=== PATIENT | male | born 1935 | race Caucasian/White ===

== ENCOUNTER 2018-10-22 17:29 | Inpatient (IN) ==
[2018-10-22] MEDS ORDERED: SODIUM CHLORIDE 0.9% 500 ML IV SCH (18:00)
--- NOTE | 2018-10-22 18:15 | XRay Report ---
XR chest 1V portable HISTORY: weakness COMPARISON: None. FINDINGS: The lungs are clear. Cardiac silhouette is mildly. No pleural effusions. No pneumothorax. IMPRESSION: Mild cardiomegaly. Electronically signed by: Justo Lan M.D. 10/22/2018 6:13 PM
[2018-10-22] MEDS ORDERED: LABETALOL HCL IV 5 MG/ML 20ML IV STA ×2 (18:23→19:18)
[2018-10-22 18:45] LABS: Basophils # (auto) 0.05 K/uL (0-0.2); Basophils % (auto) 0.5 %; Hematocrit (blood only) 36.6 % (42-52); Hemoglobin 12.7 g/dL (14.0-18.0); Immature Granulocytes # (auto) 0.03 K/uL (0.00-0.02); Immature Granulocytes % (auto) 0.3 %; Lymphocytes # (auto) 2.55 K/uL (1.2-3.4); Lymphocytes % (auto) 25.3 %; Mean Corpuscular Hgb Conc 34.7 g/dL (32-36); Mean Corpuscular Volume 97.9 fL (80-100); Mean Platelet Volume 10.2 fL (7.4-10.4); Monocytes # (auto) 0.75 K/uL (0.11-0.59); Monocytes % (auto) 7.4 %; Neutrophils % (auto) 62.5 %; Platelet Count 219 K/uL (130-400); RDW Coefficient of Variation 14.2 % (11.5-14.5); RDW Standard Deviation 50.5 fL (36.4-46.3); Red Blood Count 3.74 M/uL (4.7-6.1); White Blood Count 10.08 K/uL (4.8-10.8)
[2018-10-22 19:06] LABS: Alanine Aminotransferase 23 U/L (12-78); Albumin Level 3.5 gm/dl (3.4-5.0); Aspartate Aminotransferase 21 U/L (15-37); Blood Urea Nitrogen 30 mg/dl (7-18); Calcium 8.3 mg/dl (8.5-10.1); Carbon Dioxide 30 mmol/L (21-32); Chloride 104 mmol/L (98-107); Creatinine Clr Calc Pharmacy 33.1 ml/min; Est GFR (African American) 37.7; Est GFR (Non-African American) 32.5; Glucose 94 mg/dl (70-99); Potassium 3.7 mmol/L (3.5-5.1); Sodium 141 mmol/L (136-145)
[2018-10-22 19:16] LABS: Albumin Globulin Ratio 0.9 (0.9-2); Alkaline Phosphatase 94 U/L (45-117); Bilirubin,Total 0.7 mg/dl (0.2-1); Globulin 3.8 gm/dl (2.5-4.0); Total Protein 7.3 gm/dl (6.4-8.2); Troponin I < 0.015 ng/ml (0-0.045)
[2018-10-22 19:23] LABS: Appearance Urine Clear (Clear); Bacteria Urine Automated 1+ (Negative); Bilirubin Urine Negative (Negative); Blood Urine Negative (Negative); Cast Urine Automated 0 /lpf (0-5); Color Urine Yellow; Epithelial Cell Urine Auto 0-5 /lpf (0-5); Glucose Urine UA Negative (Negative); Ketones Urine Negative (Negative); Leukocyte Esterase Urine Negative (Negative); Nitrite Urine Negative (Negative); Protein Urine 2+ (Negative); RBC Urine Automated 0-4 /hpf (0-4); Specific Gravity Urine 1.016 (1.000-1.030); Urobilinogen Urine Negative (Negative)
[2018-10-22] MEDS ORDERED: HydrALAZINE HCL 20 MG/ML VIAL IV STA (19:37)
--- NOTE | 2018-10-22 21:24 | Emergency Department Note ---
Entered by Whitney Potts acting as a scribe for Moreno Gaxiola MD History of Present Illness General Chief complaint: Syncope (Near Syncope) Stated complaint: NEAR SYNCOPE, FALL, HTN Time Seen by Provider: 10/22/18 17:44 Source: patient History of Present Illness Provider complaint: syncope Onset (ago): hour(s) (this afternoon) Location: head Severity: similar to prior episodes Pain Consistency: + other (episodes) Associated symptoms: + other (+dizziness, +leg pain); no headaches The patient is a 83 year old male w/ PMHx of dementia who presents to the ED w/ CC of a syncope episode that occurred this afternoon. The patient states that he has been having frequent syncope episodes for the past several weeks. He states that his most recent one was this afternoon. The patient states that he was walking with his walker when it occurred. The patient states that he has been dizzy when he stands up. He denies any headache. He reports govind t he has pain in his legs bilaterally. He denies any recent changes in medication. Home Medications Home Medications Medication Instructions Recorded Confirmed Type allopurinol 100 mg PO DAILY 04/19/18 10/22/18 History aspirin [Aspir-81] 81 mg PO DAILY 04/19/18 10/22/18 History cetirizine 10 mg PO DAILY 04/19/18 10/22/18 History guaifenesin [Mucinex] 600 mg PO Q3D 04/19/18 10/22/18 History losartan 25 mg PO DAILY 04/19/18 10/22/18 History oxycodone-acetaminophen 1 tab PO BID PRN 04/19/18 10/22/18 History propranolol 120 mg PO DAILY 04/19/18 10/22/18 History fluocinonide 1 applic TOPICAL DAILY PRN 10/22/18 10/22/18 History vit C,Q-Rl-sanns-lutein-zeaxan 1 tab PO DAILY 10/22/18 10/22/18 History [PreserVision AREDS-2] Allergies Allergy/AdvReac Type Severity Reaction Status Date / Time No Known Allergies Allergy Unknown Verified 10/22/18 18:24 Past Med/Surg History Medical History Dementia (Chronic) HTN (hypertension) Family History Other Family history non-contributory Social History marital status: Current Living Situation: Spouse current occupational status: retired Feels Safe at Home: Yes Smoking Status: Never smoker Review of Systems See HPI for pertinent positives & negatives. and A total of 10 systems reviewed and were otherwise negative Physical Exam Vital Signs Vital Signs - 24 hr 10/22/18 17:30 10/22/18 18:03 10/22/18 18:40 Temperature 36.5 C Temperature Source Oral Sepsis Recent Fever Within 48 Hours No Sepsis New/Unexplained Change in Mental Status No Sepsis Action Taken by Nursing No Action Required Pulse Rate 75 Pulse Rate [Left Finger] 75 Pulse Rate from SpO2 Sensor Respiratory Rate 15 22 Respiratory Effort / Characteristics Non-Labored Non-Labored Respiratory Depth Normal Normal Respiratory Pattern Regular Regular Blood Pressure 240/121 H Blood Pressure [Left Arm] 229/105 H Blood Pressure Mean 160 Blood Pressure Mean [Left Arm] 146 Pulse Oximetry 94 95 94 Oxygen Delivery Method Room Air Room Air Room Air 10/22/18 18:59 10/22/18 19:16 10/22/18 19:31 Temperature Temperature Source Sepsis Recent Fever Within 48 Hours Sepsis New/Unexplained Change in Mental Status Sepsis Action Taken by Nursing Pulse Rate 75 71 74 Pulse Rate [Left Finger] Pulse Rate from SpO2 Sensor 75 71 74 Respiratory Rate 22 23 20 Respiratory Effort / Characteristics Respiratory Depth Respiratory Pattern Blood Pressure 212/107 H 233/100 H 204/101 H Blood Pressure [Left Arm] Blood Pressure Mean 142 144 135 Blood Pressure Mean [Left Arm] Pulse Oximetry 95 93 93 Oxygen Delivery Method Room Air 10/22/18 19:45 10/22/18 19:52 10/22/18 20:04 Temperature Temperature Source Sepsis Recent Fever Within 48 Hours Sepsis New/Unexplained Change in Mental Status Sepsis Action Taken by Nursing Pulse Rate 80 73 74 Pulse Rate [Left Finger] Pulse Rate from SpO2 Sensor 79 73 75 Respiratory Rate 25 H 19 24 Respiratory Effort / Characteristics Respiratory Depth Respiratory Pattern Blood Pressure 215/179 H 234/112 H 198/114 H Blood Pressure [Left Arm] Blood Pressure Mean 191 152 142 Blood Pressure Mean [Left Arm] Pulse Oximetry 93 95 96 Oxygen Delivery Method 10/22/18 20:05 10/22/18 20:15 10/22/18 20:20 Temperature Temperature Source Sepsis Recent Fever Within 48 Hours Sepsis New/Unexplained Change in Mental Status Sepsis Action Taken by Nursing Pulse Rate 74 73 75 Pulse Rate [Left Finger] Pulse Rate from SpO2 Sensor 73 73 74 Respiratory Rate 23 18 18 Respiratory Effort / Characteristics Respiratory Depth Respiratory Pattern Blood Pressure 224/102 H 230/99 H 188/93 H Blood Pressure [Left Arm] Blood Pressure Mean 142 142 124 Blood Pressure Mean [Left Arm] Pulse Oximetry 96 97 96 Oxygen Delivery Method 10/22/18 20:30 10/22/18 20:45 10/22/18 21:00 Temperature Temperature Source Sepsis Recent Fever Within 48 Hours Sepsis New/Unexplained Change in Mental Status Sepsis Action Taken by Nursing Pulse Rate 73 72 71 Pulse Rate [Left Finger] Pulse Rate from SpO2 Sensor 73 72 71 Respiratory Rate 22 22 22 Respiratory Effort / Characteristics Respiratory Depth Respiratory Pattern Blood Pressure 222/102 H 207/99 H 195/96 H Blood Pressure [Left Arm] Blood Pressure Mean 142 135 129 Blood Pressure Mean [Left Arm] Pulse Oximetry 96 96 97 Oxygen Delivery Method Room Air GENERAL: Well appearing, well nourished, NAD, non-toxic. EYE EXAM: Normal conjunctiva. PERRL, no anisocoria and EOM's grossly intact w/o pain. OROPHARYNX: Moist mucous membranes. Grossly normal dentition. NECK: Supple, no nuchal rigidity, no adenopathy, non-tender. No signs of meningismus. LUNGS: Clear to auscultation. Normal chest wall mechanics. HEART: NSR, systolic ejection murmur. ABDOMEN: Abdomen soft, non-tender, normo-active bowel sounds, no masses, no rebound or guarding. BACK: No CVA TTP. SKIN: No rashes and no bruising. UPPER EXTREMITIES: Upper extremities are grossly normal. LOWER EXTREMITIES: No pitting edema. No calf pain. NEURO EXAM: A&O x3, cranial nerves II-XII grossly intact, normal speech, 4/5 strength throughout, no sensory deficits, good finger to nose, no pronator drift, moves all 4 extremities on command w/o issue. Course 1751: The patient was evaluated in room C4, and a complete history and physical examination were performed. 1900: I talked to the patient's family and they stated that the patient has had no episodes of passing out. 2047: I discussed the patient's case with [facility], he will accept the patient for further evaluation. Consultations Consultation #1: Dr. Crystal Olivares Hospitalist Time: 20:48 Administered Medications Discontinued Medications Hydralazine HCl (Hydralazine Hcl) 10 mg IV NOW STA Stop: 10/22/18 19:38 Last Admin: 10/22/18 19:52 Dose: 10 mg Documented by: [id number] Sodium Chloride (Nss) 500 mls @ 999 mls/hr IV .Q31M YURIDIA Stop: 10/22/18 18:30 Last Infusion: 10/22/18 19:15 Dose: 0 mls/hr Documented by: [id number] Admin: 10/22/18 18:39 Dose: 999 mls/hr Documented by: [id number] Labetalol HCl (Normodyne) 10 mg IV NOW STA Stop: 10/22/18 18:24 Last Admin: 10/22/18 18:57 Dose: 10 mg Documented by: [id number] Cosigned by: [id number] Labetalol HCl (Normodyne) 10 mg IV NOW STA Stop: 10/22/18 19:19 Last Admin: 10/22/18 19:20 Dose: 10 mg Documented by: [id number] Cosigned by: [id number] Medical Decision Making Medical Records Attestation: I reviewed the patient's medical records. Home Medications Current Medication List: was personally reviewed by me Laboratory Data Attestation: I reviewed the patient's lab results. Result diagrams: 10/22/18 17:12 10/22/18 17:12 Lab Results 10/22/18 10/22/18 10/22/18 Range/Units 17:12 17:12 18:20 WBC 10.08 (4.8-10.8) K/uL RBC 3.74 L (4.7-6.1) M/uL Hgb 12.7 L (14.0-18.0) g/dL Hct 36.6 L (42-52) % MCV 97.9 (80-100) fL MCH 34.0 (25-34) pg MCHC 34.7 (32-36) g/dL RDW Std Deviation 50.5 H (36.4-46.3) fL RDW Coeff of Angelika 14.2 (11.5-14.5) % Plt Count 219 (130-400) K/uL MPV 10.2 (7.4-10.4) fL Immature Gran % (Auto) 0.3 % Neut % (Auto) 62.5 % Lymph % (Auto) 25.3 % Crenshaw % (Auto) 7.4 % Eos % (Auto) 4.0 % Baso % (Auto) 0.5 % Immature Gran # (Auto) 0.03 H (0.00-0.02) K/uL Neut # (Auto) 6.30 (1.4-6.5) K/uL Lymph # (Auto) 2.55 (1.2-3.4) K/uL Crenshaw # (Auto) 0.75 H (0.11-0.59) K/uL Eos # (Auto) 0.40 (0-0.5) K/uL Baso # (Auto) 0.05 (0-0.2) K/uL Sodium 141 (136-145) mmol/L Potassium 3.7 (3.5-5.1) mmol/L Chloride 104 (98-107) mmol/L Carbon Dioxide 30 (21-32) mmol/L Anion Gap 7.0 (3-11) BUN 30 H (7-18) mg/dl Creatinine 1.87 H (0.6-1.4) mg/dl Est Cr Clr Drug Dosing 33.1 ml/min Est GFR ( Amer) 37.7 Est GFR (Non-Af Amer) 32.5 BUN/Creatinine Ratio 16.0 (10-20) Glucose 94 (70-99) mg/dl Calcium 8.3 L (8.5-10.1) mg/dl Total Bilirubin 0.7 (0.2-1) mg/dl AST 21 (15-37) U/L ALT 23 (12-78) U/L Alkaline Phosphatase 94 (45-117) U/L Troponin I < 0.015 (0-0.045) ng/ml Total Protein 7.3 (6.4-8.2) gm/dl Albumin 3.5 (3.4-5.0) gm/dl Globulin 3.8 (2.5-4.0) gm/dl Albumin/Globulin Ratio 0.9 (0.9-2) TSH 3.620 (0.300-4.500) uIu/ml Urine Color Yellow Urine Appearance Clear (Clear) Urine pH 7.0 (4.5-7.5) Ur Specific [place] 1.016 (1.000-1.030) Urine Protein 2+ H (Negative) Urine Glucose (UA) Negative (Negative) Urine Ketones Negative (Negative) Urine Blood Negative (Negative) Urine Nitrite Negative (Negative) Urine Bilirubin Negative (Negative) Urine Urobilinogen Negative (Negative) Ur Leukocyte Esterase Negative (Negative) Urine WBC (Auto) 1-5 (0-5) /hpf Urine RBC (Auto) 0-4 (0-4) /hpf U Hyaline Cast (Auto) 0 (0-5) /lpf U Epithel Cells (Auto) 0-5 (0-5) /lpf Urine Bacteria (Auto) 1+ H (Negative) Imaging Data Radiologist's Impression: Radiology results as stated below per my review and the radiologist's interpretation: XR chest 1V portable HISTORY: weakness COMPARISON: None. FINDINGS: The lungs are clear. Cardiac silhouette is mildly. No pleural effusions. No pneumothorax. IMPRESSION: Mild cardiomegaly. Electronically signed by: Justo Lan M.D. 10/22/2018 6:13 PM ECG Data Attestation: I personally reviewed and interpreted this ECG as follows: Indication: syncope Rate (beats per minute): 77 Rhythm: sinus rhythm Findings: + 1st degree AV block and + left axis deviation Blood Pressure Blood Pressure Findings: Elevated blood pressure Blood Pressure Disposition: further management by hospitalist [facility] Narrative The patient is a 83 year old male w/ PMHx of dementia who presents to the ED w/ CC of a syncope episode that occurred this afternoon. Differential diagnosis: Etiologies such as vasovagal event, infection, hypoglycemia, electrolyte abnormalities, cardiac sources, intracerebral event, toxicologic, neurologic, as well as others were entertained. Patient was seen and evaluated the bedside. The patient did present with concern for syncope. When the patient's family did arrive they did relate that the patient has not had syncope which is more some lower extremity weakness. The patient does not have any leg length discrepancy and no recent trauma. The patient does not have any overt pain or bruising noted. The patient's legs are symmetric length. Patient does have symmetric lower extremity strength. Patient did have blood work completed. The patient was notably hypertensive with an SBP greater than 240. He was ordered IV labetalol and a subsequent dose. Blood pressure still elevated so he was given an IV dose of hydralazine. Patient does have some CKD which may also be contributory. They deny any recent changes in diet or increase in salt. Given the patient's very elevated blood pressure though would benefit from blood pressure management. Patient was admitted to the medicine service. Impression & Plan Hypertensive urgency, Weakness, Near syncope, CKD (chronic kidney disease) stage 4, GFR 15-29 ml/min Critical Care Time Critical Care Time: Yes Total Critical Care Time: 45 I have personally spent 45 minutes of critical care time in the direct management of this patient. This includes bedside care, interpretation of diagnostic studies, and testing, discussion with consultants, patient, and family members, and other required patient management activities. This 45 minutes is in excess of all separately billable procedures. Discharge Plan Visit Data Chief Complaint: Syncope (Near Syncope) Stated Complaint: NEAR SYNCOPE, FALL, HTN ED Provider: Moreno Gaxiola Discharge Problem: Hypertensive urgency, Weakness, Near syncope, CKD (chronic kidney disease) stage 4, GFR 15-29 ml/min Patient Disposition: Being Evaluated by Hospitalist Forms Stand Alone Forms: My [facility] Prescriptions Prescriptions: No Action PreserVision AREDS-2 [id number] Capsule 1 tab PO DAILY RF: 0 fluocinonide 0.05 % cream 1 applic topical DAILY PRN (Reason: Rash) RF: 0 propranolol 60 mg tablet 120 mg PO DAILY RF: 0 allopurinol 100 mg tablet 100 mg PO DAILY RF: 0 aspirin [Aspir-81] 81 mg Tablet,Delayed Release (Dr/Ec) 81 mg PO DAILY RF: 0 cetirizine 10 mg tablet 10 mg PO DAILY RF: 0 oxycodone-acetaminophen 5-325 mg tablet 1 tab PO BID PRN (Reason: Pain) RF: 0 losartan 25 mg tablet 25 mg PO DAILY RF: 0 guaifenesin [Mucinex] 600 mg Tablet Extended Release 12hr 600 mg PO Q3D RF: 0 Referrals Referrals: Savi Johnston MD [Primary Care Provider] - The scribe's documentation has been prepared under my direction and personally reviewed by me in its entirety. I confirm that the note above accurately reflects all work, treatment, procedures, and medical decision making performed by me.
[2018-10-22] MEDS ORDERED: HydrALAZINE HCL 20 MG/ML VIAL IV ONE (22:00)
[2018-10-22] MEDS ORDERED: NITROGLYCERIN SL 0.4 MG/TAB TAB SL PRN (23:51)
[2018-10-22] MEDS ORDERED: OXYCODONE/ACETAMINOPHEN 5mg/325mg TAB PO PRN (23:51)
[2018-10-22] MEDS ORDERED: POLYETHYLENE (MIRALAX) 17 GM PACK PO PRN (23:51)
[2018-10-22] MEDS ORDERED: ACETAMINOPHEN 325 MG TAB PO PRN (23:51)
[2018-10-22] MEDS ORDERED: FLUOCINONIDE 0.05% CR 15 GM TUBE EXT PRN (23:51)
[2018-10-22] MEDS ORDERED: ONDANSETRON INJ 2 MG/ML 2 ML VIAL IV PRN (23:51)
[2018-10-22] MEDS ORDERED: LABETALOL HCL IV 5 MG/ML 20ML IV ONE (23:59)
--- NOTE | 2018-10-23 00:12 | History and Physical Report ---
DATE OF ADMISSION: 10/22/2018 CHIEF COMPLAINT: Frequent falls. 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 The patient lives with his and daughter. He is falling frequently lately and yesterday fell in his porch. Today he was coming from his bathroom when he was shaky and almost about to fall when his told him to sit down and called his neighbor and then was brought to the hospital. In the hospital, systolic blood pressure was high at one time in the 240s. The patient has some headache. Denies any blurred visions. Is somewhat hard to hear. No earaches, no sore throat. He is eating okay. Sometimes he has had chicken and meat stuck in throat, but he drinks water to swallow it and denies any chest pain, no shortness of breath. Has cough, bringing up some phlegm. No fever, no chills, no nausea, no abdominal pain. He says in the night time, he has frequent urination. No blood in the stools. No swelling in the legs. Currently resting comfortably. I also talked to the . She was worried about his kidney disease and she says generally whenever he is in the PCP's office, his blood pressure runs okay and when they tried to draw the blood work in the ER, she says the blood pressure went up high and she thinks the patient may get benefit from going to rehabilitation. ALLERGIES: No known drug allergies. PAST MEDICAL HISTORY: As mentioned above. PAST SURGICAL HISTORY: Cataract surgery, kidney stone removal. MEDICATIONS: The patient is on cetirizine 10 mg p.o. daily, Percocet 5/325 mg 1 tablet b.i.d. p.r.n., Cozaar 25 mg p.o. daily, Senokot 1 tablet daily, fluocinonide 0.05% cream apply topical to affected area b.i.d., aspirin 81 mg p.o. daily, Mucinex 600 mg p.o. b.i.d. p.r.n., propranolol ER 120 mg p.o. daily, allopurinol 100 mg p.o. daily. FAMILY HISTORY: Significant for brother has Alzheimer disease, heart disorder. Father had heart disorder. Mother has heart disorder, hypertension. Daughter has solitary kidney. SOCIAL HISTORY: Lives with his and daughter. Former smoker, quit in 1990. Smoked quarter pack a day for 36 years. No alcohol use, no drug use. REVIEW OF SYMPTOMS: As per HPI. Rest of the review of systems negative. PHYSICAL EXAMINATION: GENERAL: The patient is old and frail, not in acute distress. VITAL SIGNS: Temperature 36.5, pulse 72, respiratory rate 22, blood pressure 205/106 currently, oxygen 95% on room air. HEENT: No pallor, no icterus. Pupils equal, round, and reactive to light. NECK: No JVD, no neck masses, no carotid bruit. CARDIOVASCULAR: S1, S2 heard, regular rate and rhythm, no murmur, no gallop. RESPIRATORY SYSTEM: Normal AP diameter. No accessory muscle use. No wheezing, no crackles. ABDOMEN: Soft, bowel sounds present, nontender. No distention. CENTRAL NERVOUS SYSTEM: Alert and oriented x2, not oriented to time. Strength is 4/5 in all extremities. Moves extremities. EXTREMITIES: No edema, no erythema. LABORATORY DATA: WBC 10, hemoglobin 12.7, hematocrit 36.6, platelets 219. Sodium 141, potassium 3.7, chloride 104, bicarbonate 30, BUN 30, creatinine 1.8, serum glucose 94, calcium 8.3, total bilirubin 0.7, AST 21, ALT 25, alkaline phosphatase 94. Troponin I less than 0.015. TSH 3.6. Urinalysis negative. IMAGING DATA: Chest x-ray, mild cardiomegaly, no acute findings seen. EKG: Poor quality data. Sinus rhythm with first degree AV block at a rate of 77 with incomplete bundle branch block seen. Moderate LVH, no acute ST changes seen. ASSESSMENT AND PLAN: This is an 83-year-old male who presents with frequent falls and was found to be in hypertensive urgency. 1. Hypertensive urgency. The patient is on losartan and propranolol ER at home. Blood pressures in the family doctor's office was okay as per , but his blood pressure is running high here SBP 240. Got a couple of doses of labetalol and hydralazine. We will give a dose of hydralazine and place him on IV labetalol p.r.n. If he is still running high, may need to add amlodipine and closely monitor in tele floor. 2. Frequent falls.Uncontrolled BP possibly contributing. He also has tremors. Has vascular dementia and also lower extremity weakness probably from neuropathy due to exposure to Agent Shafter. Placed on PT and OT, may need placement.Will check vitamin b12. 3. History of abdominal aortic aneurysm, 3.7 cm on the ultrasound done in 2016. Needs followup. 4. History of impaired fasting glucose. We will check the HbA1c levels. 5. History of gout, on allopurinol. 6. History of essential tremor, on propranolol. 7. Constipation, on stool softeners. 8. Vascular dementia. We will monitor for any delirium while in the hospital. 9. Chronic kidney disease stage III. Baseline creatinine around 1.5-1.8, current creatinine 1.8. We will follow the labs. 10. Dysphagia? sometimes meat get stuck in throat. speech evaluation. 11,Nocturnal frequent urination. See by urology in the 2016. Was recommended not to drink water 3hrs prior to sleep. At that no BPH meds were recommended. 12. Deep venous thrombosis prophylaxis, sequential compression devices for 13. Disposition: Admit to tele floor. Physical therapy and occupational therapy prior to discharge. Social service to help with discharge planning. Level 1 full code as per my discussion with his . FELIPE
[2018-10-23] MEDS: LABETALOL HCL IV 5 MG/ML 20ML IV PRN ×4 (00:35→21:28)
[2018-10-23] MEDS ORDERED: NITROGLYCERIN 2% OINTMENT 30GM TUBE ONE (02:39)
[2018-10-23] MEDS: NITROGLYCERIN 2% OINTMENT 30GM TUBE EXT SCH ×4 (02:51→21:20)
[2018-10-23 05:53] LABS: Basophils # (auto) 0.04 K/uL (0-0.2); Basophils % (auto) 0.4 %; Eosinophils # (auto) 0.21 K/uL (0-0.5); Hematocrit (blood only) 36.1 % (42-52); Hemoglobin 12.8 g/dL (14.0-18.0); Immature Granulocytes # (auto) 0.02 K/uL (0.00-0.02); Immature Granulocytes % (auto) 0.2 %; Lymphocytes % (auto) 21.4 %; Mean Corpuscular Hemoglobin 34.3 pg (25-34); Mean Corpuscular Hgb Conc 35.5 g/dL (32-36); Mean Corpuscular Volume 96.8 fL (80-100); Mean Platelet Volume 9.8 fL (7.4-10.4); Monocytes # (auto) 0.74 K/uL (0.11-0.59); Monocytes % (auto) 6.9 %; Neutrophils # (auto) 7.43 K/uL (1.4-6.5); Neutrophils % (auto) 69.1 %; Platelet Count 212 K/uL (130-400); RDW Standard Deviation 49.2 fL (36.4-46.3); Red Blood Count 3.73 M/uL (4.7-6.1); White Blood Count 10.74 K/uL (4.8-10.8)
[2018-10-23 06:00] LABS: INR 1.1 (0.9-1.1); Prothrombin Time 10.9 Seconds (9.0-12.0)
[2018-10-23 06:23] LABS: BUN Creatinine Ratio 17.2 (10-20); Calcium 8.1 mg/dl (8.5-10.1); Creatinine Clr Calc Pharmacy 40.5 ml/min; Est GFR (Non-African American) 41.4; Magnesium 2.3 mg/dl (1.8-2.4); Potassium 3.2 mmol/L (3.5-5.1)
[2018-10-23] MEDS ORDERED: HydrALAZINE HCL 20 MG/ML VIAL IV ONE (07:03)
--- NOTE | 2018-10-23 07:11 | CT Scan Report ---
HEAD CT NONCONTRAST CT DOSE: 537.48 mGy.cm HISTORY: Stroke symptoms. TECHNIQUE: Multiaxial CT images of the head were performed without the use of intravenous contrast. A utomated exposure control was utilized for this study. A dose lowering technique was utilized adheri ng to the principles of ALARA. Comparison: Head CT 04/19/2018. Findings: The paranasal sinuses and mastoid air cells are clear. The calvarium and skull base are int act. There is no mass, hematoma, midline shift, acute infarct. White matter hypodensity is nonspecifi c but suggestive of microvascular ischemic change. The ventricles and sulci demonstrate mild age-rela saira involutional changes. 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 Impression: No significant change compared to the prior study. No acute intracranial abnormality. Electronically signed by: Justo Lan M.D. 10/23/2018 7:10 AM
[2018-10-23] MEDS: guaiFENesin 600 MG TABCR PO SCH (08:17)
[2018-10-23] MEDS: ASPIRIN 81 MG ECTAB PO SCH (08:17)
[2018-10-23] MEDS: CEROVITE ADV FORMULA TAB PO SCH (08:17)
[2018-10-23] MEDS: PROPRANOLOL HCL 60 MG LA CAP PO SCH (08:17)
[2018-10-23] MEDS: ALLOPURINOL 100 MG TAB PO SCH (08:17)
[2018-10-23] MEDS: CETIRIZINE HCL 10 MG TABLET PO SCH (08:17)
[2018-10-23] MEDS: HEPARIN SOD 5,000 UNIT/0.5 ML VIAL SQ SCH ×2 (08:17→21:30)
[2018-10-23] MEDS ORDERED: POTASSIUM CHLORIDE 10 MEQ TABCR PO STA (08:44)
[2018-10-23] MEDS ORDERED: LOSARTAN POTASSIUM 25 MG TAB PO SCH (09:00)
[2018-10-23] MEDS ORDERED: AMLODIPINE BESYLATE 5 MG TAB PO SCH (09:00)
[2018-10-23] MEDS: LOSARTAN POTASSIUM 25 MG TAB PO SCH (10:34)
--- NOTE | 2018-10-23 16:40 | Hospitalist Progress Note ---
Date of Service October 23, 2018 Assessment & Plan (1) Hypertensive urgency: Present on admission with weakness and frequent falls BP on admission was 240/121 Received IV labetatol and IV hydralazine in the ER BP currently 181/86 today Starting on Amlodipine 5mg daily Losartan increased to 50mg daily and continue propranolol 120mg daily Continue Labetalol 10mg IV prn Continue monitor BP Generalized weakness Recurrent Fall Ambulatory dysfunction CT head showed no acute intracranial abnormality. Continue PT/OT PT /OT recommended in patient rehab Fall precaution History of gout Continue allopurinol. History of essential tremor Continue propranolol. Vascular dementia. Stable Chronic kidney disease stage III. Baseline creatinine around 1.5-1.8, Creatinine 1.5 today Monitor BMP DVT px on heparin subq CODE STATUS FULL CODE Disposition: Consider inpatient rehab Subjective Pt was seen and examined Lying in bed with no distress Pt said that he feels ok He said that he does not want to go to rehab Denies any chest pain, palpitation, dizziness and SOB Physical Exam Physical Exam: General- No acute distress Head- atraumatic Eyes- PERRL, EOMI, ENT- oropharynx clear Neck- supple, no JVD Lungs- clear to auscultation Heart- regular rhythm; no murmur Abdomen- normal bowel sounds, soft, nontender Extremities- no calf tenderness Neuro- alert, oriented x 3; PERRL, EOMI; no facial palsy; no dysarthria Skin- warm & dry Results & Data Vital Signs (Past 12 Hours) Vital Signs Temp Pulse Pulse Resp BP Pulse Ox 10/23/18 16:34 75 10/23/18 15:38 36.6 C 77 18 181/86 H 92 10/23/18 13:04 176/98 H 10/23/18 11:22 36.3 C L 75 19 207/103 H 91 10/23/18 09:00 70 10/23/18 08:14 203/99 H 10/23/18 07:53 36.5 C 72 19 213/109 H 96 10/23/18 04:49 36.6 C 67 18 220/94 H 95
[2018-10-23] MEDS: AMOXICILLIN/CLAVULANATE 500 MG TAB PO SCH (18:30)
[2018-10-23] MEDS ORDERED: AMLODIPINE BESYLATE 5 MG TAB PO ONE (23:36)
[2018-10-24] MEDS ORDERED: OLANZapine 10 MG/2.1 ML SDV IM STA (00:28)
[2018-10-24] MEDS ORDERED: LABETALOL HCL IV 5 MG/ML 20ML IV STA (00:30)
[2018-10-24] MEDS: NITROGLYCERIN 2% OINTMENT 30GM TUBE EXT SCH ×4 (03:12→21:11)
[2018-10-24 04:50] LABS: Appearance Urine Clear (Clear); Bacteria Urine Automated Negative (Negative); Bilirubin Urine Negative (Negative); Blood Urine 3+ (Negative); Color Urine Orange; Epithelial Cell Urine Auto 20-30 /lpf (0-5); Glucose Urine UA Trace (Negative); Ketones Urine Negative (Negative); Leukocyte Esterase Urine Trace (Negative); Nitrite Urine Negative (Negative); Protein Urine 2+ (Negative); Specific Gravity Urine 1.014 (1.000-1.030); Urobilinogen Urine Negative (Negative); pH Urine 6.5 (4.5-7.5)
[2018-10-24 05:47] LABS: RBC Urine Automated >30 /hpf (0-4)
[2018-10-24] MEDS: LABETALOL HCL IV 5 MG/ML 20ML IV PRN ×2 (05:57→19:28)
[2018-10-24] MEDS: AMOXICILLIN/CLAVULANATE 500 MG TAB PO SCH ×2 (08:25→15:53)
[2018-10-24] MEDS: ALLOPURINOL 100 MG TAB PO SCH (08:25)
[2018-10-24] MEDS: PROPRANOLOL HCL 60 MG LA CAP PO SCH ×2 (08:26→08:58)
[2018-10-24] MEDS: LOSARTAN POTASSIUM 25 MG TAB PO SCH ×2 (08:26→08:58)
[2018-10-24] MEDS: AMLODIPINE BESYLATE 5 MG TAB PO SCH (08:27)
[2018-10-24] MEDS: CETIRIZINE HCL 10 MG TABLET PO SCH ×2 (08:27→08:58)
[2018-10-24] MEDS: CEROVITE ADV FORMULA TAB PO SCH ×2 (08:28→08:58)
[2018-10-24] MEDS: HEPARIN SOD 5,000 UNIT/0.5 ML VIAL SQ SCH ×2 (08:29→20:57)
[2018-10-24 08:50] LABS: BUN Creatinine Ratio 13.7 (10-20); Calcium 8.6 mg/dl (8.5-10.1); Creatinine Clr Calc Pharmacy 35.3 ml/min; Est GFR (African American) 41.7; Potassium 3.4 mmol/L (3.5-5.1)
[2018-10-24] MEDS: ASPIRIN 81 MG ECTAB PO SCH (08:58)
[2018-10-24] MEDS: OLANZapine 10 MG/2.1 ML SDV IM PRN (12:02)
--- NOTE | 2018-10-24 18:32 | Hospitalist Progress Note ---
Date of Service October 24, 2018 Assessment & Plan (1) Hypertensive urgency: Present on admission with weakness and frequent falls BP on admission was 240/121 Received IV labetatol and IV hydralazine in the ER BP uncontrolled On Amlodipine 5mg daily Losartan increased to 50mg daily and continue propranolol 120mg daily Hydralazine 25 mg TID adding Will consider to increase amlodipine to 10mg Continue Labetalol 10mg IV prn Continue monitor BP Generalized weakness Recurrent Fall Ambulatory dysfunction CT head showed no acute intracranial abnormality. Continue PT/OT PT /OT recommended in patient rehab Fall precaution History of gout Continue allopurinol. History of essential tremor Continue propranolol. Vascular dementia. Stable Chronic kidney disease stage III. Baseline creatinine around 1.5-1.8, Creatinine 1.7 today Monitor BMP UTI Urine cx positive for enterococcus faecalis Continue augmentin Hypokalemia K 3.4 K replaced Monitor BMP DVT px on heparin subq CODE STATUS FULL CODE Disposition: Consider inpatient rehab Subjective Pt was seen and examined Confused with sitter present denies any pain Physical Exam Physical Exam: General- No acute distress Head- atraumatic Eyes- PERRL, EOMI, ENT- oropharynx clear Neck- supple, no JVD Lungs- clear to auscultation Heart- regular rhythm; no murmur Abdomen- normal bowel sounds, soft, nontender Extremities- no calf tenderness Neuro- confused, move all extremities Skin- warm & dry Results & Data Vital Signs (Past 12 Hours) Vital Signs Temp Pulse Pulse Resp BP BP Pulse Ox 10/24/18 15:40 86 10/24/18 15:26 36.4 C L 82 19 187/94 H 91 10/24/18 10:42 36.8 C 76 22 174/89 H 96 10/24/18 09:00 72 10/24/18 06:57 36.6 C 69 20 192/95 H 94
[2018-10-24] MEDS ORDERED: POTASSIUM CHLORIDE 20 MEQ TABCR PO STA (18:36)
[2018-10-25] MEDS: OLANZapine 10 MG/2.1 ML SDV IM PRN ×2 (01:27→22:30)
[2018-10-25] MEDS: NITROGLYCERIN 2% OINTMENT 30GM TUBE EXT SCH ×4 (02:59→21:25)
[2018-10-25] MEDS: LABETALOL HCL IV 5 MG/ML 20ML IV PRN ×2 (03:36→11:13)
[2018-10-25] MEDS: AMLODIPINE BESYLATE 5 MG TAB PO SCH (08:36)
[2018-10-25] MEDS: ALLOPURINOL 100 MG TAB PO SCH (08:36)
[2018-10-25] MEDS: CETIRIZINE HCL 10 MG TABLET PO SCH (08:38)
[2018-10-25] MEDS: LOSARTAN POTASSIUM 25 MG TAB PO SCH (08:38)
[2018-10-25] MEDS: HydrALAZINE TAB 50 MG TAB PO SCH ×4 (08:38→21:17)
[2018-10-25] MEDS: ASPIRIN 81 MG ECTAB PO SCH (08:38)
[2018-10-25] MEDS: PROPRANOLOL HCL 60 MG LA CAP PO SCH (08:38)
[2018-10-25] MEDS: CEROVITE ADV FORMULA TAB PO SCH (08:39)
[2018-10-25] MEDS: AMOXICILLIN/CLAVULANATE 500 MG TAB PO SCH ×2 (08:39→17:05)
[2018-10-25] MEDS: HEPARIN SOD 5,000 UNIT/0.5 ML VIAL SQ SCH ×2 (08:41→21:04)
--- NOTE | 2018-10-25 11:27 | Nephrology Consultation ---
Date of Consultation October 25, 2018 Assessment & Plan (1) Hypertensive urgency: previously well controlled bp. chronic ambulatory dysfunction/balance issues/ frequent falls. on propranolol for tremor no evidence to date of end organ damage takes low dose ARB only as OP; propranolol not teressa strong bp med. -assuming remains as HTN urgency, goal sbp is 150-160s over next 24hr ->monitor closely for HTN emergency such as HTN encephalopathy (no evidence he had this today) -repeat bmp stat -will stop losartan -continue hydralazine current dose -lower amlodipine to 5 mg daily -will give enaliprilat 0.625 mg IV over 5 min now and q6h, hold for SBP <150 -give metoprolol 2.5 mg IV q6h w/ hold parameters (for SBP <150, HR <60) -cont prn labetalol 10 mg q4h prn SBP > 170 -would reimage AAA as inpt to help get a sense of urgency of correcting SBP and appropriate SBP target longer term -would MARKEDLY lower bp med burden at d/c and monitor as outpt >> suspect situational component to bp spike in hospital but will need to be followed closely after hospital d/c Present on Admission?: Yes (2) CKD (chronic kidney disease) stage 3, GFR 30-59 ml/min: baseline creatinine 1.5-1.8 w/ 250-500 mg proteinuria. -daily bmp while in house Present on Admission?: Yes (3) Near syncope: take extra care w/ large changes to bp meds given balance issues, presentation Present on Admission?: Yes History of Present Illness Reason for Consultation: HTN mgt Requesting Physician: Dr Mcdaniel Attending Physician: Louie Mcdaniel MD History of Present Illness 83 y/o M w/ vascular dementia, HTN admitted 10/22 for frequent falls at home and found to be in HTN ugency on presentation w/ SBP 220-240s whom I'm asked to see for HTN urgency. Other PMH includes CKD 3 w/ baseline creatinine 1.3-1.8 and about 250-500 mg proteinuria, essential tremor, AAA 3.7 cm in 2016, vascular dementia, chronic pansinusitis, impaired fasting glucose, past stroke, chronic ambulatory dysfunction, neuropathy from [employer], remote tobacco abuse, remote stone removal. Pt had DE [place] SANTOS in ER. Had many falls prior to admission, including on his porch day before presentation. Was shaky on day of admission and had him sit before he fell. No EtOH. Takes propranolol ER 120 mg daily for tremor and losartan 25 mg daily for htn. also on mucinex. SBP in clinic in 2017, 2018 (through 05/2018) is 130-140s. SBP here has been 170-210 generally, DBP 80 - low 100s; HR 70-80s. Last seen in CKD clinic 2017. current inpatient bp meds include losartan 50 mg daily, propranolol 120 ER daily, just started on amlodipine 10 mg daily > has had 2 doses so far; also this am started on hydralazine 50 mg tid after receiving 3 doses 25 mg yesterday and has also been receiving labetalol 10 mg IV prn >>at least 2 doses every day since admission including today. His and another family member were at bedside when I evaluated him late this morning. He had per their report been up all night including w/ some agitation; had seroquel about 0130; was quite tired and slept most of day per family and nurse. He is however more alert per notes this PM. Has had some apparent visual hallucinations yesterday per . Allergies Allergy/AdvReac Type Severity Reaction Status Date / Time No Known Allergies Allergy Unknown Verified 10/22/18 18:24 Home Medications Home Medications Medication Instructions Recorded Confirmed Type allopurinol 100 mg PO DAILY 04/19/18 10/22/18 History aspirin [Aspir-81] 81 mg PO DAILY 04/19/18 10/22/18 History cetirizine 10 mg PO DAILY 04/19/18 10/22/18 History guaifenesin [Mucinex] 600 mg PO Q3D 04/19/18 10/22/18 History losartan 25 mg PO DAILY 04/19/18 10/22/18 History oxycodone-acetaminophen 1 tab PO BID PRN 04/19/18 10/22/18 History propranolol 120 mg PO DAILY 04/19/18 10/22/18 History fluocinonide 1 applic TOPICAL DAILY PRN 10/22/18 10/22/18 History vit C,R-Ih-hxhow-lutein-zeaxan 1 tab PO DAILY 10/22/18 10/22/18 History [PreserVision AREDS-2] Patient History Medical History Dementia (Chronic) HTN (hypertension) Family History Other Family history non-contributory Social History Preferred Language: Indonesian Communication Ability: Effective Risk Control Representative Required: Yes Beliefs That Will Affect Care: None marital status: Current Living Situation: Spouse current occupational status: retired Other Information That Helps Us Care for You: No Feels Safe at Home: Yes Safety Concerns: Feels Safe At This Time Smoking Status: Former smoker Hx Alcohol Use: No Hx Substance Use: No Review of Systems Review of Systems: All systems reviewed & are unremarkable except as noted in HPI & below, Unobtainable due to cognitive status and Unobtainable due to reduced consciousness Physical Exam Constitutional: well developed and well nourished sleepy but arouseable w/ stimulus, on RA, answers simple question intermittently w/ 1-2 words Eyes: EOM intact bilaterally ENMT: Ears: no external ear abnormality Nose: no external nose abnormality Mouth: + dry oral mucous membranes Neck: no nuchal rigidity Respiratory: normal respiratory effort Auscultation: lungs clear to auscultation bilaterally and + diminished lung sounds Cardiovascular: Rate/Rhythm: regular rate and regular rhythm Extremities: no edema Gastrointestinal (Abdomen): Inspection/Auscultation: normal bowel sounds Percussion/Palpation: abdomen soft; abdomen nontender Musculoskeletal: Extremities: strength 5/5 throughout Skin: no rashes, warm and dry Neurologic: slight resting tremor Psychiatric: Eye Contact: + fair eye contact Motor Behavior: + tremor normal volume but minimal words speech Genitourinary: no butts Results & Data Vital Signs (Past 12 Hours) Vital Signs Temp Pulse Pulse Resp BP BP Pulse Ox 10/25/18 10:20 77 222/98 H 202/105 H 10/25/18 07:03 36.6 C 88 22 180/108 H 94 10/25/18 05:33 183/88 H 10/25/18 03:34 36.6 C 84 26 H 221/100 H 95 10/25/18 00:00 87 Laboratory Results none abnormal past 24hr Diagnostic Findings ECG 2010 (NB) Sinus bradycardia with 1st degree AV block Left axis deviation Possible Lateral infarct , age undetermined Inferior infarct , age undetermined Abnormal ECG No previous ECGs available ECG 2019 admission Sinus rhythm with 1st degree A-V block Incomplete right bundle branch block Left anterior fascicular block Moderate voltage criteria for LVH, may be normal variant Anterolateral infarct Abnormal ECG When compared with ECG of 20-MAR-2004 19:29, NC interval has increased Incomplete right bundle branch block is now Present ... cxr clear lungs, cardiomegaly head CT no acute i-c process; old R [employer] BICYCLE infarct unchanged
--- NOTE | 2018-10-25 17:16 | Hospitalist Progress Note ---
Date of Service October 25, 2018 Assessment & Plan (1) Hypertensive urgency: Present on admission with weakness and frequent falls BP on admission was 240/121 Received IV labetatol and IV hydralazine in the ER BP uncontrolled Amlodipine increased to 10mg daily and hydralazine increased to 50mg TID Continue propranolol 120mg daily Case discussed with Nephrology Will discontinue Losartan and starting Enalapril IV Continue Labetalol 10mg IV prn Will get and AAA screening u/s Continue monitor BP Generalized weakness Recurrent Fall Ambulatory dysfunction CT head showed no acute intracranial abnormality. Continue PT/OT PT /OT recommended in patient rehab Fall precaution History of gout Continue allopurinol. History of essential tremor Continue propranolol. Vascular dementia. Stable Chronic kidney disease stage III. Baseline creatinine around 1.5-1.8, Creatinine 1.7 today Monitor BMP UTI Urine cx positive for enterococcus faecalis Continue Augmentin Hypokalemia K replaced Monitor BMP DVT px on heparin subq CODE STATUS FULL CODE Disposition: Consider inpatient rehab Subjective Pt was seen and examined Lying in bed with no distress As per staff pt was awake all night He slept this morning Seem to be more awake today Denies any chest pain and SOB Physical Exam Physical Exam: General- No acute distress Head- atraumatic Eyes- PERRL, EOMI, ENT- oropharynx clear Neck- supple, no JVD Lungs- clear to auscultation Heart- regular rhythm; no murmur Abdomen- normal bowel sounds, soft, nontender Extremities- no calf tenderness Neuro- confused, move all extremities Skin- warm & dry Results & Data Vital Signs (Past 12 Hours) Vital Signs Temp Pulse Pulse Resp BP BP Pulse Ox 10/25/18 15:29 36.4 C L 73 19 178/90 H 93 10/25/18 14:45 74 170/93 H 10/25/18 12:29 71 186/95 H 10/25/18 11:24 36.4 C L 73 20 215/111 H 93 10/25/18 10:20 77 222/98 H 202/105 H 10/25/18 07:03 36.6 C 88 22 180/108 H 94 10/25/18 05:33 183/88 H
[2018-10-25 18:10] LABS: BUN Creatinine Ratio 14.8 (10-20); Calcium 8.9 mg/dl (8.5-10.1); Creatinine Clr Calc Pharmacy 32.2 ml/min; Est GFR (African American) 37.4; Est GFR (Non-African American) 32.3; Potassium 3.6 mmol/L (3.5-5.1)
[2018-10-25] MEDS: METOPROLOL TARTRATE 1 MG/ML VIAL IV SCH ×2 (19:11→23:43)
[2018-10-25] MEDS: ENALAPRILAT 0.625 MG in SYRINGE 9.5 ML IV SCH ×2 (19:12→23:44)
[2018-10-26] MEDS: NITROGLYCERIN 2% OINTMENT 30GM TUBE EXT SCH ×4 (02:46→20:14)
[2018-10-26] MEDS: METOPROLOL TARTRATE 1 MG/ML VIAL IV SCH ×4 (05:27→23:05)
[2018-10-26] MEDS: ENALAPRILAT 0.625 MG in SYRINGE 9.5 ML IV SCH ×4 (05:28→23:05)
[2018-10-26 06:01] LABS: Hematocrit (blood only) 38.8 % (42-52); Hemoglobin 13.5 g/dL (14.0-18.0); Mean Corpuscular Hemoglobin 34.4 pg (25-34); Mean Corpuscular Hgb Conc 34.8 g/dL (32-36); Mean Corpuscular Volume 98.7 fL (80-100); Mean Platelet Volume 10.7 fL (7.4-10.4); Platelet Count 278 K/uL (130-400); RDW Coefficient of Variation 14.3 % (11.5-14.5); Red Blood Count 3.93 M/uL (4.7-6.1); White Blood Count 12.85 K/uL (4.8-10.8)
[2018-10-26 06:31] LABS: BUN Creatinine Ratio 16.8 (10-20); Calcium 8.6 mg/dl (8.5-10.1); Creatinine Clr Calc Pharmacy 31.9 ml/min; Est GFR (Non-African American) 31.9; Potassium 3.6 mmol/L (3.5-5.1)
[2018-10-26] MEDS: guaiFENesin 600 MG TABCR PO SCH (07:35)
[2018-10-26] MEDS: CEROVITE ADV FORMULA TAB PO SCH (07:36)
[2018-10-26] MEDS: CETIRIZINE HCL 10 MG TABLET PO SCH (07:36)
[2018-10-26] MEDS: ALLOPURINOL 100 MG TAB PO SCH (07:36)
[2018-10-26] MEDS: AMOXICILLIN/CLAVULANATE 500 MG TAB PO SCH ×2 (08:03→15:29)
[2018-10-26] MEDS: ASPIRIN 81 MG ECTAB PO SCH (08:03)
[2018-10-26] MEDS: AMLODIPINE BESYLATE 5 MG TAB PO SCH (08:08)
[2018-10-26] MEDS: HydrALAZINE TAB 50 MG TAB PO SCH ×4 (08:08→20:14)
[2018-10-26] MEDS: HEPARIN SOD 5,000 UNIT/0.5 ML VIAL SQ SCH ×2 (08:08→20:14)
[2018-10-26] MEDS: PROPRANOLOL HCL 60 MG LA CAP PO SCH (08:08)
--- NOTE | 2018-10-26 10:19 | Ultrasound Report ---
US AAA screening CLINICAL HISTORY: AAA screening COMPARISON STUDY: No previous studies for comparison. FINDINGS: The proximal abdominal aorta measured 2.4 cm in maximal diameter. The mid abdominal aorta measured 2.2 cm in maximal diameter. The distal abdominal aorta measured 4.5 x 4.2 cm in maximal AP and transverse diameter. The right iliac measured 14 mm, left iliac measured 13 mm. IMPRESSION: 1. 4.5 cm infrarenal abdominal aortic aneurysm Electronically signed by: Galen Aguilar M.D. 10/26/2018 10:16 AM
--- NOTE | 2018-10-26 15:20 | Hospitalist Progress Note ---
Date of Service October 26, 2018 Assessment & Plan (1) Hypertensive urgency: Presented with weakness and frequent falls BP on admission was 240/121 -Received IV labetatol and IV hydralazine in the ER -Amlodipine 5 mg daily and hydralazine increased to 50 mg TID -NTG 1 inch q 6 hours -IV Enalapril 10 mg q 6 hours -IV lopressor 2.5 mg q 6 hours -IV Labetalol PRN -Continue propranolol 120 mg daily -Discontinue losartan -US - AAA screening- 4.5 cm infrarenal intra-abdominal aortic aneurysm Nephrology inputs appreciated Generalized weakness Recurrent Falls Ambulatory dysfunction -CT head showed no acute intracranial abnormality. -Continue PT/OT -PT /OT recommended in patient rehab -Fall precaution History of gout -Continue allopurinol. History of essential tremor -Continue propranolol. Vascular dementia. -Did have episodes of agitation on and off. Was on one-to-one observation, now off it Received IM Zyprexa overnight Monitor Chronic kidney disease stage III. -Baseline creatinine around 1.5-1.8, Creatinine 1.9 today -Monitor BMP UTI Urine cx positive for enterococcus faecalis -Continue Augmentin Hypokalemia Resolved DVT px on heparin subq CODE STATUS - FULL CODE Disposition: -PT/OT recommends rehab Referral placed for [facility]. Subjective Patient is a little confused today. Denies any pain except for some in the back. Denies any chest pain, shortness of breath. No fever, chills. Per RN, received IM Zyprexa overnight, therefore was a little sedated in the morning. Awake, alert, oriented to self today on my evaluation. Physical Exam Physical Exam: GENERAL-awake, alert, disoriented x3, oriented only to self. Able to converse NECK- Supple, no JVD LUNGS- Air entry bilaterally equal. No rales, rhonchi, crackles, wheezes heard. HEART- Regular rate and rhythm. No murmurs ABDOMEN- Soft, non tender, non distended, Bowel sounds heard. EXTREMITIES- Good peripheral pulses, no edema Results & Data Vital Signs (Past 12 Hours) Vital Signs Temp Pulse Pulse Pulse Resp BP BP 10/26/18 11:18 64 149/77 H 10/26/18 10:58 63 10/26/18 10:57 175/94 H 10/26/18 10:56 36.5 C 63 20 203/92 H 10/26/18 07:18 37.4 C 74 20 148/79 H 10/26/18 03:15 36.6 C 73 18 159/64 H Pulse Ox 10/26/18 11:18 10/26/18 10:58 10/26/18 10:57 10/26/18 10:56 96 10/26/18 07:18 95 10/26/18 03:15 92
[2018-10-26] MEDS: LABETALOL HCL IV 5 MG/ML 20ML IV PRN (15:42)
[2018-10-26] MEDS: OLANZapine 10 MG/2.1 ML SDV IM PRN (20:50)
[2018-10-27] MEDS: NITROGLYCERIN 2% OINTMENT 30GM TUBE EXT SCH ×4 (02:15→20:55)
[2018-10-27] MEDS: METOPROLOL TARTRATE 1 MG/ML VIAL IV SCH ×2 (05:48→13:48)
[2018-10-27] MEDS: ENALAPRILAT 0.625 MG in SYRINGE 9.5 ML IV SCH ×2 (05:49→13:57)
--- NOTE | 2018-10-27 11:40 | Hospitalist Progress Note ---
Date of Service October 27, 2018 Assessment & Plan (1) Hypertensive urgency: Presented with weakness and frequent falls BP on admission was 240/121 , now improving Challenging as on and off doesnt take his medications given dementia, Also has paranoid hallucinations -Received IV labetatol and IV hydralazine in the ER -Amlodipine 5 mg daily and hydralazine increased to 50 mg TID -NTG 1 inch q 6 hours -IV Enalapril 10 mg q 6 hours -IV lopressor 2.5 mg q 6 hours -IV Labetalol PRN -Continue propranolol 120 mg daily -Discontinued losartan -US - AAA screening- 4.5 cm infrarenal intra-abdominal aortic aneurysm Nephrology inputs appreciated PLAN: Will continue with IV meds as not taking PO medications Generalized weakness Recurrent Falls Ambulatory dysfunction -CT head showed no acute intracranial abnormality. -Continue PT/OT -PT /OT recommended in patient rehab -Fall precaution History of gout -Continue allopurinol. History of essential tremor -Continue propranolol. Vascular dementia. -Did have episodes of agitation on and off. Was on one-to-one observation, now off it -Per d/w family, symptoms of confusion ongoing for 1-1/2 years, diagnosed with dementia. Past few weeks it has been worsening. Received IM Zyprexa overnight x 2 consecutive nights. Will start him on Zyprexa 2.5 mg PO low dose overnight. Off 1:1 observation -D/w Son -requesting psychiatry evaluation. We will see how he does with scheduled Zyprexa at night, if does not improve, will consider psych consult in a.m. Chronic kidney disease stage III. -Baseline creatinine around 1.5-1.8, Creatinine up to 1.90 -Monitor BMP UTI Urine cx positive for enterococcus faecalis -Continue Augmentin BID - Day 5 Hypokalemia Resolved DVT px on heparin subq CODE STATUS - FULL CODE Disposition: -PT/OT recommends rehab Referral placed for [facility]. Update and son over phone Son works at [email or web address] dept Subjective Patient was agitated overnight and received IM Zyprexa. Currently sleeping,. Discussed with RN- Didnt take his morning meds as he is sleeping. Does have on and off paranoid hallucinations Physical Exam Physical Exam: GENERAL- Sleepy NECK- Supple, no JVD LUNGS- Air entry bilaterally equal. No rales, rhonchi, crackles, wheezes heard. HEART- Regular rate and rhythm. No murmurs EXTREMITIES- Good peripheral pulses, no edema Results & Data Vital Signs (Past 12 Hours) Vital Signs Temp Pulse Resp BP Pulse Ox 10/27/18 08:04 36.6 C 67 17 176/84 H 96 10/27/18 03:17 36.5 C 83 19 178/76 H 92
[2018-10-27] MEDS: AMOXICILLIN/CLAVULANATE 500 MG TAB PO SCH ×2 (13:39→16:07)
[2018-10-27] MEDS: AMLODIPINE BESYLATE 5 MG TAB PO SCH ×2 (13:40→19:10)
[2018-10-27] MEDS: ALLOPURINOL 100 MG TAB PO SCH (13:40)
[2018-10-27] MEDS: CEROVITE ADV FORMULA TAB PO SCH (13:40)
[2018-10-27] MEDS: HydrALAZINE TAB 50 MG TAB PO SCH ×3 (13:41→19:10)
[2018-10-27] MEDS: HEPARIN SOD 5,000 UNIT/0.5 ML VIAL SQ SCH ×2 (13:41→19:11)
[2018-10-27] MEDS: PROPRANOLOL HCL 60 MG LA CAP PO SCH (13:43)
[2018-10-27] MEDS: ASPIRIN 81 MG ECTAB PO SCH (13:44)
[2018-10-27] MEDS: CETIRIZINE HCL 10 MG TABLET PO SCH (13:48)
--- NOTE | 2018-10-27 18:05 | Progress Note ---
DATE: 10/27/2018 SUBJECTIVE: The patient's blood pressure is getting better. Most recent blood pressure was 168/74. His confusion is also slightly better, but he is still somewhat confused, making urine. He does not have a big appetite as of now. OBJECTIVE: HEENT: Mucous membrane is moist. NECK: Supple. LUNGS: Clear to auscultation. VITAL SIGNS: Blood pressure 168/74, pulse rate 65 per minute, respiratory rate 18, temperature 36.8, 98% on room air. LABORATORY TESTS: From this morning was reviewed. ASSESSMENT AND PLAN: An 83-year-old male, admitted with hypertensive urgency. RECOMMENDATIONS: 1. Now that his blood pressure is in the 160s, we can transition him over to oral agent for discharge planning. 2. Stop IV metoprolol and IV enalapril. 3. Use metoprolol 50 b.i.d. 4. Use losartan 50 daily, increase the amlodipine to 5 twice daily and continue hydralazine. We will continue to make changes depending on his blood pressure. 5. Given his advanced age and dementia, I would keep his goal blood pressure more like 150/90. MTDD
[2018-10-27] MEDS: METOPROLOL TARTRATE 50 MG TAB PO SCH (19:10)
[2018-10-27] MEDS: LOSARTAN POTASSIUM 50 MG TAB PO SCH (19:10)
[2018-10-27] MEDS ORDERED: OLANZAPINE 2.5 MG TAB PO SCH (21:00)
[2018-10-28] MEDS: NITROGLYCERIN 2% OINTMENT 30GM TUBE EXT SCH ×2 (03:21→09:41)
[2018-10-28 06:13] LABS: Hematocrit (blood only) 36.5 % (42-52); Hemoglobin 12.5 g/dL (14.0-18.0); Mean Corpuscular Hemoglobin 33.8 pg (25-34); Mean Corpuscular Hgb Conc 34.2 g/dL (32-36); Mean Corpuscular Volume 98.6 fL (80-100); Mean Platelet Volume 10.1 fL (7.4-10.4); Platelet Count 277 K/uL (130-400); RDW Coefficient of Variation 14.4 % (11.5-14.5); RDW Standard Deviation 51.3 fL (36.4-46.3); White Blood Count 10.99 K/uL (4.8-10.8)
[2018-10-28 06:44] LABS: Calcium 8.5 mg/dl (8.5-10.1); Creatinine Clr Calc Pharmacy 28.3 ml/min; Est GFR (African American) 35.2; Est GFR (Non-African American) 30.3; Potassium 3.5 mmol/L (3.5-5.1)
[2018-10-28] MEDS: LOSARTAN POTASSIUM 50 MG TAB PO SCH (08:10)
[2018-10-28] MEDS: METOPROLOL TARTRATE 50 MG TAB PO SCH ×2 (08:10→19:24)
[2018-10-28] MEDS: PROPRANOLOL HCL 60 MG LA CAP PO SCH (08:11)
[2018-10-28] MEDS: HydrALAZINE TAB 50 MG TAB PO SCH ×3 (08:11→19:23)
[2018-10-28] MEDS: CETIRIZINE HCL 10 MG TABLET PO SCH (08:11)
[2018-10-28] MEDS: ALLOPURINOL 100 MG TAB PO SCH (08:11)
[2018-10-28] MEDS: AMLODIPINE BESYLATE 5 MG TAB PO SCH ×2 (08:11→19:25)
[2018-10-28] MEDS: AMOXICILLIN/CLAVULANATE 500 MG TAB PO SCH ×2 (08:11→16:48)
[2018-10-28] MEDS: HEPARIN SOD 5,000 UNIT/0.5 ML VIAL SQ SCH ×2 (08:12→19:39)
[2018-10-28] MEDS: CEROVITE ADV FORMULA TAB PO SCH (08:12)
[2018-10-28] MEDS: ASPIRIN 81 MG ECTAB PO SCH (08:12)
--- NOTE | 2018-10-28 08:47 | Nephrology Progress Note ---
Date of Service October 28, 2018 Assessment & Plan (1) Hypertensive urgency: previously well controlled bp. chronic ambulatory dysfunction/balance issues/ frequent falls. on propranolol for tremor no evidence to date of end organ damage takes low dose ARB only as OP; propranolol not teressa strong bp med. -assuming remains as HTN urgency, goal sbp is 150-160s over next 24hr ->monitor closely for HTN emergency such as HTN encephalopathy (no evidence he had this today) -repeat bmp daily -monitor labs today on metoprolol 50 mg bid, amlodipine 5 mg bid, losartan 50 mg daily, hydralazine 50 mg tid -cont prn labetalol 10 mg q4h prn SBP > 170 -AAA 4.5 cm; favor outpt bp target in 130-140s, depending on balance issues -would MARKEDLY lower bp med burden at d/c and monitor as outpt >> suspect situational component to bp spike in hospital but will need to be followed closely after hospital d/c (2) CKD (chronic kidney disease) stage 3, GFR 30-59 ml/min: baseline creatinine 1.5-1.8 w/ 250-500 mg proteinuria. slightly above baseline but will monitor -daily bmp while in house (3) Near syncope: take extra care w/ large changes to bp meds given balance issues, presentation Subjective no complaints except that his legs are weak. not much appetite still . interactive; denies musculoskeletal pain or sob Review of Systems Review of Systems: All systems reviewed & are unremarkable except as noted in HPI & below Physical Exam Constitutional: well developed and well nourished in bed on RA nad Eyes: EOM intact bilaterally ENMT: Ears: no external ear abnormality Nose: no external nose abnormality Mouth: + dry oral mucous membranes Neck: no nuchal rigidity Respiratory: normal respiratory effort Auscultation: lungs clear to auscultation bilaterally and + diminished lung sounds Cardiovascular: Rate/Rhythm: regular rate and regular rhythm Extremities: no edema Gastrointestinal (Abdomen): Inspection/Auscultation: normal bowel sounds Percussion/Palpation: abdomen soft; abdomen nontender Musculoskeletal: Extremities: strength 5/5 throughout Skin: no rashes, warm and dry Neurologic: fluent, perseverant speech, no tremor Psychiatric: Eye Contact: + fair eye contact Motor Behavior: + tremor Results & Data Vital Signs (Past 12 Hours) Vital Signs Temp Pulse Pulse Resp BP BP Pulse Ox 10/28/18 07:04 36.5 C 62 18 171/96 H 94 10/28/18 03:39 162/76 H 10/28/18 03:13 36.8 C 67 20 180/90 H 97 10/27/18 23:28 65 10/27/18 22:58 36.8 C 65 18 134/74 95 Laboratory Results Abnormal lab results 10/28/18 10/28/18 Range/Units 05:53 05:53 WBC 10.99 H (4.8-10.8) K/uL RBC 3.70 L (4.7-6.1) M/uL Hgb 12.5 L (14.0-18.0) g/dL Hct 36.5 L (42-52) % RDW Std Deviation 51.3 H (36.4-46.3) fL Chloride 110 H (98-107) mmol/L BUN 46 H (7-18) mg/dl Creatinine 1.98 H (0.6-1.4) mg/dl BUN/Creatinine Ratio 23.0 H (10-20) Glucose 110 H (70-99) mg/dl
--- NOTE | 2018-10-28 10:07 | Hospitalist Progress Note ---
Date of Service October 28, 2018 Assessment & Plan (1) Hypertensive urgency: Hypertensive urgency Presented with weakness and frequent falls BP on admission was 240/121 , now improving Challenging as on and off doesnt take his medications given dementia -Received IV labetatol and IV hydralazine in the ER -Continue with amlodipine 5 mg twice daily, hydralazine 50 mg 3 times daily, losartan 50 mg daily, metoprolol tartrate 50 mg twice daily. -Discontinued NTG 1 inch q 6 hours ; IV Enalapril 10 mg q 6 hours ; IV lopressor 2.5 mg q 6 hours as taking PO pills now. -IV Labetalol PRN -Continue propranolol 120 mg daily -US - AAA screening- 4.5 cm infrarenal intra-abdominal aortic aneurysm Nephrology inputs appreciated Questionable slurred speech Noted in AM per RN and concerned too that speech is not at his baseline On my evaluation, speech seems okay and clearly slurred -Will do MRI brain as difficult to assess speech and per doesnt seem like at baseline Generalized weakness Recurrent Falls Ambulatory dysfunction -CT head showed no acute intracranial abnormality. -Continue PT/OT -PT /OT recommended in patient rehab -Fall precaution History of gout -Continue allopurinol. History of essential tremor -Continue propranolol. Vascular dementia. -Did have episodes of agitation on and off. Was on one-to-one observation, now off it -Per d/w family, symptoms of confusion ongoing for 1-1/2 years, diagnosed with dementia. Past few weeks it has been worsening. Received IM Zyprexa overnight x 2 consecutive nights. Started him on Zyprexa 2.5 mg PO low dose 10/27/18 night and responded well. Off 1:1 observation -D/w Son -requesting psychiatry evaluation. But now doing well on zyprexa so no indication. Symptoms likely sec to dementia. Chronic kidney disease stage III. -Baseline creatinine around 1.5-1.8, Creatinine up to 1.98 -Monitor BMP UTI Urine cx positive for enterococcus faecalis -Continue Augmentin BID - Day 6 Hypokalemia Resolved DVT px on heparin subq CODE STATUS - FULL CODE Disposition: -Medical mx in progress. MRI brain pending, need to monitor BP closely -PT/OT recommends rehab Referral placed for [facility]. Update and son over phone Son works at [employer] [facility] [employer] dept Subjective Patient is more awake, alert, oriented x2 today. Did sleep overnight and did not have any episodes of agitation after starting him on Zyprexa 2.5 mg yesterday night. Per , some concern about having slurred speech and not as at baseline. Per my evaluation, speech seems to be okay. No localized weakness. Did have his breakfast and took all his p.o. pills Physical Exam Physical Exam: GENERAL-awake, alert, oriented to place, person. NECK- Supple, no JVD LUNGS- Air entry bilaterally equal. No rales, rhonchi, crackles, wheezes heard. HEART- Regular rate and rhythm. No murmurs EXTREMITIES- Good peripheral pulses, no edema NEUROLOGICAL - AAOX2, power5/5 all extremities, cranial nerves intact. Speech seems okay. Results & Data Vital Signs (Past 12 Hours) Vital Signs Temp Pulse Pulse Resp BP BP Pulse Ox 10/28/18 07:04 36.5 C 62 18 171/96 H 94 10/28/18 03:39 162/76 H 10/28/18 03:13 36.8 C 67 20 180/90 H 97 10/27/18 23:28 65 10/27/18 22:58 36.8 C 65 18 134/74 95
--- NOTE | 2018-10-28 10:36 | Magnetic Resonance Report ---
MRI OF THE BRAIN WITHOUT CONTRAST CLINICAL HISTORY: Slurred speech. Inability to walk. Syncope. Possible stroke. COMPARISON STUDY: Noncontrast head CT dated 10/23/2018 FINDINGS: Sagittal T1, axial diffusion, proton density and T2 weighted axial, coronal FLAIR, and axial T1-weigh saira images were acquired. No intra or extra-axial mass lesions are visualized There is a punctate focus of restricted water diffusion within the left superior occipital lobe. A fe w additional more subtle punctate foci of restricted water diffusion may be evident in the frontal lo bes. There is no evidence of ventricular dilatation. Proton density T2-weighted and FLAIR images reveal there is extensive white matter T2 hyperintensity, likely on a small vessel ischemic basis. There is an old right occipital lobe infarct. There are no abnormal flow voids. IMPRESSION: 1. Suspected tiny acute/subacute left superior occipital lobe infarct 2. Old right occipital lobe infarct 3. Severe white matter disease statistically on a small vessel ischemic basis 4. No evidence of intracranial mass on this noncontrast study Electronically signed by: Galen Aguilar M.D. 10/28/2018 10:35 AM
[2018-10-28] MEDS ORDERED: PHARMACIST DISCHARGE MED REC CONSULT PRN (11:09)
--- NOTE | 2018-10-28 13:41 | Neurology Consultation ---
Date of Consultation October 28, 2018 Assessment & Plan (1) Ischemic stroke: 1. MRI - acute/subacute left superior occipital lobe infarct- severe vascular disease 2. TTE- EF 55-60% 3. carotid doppler no significant stenosis 4. continue aspirin 81 mg and add plavix 75 mg daily x 21 days then plavix for a lifetime 5. optimize HTN, HLD, DM- LDL <70 consider patient age 6. peripheral neuropathy on exam - needs walker to avoid falls 7. PT/OT for discharge needs may need in patient rehab 8. if family is interested in further evaluation would CTA head and neck- posterior circulation and ZIO as outpatient if patient would be interested in anticoagulation if irregular heart beat is found Supervising Physician Co-Signing Physician Notes I have seen and discussed above patient with Dr An Encinas, neurology Patient seen and examined discussed with An Parry. The patient has a history of stroke, symptomatology unknown. He has had poor gait with multiple falls. 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 He has cognitive dysfunction of unclear duration. This has been associated with visual hallucinations. It sounds as if he has a tendency to become delirious with increasing hallucinations during hospitalizations. He had an episode at home where he was standing and fell on a porch. He was admitted for further evaluation in that regard he does report that with some of his falls he feels lightheaded. Patient is awake and alert mildly fluctuating level of consciousness distractible pleasant orientation per physician's seed analysis laboratory assistant. He actively hallucinates while I am in the room thinking he is seeing his cousin. His pupils are myotic but reactive I could not reliably visualize the optic nerves reveal visual cornelius were inconsistent. There is no obvious facial asymmetry. There is symmetric strength in the upper and lowers. Reflexes in the lowers are absent at the ankles. Vibration present at the ankles there appears to be in the mid calf level to temperature. Mild atrophy of the tibialis anterior is noted. There is some mild tremor with intention on [id number]. No johnson dystaxia is noted. Impression cerebrovascular disease with significant bilateral white matter changes and a chronic right occipital infarction. There is a new punctate. That alone would likely cause no symptoms. The presence of bilateral posterior circulation infarcts raises the question of the vessel integrity as well as potential atrial fibrillation. At present agree with aspirin and Plavix for 21 days then Plavix alone. It would not be unreasonable to perform either an MRA of the neck with and without contrast and MRA of the [place] or if CTA of the head and neck if renal function permitted. Additionally monitoring for atrial fibrillation might not be unreasonable that having been said the patient appears to be a poor candidate for anticoagulation due to frequent falls and dementia. I would recommend trying to minimize polypharmacy. The patient is on 2 beta- blockers and is on multiple cardiovascular medications this could be contributing to falls. Would consider checking orthostatic vitals and adjusting downward his antihypertensives if possible. We will ambulate with the patient tomorrow I was within the room with him alone and did not Feel comfortable doing so. His gait dysfunction is probably poly- factorial related to cerebrovascular disease , potentially polypharmacy and peripheral neuropathy. Labs for treatable etiology of neuropathy other than closure to agent orange is recommended. 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 He lives with his and daughter. he has been falling and fell on the porch prior to the hospitalization. His SBP was 240 on admission. He had an MRI brain which showed a small left high occipital lobe stroke Allergies Allergy/AdvReac Type Severity Reaction Status Date / Time No Known Allergies Allergy Unknown Verified 10/22/18 18:24 Home Medications Home Medications Medication Instructions Recorded Confirmed Type allopurinol 100 mg PO DAILY 04/19/18 10/22/18 History aspirin [Aspir-81] 81 mg PO DAILY 04/19/18 10/22/18 History cetirizine 10 mg PO DAILY 04/19/18 10/22/18 History guaifenesin [Mucinex] 600 mg PO Q3D 04/19/18 10/22/18 History losartan 25 mg PO DAILY 04/19/18 10/22/18 History oxycodone-acetaminophen 1 tab PO BID PRN 04/19/18 10/22/18 History propranolol 120 mg PO DAILY 04/19/18 10/22/18 History fluocinonide 1 applic TOPICAL DAILY PRN 10/22/18 10/22/18 History vit C,V-Dp-shzse-lutein-zeaxan 1 tab PO DAILY 10/22/18 10/22/18 History [PreserVision AREDS-2] Patient History Medical History Dementia (Chronic) HTN (hypertension) Family History Other Family history non-contributory Social History Preferred Language: French Communication Ability: Effective 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 Beliefs That Will Affect Care: None marital status: Current Living Situation: Spouse current occupational status: retired Other Information That Helps Us Care for You: No Feels Safe at Home: Yes Safety Concerns: Feels Safe At This Time Smoking Status: Former smoker Hx Alcohol Use: No Hx Substance Use: No Physical Exam Physical Exam: Physical Exam: Constitutional: appearance over nourished Ears, Nose, Mouth and Throat: mucous membranes moist, no injection and skin normal, eyes normal Cardiovascular: normal S-1 and S-2 and regular rate and rhythm Respiratory: course BS Musculoskeletal: bilateral LE edema. good distal pulses Skin: no stigmata of neurocutaneous disease noted and normal and intact Eyes: extraocular muscles intact (EOMI) and pupils equal, round and reactive to light (PERRL) NEUROLOGIC EXAMINATION: Mental status: Alert and interactive Oriented 0 states year, thinks he is in [facility] Oriented to person Speech fluent with no evidence of aphasia Cranial Nerves smile eye brow raise symmetric Reflexes: Deep tendon reflexes were symmetrical and graded 2/5. Plantar up going toes Sensory: decreased sensation to vibration and light touch, cool touch, bilateral LE to mid [place] Coordination: finger to nose unable to find finger. appear to be central vision changes, gross peripheral vision intact Gait/Stance: Posture lying in bed Motor: Negative for pronator drift of out stretched arms with eyes closed. Strength: biceps triceps hand change coordinator 5/5 bilaterally hip flex against gravity no stress, plantar flex ext 5/5 Results & Data Vital Signs (Past 12 Hours) Vital Signs Temp Pulse Resp BP BP Pulse Ox 10/28/18 11:14 36.7 C 66 18 146/76 H 92 10/28/18 07:04 36.5 C 62 18 171/96 H 94 10/28/18 03:39 162/76 H 10/28/18 03:13 36.8 C 67 20 180/90 H 97 Laboratory Results Abnormal lab results 10/28/18 10/28/18 Range/Units 05:53 05:53 WBC 10.99 H (4.8-10.8) K/uL RBC 3.70 L (4.7-6.1) M/uL Hgb 12.5 L (14.0-18.0) g/dL Hct 36.5 L (42-52) % RDW Std Deviation 51.3 H (36.4-46.3) fL Chloride 110 H (98-107) mmol/L BUN 46 H (7-18) mg/dl Creatinine 1.98 H (0.6-1.4) mg/dl BUN/Creatinine Ratio 23.0 H (10-20) Glucose 110 H (70-99) mg/dl Diagnostic Findings MRI brain- suspected tiny acute/subacute left superior occipital lobe infarct Old right occipital lobe infarct Severe white matter disease statistically on a small vessel ischemic basis No evidence of intracranial mass on this noncontrast study CT head-No significant change compared to the prior study. No acute intracranial abnormality. CT abdomen- 4.5 cm infrarenal abdominal aortic aneurysm TTE- 55-60% carotid doppler- no significant stenosis or narrowing
--- NOTE | 2018-10-28 15:13 | Ultrasound Report ---
US carotid doppler BI HISTORY: Mental status change Stroke COMPARISON: None. TECHNIQUE: Real-time, grayscale, and color Doppler sonography of the carotid arteries was performed. Imaging reviewed in the transverse and longitudinal planes. All measurements were calculated based on NASCET criteria. FINDINGS: Antegrade flow is seen in the bilateral vertebral arteries. The brachial pressures are hemodynamically similar. The peak systolic velocity within the right ICA is 52. The right systolic ratio is 0.85. The peak systolic velocity within the left ICA is 91. The left systolic ratio is 1.1. IMPRESSION: No hemodynamically significant stenosis seen within the carotid arteries. The above report was generated using voice recognition software. It may contain grammatical, syntax or spelling errors. Electronically signed by: Sae Gastelum M.D. 10/28/2018 3:12 PM
[2018-10-28] MEDS: OLANZapine 10 MG/2.1 ML SDV IM PRN (17:21)
[2018-10-28 18:05] LABS: Folate (Folic Acid) 15.53 ng/ml (>5.38)
[2018-10-28] MEDS: ATORVASTATIN 40 MG TAB PO SCH (19:24)
[2018-10-29] MEDS: LABETALOL HCL IV 5 MG/ML 20ML IV PRN (03:11)
[2018-10-29 06:20] LABS: Estimated Average Glucose 120 mg/dl; Hemoglobin A1C 5.8 % (4.5-5.6)
[2018-10-29] MEDS: ASPIRIN 81 MG ECTAB PO SCH (08:17)
[2018-10-29] MEDS: CEROVITE ADV FORMULA TAB PO SCH (08:17)
[2018-10-29] MEDS: PROPRANOLOL HCL 60 MG LA CAP PO SCH (08:17)
[2018-10-29] MEDS: guaiFENesin 600 MG TABCR PO SCH (08:17)
[2018-10-29] MEDS: HEPARIN SOD 5,000 UNIT/0.5 ML VIAL SQ SCH ×2 (08:17→20:57)
[2018-10-29] MEDS: AMLODIPINE BESYLATE 5 MG TAB PO SCH ×2 (08:17→20:55)
[2018-10-29] MEDS: LOSARTAN POTASSIUM 50 MG TAB PO SCH (08:18)
[2018-10-29] MEDS: ALLOPURINOL 100 MG TAB PO SCH (08:18)
[2018-10-29] MEDS: METOPROLOL TARTRATE 50 MG TAB PO SCH ×2 (08:18→20:54)
[2018-10-29] MEDS: CETIRIZINE HCL 10 MG TABLET PO SCH (08:18)
[2018-10-29] MEDS: HydrALAZINE TAB 50 MG TAB PO SCH ×3 (08:18→20:56)
[2018-10-29 08:44] LABS: Hematocrit (blood only) 39.8 % (42-52); Hemoglobin 14.1 g/dL (14.0-18.0); Mean Corpuscular Hemoglobin 34.6 pg (25-34); Mean Corpuscular Hgb Conc 35.4 g/dL (32-36); Mean Corpuscular Volume 97.8 fL (80-100); Mean Platelet Volume 9.9 fL (7.4-10.4); Platelet Count 298 K/uL (130-400); RDW Coefficient of Variation 14.1 % (11.5-14.5); RDW Standard Deviation 50.4 fL (36.4-46.3); Red Blood Count 4.07 M/uL (4.7-6.1); White Blood Count 10.81 K/uL (4.8-10.8)
[2018-10-29] MEDS ORDERED: ATORVASTATIN 20 MG TAB PO SCH (09:00)
[2018-10-29 09:08] LABS: BUN Creatinine Ratio 20.5 (10-20); Calcium 8.7 mg/dl (8.5-10.1); Creatinine Clr Calc Pharmacy 31.4 ml/min; Est GFR (Non-African American) 34.5; Potassium 3.6 mmol/L (3.5-5.1)
[2018-10-29] MEDS ORDERED: HydrALAZINE HCL 20 MG/ML VIAL IV PRN (09:36)
--- NOTE | 2018-10-29 09:37 | Nephrology Progress Note ---
Date of Service October 29, 2018 Assessment & Plan (1) Hypertensive urgency: previously well controlled bp. chronic ambulatory dysfunction/balance issues/ frequent falls. on propranolol for tremor now w/ evidence of end organ damage w/ MRI showing tiny acute/ subacute L superior occipital lobe infarct takes low dose ARB only as OP; propranolol not teressa strong bp med. -HTN urgency/ emergency >> needs permissive HTN but not severe elevations >> recommend target systolic BP 150-170s today unless neuro offers alternative targets -agree w/ hold parameters -repeat bmp daily -cont current meds metoprolol 50 mg bid, amlodipine 5 mg bid, losartan 50 mg daily, hydralazine 50 mg tid -cont prn labetalol 10 mg q4h prn SBP > 180/HR >60 and added hydralazine 10 mg IV q4h prn SBP >180 -low threshold to go back to IV meds if pt not taking po meds or if bp remains uncontrolled on standing po and prn IV meds -AAA 4.5 cm but now a stroke subacute/ acute as well ; favor outpt bp target in 140-150s -would MARKEDLY lower bp med burden at d/c and monitor as outpt >> suspect situational component to bp spike in hospital but will need to be followed closely after hospital d/c (2) CKD (chronic kidney disease) stage 3, GFR 30-59 ml/min: baseline creatinine 1.5-1.8 w/ 250-500 mg proteinuria. at baseline and will monitor -daily bmp while in house (3) Near syncope: take extra care w/ large changes to bp meds given balance issues, presentation Subjective MRI yesterday for slurred speech shows suspected tiny acute/ subacute infarct; also severe agitation ON, now on 1:1; needed restraints, swinging at staff Review of Systems Review of Systems: Unobtainable due to mental health condition and Unobtainable due to cognitive status Physical Exam Constitutional: well developed and well nourished Eyes: EOM intact bilaterally ENMT: Ears: no external ear abnormality Nose: no external nose abnormality Mouth: + dry oral mucous membranes Neck: no nuchal rigidity Respiratory: normal respiratory effort Auscultation: lungs clear to auscultation bilaterally and + diminished lung sounds Cardiovascular: Rate/Rhythm: regular rate and regular rhythm Extremities: no edema Gastrointestinal (Abdomen): Inspection/Auscultation: normal bowel sounds Percussion/Palpation: abdomen soft; abdomen nontender Musculoskeletal: Extremities: strength 5/5 throughout Skin: no rashes, warm and dry Neurologic: novak, limited speech Psychiatric: Eye Contact: + fair eye contact Motor Behavior: + tremor Results & Data Vital Signs (Past 12 Hours) Vital Signs Temp Pulse Pulse Resp BP BP Pulse Ox 10/29/18 02:33 36.8 C 66 22 195/92 H 188/88 H 97 10/28/18 23:58 68 10/28/18 22:56 36.7 C 69 21 179/93 H 95 Laboratory Results Abnormal lab results 10/28/18 10/29/18 10/29/18 Range/Units 17:06 08:25 08:25 WBC 10.81 H (4.8-10.8) K/uL RBC 4.07 L (4.7-6.1) M/uL Hct 39.8 L (42-52) % MCH 34.6 H (25-34) pg RDW Std Deviation 50.4 H (36.4-46.3) fL Chloride 111 H (98-107) mmol/L BUN 37 H (7-18) mg/dl Creatinine 1.78 H (0.6-1.4) mg/dl BUN/Creatinine Ratio 20.5 H (10-20) Glucose 115 H (70-99) mg/dl Hemoglobin A1c 5.8 H (4.5-5.6) % Triglycerides 171 H (0-150) mg/dl Diagnostic Findings MRI brain- suspected tiny acute/subacute left superior occipital lobe infarct Old right occipital lobe infarct Severe white matter disease statistically on a small vessel ischemic basis No evidence of intracranial mass on this noncontrast study CT head-No significant change compared to the prior study. No acute intracranial abnormality.
--- NOTE | 2018-10-29 11:14 | Hospitalist Progress Note ---
Date of Service October 29, 2018 Assessment & Plan (1) Hypertensive urgency: Hypertensive urgency Presented with weakness and frequent falls BP on admission was 240/121 , now improving Challenging as on and off doesnt take his medications given dementia/ Extreme agitation -Received IV labetatol and IV hydralazine in the ER -Continue with amlodipine 5 mg twice daily, hydralazine 50 mg 3 times daily, losartan 50 mg daily, metoprolol tartrate 50 mg twice daily (Holding parameters- SBP < 140). Permissive HTN given new stroke -Discontinued NTG 1 inch q 6 hours ; IV Enalapril 10 mg q 6 hours ; IV lopressor 2.5 mg q 6 hours on 10/27/18 -IV Labetalol PRN -Continue propranolol 120 mg daily -US - AAA screening - 4.5 cm infrarenal intra-abdominal aortic aneurysm Nephrology inputs appreciated Suspected tiny acute/subacute Left superior occipital stroke Per MRI brain on 10/28 (Was done as RN/ were concerned about slurred speech on 10/28/18) -On Aspirin, Added Plavix 75 mg daily (on and off unable to give him these pills). Added Atorvastatin 40 mg q HS. -Permissive HTN -Echo - EF 55 to 60%, Neg for ASD, doesnt allow assessment for PFO, US Carotid duplex-no hemodynamically significant stenosis within carotid artery -Lipid panel- LDL 87, HDL 28, TGS- 171, Vit B12- 691, Folate - 15 Delirium in setting of Vascular dementia. -Continues to have on and off episodes of severe agitation. Required multiple IM Zyprexa doses. Started him on Zyprexa 2.5 mg p.o. low-dose on 10/27/2018 and responded well. However yesterday evening again had severe agitation to the extent of requiring restraints, increased Zyprexa to 5 mg daily. Now back on one-to-one observation. On IM Zyprexa PRN -Per d/w family, symptoms of confusion ongoing for 1-1/2 years, diagnosed with dementia. Past few weeks it has been worsening. -D/w Son -requesting psychiatry evaluation. But discussed with him- For now will monitor on increased dose of zyprexa started yesterday evening. Generalized weakness Recurrent Falls Ambulatory dysfunction -CT head showed no acute intracranial abnormality. -Continue PT/OT -PT /OT recommended in patient rehab -Fall precautions History of gout -Continue allopurinol. History of essential tremor -Continue propranolol. Chronic kidney disease stage III. -Baseline creatinine around 1.5-1.8, Creatinine down trending- 1.78 today -Monitor BMP UTI Urine cx positive for enterococcus faecalis -Continue Augmentin BID - Day 09/15 today Hypokalemia Resolved DVT px on heparin subq CODE STATUS - FULL CODE Disposition: -Medical mx in progress - continues to have severe agitative episodes requiring Zyprexa, causing fluctuations in blood pressure -PT/OT recommends rehab Referral placed for [facility]. Update and son yesterday. Called son today- went into . Will try to call him again Son works at [employer] dept Subjective Patient again became extremely agitated yesterday evening. Had to increase overnight dose of Zyprexa to 5 mg. Did not receive any further doses of IM Zyprexa. Currently on one-to-one observation. Patient has very confused today, disoriented x3. Unable to give p.o. pills on a regular basis. Physical Exam Physical Exam: GENERAL-awake, disoriented x3, somewhat agitated. NECK- Supple, no JVD LUNGS- Air entry bilaterally equal. No rales, rhonchi, crackles, wheezes heard. HEART- Regular rate and rhythm. No murmurs EXTREMITIES- Good peripheral pulses, no edema NEUROLOGY -non-cooperative. Grossly moving all extremities. Unable to evaluate speech status Results & Data Vital Signs (Past 12 Hours) Vital Signs Temp Pulse Pulse Resp BP BP Pulse Ox 10/29/18 08:20 36.6 C 66 18 175/88 H 95 10/29/18 02:33 36.8 C 66 22 195/92 H 188/88 H 97 10/28/18 23:58 68
--- NOTE | 2018-10-29 17:10 | Neurology Progress Note ---
Date of Service October 29, 2018 Assessment & Plan (1) Ischemic stroke: 1. MRI - acute/subacute left superior occipital lobe infarct- severe vascular disease 2. TTE- EF 55-60% 3. carotid doppler no significant stenosis 4. continue aspirin 81 mg and add plavix 75 mg daily x 21 days then plavix for a lifetime 5. optimize HTN, HLD, DM- LDL <70 consider patient age 6. peripheral neuropathy on exam - needs walker to avoid falls 7. PT/OT for discharge will need in patient rehab 8. if family is interested in further evaluation would CTA head and neck- posterior circulation and ZIO as outpatient if patient would be interested in anticoagulation if irregular heart beat is found 9. orthostatic blood pressure- sitting and lying Supervising Physician Co-Signing Physician Notes I have seen and discussed above patient with Dr An Encinas, neurology. PT seen and examined. Disorientated. Attempted to ambulate, pt dystaxic, in part due to neuropathy. Recent punctate L occipital infarct, anti-plt tx Neuropathy which is known and cognitive impairment and likely extensive vascular changes likely cause of gait dysfunction and falls. Will sign off. 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 He lives with his and daughter. he has been falling and fell on the porch prior to the hospitalization. His SBP was 240 on admission. He had an MRI brain which showed a small left high occipital lobe stroke. Today he is lying in bed and every confused and hallucinating. denies pain. attempt to stand him to walk is unsuccessful. Physical Exam Physical Exam: Gen: alert NAD lungs course breath sounds CV RRR squeezes with hands but unable to finger to nose very spastic movements with arms and leg oriented to self but not place or date. raises both hands in air and closes eyes no pronator drift lifts both legs against gravity but not against resistance. Results & Data Vital Signs (Past 12 Hours) Vital Signs Temp Pulse Pulse Resp BP BP Pulse Ox 10/29/18 15:10 36.7 C 66 20 182/91 H 94 10/29/18 12:18 94 10/29/18 08:20 36.6 C 66 18 175/88 H 95 Laboratory Results Abnormal lab results 10/28/18 10/29/18 10/29/18 Range/Units 17:06 08:25 08:25 WBC 10.81 H (4.8-10.8) K/uL RBC 4.07 L (4.7-6.1) M/uL Hct 39.8 L (42-52) % MCH 34.6 H (25-34) pg RDW Std Deviation 50.4 H (36.4-46.3) fL Chloride 111 H (98-107) mmol/L BUN 37 H (7-18) mg/dl Creatinine 1.78 H (0.6-1.4) mg/dl BUN/Creatinine Ratio 20.5 H (10-20) Glucose 115 H (70-99) mg/dl Hemoglobin A1c 5.8 H (4.5-5.6) % Triglycerides 171 H (0-150) mg/dl Diagnostic Findings no new imaging
[2018-10-29] MEDS ORDERED: OLANZAPINE 2.5 MG TAB PO ONE (19:00)
[2018-10-29] MEDS: ATORVASTATIN 40 MG TAB PO SCH (20:55)
[2018-10-29] MEDS: OLANZapine 5 MG TABLET PO SCH (20:56)
--- NOTE | 2018-10-30 07:24 | Nephrology Progress Note ---
Date of Service October 30, 2018 Assessment & Plan (1) Hypertensive urgency: previously well controlled bp. chronic ambulatory dysfunction/balance issues/ frequent falls. on propranolol for tremor now w/ evidence of end organ damage w/ MRI showing tiny acute/ subacute L superior occipital lobe infarct takes low dose ARB only as OP; propranolol not teressa strong bp med. -HTN urgency/ emergency >> needs permissive HTN but not severe elevations >> recommend target systolic BP 140-150s , perhaps 140s at d/c -agree w/ hold parameters -repeat bmp daily -cont current meds amlodipine 5 mg bid, losartan 50 mg daily, hydralazine 50 mg tid -would lower metoprolol to 25 mg bid and try to avoid d/c on this if possible -cont prn labetalol 10 mg q4h prn SBP > 180/HR >60 (needed one dose yesterday) and added hydralazine 10 mg IV q4h prn SBP >180 (none needed) -low threshold to go back to IV meds if pt not taking po meds or if bp remains uncontrolled on standing po and prn IV meds -AAA 4.5 cm but now a stroke subacute/ acute as well ; favor outpt bp target in 140-150s -would MARKEDLY lower bp med burden at d/c and monitor as outpt >> suspect situational component to bp spike in hospital but will need to be followed closely after hospital d/c (2) CKD (chronic kidney disease) stage 3, GFR 30-59 ml/min: baseline creatinine 1.5-1.8 w/ 250-500 mg proteinuria. at baseline and will monitor; currently at baseline -daily bmp while in house (3) Near syncope: take extra care w/ large changes to bp meds given balance issues, presentation; pt w/ significant chronic ambulatory dysfunction from neuropathy, stroke Subjective SBP better controlled today; ambulating but needs much assistance to do this; states he feels improved; moving bowels; no voiding c/o; tolerating po but little intake (25-30%); no sob; eager for d/c Review of Systems Review of Systems: All systems reviewed & are unremarkable except as noted in HPI & below Physical Exam Constitutional: well developed and well nourished lying in bed on RA, coope rative interactive; slight psychomotor delay Eyes: EOM intact bilaterally ENMT: Ears: no external ear abnormality Nose: no external nose abnormality Mouth: + dry oral mucous membranes Neck: no nuchal rigidity Respiratory: normal respiratory effort Auscultation: lungs clear to auscultation bilaterally and + diminished lung sounds Cardiovascular: Rate/Rhythm: regular rate and regular rhythm Extremities: no edema Gastrointestinal (Abdomen): Inspection/Auscultation: normal bowel sounds Percussion/Palpation: abdomen soft; abdomen nontender Musculoskeletal: Extremities: strength 5/5 throughout Skin: no rashes, warm and dry Neurologic: novak, fluent speech Psychiatric: Eye Contact: + fair eye contact Motor Behavior: + tremor Results & Data Vital Signs (Past 12 Hours) Vital Signs Temp Pulse Pulse Resp BP BP Pulse Ox 10/30/18 07:03 36.5 C 63 19 155/79 H 91 10/30/18 02:46 68 10/29/18 23:00 36.5 C 68 19 170/87 H 94
[2018-10-30] MEDS: HEPARIN SOD 5,000 UNIT/0.5 ML VIAL SQ SCH ×2 (08:09→20:05)
[2018-10-30] MEDS: HydrALAZINE TAB 50 MG TAB PO SCH ×3 (08:10→20:07)
[2018-10-30] MEDS: PROPRANOLOL HCL 60 MG LA CAP PO SCH (08:10)
[2018-10-30] MEDS: CEROVITE ADV FORMULA TAB PO SCH (08:11)
[2018-10-30] MEDS: METOPROLOL TARTRATE 50 MG TAB PO SCH ×2 (08:11→20:06)
[2018-10-30] MEDS: LOSARTAN POTASSIUM 50 MG TAB PO SCH (08:11)
[2018-10-30] MEDS: ASPIRIN 81 MG ECTAB PO SCH (08:11)
[2018-10-30] MEDS: CETIRIZINE HCL 10 MG TABLET PO SCH (08:11)
[2018-10-30] MEDS: AMLODIPINE BESYLATE 5 MG TAB PO SCH ×2 (08:12→20:06)
[2018-10-30] MEDS: ALLOPURINOL 100 MG TAB PO SCH (08:12)
--- NOTE | 2018-10-30 17:30 | Hospitalist Progress Note ---
Date of Service October 30, 2018 Assessment & Plan (1) Ischemic stroke: Acute/subacute CVA : had slurred speech on admission Suspected tiny acute/subacute Left superior occipital stroke MRI brain on 10/28 : IMPRESSION: 1. Suspected tiny acute/subacute left superior occipital lobe infarct 2. Old right occipital lobe infarct 3. Severe white matter disease statistically on a small vessel ischemic basis 4. No evidence of intracranial mass on this noncontrast study -On Aspirin, Added Plavix 75 mg daily . Added Atorvastatin 40 mg q HS.( high intensity statin therapy ) with goal LDL < 70 -Echo - EF 55 to 60%, Neg for ASD, doesnt allow assessment for PFO, US Carotid duplex-no hemodynamically significant stenosis within carotid artery -Carotid USG : no hemodynamically significant stenosis (2) Hypertensive urgency: Hypertensive urgency Presented with weakness and frequent falls BP on admission was 240/121 , improved after adjustment of meds has been challenging to control Hypertension as on and off does't take his medications given dementia/ Extreme agitation -Received IV labetatol and IV hydralazine in the ER -current antihypertensive meds : amlodipine 5 mg twice daily, hydralazine 50 mg 3 times daily, losartan 50 mg daily, metoprolol tartrate 50 mg twice daily (Holding parameters- SBP < 140). Permissive HTN given new stroke - Nephrology inputs appreciated Delirium in setting of Vascular dementia. -Continues to have on and off episodes of severe agitation. Required multiple IM Zyprexa doses. Started him on Zyprexa 2.5 mg p.o. low-dose on 10/27/2018 and responded well. However yesterday evening again had severe agitation to the extent of requiring restraints, increased Zyprexa to 5 mg daily. Now back on one-to-one observation. On IM Zyprexa PRN -Per d/w family, symptoms of confusion ongoing for 1-1/2 years, diagnosed with dementia. Past few weeks it has been worsening. -D/w Son -requesting psychiatry evaluation. But discussed with him- For now will monitor on increased dose of zyprexa started yesterday evening. Generalized weakness Recurrent Falls Ambulatory dysfunction -CT head showed no acute intracranial abnormality. -Continue PT/OT -PT /OT recommended in patient rehab -Fall precautions History of gout -Continue allopurinol. History of essential tremor -Continue propranolol. Chronic kidney disease stage III. -Baseline creatinine around 1.5-1.8, -Monitor BMP UTI Urine cx positive for enterococcus faecalis -completed Augmentin BID - Day 09/15 today Hypokalemia Resolved (3) Abdominal aortic aneurysm (AAA) 3.0 cm to 5.5 cm in diameter in male: -US of abdomen - AAA screening - 4.5 cm infrarenal intra-abdominal aortic aneurysm needs optimal BP control poor candidate for vascular procedure US abdominal screen as per protocol DVT px on heparin subq CODE STATUS - FULL CODE Disposition: -Medical mx in progress - continues to have severe agitative episodes requiring Zyprexa, causing fluctuations in blood pressure -PT/OT recommends rehab Referral placed for [facility]. Subjective pt denies of any headache , no complain of SOB , no SHEPPARD feels fine no fever or chills BP has been stable Physical Exam Constitutional: WD/WN, vitals as above no acute distress Eyes: + anicteric sclerae ENMT: external ear and nose normal, oropharynx normal Neck: trachea midline, no thyromegaly Respiratory: normal respiratory effort, lungs clear to auscultation Cardiovascular: RRR, no murmur, no edema Gastrointestinal (Abdomen): normal bowel sounds, soft, nontender, no hepatosplenomegaly Musculoskeletal: Extremities: + abnormal strength, no muscle atrophy and no cyanosis generalized weakness Skin: no rashes, warm and dry Neurologic: PERRL, EOMI, accommodation nl, no face palsy, no dysarthria Psychiatric: Orientation: alert Speech: normal rate/rhythm/volume of speech Results & Data Vital Signs (Past 12 Hours) Vital Signs Temp Pulse Pulse Resp BP BP Pulse Ox 10/30/18 16:00 59 L 10/30/18 15:13 36.4 C L 58 L 20 131/84 97 10/30/18 11:02 36.5 C 58 L 19 164/88 H 95 10/30/18 07:10 71 10/30/18 07:03 36.5 C 63 19 155/79 H 91
[2018-10-30] MEDS: OLANZapine 5 MG TABLET PO SCH (20:04)
[2018-10-30] MEDS: ATORVASTATIN 40 MG TAB PO SCH (20:06)
[2018-10-31] MEDS: AMLODIPINE BESYLATE 5 MG TAB PO SCH ×2 (07:38→20:45)
[2018-10-31] MEDS: ALLOPURINOL 100 MG TAB PO SCH (07:38)
[2018-10-31] MEDS: CETIRIZINE HCL 10 MG TABLET PO SCH (07:39)
[2018-10-31] MEDS: LOSARTAN POTASSIUM 50 MG TAB PO SCH (07:39)
[2018-10-31] MEDS: HydrALAZINE TAB 50 MG TAB PO SCH ×3 (07:39→20:45)
[2018-10-31] MEDS: ASPIRIN 81 MG ECTAB PO SCH (07:39)
[2018-10-31] MEDS: HEPARIN SOD 5,000 UNIT/0.5 ML VIAL SQ SCH ×2 (07:40→20:46)
[2018-10-31] MEDS: METOPROLOL TARTRATE 50 MG TAB PO SCH (07:40)
[2018-10-31] MEDS: CEROVITE ADV FORMULA TAB PO SCH (07:40)
[2018-10-31] MEDS: PROPRANOLOL HCL 60 MG LA CAP PO SCH (07:40)
--- NOTE | 2018-10-31 16:14 | Hospitalist Progress Note ---
Date of Service October 31, 2018 Assessment & Plan (1) Ischemic stroke: Acute/subacute CVA : had slurred speech on admission Dysarthria was resolved Suspected tiny acute/subacute Left superior occipital stroke MRI brain on 10/28 : IMPRESSION: 1. Suspected tiny acute/subacute left superior occipital lobe infarct 2. Old right occipital lobe infarct 3. Severe white matter disease statistically on a small vessel ischemic basis 4. No evidence of intracranial mass on this noncontrast study -On Aspirin, Added Plavix 75 mg daily . Added Atorvastatin 40 mg q HS.( high intensity statin therapy ) with goal LDL < 70 -Echo - EF 55 to 60%, Neg for ASD, doesnt allow assessment for PFO, US Carotid duplex-no hemodynamically significant stenosis within carotid artery -Carotid USG : no hemodynamically significant stenosis (2) Hypertensive urgency: Hypertensive urgency BP remains stable after adjustment of medications SBP 128/81 Presented with weakness and frequent falls BP on admission was 240/121 , improved after adjustment of meds has been challenging to control Hypertension as on and off does't take his medications given dementia/ Extreme agitation -Received IV labetatol and IV hydralazine in the ER -current antihypertensive meds : amlodipine 5 mg twice daily, hydralazine 50 mg 3 times daily, losartan 50 mg daily, metoprolol tartrate 50 mg twice daily (Holding parameters- SBP < 140) - Nephrology inputs appreciated Delirium in setting of Vascular dementia. -Continues to have on and off episodes of severe agitation. Required multiple IM Zyprexa doses. Started him on Zyprexa 2.5 mg p.o. low-dose on 10/27/2018 and responded well. However yesterday evening again had severe agitation to the extent of requiring restraints, increased Zyprexa to 5 mg daily. Now back on one-to-one observation. On IM Zyprexa PRN -Per d/w family, symptoms of confusion ongoing for 1-1/2 years, diagnosed with chandler sanchez. Past few weeks it has been worsening. -D/w Son -requesting psychiatry evaluation. But discussed with him- For now will monitor on increased dose of zyprexa started yesterday evening. Generalized weakness Recurrent Falls Ambulatory dysfunction -CT head showed no acute intracranial abnormality. -Continue PT/OT -PT /OT recommended in patient rehab -Fall precautions History of gout -Continue allopurinol. History of essential tremor -Continue propranolol. Chronic kidney disease stage III. -Baseline creatinine around 1.5-1.8, -Monitor BMP UTI Urine cx positive for enterococcus faecalis -completed Augmentin BID - Day 09/15 today Hypokalemia Resolved (3) Abdominal aortic aneurysm (AAA) 3.0 cm to 5.5 cm in diameter in male: -US of abdomen - AAA screening - 4.5 cm infrarenal intra-abdominal aortic aneurysm needs optimal BP control poor candidate for vascular procedure US abdominal screen as per protocol DVT px on heparin subq CODE STATUS - FULL CODE Disposition: -Medical mx in progress - continues to have severe agitative episodes requiring Zyprexa, causing fluctuations in blood pressure -PT/OT recommends rehab Referral placed for [facility].- Subjective First no new complaint, awake,: Says he feels fine, wondering when he can be discharged Patient has significant gait instability, while getting out of bed as per nursing and physical therapist Very forgetful, That he is in the hospital, had a stroke even Physical Exam Constitutional: WD/WN, vitals as above no acute distress Eyes: + anicteric sclerae ENMT: external ear and nose normal, oropharynx normal Neck: trachea midline, no thyromegaly Respiratory: normal respiratory effort, lungs clear to auscultation Cardiovascular: RRR, no murmur, no edema Gastrointestinal (Abdomen): normal bowel sounds, soft, nontender, no hepatosplenomegaly Musculoskeletal: Extremities: + abnormal strength, no muscle atrophy and no cyanosis Skin: no rashes, warm and dry Neurologic: PERRL, EOMI, accommodation nl, no face palsy, no dysarthria Psychiatric: Orientation: alert Speech: normal rate/rhythm/volume of speech Results & Data Vital Signs (Past 12 Hours) Vital Signs Temp Pulse Resp BP Pulse Ox 10/31/18 15:20 36.3 C L 66 20 128/81 95 10/31/18 07:54 36.4 C L 66 16 147/78 H 95
[2018-10-31] MEDS: OLANZapine 5 MG TABLET PO SCH (20:45)
[2018-10-31] MEDS: METOPROLOL TARTRATE 25 MG TAB PO SCH (20:45)
[2018-10-31] MEDS: ATORVASTATIN 40 MG TAB PO SCH (20:45)
[2018-11-01 05:39] LABS: Hematocrit (blood only) 36.8 % (42-52); Hemoglobin 12.7 g/dL (14.0-18.0); Mean Corpuscular Hemoglobin 34.1 pg (25-34); Mean Corpuscular Hgb Conc 34.5 g/dL (32-36); Mean Corpuscular Volume 98.9 fL (80-100); Mean Platelet Volume 10.6 fL (7.4-10.4); Platelet Count 262 K/uL (130-400); RDW Coefficient of Variation 14.2 % (11.5-14.5); RDW Standard Deviation 50.2 fL (36.4-46.3); Red Blood Count 3.72 M/uL (4.7-6.1)
[2018-11-01 06:05] LABS: BUN Creatinine Ratio 25.6 (10-20); Calcium 8.7 mg/dl (8.5-10.1); Creatinine Clr Calc Pharmacy 25.2 ml/min; Est GFR (African American) 27.9; Potassium 3.9 mmol/L (3.5-5.1)
[2018-11-01] MEDS: ASPIRIN 81 MG ECTAB PO SCH (09:04)
[2018-11-01] MEDS: CEROVITE ADV FORMULA TAB PO SCH (09:05)
[2018-11-01] MEDS: PROPRANOLOL HCL 60 MG LA CAP PO SCH (09:05)
[2018-11-01] MEDS: ALLOPURINOL 100 MG TAB PO SCH (09:05)
[2018-11-01] MEDS: guaiFENesin 600 MG TABCR PO SCH (09:05)
[2018-11-01] MEDS: AMLODIPINE BESYLATE 5 MG TAB PO SCH ×2 (09:05→21:41)
[2018-11-01] MEDS: CETIRIZINE HCL 10 MG TABLET PO SCH (09:06)
[2018-11-01] MEDS: HEPARIN SOD 5,000 UNIT/0.5 ML VIAL SQ SCH ×2 (09:06→21:47)
[2018-11-01] MEDS: METOPROLOL TARTRATE 25 MG TAB PO SCH ×2 (09:06→21:39)
[2018-11-01] MEDS: HydrALAZINE 10 MG TAB PO SCH ×3 (09:09→21:40)
--- NOTE | 2018-11-01 16:55 | Nephrology Progress Note ---
Date of Service November 01, 2018 Assessment & Plan (1) Acute kidney injury superimposed on CKD: baseline creatinine 1.5-1.8 w/ 250-500 mg proteinuria. had been at baseline until today w/ creat increase to 2.4; suspect ischemic ATN from labile bp past several days -stopped ARB -lowered other bp meds as above -daily bmp while in house Present on Admission?: Yes (2) Hypertensive urgency: previously well controlled bp. chronic ambulatory dysfunction/balance issues/ frequent falls. on propranolol for tremor now w/ evidence of end organ damage w/ MRI showing tiny acute/ subacute L superior occipital lobe infarct takes low dose ARB only as OP; propranolol not teressa strong bp med. -HTN urgency/ emergency >> needs permissive HTN but not severe elevations >> recommend target systolic BP 140-150s , perhaps 140s at d/c >> today sbp sometimes even on lower side past 24 - 36 hrs -added hold parameters to CCB and hydralazine to hold for SBP <140 -stopped losartan -lowered hydralazine to 10 mg tid, lowered ccb to 2.5 mg bid -repeat bmp daily -cont lower metoprolol at 25 mg bid and try to avoid d/c on this if possible// low threshold to lower further -cont prn hydralazine 10 mg IV q4h prn SBP >180 -AAA 4.5 cm but now a stroke subacute/ acute as well ; favor outpt bp target in 140-150s -would MARKEDLY lower bp med burden at d/c and monitor as outpt >> suspect situational component to bp spike in hospital but will need to be followed closely after hospital d/c Present on Admission?: Yes (3) Near syncope: take extra care w/ large changes to bp meds given balance issues, presentation; pt w/ significant chronic ambulatory dysfunction from neuropathy, stroke Subjective seen on rounds this am at 0800 > no sob, no musculoskeletal pain, no voiding c/o, moving bowels; ros limited by cognitive status Review of Systems Review of Systems: All systems reviewed & are unremarkable except as noted in HPI & below Physical Exam Constitutional: well developed and well nourished lying nearly flat on RA interactive, appropriate, limited recall, slight speech slur/psychomotor delay Eyes: EOM intact bilaterally ENMT: Ears: no external ear abnormality Nose: no external nose abnormality Mouth: + dry oral mucous membranes Neck: no nuchal rigidity Respiratory: normal respiratory effort Auscultation: lungs clear to auscultation bilaterally and + diminished lung sounds Cardiovascular: Rate/Rhythm: regular rate and regular rhythm Extremities: no edema Gastrointestinal (Abdomen): Inspection/Auscultation: normal bowel sounds Percussion/Palpation: abdomen soft; abdomen nontender Musculoskeletal: Extremities: strength 5/5 throughout Skin: no rashes, warm and dry Neurologic: novak, fluent though delayed speech Psychiatric: Eye Contact: + fair eye contact Motor Behavior: + tremor (slight) Results & Data Vital Signs (Past 12 Hours) Vital Signs Temp Pulse Resp BP BP Pulse Ox 11/01/18 15:55 36.6 C 69 16 131/73 96 11/01/18 08:22 36.6 C 70 18 163/72 H 94 Laboratory Results Abnormal lab results 11/01/18 11/01/18 Range/Units 05:14 05:14 WBC 11.70 H (4.8-10.8) K/uL RBC 3.72 L (4.7-6.1) M/uL Hgb 12.7 L (14.0-18.0) g/dL Hct 36.8 L (42-52) % MCH 34.1 H (25-34) pg RDW Std Deviation 50.2 H (36.4-46.3) fL MPV 10.6 H (7.4-10.4) fL Chloride 110 H (98-107) mmol/L BUN 61 H (7-18) mg/dl Creatinine 2.40 H (0.6-1.4) mg/dl BUN/Creatinine Ratio 25.6 H (10-20) Glucose 107 H (70-99) mg/dl
--- NOTE | 2018-11-01 18:36 | Hospitalist Progress Note ---
Date of Service November 01, 2018 Assessment & Plan (1) Acute kidney injury superimposed on CKD: Creatinine worsen 1.782.48 today Possible secondary to variable blood pressure, hypertensive letter hypotensive episode Patient was also on losartan to control hypertensive urgency Patient input from nephrology Losartan kept on hold BP meds adjusted to prevent hypotensive episode Repeat labs in a.m. Avoid NSAIDs and contrast studies (2) Ischemic stroke: Acute/subacute CVA : had slurred speech on admission Dysarthria was resolved Suspected tiny acute/subacute Left superior occipital stroke MRI brain on 10/28 : IMPRESSION: 1. Suspected tiny acute/subacute left superior occipital lobe infarct 2. Old right occipital lobe infarct 3. Severe white matter disease statistically on a small vessel ischemic basis 4. No evidence of intracranial mass on this noncontrast study -On Aspirin, Added Plavix 75 mg daily . Added Atorvastatin 40 mg q HS.( high intensity statin therapy ) with goal LDL < 70 -Echo - EF 55 to 60%, Neg for ASD, doesnt allow assessment for PFO, US Carotid duplex-no hemodynamically significant stenosis within carotid artery -Carotid USG : no hemodynamically significant stenosis Patient will need rehab, referral made to [facility] (3) Hypertensive urgency: Hypertensive urgency Hypotensive episodes systolic blood pressure 112 earlier this morning Worsening of renal function Appreciate input from nephrology, losartan discontinued, reduced dose of hydralazine to 50 mg twice daily Continue to monitor closely Presented with weakness and frequent falls BP on admission was 240/121 , improved after adjustment of meds has been challenging to control Hypertension as on and off does't take his medic ations given dementia/ Extreme agitation -Received IV labetatol and IV hydralazine in the ER -current antihypertensive meds : amlodipine 5 mg twice daily, hydralazine 50 mg reduced to twice daily , losartan 50 mg daily-on hold for TRICE, metoprolol tartrate 50 mg twice daily (Holding parameters- SBP < 140) - Nephrology inputs appreciated Delirium in setting of Vascular dementia. Symptoms has resolved, patient is calm cooperative more oriented able to converse appropriately - Generalized weakness Recurrent Falls Ambulatory dysfunction Appreciate PT OT evaluation recommends rehab, referral made to [facility] History of gout -Continue allopurinol. History of essential tremor -Continue propranolol. Chronic kidney disease stage III. -Developed acute renal failure Baseline creatinine 1.51.8 Creatinine worsened to 2.40 today, Medication adjusted, nephrology following -Monitor BMP UTI Urine cx positive for enterococcus faecalis -completed Augmentin BID - Day 09/15 today Hypokalemia Resolved (4) Abdominal aortic aneurysm (AAA) 3.0 cm to 5.5 cm in diameter in male: -US of abdomen - AAA screening - 4.5 cm infrarenal intra-abdominal aortic aneurysm needs optimal BP control poor candidate for vascular procedure US abdominal screen as per protocol Update given to patient's son Bayron phone number cell #[phone] DVT px on heparin subq CODE STATUS - FULL CODE Disposition: -PT/OT recommends rehab Referral placed for [facility].- Subjective Awake and alert, no confusion, feels much better today, Asking when he can be discharged Patient's and daughter visiting Physical Exam Constitutional: WD/WN, vitals as above no acute distress Eyes: + anicteric sclerae ENMT: external ear and nose normal, oropharynx normal Neck: trachea midline, no thyromegaly Respiratory: normal respiratory effort, lungs clear to auscultation Cardiovascular: RRR, no murmur, no edema Gastrointestinal (Abdomen): normal bowel sounds, soft, nontender, no hepatosplenomegaly Musculoskeletal: Extremities: + abnormal strength, no muscle atrophy and no cyanosis Skin: no rashes, warm and dry Neurologic: PERRL, EOMI, accommodation nl, no face palsy, no dysarthria Psychiatric: Orientation: alert Speech: normal rate/rhythm/volume of speech Results & Data Vital Signs (Past 12 Hours) Vital Signs Temp Pulse Resp BP BP Pulse Ox 11/01/18 15:55 36.6 C 69 16 131/73 96 11/01/18 08:22 36.6 C 70 18 163/72 H 94
[2018-11-01] MEDS: ATORVASTATIN 40 MG TAB PO SCH (21:40)
[2018-11-01] MEDS: OLANZapine 5 MG TABLET PO SCH (21:40)
[2018-11-02 06:03] LABS: BUN Creatinine Ratio 26.4 (10-20); Calcium 8.5 mg/dl (8.5-10.1); Creatinine Clr Calc Pharmacy 29.5 ml/min; Est GFR (African American) 33.7; Est GFR (Non-African American) 29.1; Magnesium 2.4 mg/dl (1.8-2.4)
[2018-11-02] MEDS: ALLOPURINOL 100 MG TAB PO SCH (08:31)
[2018-11-02] MEDS: PROPRANOLOL HCL 60 MG LA CAP PO SCH (08:31)
[2018-11-02] MEDS: CETIRIZINE HCL 10 MG TABLET PO SCH (08:31)
[2018-11-02] MEDS: ASPIRIN 81 MG ECTAB PO SCH (08:31)
[2018-11-02] MEDS: CEROVITE ADV FORMULA TAB PO SCH (08:31)
[2018-11-02] MEDS: HydrALAZINE 10 MG TAB PO SCH ×3 (08:31→20:47)
[2018-11-02] MEDS: METOPROLOL TARTRATE 25 MG TAB PO SCH ×2 (08:32→20:47)
[2018-11-02] MEDS: AMLODIPINE BESYLATE 5 MG TAB PO SCH (08:33)
[2018-11-02] MEDS: HEPARIN SOD 5,000 UNIT/0.5 ML VIAL SQ SCH ×2 (08:33→20:48)
--- NOTE | 2018-11-02 09:02 | Hospitalist Progress Note ---
Date of Service November 02, 2018 Assessment & Plan (1) Acute kidney injury superimposed on CKD: Baseline CKD stage III, with creatinine 1.41.8 Developed ATN, secondary to labile BP Creatinine was elevated 2.48-improved: 2.0 today Losartan kept on hold, BP meds dose reduced to prevent hypotensive episode: Appreciate input from nephrology Avoid NSAIDs and contrast studies Present on Admission?: Yes (2) Ischemic stroke: Acute/subacute CVA : Presented with slurred speech-symptom has resolved Dysarthria was resolved MRI brain on 10/28 : IMPRESSION: 1. Suspected tiny acute/subacute left superior occipital lobe infarct 2. Old right occipital lobe infarct 3. Severe white matter disease statistically on a small vessel ischemic basis 4. No evidence of intracranial mass on this noncontrast study -On Aspirin, Added Plavix 75 mg daily . Added Atorvastatin 40 mg q HS.( high intensity statin therapy ) with goal LDL < 70 -Echo - EF 55 to 60%, Neg for ASD, doesnt allow assessment for PFO, US Carotid duplex-no hemodynamically significant stenosis within carotid artery -Carotid USG : no hemodynamically significant stenosis Appreciate PT OT and speech therapy recommendation Patient will need rehab Referral made to [facility] Transfer to rehab was kept on hold yesterday secondary to labile blood pressure and worsening of kidney function New to monitor patient over the weekend Possible to transfer to [facility] on 11/04/2018 if patient's blood pressure and kidney function remains stable (3) Hypertensive urgency: Hypertensive urgency Patient presented with hypertensive urgency BP on admission was 240/121 , improved after adjustment of meds Discharged with acute/subacute occipital stroke -Received IV labetatol and IV hydralazine in the ER Patient was on only 2 antihypertensive meds at home Propanolol 120 mg daily Losartan 25 mg daily Presented with hypertensive response possibly secondary to acute CVA And was also developed acute delirium with agitation combativeness-resolved Required multiple adjustment of BP meds: Losartan discontinued for acute renal failure-given patient's dementia, variable p.o. intake, high risk for dehydration and TRICE in the future And avoiding losartan could be prudent-will discuss with nephrology Propanolol 120 mg daily continued-Home medication amlodipine 2.5 mg twice daily(dose reduced yesterday)-new drug added this admission Metoprolol 25 mg twice daily-new drug added this admission Hydralazine 10 mg p.o. twice daily-new drug added this admission Patient's a.m. blood pressure 146/77 Prior to getting any antihypertensive We will hold a.m. dose of amlodipine-to prevent hypotensive episode BP medication will continue to be titrated Delirium in setting of Vascular dementia. Resolved Continued with scheduled dose of Zyprexa 5 mg p.m. Not required any PRN dose Very pleasant, cooperative and calm, appropriate following commands, Knows that he needs hospital oriented to place and person - Generalized weakness Recurrent Falls Ambulatory dysfunction Appreciate PT OT evaluation recommends rehab, referral made to [facility] for rehab History of gout -Continue allopurinol. History of essential tremor -Continue propranolol. Chronic kidney disease stage III. -Developed acute renal failure Baseline creatinine 1.51.8 Creatinine improved to 2.40 -> 2.0 today Medication adjusted, nephrology following -Monitor BMP UTI Urine cx positive for enterococcus faecalis -completed Augmentin BID - Day 09/15 today Hypokalemia Resolved (4) Abdominal aortic aneurysm (AAA) 3.0 cm to 5.5 cm in diameter in male: -US of abdomen - AAA screening - 4.5 cm infrarenal intra-abdominal aortic aneurysm needs optimal BP control poor candidate for vascular procedure - US abdominal screen as per protocol Update given to patient's son Bayron phone number cell #[phone] DVT px on heparin subq CODE STATUS - FULL CODE Disposition: -PT/OT recommends rehab Referral placed for [facility].- Possible transfer to [facility] for rehab on 11/04/2018 if blood pressure and renal function remains stable Subjective Patient's been able to get out sit on the chair, having breakfast Needed minimum assistance with 1 person only Pleasant awake and alert oriented to place and person says" I feel well" No complaint of dizziness or lightheadedness Blood pressure appears to be stable, SBP 146/77 at 8 AM today(did not get a.m. BP meds yet) Given patient's hypotensive episode after BP meds: Will hold a.m. dose of Norvasc Continue to monitor Creatinine improved 2.482.0 today Physical Exam Constitutional: WD/WN, vitals as above no acute distress Eyes: + anicteric sclerae ENMT: external ear and nose normal, oropharynx normal Neck: trachea midline, no thyromegaly Respiratory: normal respiratory effort, lungs clear to auscultation Cardiovascular: RRR, no murmur, no edema Gastrointestinal (Abdomen): normal bowel sounds, soft, nontender, no hepatosplenomegaly Musculoskeletal: Extremities: + abnormal strength, no muscle atrophy and no cyanosis Skin: no rashes, warm and dry Neurologic: PERRL, EOMI, accommodation nl, no face palsy, no dysarthria Psychiatric: Orientation: alert Speech: normal rate/rhythm/volume of speech Results & Data Vital Signs (Past 12 Hours) Vital Signs Temp Pulse Resp BP BP Pulse Ox 11/02/18 08:01 36.6 C 64 19 146/77 H 96 11/01/18 22:44 36.8 C 55 L 20 138/80 95
[2018-11-02] MEDS: ATORVASTATIN 40 MG TAB PO SCH (20:47)
[2018-11-02] MEDS: OLANZapine 5 MG TABLET PO SCH (20:47)
[2018-11-03 07:09] LABS: BUN Creatinine Ratio 25.2 (10-20); Calcium 8.6 mg/dl (8.5-10.1); Creatinine Clr Calc Pharmacy 31.7 ml/min; Est GFR (African American) 36.7; Est GFR (Non-African American) 31.7; Magnesium 2.3 mg/dl (1.8-2.4)
[2018-11-03] MEDS: HydrALAZINE 10 MG TAB PO SCH ×3 (08:04→21:11)
[2018-11-03] MEDS: ASPIRIN 81 MG ECTAB PO SCH (08:04)
[2018-11-03] MEDS: CETIRIZINE HCL 10 MG TABLET PO SCH (08:04)
[2018-11-03] MEDS: PROPRANOLOL HCL 60 MG LA CAP PO SCH (08:04)
[2018-11-03] MEDS: ALLOPURINOL 100 MG TAB PO SCH (08:04)
[2018-11-03] MEDS: HEPARIN SOD 5,000 UNIT/0.5 ML VIAL SQ SCH ×2 (08:05→21:14)
[2018-11-03] MEDS: METOPROLOL TARTRATE 25 MG TAB PO SCH ×2 (08:05→21:13)
[2018-11-03] MEDS: CEROVITE ADV FORMULA TAB PO SCH (08:05)
--- NOTE | 2018-11-03 14:23 | Hospitalist Progress Note ---
Date of Service November 03, 2018 Assessment & Plan (1) Acute kidney injury superimposed on CKD: Baseline CKD stage III, with creatinine 1.41.8 Developed ATN, secondary to labile BP Creatinine gradually improving 2.48- 2.0-1.9 Losartan kept on hold, BP meds dose reduced to prevent hypotensive episode: Appreciate input from nephrology Avoid NSAIDs and contrast studies (2) Ischemic stroke: Acute/subacute CVA : Presented with slurred speech-symptom has resolved Dysarthria was resolved MRI brain on 10/28 : IMPRESSION: 1. Suspected tiny acute/subacute left superior occipital lobe infarct 2. Old right occipital lobe infarct 3. Severe white matter disease statistically on a small vessel ischemic basis 4. No evidence of intracranial mass on this noncontrast study -On Aspirin, Added Plavix 75 mg daily . Added Atorvastatin 40 mg q HS.( high intensity statin therapy ) with goal LDL < 70 -Echo - EF 55 to 60%, Neg for ASD, doesnt allow assessment for PFO, US Carotid duplex-no hemodynamically significant stenosis within carotid artery -Carotid USG : no hemodynamically significant stenosis Appreciate PT OT and speech therapy recommendation Patient will need rehab Referral made to [facility] Transfer to rehab was kept on hold on Sunday secondary to labile blood pressure and worsening of kidney function New to monitor patient over the weekend Possible to transfer to [facility] on 11/04/2018 if patient's blood pressure and kidney function remains stable (3) Hypertensive urgency: Hypertensive urgency Patient presented with hypertensive urgency BP on admission was 240/121 , improved after adjustment of meds Discharged with acute/subacute occipital stroke -Received IV labetatol and IV hydralazine in the ER Patient was on only 2 antihypertensive meds at home Propanolol 120 mg daily Losartan 25 mg daily Presented with hypertensive response possibly secondary to acute CVA And was also developed acute delirium with agitation combativeness-resolved Required multiple adjustment of BP meds: Losartan discontinued for acute renal failure-given patient's dementia, variable p.o. intake, high risk for dehydration and TRICE in the future And avoiding losartan could be prudent-will discuss with nephrology Propanolol 120 mg daily continued-Home medication amlodipine 2.5 mg twice daily(dose reduced yesterday)-new drug added this admission Metoprolol 25 mg twice daily-new drug added this admission Hydralazine 10 mg p.o. twice daily-new drug added this admission BP medication will continue to be titrated Delirium in setting of Vascular dementia. Resolved Continued with scheduled dose of Zyprexa 5 mg p.m. Not required any PRN dose Very pleasant, cooperative and calm, appropriate following commands, Knows that he needs hospital oriented to place and person - Generalized weakness Recurrent Falls Ambulatory dysfunction Appreciate PT OT evaluation recommends rehab, referral made to [facility] for rehab History of gout -Continue allopurinol. History of essential tremor -Continue propranolol. Chronic kidney disease stage III. -Developed acute renal failure Baseline creatinine 1.51.8 Creatinine improved to 2.40 -> 2.0 today Medication adjusted, nephrology following -Monitor BMP UTI Urine cx positive for enterococcus faecalis -completed Augmentin BID - Day 09/15 today Hypokalemia Resolved (4) Abdominal aortic aneurysm (AAA) 3.0 cm to 5.5 cm in diameter in male: -US of abdomen - AAA screening - 4.5 cm infrarenal intra-abdominal aortic aneurysm needs optimal BP control <140/90 Repeat US abdominal for AAA screen in 6 months Update given to patient's son Bayron phone number cell #[phone] DVT px on heparin subq CODE STATUS - FULL CODE Disposition: -PT/OT recommends rehab Referral placed for [facility].- Possible transfer to [facility] for rehab on 11/04/2018 if blood pressure and renal function remains stable Subjective Continues to do well, blood pressure appears to be good control, No fever chills, denies of any headache, Eager to be discharged to rehab Physical Exam Constitutional: WD/WN, vitals as above no acute distress Eyes: + anicteric sclerae ENMT: external ear and nose normal, oropharynx normal Neck: trachea midline, no thyromegaly Respiratory: normal respiratory effort, lungs clear to auscultation Cardiovascular: RRR, no murmur, no edema Gastrointestinal (Abdomen): normal bowel sounds, soft, nontender, no hepatosplenomegaly Musculoskeletal: Extremities: + abnormal strength, no muscle atrophy and no cyanosis Skin: no rashes, warm and dry Neurologic: PERRL, EOMI, accommodation nl, no face palsy, no dysarthria Psychiatric: Orientation: alert Speech: normal rate/rhythm/volume of speech Results & Data Vital Signs (Past 12 Hours) Vital Signs Temp Pulse Resp BP Pulse Ox 11/03/18 07:40 36.4 C L 66 20 150/91 H 96
[2018-11-03] MEDS ORDERED: AMLODIPINE BESYLATE 5 MG TAB PO ONE (19:50)
[2018-11-03] MEDS: OLANZapine 5 MG TABLET PO SCH (21:12)
[2018-11-03] MEDS: ATORVASTATIN 40 MG TAB PO SCH (21:12)
[2018-11-04 06:52] LABS: Hematocrit (blood only) 35.9 % (42-52); Hemoglobin 12.6 g/dL (14.0-18.0); Mean Corpuscular Hemoglobin 34.8 pg (25-34); Mean Corpuscular Hgb Conc 35.1 g/dL (32-36); Mean Corpuscular Volume 99.2 fL (80-100); Mean Platelet Volume 10.7 fL (7.4-10.4); Platelet Count 240 K/uL (130-400); RDW Standard Deviation 50.7 fL (36.4-46.3); Red Blood Count 3.62 M/uL (4.7-6.1); White Blood Count 9.35 K/uL (4.8-10.8)
[2018-11-04 07:37] LABS: BUN Creatinine Ratio 22.8 (10-20); Calcium 9.2 mg/dl (8.5-10.1); Creatinine Clr Calc Pharmacy 30.6 ml/min; Est GFR (African American) 35.2; Est GFR (Non-African American) 30.3
[2018-11-04 08:07] LABS: Potassium 4.2 mmol/L (3.5-5.1)
[2018-11-04] MEDS: HydrALAZINE 10 MG TAB PO SCH (08:07)
[2018-11-04] MEDS: ASPIRIN 81 MG ECTAB PO SCH (08:07)
[2018-11-04] MEDS: METOPROLOL TARTRATE 25 MG TAB PO SCH (08:07)
[2018-11-04 08:08] LABS: Magnesium 2.6 mg/dl (1.8-2.4)
[2018-11-04] MEDS: CEROVITE ADV FORMULA TAB PO SCH (08:08)
[2018-11-04] MEDS: HEPARIN SOD 5,000 UNIT/0.5 ML VIAL SQ SCH (08:08)
[2018-11-04] MEDS: CETIRIZINE HCL 10 MG TABLET PO SCH (08:08)
[2018-11-04] MEDS: PROPRANOLOL HCL 60 MG LA CAP PO SCH (08:08)
[2018-11-04] MEDS: ALLOPURINOL 100 MG TAB PO SCH (08:08)
[2018-11-04] MEDS ORDERED: AMLODIPINE BESYLATE 5 MG TAB PO SCH (09:00)
--- NOTE | 2018-11-04 10:22 | Hospitalist Progress Note ---
Date of Service November 04, 2018 Assessment & Plan (1) Acute kidney injury superimposed on CKD: Baseline CKD stage III, with creatinine 1.41.8 Developed ATN, possible secondary to labile BP Losartan kept on hold, BP meds dose reduced to prevent hypotensive episode: Appreciate input from nephrology Creatinine gradually improved: 2.4-> 2-> 1.9 Michael with nephrology, patient's renal function possibly proximal to the baseline Recommends judicial control of blood pressure, Losartan will be discontinued Stable to be discharged to rehab Repeat blood work in a week to assess stability of renal function (2) Ischemic stroke: Acute/subacute CVA : Presented with slurred speech-symptom has resolved Dysarthria was resolved MRI brain on 10/28 : IMPRESSION: 1. Suspected tiny acute/subacute left superior occipital lobe infarct 2. Old right occipital lobe infarct 3. Severe white matter disease statistically on a small vessel ischemic basis 4. No evidence of intracranial mass on this noncontrast study -On Aspirin, Added Plavix 75 mg daily . Added Atorvastatin 40 mg q HS.( high intensity statin therapy ) with goal LDL < 70 -Echo - EF 55 to 60%, Neg for ASD, doesnt allow assessment for PFO, US Carotid duplex-no hemodynamically significant stenosis within carotid artery -Carotid USG : no hemodynamically significant stenosis Appreciate PT OT and speech therapy recommendation Patient will need rehab Referral made to [facility] Patient is medically stable to be transferred to rehab today stable to transfer to [facility] today (3) Hypertensive urgency: Hypertensive urgency Patient presented with hypertensive urgency BP on admission was 240/121 , improved after adjustment of meds Diagnosed with acute/subacute occipital stroke -Received IV labetatol and IV hydralazine in the ER Patient was on only 2 antihypertensive meds at home Propanolol 120 mg daily Losartan 25 mg daily Presented with hypertensive response possibly secondary to acute CVA And was also developed acute delirium with agitation combativeness-resolved Required multiple adjustment of BP meds: Losartan discontinued for acute renal failure-given patient's dementia, variable p.o. intake, high risk for dehydration and TRICE in the future And avoiding losartan could be prudent-will discuss with nephrology Propanolol 120 mg daily continued-Home medication amlodipine 5 mg twice daily-new drug added this admission Metoprolol 25 mg twice daily-new drug added this admission DISCUSSED WITH NEPHROLOGY-recommends to increase Hydralazine 25 mg p.o. 3 times daily -new drug added this admission-with a goal BP less than 140/90 Delirium in setting of Vascular dementia. Resolved Continued with scheduled dose of Zyprexa 5 mg p.m. Not required any PRN dose Very pleasant, cooperative and calm, appropriate following commands, Knows that he needs hospital oriented to place and person - Generalized weakness Recurrent Falls Ambulatory dysfunction Appreciate PT OT evaluation recommends rehab, referral made to [facility] for rehab History of gout -Continue allopurinol. History of essential tremor -Continue propranolol. Chronic kidney disease stage III. -Developed acute renal failure Baseline creatinine 1.51.8 Creatinine improved to 2.40 -> 2.0 today Medication adjusted, nephrology following -Monitor BMP UTI Urine cx positive for enterococcus faecalis -completed Augmentin BID - Day 09/15 today Hypokalemia Resolved (4) Abdominal aortic aneurysm (AAA) 3.0 cm to 5.5 cm in diameter in male: -US of abdomen - AAA screening - 4.5 cm infrarenal intra-abdominal aortic aneurysm needs optimal BP control <140/90 BP meds adjustments as above Repeat US abdominal for AAA screen in 6 months Contact : patient's son Bayron phone number cell #[phone] DVT px on heparin subq CODE STATUS - FULL CODE Disposition: -PT/OT recommends rehab Referral placed for [facility].- Medically stable to be transffer to [facility] for rehab today Subjective Doing very well this morning, Awake and alert, conversing appropriately No headache, no blurred vision, no fever chills No chest pain or shortness of breath Pressure remains stable medically stable to be transferred to [facility] for ongoing rehab Physical Exam Constitutional: WD/WN, vitals as above no acute distress Eyes: + anicteric sclerae ENMT: external ear and nose normal, oropharynx normal Neck: trachea midline, no thyromegaly Respiratory: normal respiratory effort, lungs clear to auscultation Cardiovascular: RRR, no murmur, no edema Gastrointestinal (Abdomen): normal bowel sounds, soft, nontender, no hepatosplenomegaly Musculoskeletal: Extremities: + abnormal strength, no muscle atrophy and no cyanosis Skin: no rashes, warm and dry Neurologic: PERRL, EOMI, accommodation nl, no face palsy, no dysarthria Psychiatric: Orientation: alert Speech: normal rate/rhythm/volume of speech Results & Data Vital Signs (Past 12 Hours) Vital Signs Temp Pulse Resp BP BP Pulse Ox 11/04/18 07:23 36.7 C 66 17 142/78 H 99 11/03/18 23:20 36.6 C 66 16 124/73 94
[2018-11-04] MEDS ORDERED: CLOPIDOGREL BISULFATE 75 MG TAB PO SCH (10:30)
--- NOTE | 2018-11-04 10:33 | Nephrology Progress Note ---
Date of Service November 04, 2018 Assessment & Plan (1) Acute kidney injury superimposed on CKD: baseline creatinine 1.5-1.8 w/ 250-500 mg proteinuria. cr peak 2.4 down to 2 today; suspect ischemic ATN from labile bp past several days -stopped ARB. Will need to restart the ARB in the office in follow up -If discharged will need BMP with in a week (2) Hypertensive urgency: previously well controlled bp. chronic ambulatory dysfunction/balance issues/ frequent falls. on propranolol for tremor now w/ evidence of end organ damage w/ MRI showing tiny acute/ subacute L superior occipital lobe infarct takes low dose ARB only as OP; propranolol not teressa strong bp med. -Stop metoprolol since he is on propranolol already. -Increase hydralazine to 25mg tid. Continue other meds (3) Near syncope: take extra care w/ large changes to bp meds given balance issues, presentation; pt w/ significant chronic ambulatory dysfunction from neuropathy, stroke Subjective Patient seen in f/u for HTN and CKD. No SOB or pain. No dysuria. BP stable. he is on 2 beta blockers Review of Systems Review of Systems: All systems reviewed & are unremarkable except as noted in HPI & below Physical Exam Physical Exam: General exam: Appears comfortable, no acute distress HEENT: Pupils are equal and reactive to light Neck: No JVD, neck is supple trachea is midline Respiratory system: Clear breath sounds bilaterally. Gastrointestinal: Abdomen is soft, non distended, non tender, bowel sounds are present CVS: Regular rate and rhythm. No murmurs, rubs or gallops Musculoskeletal: No joint or muscle tenderness Extremities: Non tender, no edema, peripheral pulses are present Neuro: Oriented, no tremors, no focal neurological deficits Skin: No rashes Results & Data Vital Signs (Past 12 Hours) Vital Signs Temp Pulse Resp BP BP Pulse Ox 11/04/18 07:23 36.7 C 66 17 142/78 H 99 11/03/18 23:20 36.6 C 66 16 124/73 94 Laboratory Results Laboratory Results - last 24 hr 11/04/18 11/04/18 11/04/18 06:35 06:35 07:40 WBC 9.35 RBC 3.62 L Hgb 12.6 L Hct 35.9 L MCV 99.2 MCH 34.8 H MCHC 35.1 RDW Std Deviation 50.7 H RDW Coeff of Angelika 14.0 Plt Count 240 MPV 10.7 H Sodium 142 Potassium 4.2 Chloride 110 H Carbon Dioxide 25 Anion Gap 7.0 BUN 45 H Creatinine 1.98 H Est Cr Clr Drug Dosing 30.6 Est GFR ( Amer) 35.2 Est GFR (Non-Af Amer) 30.3 BUN/Creatinine Ratio 22.8 H Glucose 112 H Calcium 9.2 Magnesium 2.6 H
--- NOTE | 2018-11-04 14:59 | Discharge Summary ---
Date of Service November 04, 2018 Admission HPI Per Admitting Provider DICTATED BY: Allen Fisher MD DATE OF ADMISSION: 10/22/2018 CHIEF COMPLAINT: Frequent falls. 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 The patient lives with his and daughter. He is falling frequently lately and yesterday fell in his porch. Today he was coming from his bathroom when he was shaky and almost about to fall when his told him to sit down and called his neighbor and then was brought to the hospital. In the hospital, systolic blood pressure was high at one time in the 240s. The patient has some headache. Denies any blurred visions. Is somewhat hard to hear. No earaches, no sore throat. He is eating okay. Sometimes he has had chicken and meat stuck in throat, but he drinks water to swallow it and denies any chest pain, no shortness of breath. Has cough, bringing up some phlegm. No fever, no chills, no nausea, no abdominal pain. He says in the night time, he has frequent urination. No blood in the stools. No swelling in the legs. Currently resting comfortably. I also talked to the . She was worried about his kidney disease and she says generally whenever he is in the PCP's office, his blood pressure runs okay and when they tried to draw the blood work in the ER, she says the blood pressure went up high and she thinks the patient may get benefit from going to rehabilitation. Principal Diagnosis ACUTE CVA(OCCIPITAL STROKE)/HYPERTENSIVE URGENCY/ACUTE ON CHRONIC KIDNEY FAILURE, RESOLVED Discharge Exam Constitutional WD/WN, vitals as above no acute distress Eyes + anicteric sclerae ENMT external ear and nose normal, oropharynx normal Neck trachea midline, no thyromegaly Respiratory normal respiratory effort, lungs clear to auscultation Cardiovascular RRR, no murmur, no edema Gastrointestinal (Abdomen) normal bowel sounds, soft, nontender, no hepatosplenomegaly Musculoskeletal Extremities: + abnormal strength, no muscle atrophy and no cyanosis Skin no rashes, warm and dry Neurologic PERRL, EOMI, accommodation nl, no face palsy, no dysarthria Psychiatric Orientation: alert Speech: normal rate/rhythm/volume of speech Discharge Data Allergies Allergy/AdvReac Type Severity Reaction Status Date / Time No Known Allergies Allergy Unknown Verified 10/22/18 18:24 Consultations 10/22/18 20:10 ED Decision to Admit Stat 10/22/18 23:51 Consult Case Management - Discharge Planning Routine 10/25/18 08:26 Consult Nephrology Routine 10/28/18 11:09 Consult Neurology Routine Ordered Studies 10/23/18 04:05 CT head/brain wo con Urgent 10/26/18 16:54 US AAA screening Routine 10/28/18 08:50 MR brain wo con Routine 10/28/18 11:12 US carotid doppler BI Routine Hospital Course (1) Acute kidney injury superimposed on CKD: Baseline CKD stage III, with creatinine 1.41.8 Developed ATN, possible secondary to labile BP Losartan kept on hold, BP meds dose reduced to prevent hypotensive episode: Appreciate input from nephrology Creatinine gradually improved: 2.4-> 2-> 1.9 Michael with nephrology, patient's renal function possibly proximal to the baseline Recommends judicial control of blood pressure, Losartan will be discontinued Stable to be discharged to rehab Repeat blood work in a week to assess stability of renal function (2) Ischemic stroke: Acute/subacute CVA : Presented with slurred speech-symptom has resolved Dysarthria was resolved MRI brain on 10/28 : IMPRESSION: 1. Suspected tiny acute/subacute left superior occipital lobe infarct 2. Old right occipital lobe infarct 3. Severe white matter disease statistically on a small vessel ischemic basis 4. No evidence of intracranial mass on this noncontrast study -On Aspirin, Added Plavix 75 mg daily . Added Atorvastatin 40 mg q HS.( high intensity statin therapy ) with goal LDL < 70 -Echo - EF 55 to 60%, Neg for ASD, doesnt allow assessment for PFO, US Carotid duplex-no hemodynamically significant stenosis within carotid artery -Carotid USG : no hemodynamically significant stenosis Appreciate PT OT and speech therapy recommendation Patient will need rehab Referral made to [facility] Patient is medically stable to be transferred to rehab today stable to transfer to [facility] today (3) Hypertensive urgency: Hypertensive urgency Patient presented with hypertensive urgency BP on admission was 240/121 , improved after adjustment of meds Diagnosed with acute/subacute occipital stroke -Received IV labetatol and IV hydralazine in the ER Patient was on only 2 antihypertensive meds at home Propanolol 120 mg daily Losartan 25 mg daily Presented with hypertensive response possibly secondary to acute CVA And was also developed acute delirium with agitation combativeness-resolved Required multiple adjustment of BP meds: Losartan discontinued for acute renal failure-given patient's dementia, variable p.o. intake, high risk for dehydration and TRICE in the future And avoiding losartan could be prudent-will discuss with nephrology Propanolol 120 mg daily continued-Home medication amlodipine 5 mg twice daily-new drug added this admission Metoprolol 25 mg twice daily-new drug added this admission DISCUSSED WITH NEPHROLOGY-recommends to increase Hydralazine 25 mg p.o. 3 times daily -new drug added this admission-with a goal BP less than 140/90 Delirium in setting of Vascular dementia. Resolved Continued with scheduled dose of Zyprexa 5 mg p.m. Not required any PRN dose Very pleasant, cooperative and calm, appropriate following commands, Knows that he needs hospital oriented to place and person - Generalized weakness Recurrent Falls Ambulatory dysfunction Appreciate PT OT evaluation recommends rehab, referral made to [facility] for rehab History of gout -Continue allopurinol. History of essential tremor -Continue propranolol. Chronic kidney disease stage III. -Developed acute renal failure Baseline creatinine 1.51.8 Creatinine improved to 2.40 -> 2.0 today Medication adjusted, nephrology following -Monitor BMP UTI Urine cx positive for enterococcus faecalis -completed Augmentin BID - Day 09/15 today Hypokalemia Resolved (4) Abdominal aortic aneurysm (AAA) 3.0 cm to 5.5 cm in diameter in male: -US of abdomen - AAA screening - 4.5 cm infrarenal intra-abdominal aortic aneurysm needs optimal BP control <140/90 BP meds adjustments as above Repeat US abdominal for AAA screen in 6 months Contact : patient's son Bayron phone number cell #[phone] DVT px on heparin subq CODE STATUS - FULL CODE Disposition: -PT/OT recommends rehab Referral placed for [facility].- Medically stable to be transffer to [facility] for rehab today Total Time Total Time Spent Total Time Spent (In Minutes): Approximate 40 minutes Total Time Includes: Examination of the Patient, Discharge Planning, Medication Reconciliation and Communication With Other Providers Discharge Plan Discharge Items Patient Disposition: Transfer Alf Fac Reason For Visit: FALL Discharge Diagnosis: ACUTE CVA(OCCIPITAL STROKE)/HYPERTENSIVE URGENCY/ACUTE ON CHRONIC KIDNEY FAILURE, RESOLVED Discharge Goals: Decrease discomfort and Therapeutic intervention Activity: As commented below Activity Comment: Continue physical therapy occupational therapy at the rehab Non-emergency contact: Primary Care Provider Call non-emergency contact if: you have any medication questions Follow-up/Referrals: Savi Johnston MD [Primary Care Provider] - Diet: Heart Healthy and Low Sodium (2gm) Diet Texture: Dental soft (bite-sized) Diet Comment: Aspiration precaution: 1. Alternate between solid and liquid Addtl Provider Instructions: Follow-up with family physician: Dr. Johnston at [facility] after discharge from rehab NEW MEDICATIONS: 1. Plavix 75 mg by mouth daily (both aspirin and Plavix needed to be taken after meal preferably after dinner, 2. Norvasc 5 mg twice daily 3. Hydralazine 25 mg 3 times daily 4. Metoprolol tartrate 25 mill grams twice daily 5. Atorvastatin 40 mg daily 6. Olanapine 5 mg PO HS ( can cause very low white count -needs monthly CBC to be checked ) DISCONTINUED MED: LOSARTAN 25 MG DAILY Aspiration precaution: 1. Meals to be given when patient is fully awake and alert, sitting upright 2. Alternate between solid and liquid 3. small bites,/slow rate/Small Sips LAB WORK Basic metabolic panel in 1 week -RENAL FAILURE CBC ( COMPLETE METABOLIC PANEL ) EVERY MONTH INFRARENAL ABDOMINAL AORTIC ANEURYSM 4.5 CM : REPEAT ULTRASOUND OF ABDOMEN IN MONTHS : 04/2019 NEEDS REFERRAL TO VASCULAR SURGERY IF SHOWS INCREASE IN SIZE OF ANEURYSM > 5.5 CM BLOOD PRESSURE NEEDS TO BE IN GOOD CONTROL GOAL LESS THAN 140/90 IN SETTING OF AORTIC ANEURYSM Prescriptions: New atorvastatin 40 mg Tablet 40 mg PO HS 30 Days Qty: 30 RF: 0 olanzapine 5 mg Tablet 5 mg PO HS 30 Days Qty: 30 RF: 0 metoprolol tartrate 25 mg Tablet 25 mg PO BID 30 Days Qty: 60 RF: 0 amlodipine [Norvasc] 5 mg Tablet 5 mg PO BID 30 Days Qty: 60 RF: 0 clopidogrel [Plavix] 75 mg tablet 75 mg PO DAILY Qty: 30 RF: 0 hydralazine 25 mg tablet 25 mg PO TID Qty: 30 RF: 0 Continued PreserVision AREDS-2 [id number] Capsule 1 tab PO DAILY RF: 0 fluocinonide 0.05 % cream 1 applic topical DAILY PRN (Reason: Rash) RF: 0 propranolol 60 mg tablet 120 mg PO DAILY RF: 0 allopurinol 100 mg tablet 100 mg PO DAILY RF: 0 aspirin [Aspir-81] 81 mg Tablet,Delayed Release (Dr/Ec) 81 mg PO DAILY RF: 0 cetirizine 10 mg tablet 10 mg PO DAILY RF: 0 oxycodone-acetaminophen 5-325 mg tablet 1 tab PO BID PRN (Reason: Pain) RF: 0 guaifenesin [Mucinex] 600 mg Tablet Extended Release 12hr 600 mg PO Q3D RF: 0 Discontinued losartan 25 mg tablet 25 mg PO DAILY RF: 0 Stand-Alone Forms: [facility] Discharge Orders: Discharge Order (Routine); Ordered 11/04/18 Ordered By: Manju Marmolejo Skilled Items Patient informed of condition?: Yes DNR: No Discharge Level of Care: Skilled Communicable Disease: No Discharge Prognosis: Stable Admission Data Admit Date/Time: 10/22/18 21:53 Attending Provider: Manju Marmolejo Admit Provider: Allen Fisher Primary Care Provider: Savi Johnston Other Providers: Zoey Camarena Rajendra P. ; Maura Aguilar ; An Parry ; Zander Quiroga ; An Encinas ; Magdiel Finn Service: Medical Other Interventions: Discharge Summary Assessment (RN) Last Done: 11/04/18 12:31
== END 2018-11-04 16:20 | DRG 65 ==
LOC: ED 17:29 → SUATTDRO 21:53 → 2S 21:53 → 4W 10-30 17:31

== ENCOUNTER 2021-04-19 19:31 | Inpatient (IN) ==
--- NOTE | 2021-04-19 19:37 | Emergency Department Note ---
Impression & Plan Sepsis, Abdominal aortic aneurysm (AAA) 3.0 cm to 5.5 cm in diameter in male, Cholecystitis, Elevated LFTs, Fecal occult blood test positive, Weakness, Nausea & vomiting, Elevated lactic acid level ED Provider Note NAME: AMANUEL LLOYD AGE: 85 SEX: M : 1935 ARRIVES VIA: Ambulance INFORMANT: Patient, ED PROVIDER(S): Moreno Gaxiola MD Chief Complaint: Abdominal pain and chest pain HPI: Patient does present due to concern for abdominal pain and chest pain. Patient reported that the abdominal pain was in the upper abdomen with radiation into the upper chest. After presenting to the emergency department the patient states that his symptoms have improved but still feels nauseated. The patient had some vomiting in route. Patient does take Plavix but no other blood thinning medications. No reported falls or trauma. The patient does have a history of a AAA which is reported not to be amenable to repair per EMS. Patient denies any fevers but does feel chilled. Patient currently denies any abdominal pain states he said it regular bowel movements and no issues with urination. The patient denies any dysuria hematuria. I did speak with the patient's over the phone after initially seeing the patient and putting in orders. She stated the patient had developed symptoms around 2 PM today did not feel like eating an omelette. The patient subsequently was trialed with some Pepto-Bismol but this did not improve his symptoms. The patient went to go lay down but then awoke with significant discomfort and vomiting. ROS: See HPI for pertinent positives and negatives. A total of 10 systems were reviewed and otherwise negative. Past medical history: See below Surgical history: See below Social history: See below Physical Exam: GENERAL: Ill in appearance,NAD, wearing a mask, non-toxic. EYE EXAM: Normal conjunctiva. PERRL, no anisocoria and EOM's grossly intact w/o pain. OROPHARYNX: Dry mucus membranes. Grossly normal dentition. NECK: Supple, no nuchal rigidity, no adenopathy, non-tender. No signs of meningismus. LUNGS: Clear to auscultation. Normal chest wall mechanics. HEART: Tachycardic and regular, no MRG. ABDOMEN: Abdomen soft, mild upper abdominal discomfort, normo-active bowel sounds, no masses, no rebound or guarding. BACK: No CVA TTP. SKIN: No rashes and no bruising. UPPER EXTREMITIES: Upper extremities are grossly normal. LOWER EXTREMITIES: Grossly normal, no edema. NEURO EXAM: Awake and alert, follows commands, normal speech. Differential diagnoses: Appendicitis, testicular torsion, infections, diverticulitis, UTI, obstruction, mesenteric ischemia, aortic pathology, inflammatory bowel disease, renal colic, PUD, pancreatitis, biliary pathology, hernia, volvulus, constipation, as well as other pathologies. Course: Patient was seen and evaluated the bedside. Full history physical exam was performed. EKG interpreted by me Sinus tachycardia, rate of 119, wide QRS, right bundle branch block pattern, left axis deviation, the patient's right bundle branch block and widened QRS are new from comparison EKG October 22, 2018. Patient's left axis is old. Imaging Studies: See Below Cardiac monitoring: An order was placed for continuous cardiac monitoring. The monitor shows a rate of 115 with tachycardic and regular rhythm. MDM: Patient did present due to concern for chest and abdominal pain. The patient did appear to have some hematemesis so patient was treated as if he had a GI bleed and subsequently did have CT angiography of the chest and CT abdomen pelvis ordered after [id number] kidney function showed a creatinine of 1.3. Given the patient's chest and abdominal pain this was somewhat undifferentiated especially in light of the patient's history of aneurysm. Patient's initial EKG did show changes but the patient currently denies any chest pains. Given the patient's tachycardia the angiogram was ordered. The patient blood work showed a white count of 16 with a hemoglobin of 13.4 and normal platelet count. The pat ient's kidney function did show creat of 1.2 with a slightly lower bicarb and increased anion gap. The patient's initial lactate was 4.5. The patient did have transaminitis with bilirubin of 2.4 elevated AST ALT and alk phos. Troponin not detectable. Covid negative. Patient CT angiography did not show any acute findings with the patient CT abdomen pelvis was concern for acute cholecystitis. I did speak with the on-call general surgery team Yong Moya PA-C and consult was placed with Dr. Gann. I did speak with the on-call hospitalist Dr. Fisher and the patient was admitted to the medicine service with surgical consult. Additional imaging was deferred to inpatient and surgical teams. Repeat lactate did show improvement to 2.8. Patient did receive 2 L IV fluids. Critical Care: I have personally spent 72 minutes of critical care time in direct management of this patient. This includes bedside care, interpretation of diagnostic studies, and testing, discussion with consultants, patient, and family members, and other require inpatient management activities. This 72 minutes is in excess of all separately billable procedures. Past Med/Surg History Medical History Dementia HTN (hypertension) Family History Other Family history non-contributory Social History Smoking Status: Never smoker Hx Alcohol Use: No Hx Substance Use: No Preferred Language: Burmese Communication Ability: Impaired Communication Ability Comment: Patient appears with some confusion, per Daughter this is normal Landscape Supervisor Required: No Beliefs That Will Affect Care: None marital status: Current Living Situation: Personal Care Facility Current Living Situation Comment: [facility] current occupational status: retired Other Information That Helps Us Care for You: No Feels Safe at Home: Yes Safety Concerns: Afraid for Self Assistive Devices: None Allergies Allergies Allergy/AdvReac Type Severity Reaction Status Date / Time No Known Allergies Allergy Unknown Verified 04/19/21 20:16 Home Meds Home Medications Medication Instructions Recorded Confirmed allopurinol 100 mg tablet 100 mg PO DAILY 04/19/18 04/19/21 cetirizine 10 mg tablet 10 mg PO DAILY 04/19/18 04/19/21 guaifenesin 600 mg tablet, 600 mg PO BID PRN 04/19/18 04/19/21 extended release 12 hr (Mucinex) fluocinonide 0.05 % topical cream 1 applic TOPICAL BID 10/22/18 04/19/21 vit C 250 mg-vit E 90 mg-zinc 40 1 tab PO DAILY 10/22/18 04/19/21 mg-copper 1 am-[id number] capsule (PreserVision AREDS-2) amlodipine 5 mg tablet 5 mg PO BID 04/19/21 04/19/21 atorvastatin 40 mg tablet 40 mg PO HS 04/19/21 04/19/21 cholecalciferol (vitamin D3) 25 25 mcg PO DAILY 04/19/21 04/19/21 mcg (1,000 unit) tablet (Vitamin D3) diclofenac sodium 1 % topical gel 4 g TOPICAL QID 04/19/21 04/19/21 ferrous sulfate 325 mg (65 mg 325 mg PO DAILY 04/19/21 04/19/21 iron) tablet levothyroxine 25 mcg tablet 25 mcg PO DAILY 04/19/21 04/19/21 melatonin 3 mg tablet 3 mg PO PM 04/19/21 04/19/21 metoprolol tartrate 25 mg tablet 25 mg PO BID 04/19/21 04/19/21 tamsulosin 0.4 mg capsule 0.4 mg PO DAILY 04/19/21 04/19/21 Previous Rx's Medication Instructions Recorded clopidogrel 75 mg tablet (Plavix) 75 mg PO DAILY #30 tab 11/04/18 hydralazine 25 mg tablet 25 mg PO TID #30 tab 11/04/18 Results & Data (ED) Vital Signs Vital Signs - 24 hr 04/19/21 19:46 04/19/21 20:00 04/19/21 20:30 Temperature 36.8 C Temperature Source Oral Pulse Rate 120 H 115 H 114 H Respiratory Rate 25 H 24 22 Blood Pressure 176/88 H 179/83 H 178/82 H Blood Pressure Mean 117 115 114 Pulse Oximetry 94 94 94 Oxygen Delivery Method Room Air Room Air Room Air Sepsis Recent Fever Within 48 Hours No Sepsis New/Unexplained Change in Mental Status No Sepsis Action Taken by Nursing No Action Required 04/19/21 20:56 04/19/21 21:01 04/19/21 21:31 Temperature Temperature Source Pulse Rate 96 H Respiratory Rate 27 H 22 Blood Pressure 143/110 H 199/83 H 155/62 H Blood Pressure Mean 121 121 93 Pulse Oximetry 95 93 Oxygen Delivery Method Room Air Room Air Sepsis Recent Fever Within 48 Hours Sepsis New/Unexplained Change in Mental Status Sepsis Action Taken by Nursing 04/19/21 22:00 Temperature Temperature Source Pulse Rate 95 H Respiratory Rate 28 H Blood Pressure 151/69 H Blood Pressure Mean 96 Pulse Oximetry 91 Oxygen Delivery Method Room Air Sepsis Recent Fever Within 48 Hours Sepsis New/Unexplained Change in Mental Status Sepsis Action Taken by Shelter Medications Current Medication List: was personally reviewed by me Laboratory Data Attestation: I reviewed the patient's lab results. Result diagrams: 04/20/21 05:21 04/20/21 05:21 Lab Results 04/19/21 04/19/21 04/19/21 Range/Units 19:53 20:15 20:15 WBC 16.88 H (4.8-10.8) K/uL RBC 3.85 L (4.7-6.1) M/uL Hgb 13.4 L (14.0-18.0) g/dL Hct 38.7 L (42-52) % MCV 100.5 H (80-100) fL MCH 34.8 H (25-34) pg MCHC 34.6 (32-36) g/dL RDW Std Deviation 51.7 H (36.4-46.3) fL RDW Coeff of Angelika 14.1 (11.5-14.5) % Plt Count 232 (130-400) K/uL MPV 10.1 (7.4-10.4) fL Immature Gran % (Auto) 0.4 % Neut % (Auto) 88.7 % Lymph % (Auto) 4.4 % Alpine % (Auto) 6.2 % Eos % (Auto) 0.1 % Baso % (Auto) 0.2 % Neut # (Auto) 14.97 H (1.4-6.5) K/uL Lymph # (Auto) 0.74 L (1.2-3.4) K/uL Alpine # (Auto) 1.04 H (0.11-0.59) K/uL Eos # (Auto) 0.02 (0-0.5) K/uL Baso # (Auto) 0.04 (0-0.2) K/uL Immature Gran # (Auto) 0.07 H (0.00-0.02) K/uL Absolute Nucleated RBC 0.06 H (0-0) K/uL Nucleated RBC % (auto) 0.3 % PT (9.0-12.0) Seconds INR (0.9-1.1) APTT (21.0-31.0) Seconds PTT Ratio Sodium (136-145) mmol/L Potassium (3.5-5.1) mmol/L Chloride (98-107) mmol/L Carbon Dioxide (21-32) mmol/L Anion Gap (3-11) BUN (6-23) mg/dl Creatinine (0.6-1.4) mg/dl Est Cr Clr Drug Dosing ml/min Est GFR ( Amer) ml/min Est GFR (Non-Af Amer) ml/min BUN/Creatinine Ratio (10-20) Glucose (70-99(Fasting)) mg/dl Lactate (0.4-2.0) mmol/L Calcium (8.5-10.1) mg/dl Total Bilirubin (0.2-1.0) mg/dl AST (13-39) U/L ALT (7-52) U/L Alkaline Phosphatase (34-104) U/L Troponin I (0-0.04) ng/ml Total Protein (6.0-8.3) gm/dl Albumin (3.4-5.0) gm/dl Globulin (2.5-4.0) gm/dl Albumin/Globulin Ratio (0.9-2) SARS-CoV-2, RNA, NAAT NEGATIVE (NEGATIVE) Blood Type O Positive Antibody Screen NEGATIVE 04/19/21 04/19/21 04/19/21 Range/Units 20:15 20:15 20:15 WBC (4.8-10.8) K/uL RBC (4.7-6.1) M/uL Hgb (14.0-18.0) g/dL Hct (42-52) % MCV (80-100) fL MCH (25-34) pg MCHC (32-36) g/dL RDW Std Deviation (36.4-46.3) fL RDW Coeff of Angelika (11.5-14.5) % Plt Count (130-400) K/uL MPV (7.4-10.4) fL Immature Gran % (Auto) % Neut % (Auto) % Lymph % (Auto) % Alpine % (Auto) % Eos % (Auto) % Baso % (Auto) % Neut # (Auto) (1.4-6.5) K/uL Lymph # (Auto) (1.2-3.4) K/uL Alpine # (Auto) (0.11-0.59) K/uL Eos # (Auto) (0-0.5) K/uL Baso # (Auto) (0-0.2) K/uL Immature Gran # (Auto) (0.00-0.02) K/uL Absolute Nucleated RBC (0-0) K/uL Nucleated RBC % (auto) % PT 10.5 (9.0-12.0) Seconds INR 1.0 (0.9-1.1) APTT < 20.0 L (21.0-31.0) Seconds PTT Ratio 0.8 Sodium 136 (136-145) mmol/L Potassium 3.8 (3.5-5.1) mmol/L Chloride 104 (98-107) mmol/L Carbon Dioxide 18 L (21-32) mmol/L Anion Gap 14 H (3-11) BUN 21 (6-23) mg/dl Creatinine 1.28 (0.6-1.4) mg/dl Est Cr Clr Drug Dosing 48.4 ml/min Est GFR ( Amer) 58.8 ml/min Est GFR (Non-Af Amer) 50.7 ml/min BUN/Creatinine Ratio 16.4 (10-20) Glucose 248 H (70-99(Fasting)) mg/dl Lactate (0.4-2.0) mmol/L Calcium 8.7 (8.5-10.1) mg/dl Total Bilirubin 2.4 H (0.2-1.0) mg/dl AST 424 H (13-39) U/L ALT 279 H (7-52) U/L Alkaline Phosphatase 232 H (34-104) U/L Troponin I < 0.03 (0-0.04) ng/ml Total Protein 7.2 (6.0-8.3) gm/dl Albumin 4.2 (3.4-5.0) gm/dl Globulin 3.0 (2.5-4.0) gm/dl Albumin/Globulin Ratio 1.4 (0.9-2) SARS-CoV-2, RNA, NAAT (NEGATIVE) Blood Type Antibody Screen 04/19/21 Range/Units 21:21 WBC (4.8-10.8) K/uL RBC (4.7-6.1) M/uL Hgb (14.0-18.0) g/dL Hct (42-52) % MCV (80-100) fL MCH (25-34) pg MCHC (32-36) g/dL RDW Std Deviation (36.4-46.3) fL RDW Coeff of Angelika (11.5-14.5) % Plt Count (130-400) K/uL MPV (7.4-10.4) fL Immature Gran % (Auto) % Neut % (Auto) % Lymph % (Auto) % Alpine % (Auto) % Eos % (Auto) % Baso % (Auto) % Neut # (Auto) (1.4-6.5) K/uL Lymph # (Auto) (1.2-3.4) K/uL Alpine # (Auto) (0.11-0.59) K/uL Eos # (Auto) (0-0.5) K/uL Baso # (Auto) (0-0.2) K/uL Immature Gran # (Auto) (0.00-0.02) K/uL Absolute Nucleated RBC (0-0) K/uL Nucleated RBC % (auto) % PT (9.0-12.0) Seconds INR (0.9-1.1) APTT (21.0-31.0) Seconds PTT Ratio Sodium (136-145) mmol/L Potassium (3.5-5.1) mmol/L Chloride (98-107) mmol/L Carbon Dioxide (21-32) mmol/L Anion Gap (3-11) BUN (6-23) mg/dl Creatinine (0.6-1.4) mg/dl Est Cr Clr Drug Dosing ml/min Est GFR ( Amer) ml/min Est GFR (Non-Af Amer) ml/min BUN/Creatinine Ratio (10-20) Glucose (70-99(Fasting)) mg/dl Lactate 4.5 H* (0.4-2.0) mmol/L Calcium (8.5-10.1) mg/dl Total Bilirubin (0.2-1.0) mg/dl AST (13-39) U/L ALT (7-52) U/L Alkaline Phosphatase (34-104) U/L Troponin I (0-0.04) ng/ml Total Protein (6.0-8.3) gm/dl Albumin (3.4-5.0) gm/dl Globulin (2.5-4.0) gm/dl Albumin/Globulin Ratio (0.9-2) SARS-CoV-2, RNA, NAAT (NEGATIVE) Blood Type Antibody Screen Administered Medications Allopurinol (Allopurinol 100 Mg Tab) 100 mg PO DAILY [facility] Stop: 05/20/21 08:59 Last Admin: 04/20/21 10:06 Dose: Not Given Documented by: [id number] Amlodipine Besylate (Amlodipine Besylate 5 Mg Tab) 5 mg PO BID [facility] Stop: 05/20/21 08:59 Last Admin: 04/20/21 10:07 Dose: Not Given Documented by: [id number] Cetirizine HCl (Cetirizine Hcl 10 Mg Tablet) 10 mg PO DAILY [facility] Stop: 05/20/21 08:59 Last Admin: 04/20/21 10:07 Dose: Not Given Documented by: [id number] Diclofenac Sodium (Diclofenac Sod 1% Gel 100 Gm Tube) 4 gm EXT QID [facility] Stop: 05/20/21 08:59 Last Admin: 04/20/21 10:17 Dose: 4 gm Documented by: [id number] Ferrous Sulfate (Ferrous Sulfate 325 Mg Tab) 325 mg PO DAILY [facility] Stop: 05/20/21 08:59 Last Admin: 04/20/21 10:07 Dose: Not Given Documented by: [id number] Fluocinonide (Fluocinonide 0.05% Cr 15 Gm Tube) 1 appln EXT BID [facility] Stop: 05/20/21 08:59 Last Admin: 04/20/21 11:12 Dose: Not Given Documented by: [id number] Hydralazine HCl (Hydralazine Hcl 25 Mg Tab) 25 mg PO TID [facility] Stop: 05/20/21 08:59 Last Admin: 04/20/21 10:07 Dose: Not Given Documented by: [id number] Sodium Chloride (Nss 1000ml) 1,000 mls @ 125 mls/hr IV .Q8H [facility] Stop: 05/20/21 02:18 Last Admin: 04/20/21 12:22 Dose: Not Given Documented by: [id number] Infusion: 04/20/21 12:21 Dose: 0 mls/hr Documented by: [id number] Admin: 04/20/21 02:22 Dose: 125 mls/hr Documented by: [id number] Piperacillin Sod/Tazobactam (Sod 3.375 gm/ Dextrose) 115 mls @ 28.75 mls/hr IV Q8H [facility]; Protocol Stop: 04/22/21 05:59 Last Infusion: 04/20/21 12:21 Dose: 0 mls/hr Documented by: [id number] Admin: 04/20/21 07:35 Dose: 28.8 mls/hr Documented by: [id number] Insulin Aspart (Insulin Aspart Per Unit) 0 units SC Q6 [facility] Stop: 05/20/21 05:59 Last Admin: 04/20/21 06:12 Dose: Not Given Documented by: [id number] Cosigned by: [id number] Insulin Glargine (Insulin Glargine Solostar 100 Units/Ml 3 Ml Pen) 6 units SC BID [facility] Stop: 05/19/21 22:44 Last Admin: 04/20/21 10:07 Dose: Not Given Documented by: [id number] Admin: 04/19/21 23:55 Dose: 6 units Documented by: [id number] Cosigned by: [id number] Levothyroxine Sodium (Levothyroxine Sodium 25 Mcg Tablet) 25 mcg PO DAILYBB [facility] Stop: 05/20/21 06:29 Last Admin: 04/20/21 06:18 Dose: 25 mcg Documented by: [id number] Metoprolol Tartrate (Metoprolol Tartrate 25 Mg Tab) 25 mg PO BID [facility] Stop: 05/20/21 08:59 Last Admin: 04/20/21 10:07 Dose: Not Given Documented by: [id number] Multivitamins/Minerals (Cerovite Adv Formula Tab) 1 tab PO DAILY [facility] Stop: 05/20/21 08:59 Last Admin: 04/20/21 10:07 Dose: Not Given Documented by: [id number] Tamsulosin HCl (Tamsulosin Hcl 0.4 Mg Cap) 0.4 mg PO DAILY [facility] Stop: 05/20/21 08:59 Last Admin: 04/20/21 10:08 Dose: Not Given Documented by: [id number] Vitamin D (Cholecalciferol 1,000 Units 25 Mcg Tab) 25 units PO DAILY [facility] Stop: 05/20/21 08:59 Last Admin: 04/20/21 10:07 Dose: Not Given Documented by: [id number] Discontinued Medications Bupivacaine HCl (Bupivacaine 0.5 % 5 Mg/1 Ml Mpf 30ml Vial) Confirm Administered Dose 30 ml .ROUTE .STK-MED ONE Stop: 04/20/21 13:00 Last Admin: 04/20/21 15:20 Dose: 12 ml Documented by: [id number] Sodium Chloride (Nss) 500 mls @ 999 mls/hr IV .Q31M [facility] Stop: 04/19/21 20:30 Last Infusion: 04/19/21 20:56 Dose: 0 mls/hr Documented by: [id number] Admin: 04/19/21 20:25 Dose: 999 mls/hr Documented by: [id number] Pantoprazole Sodium 40 mg/ (Dextrose) 100 mls @ 20 mls/hr IV Q5H [facility] Stop: 04/20/21 00:59 Last Infusion: 04/20/21 01:31 Dose: 8 mg/hr, 20 mls/hr Documented by: [id number] Admin: 04/19/21 20:31 Dose: 8 mg/hr, 20 mls/hr Documented by: [id number] Pantoprazole Sodium 80 mg/ (Dextrose) 120 mls @ 480 mls/hr IV NOW ONE Stop: 04/19/21 19:59 Last Infusion: 04/19/21 20:39 Dose: 0 mls/hr Documented by: [id number] Admin: 04/19/21 20:24 Dose: 480 mls/hr Documented by: [id number] Piperacillin Sod/Tazobactam Sod (Zosyn) 4.5 gm in 120 mls @ 240 mls/hr IV NOW ONE Stop: 04/19/21 21:20 Last Infusion: 04/19/21 21:57 Dose: 0 mls/hr Documented by: [id number] Admin: 04/19/21 21:27 Dose: 240 mls/hr Documented by: [id number] Sodium Chloride (Nss 1000ml) 500 mls @ 999 mls/hr IV .Q31M ONE Stop: 04/19/21 21:25 Last Infusion: 04/19/21 21:36 Dose: 0 mls/hr Documented by: [id number] Admin: 04/19/21 21:05 Dose: 999 mls/hr Documented by: [id number] Acetaminophen (Ofirmev) 1,000 mg in 100 mls @ 400 mls/hr IV NOW STA Stop: 04/19/21 21:36 Last Infusion: 04/19/21 21:41 Dose: 0 mls/hr Documented by: [id number] Admin: 04/19/21 21:26 Dose: 400 mls/hr Documented by: [id number] Sodium Chloride (Nss 1000ml) 1,000 mls @ 999 mls/hr IV .Q1H1M ONE Stop: 04/19/21 22:58 Last Infusion: 04/19/21 23:31 Dose: 999 mls/hr Documented by: [id number] Admin: 04/19/21 22:30 Dose: 999 mls/hr Documented by: [id number] Indomethacin (Indomethacin 50 Mg Supp) 100 mg MN ONE ONE Stop: 04/20/21 08:21 Last Admin: 04/20/21 09:43 Dose: 100 mg Documented by: [id number] Indomethacin (Indomethacin 50 Mg Supp) Confirm Administered Dose 100 mg MN .STK- MED ONE Stop: 04/20/21 13:24 Last Admin: 04/20/21 14:00 Dose: 100 mg Documented by: [id number] Ioversol (Optiray 320 125ml) 119 ml IV ONCE ONE Stop: 04/19/21 20:47 Last Admin: 04/19/21 20:47 Dose: 119 ml Documented by: [id number] Morphine Sulfate (Morphine Sulfate 2 Mg/Ml Carp) 2 mg IV NOW STA Stop: 04/19/21 20:56 Last Admin: 04/20/21 01:33 Dose: Not Given Documented by: [id number] Ondansetron HCl (Ondansetron Inj 2 Mg/Ml 2 Ml Vial) 4 mg IV NOW STA Stop: 04/19/21 20:56 Last Admin: 04/19/21 21:05 Dose: 4 mg Documented by: [id number] Imaging Data Radiologist's Impression: Cholangiopancreatography MRI 04/19/21 21:56 MRCP CLINICAL HISTORY: elevated LFTs; cholecystitis TECHNIQUE: Utilizing a 1.5 Andra magnet and dedicated coil, multiplanar, multiecho imaging of the upper abdomen was performed utilizing heavily T2 weigh saira pulsing sequences without IV contrast. COMPARISON STUDY: CT of the abdomen and pelvis April 19, 2021. FINDINGS: No hepatic lesions are identified. The gallbladder is mildly distended. Gallbladder wall thickening is noted. There is a small gallstone within the gallbladder. No intra or extra hepatic biliary ductal dilatation is identified. No common bile duct calculi are identified although sensitivity for detection of small calculi is diminished given motion artifact on this exam. There is no peripancreatic infiltration or fluid. No pancreatic ductal dilatation is present. Unenhanced images of the spleen and adrenal glands are unremarkable. There are several mildly enlarged upper abdominal lymph nodes. Index april hepatis node measures 2.5 x 1.4 cm. Left-sided renal parapelvic cysts are noted. A 1.9 cm cortical cyst within the left kidney is also noted. There is mild stranding within the left renal sinus. Right renal atrophy is present. There is no hydronephrosis. Infrarenal abdominal aortic aneurysm is partially imaged on this exam. This measures approximately 4.7 cm in caliber. No evidence for rupture. There are prominent retroperitoneal lymph nodes. Mildly enlarged cardiophrenic angle nodes are also present. Caliber of visualized small and large bowel are normal. IMPRESSION: 1. No biliary ductal dilatation. No common bile duct calculi identified although sensitivity for detection of small calculi diminished given motion artifact. 2. Findings suggestive of acute cholecystitis. This will be called/faxed to the ordering provider at time of dictation. 3. Infrarenal abdominal aortic aneurysm measuring approximately 4.7 cm in caliber. No evidence for rupture. 4. Mildly enlarged abdominal lymph nodes which are nonspecific. A follow-up CT of the abdomen 6 months could be obtained to ensure stability. ACT 112: Negative or not required by law. Electronically signed by: Nahun Nascimento M.D. 04/20/2021 7:47 AM Gallbladder Ultrasound 04/19/21 21:56 US gallbladder LIMITED ABDOMEN CLINICAL HISTORY: Suspicion of early acute cholecystitis on CT. Ultrasound to further evaluate. COMPARISON: CT of the abdomen and pelvis from 04/19/2021 TECHNIQUE: Multiple grayscale and color images of the right upper quadrant of the abdomen. FINDINGS: This is a limited examination as the patient was unable to change positions or hold his breath. Pancreas: The imaged portion of the pancreas is within normal limits with no focal mass or peripancreatic fluid collection identified. Liver: Liver is increased in echogenicity and mildly enlarged measuring 18.6 cm in the axillary margin. There is no evidence for a focal mass. There is no intrahepatic biliary duct dilatation. Gallbladder: The gallbladder is distended with sludge present. There is thickening of the gallbladder wall measuring 5 mm. Wall appears edematous with evidence for mild pericholecystic fluid seen. There is no evidence of cholelithiasis. Sonographic Sheldon's sign cannot be obtained. Common Bile Duct: (CBD): It is normal in size measuring 4 mm. Inferior Vena Cava (IVC): The imaged IVC is patent. Right kidney: There is no evidence for hydronephrosis, calculus or gross renal mass. The kidney is normal in size. IMPRESSION: Distention of the gallbladder with thickening of the wall and edematous changes present. Sludge is seen with no evidence of cholelithiasis. The findings are suspicious for early acute cholecystitis. ACT 112: Negative or not required by law. Electronically signed by: Tonio Alcantara M.D. 04/20/2021 7:10 AM Abdomen/Pelvis CT 04/19/21 20:34 CT abd pelvis IV con only CLINICAL HISTORY: ab pain, n/v TECHNIQUE: Helical axial images of the abdomen and pelvis were obtained and displayed. Automated dose lowering techniques and/or adjustment according to patient size were utilized for this exam. This exam was performed with intravenous contrast. COMPARISON: None available at the time of this dictation. FINDINGS: Lower chest: No acute abnormality Liver: Unremarkable. No focal lesions are seen. Gallbladder and biliary tree: There is mild wall thickening of the gallbladder measuring approximately 4 mm in diameter. There is mild pericholecystic fluid. No intra- or extrahepatic biliary ductal dilation. Pancreas: Fatty replacement of the pancreas is seen. Spleen: Calcifications are noted in the spleen compatible with prior granulomatous disease. Adrenals: Unremarkable. Kidneys and ureters: Multiple parapelvic renal cysts are seen on the left. Bladder: Unremarkable. Reproductive organs: Prostatomegaly is seen. Bowel: Diverticulosis is seen without evidence of diverticulitis. The appendix is normal. Lymph nodes Retroperitoneal: Subcentimeter lymph nodes are noted. Mesenteric: Unremarkable. Pelvic: Subcentimeter lymph nodes are noted. Peritoneum: Normal. Vessels: There is an infrarenal aortic aneurysm measuring 46 mm in diameter. Abdominal wall: Left fat containing inguinal hernia. Bones: Degenerative changes in the visualized spine. IMPRESSION: 1. Gallbladder wall thickening is noted with pericholecystic edema. In the setting of abdominal pain, this may represent acute cholecystitis. 2. Diverticulosis without diverticulitis. 3. Infrarenal aortic aneurysm. ACT 112: Negative or not required by law. Electronically signed by: Faizan Condon M.D. 04/19/2021 9:11 PM Chest CTA 04/19/21 20:34 CT angio chest PE protocol CLINICAL HISTORY: PE TECHNIQUE: Multidetector row helical CT of the chest was performed. Coronal and sagittal reformations were obtained. Coronal and sagittal MIPS were obtained from the axial data set and were submitted for review. Automated dose lowering techniques and/or adjustment according to patient size were utilized for this exam. Comparison: None available at the time of this dictation. FINDINGS: Lungs and pleura: Reticular interstitial opacities are seen bilaterally. Heart and pericardium: Heart size is normal. No pericardial effusion. Vessels: No evidence of pulmonary embolism. Moderate atherosclerotic calcif ications are seen. Mediastinum and edi: Subcentimeter lymph nodes are seen. Chest wall and lower neck: Unremarkable. Abdomen: A hiatal hernia is seen. Bones: Degenerative changes in the thoracic spine. IMPRESSION: No evidence of pulmonary embolism. ACT 112: Negative or not required by law. Electronically signed by: Faizan Condon M.D. 04/19/2021 9:06 PM Cholangiopancreatography MRI 04/19/21 21:56 MRCP CLINICAL HISTORY: elevated LFTs; cholecystitis TECHNIQUE: Utilizing a 1.5 Andra magnet and dedicated coil, multiplanar, multiecho imaging of the upper abdomen was performed utilizing heavily T2 weighted pulsing sequences without IV contrast. COMPARISON STUDY: CT of the abdomen and pelvis April 19, 2021. FINDINGS: No hepatic lesions are identified. The gallbladder is mildly distended. Gallbladder wall thickening is noted. There is a small gallstone within the gallbladder. No intra or extra hepatic biliary ductal dilatation is identified. No common bile duct calculi are identified although sensitivity for detection of small calculi is diminished given motion artifact on this exam. There is no peripancreatic infiltration or fluid. No pancreatic ductal dilatation is present. Unenhanced images of the spleen and adrenal glands are u nremarkable. There are several mildly enlarged upper abdominal lymph nodes. Index april hepatis node measures 2.5 x 1.4 cm. Left-sided renal parapelvic cysts are noted. A 1.9 cm cortical cyst within the left kidney is also noted. There is mild stranding within the left renal sinus. Right renal atrophy is present. There is no hydronephrosis. Infrarenal abdominal aortic aneurysm is partially imaged on this exam. This measures approximately 4.7 cm in caliber. No evidence for rupture. There are prominent retroperitoneal lymph nodes. Mildly enlarged cardiophrenic angle nodes are also present. Caliber of visualized small and large bowel are normal. IMPRESSION: 1. No biliary ductal dilatation. No common bile duct calculi identified although sensitivity for detection of small calculi diminished given motion artifact. 2. Findings suggestive of acute cholecystitis. This will be called/faxed to the ordering provider at time of dictation. 3. Infrarenal abdominal aortic aneurysm measuring approximately 4.7 cm in caliber. No evidence for rupture. 4. Mildly enlarged abdominal lymph nodes which are nonspecific. A follow-up CT of the abdomen 6 months could be obtained to ensure stability. ACT 112: Negative or not required by law. Electronically signed by: Nahun Nascimento M.D. 04/20/2021 7:47 AM Gallbladder Ultrasound 04/19/21 21:56 US gallbladder LIMITED ABDOMEN CLINICAL HISTORY: Suspicion of early acute cholecystitis on CT. Ultrasound to further evaluate. COMPARISON: CT of the abdomen and pelvis from 04/19/2021 TECHNIQUE: Multiple grayscale and color images of the right upper quadrant of the abdomen. FINDINGS: This is a limited examination as the patient was unable to change positions or hold his breath. Pancreas: The imaged portion of the pancreas is within normal limits with no focal mass or peripancreatic fluid collection identified. Liver: Liver is increased in echogenicity and mildly enlarged measuring 18.6 cm in the axillary margin. There is no evidence for a focal mass. There is no intrahepatic biliary duct dilatation. Gallbladder: The gallbladder is distended with sludge present. There is thickening of the gallbladder wall measuring 5 mm. Wall appears edematous with evidence for mild pericholecystic fluid seen. There is no evidence of cholelithiasis. Sonographic Sheldon's sign cannot be obtained. Common Bile Duct: (CBD): It is normal in size measuring 4 mm. Inferior Vena Cava (IVC): The imaged IVC is patent. Right kidney: There is no evidence for hydronephrosis, calculus or gross renal mass. The kidney is normal in size. IMPRESSION: Distention of the gallbladder with thickening of the wall and edematous changes present. Sludge is seen with no evidence of cholelithiasis. The findings are suspicious for early acute cholecystitis. ACT 112: Negative or not required by law. Electronically signed by: Tonio Alcantara M.D. 04/20/2021 7:10 AM Discharge Plan Visit Data Chief Complaint: Cardiac Assessment Stated Complaint: vomiting ED Provider: Moreno Gaxiola Discharge Problem: Sepsis, Abdominal aortic aneurysm (AAA) 3.0 cm to 5.5 cm in diameter in male, Cholecystitis, Elevated LFTs, Fecal occult blood test positive, Weakness, Nausea & vomiting, Elevated lactic acid level Patient Disposition: Admitted As Inpatient Discharge Instructions Interventions: ED Discharge Assessment Last Done: 04/20/21 01:05 Discharge Problem: Sepsis Qualifiers: Sepsis type: sepsis due to unspecified organism Sepsis acute organ dysfunction status: unspecified Qualified Code(s): A41.9 - Sepsis, unspecified organism Nausea & vomiting Qualifiers: Vomiting type: hematemesis Qualified Code(s): K92.0 - Hematemesis
[2021-04-19] MEDS ORDERED: PANTOprazole 80 MG in DEXTROSE 5% 100 ML IV ONE (19:45)
[2021-04-19] MEDS ORDERED: PANTOprazole 40 MG in SYRINGE 0 ML IV ONE (19:47)
[2021-04-19] MEDS ORDERED: SODIUM CHLORIDE 0.9% 500 ML IV SCH (20:00)
[2021-04-19] MEDS ORDERED: PANTOprazole 40 MG in DEXTROSE 5% 100 ML IV SCH (20:00)
[2021-04-19 20:26] LABS: Basophils # (auto) 0.04 K/uL (0-0.2); Basophils % (auto) 0.2 %; Eosinophils # (auto) 0.02 K/uL (0-0.5); Eosinophils % (auto) 0.1 %; Hematocrit (blood only) 38.7 % (42-52); Hemoglobin 13.4 g/dL (14.0-18.0); Immature Granulocytes # (auto) 0.07 K/uL (0.00-0.02); Immature Granulocytes % (auto) 0.4 %; Lymphocytes # (auto) 0.74 K/uL (1.2-3.4); Lymphocytes % (auto) 4.4 %; Mean Corpuscular Hemoglobin 34.8 pg (25-34); Mean Corpuscular Hgb Conc 34.6 g/dL (32-36); Mean Corpuscular Volume 100.5 fL (80-100); Mean Platelet Volume 10.1 fL (7.4-10.4); Monocytes # (auto) 1.04 K/uL (0.11-0.59); Monocytes % (auto) 6.2 %; Neutrophils # (auto) 14.97 K/uL (1.4-6.5); Neutrophils % (auto) 88.7 %; Nucleated RBC # (auto) 0.06 K/uL (0-0); Nucleated RBC % (auto) 0.3 %; Platelet Count 232 K/uL (130-400); RDW Coefficient of Variation 14.1 % (11.5-14.5); RDW Standard Deviation 51.7 fL (36.4-46.3); Red Blood Count 3.85 M/uL (4.7-6.1); White Blood Count 16.88 K/uL (4.8-10.8)
[2021-04-19 20:39] LABS: Partial Thromboplastin Ratio 0.8; Prothrombin Time 10.5 Seconds (9.0-12.0)
[2021-04-19 20:45] LABS: Albumin Globulin Ratio 1.4 (0.9-2); Albumin Level 4.2 gm/dl (3.4-5.0); BUN Creatinine Ratio 16.4 (10-20); Bilirubin,Total 2.4 mg/dl (0.2-1.0); Calcium 8.7 mg/dl (8.5-10.1); Creatinine Clr Calc Pharmacy 48.4 ml/min; Est GFR (African American) 58.8 ml/min; Est GFR (Non-African American) 50.7 ml/min; Potassium 3.8 mmol/L (3.5-5.1); Total Protein 7.2 gm/dl (6.0-8.3)
[2021-04-19] MEDS ORDERED: OPTIRAY 320 125ml IV ONE (20:46)
[2021-04-19 20:48] LABS: Partial Thromboplastin Time < 20.0 Seconds (21.0-31.0)
[2021-04-19] MEDS ORDERED: PIPERACILLIN/TAZOBACTAM 4.5 GM/120 ML BAG IV ONE (20:51)
[2021-04-19] MEDS ORDERED: PIPERACILL/TAZOBAC CONSULT ACTIVE PRN (20:51)
[2021-04-19] MEDS ORDERED: MoRPHine SULFATE 2 MG/ML CARP IV STA (20:55)
[2021-04-19] MEDS ORDERED: ONDANSETRON INJ 2 MG/ML 2 ML VIAL IV STA (20:55)
[2021-04-19] MEDS ORDERED: SODIUM CHLORIDE 0.9% 1000ML 500 ML IV ONE (20:55)
--- NOTE | 2021-04-19 21:07 | CT Scan Report ---
CT angio chest PE protocol CLINICAL HISTORY: PE TECHNIQUE: Multidetector row helical CT of the chest was performed. Coronal and sagittal reformations were obtained. Coronal and sagittal MIPS were obtained from the axial data set and were submitted fo r review. Automated dose lowering techniques and/or adjustment according to patient size were utiliz ed for this exam. Comparison: None available at the time of this dictation. FINDINGS: Lungs and pleura: Reticular interstitial opacities are seen bilaterally. Heart and pericardium: Heart size is normal. No pericardial effusion. Vessels: No evidence of pulmonary embolism. Moderate atherosclerotic calcifications are seen. Mediastinum and edi: Subcentimeter lymph nodes are seen. Chest wall and lower neck: Unremarkable. Abdomen: A hiatal hernia is seen. Bones: Degenerative changes in the thoracic spine. IMPRESSION: No evidence of pulmonary embolism. ACT 112: Negative or not required by law. Electronically signed by: Faizan Condon M.D. 04/19/2021 9:06 PM
--- NOTE | 2021-04-19 21:12 | CT Scan Report ---
CT abd pelvis IV con only CLINICAL HISTORY: ab pain, n/v TECHNIQUE: Helical axial images of the abdomen and pelvis were obtained and displayed. Automated dose lowering techniques and/or adjustment according to patient size were utilized for this exam. This e xam was performed with intravenous contrast. COMPARISON: None available at the time of this dictation. FINDINGS: Lower chest: No acute abnormality Liver: Unremarkable. No focal lesions are seen. Gallbladder and biliary tree: There is mild wall thickening of the gallbladder measuring approximatel y 4 mm in diameter. There is mild pericholecystic fluid. No intra- or extrahepatic biliary ductal dil ation. Pancreas: Fatty replacement of the pancreas is seen. Spleen: Calcifications are noted in the spleen compatible with prior granulomatous disease. Adrenals: Unremarkable. Kidneys and ureters: Multiple parapelvic renal cysts are seen on the left. Bladder: Unremarkable. Reproductive organs: Prostatomegaly is seen. Bowel: Diverticulosis is seen without evidence of diverticulitis. The appendix is normal. Lymph nodes Retroperitoneal: Subcentimeter lymph nodes are noted. Mesenteric: Unremarkable. Pelvic: Subcentimeter lymph nodes are noted. Peritoneum: Normal. Vessels: There is an infrarenal aortic aneurysm measuring 46 mm in diameter. Abdominal wall: Left fat containing inguinal hernia. Bones: Degenerative changes in the visualized spine. IMPRESSION: 1. Gallbladder wall thickening is noted with pericholecystic edema. In the setting of abdominal pain , this may represent acute cholecystitis. 2. Diverticulosis without diverticulitis. 3. Infrarenal aortic aneurysm. ACT 112: Negative or not required by law. Electronically signed by: Faizan Condon M.D. 04/19/2021 9:11 PM
[2021-04-19] MEDS ORDERED: ACETAMINOPHEN 1,000 MG/100 ML VIAL IV STA (21:22)
--- NOTE | 2021-04-19 21:42 | Surgery Consultation ---
Date of Consultation April 19, 2021 Assessment & Plan (1) Cholecystitis: Due to the patient's clinical presentation and imaging he will be admitted on the hospitalist service. We recommend proceeding as follows: Is concerned that the patient has cholecystitis We will check a gallbladder ultrasound to further evaluate, in particular see if patient has gallstones Due to patient's elevated LFTs may be prudent to check an MRCP Recommend keeping the patient on n.p.o. status As the patient is fecal occult blood positive recommend continuing the patient on Protonix following serial hemoglobin and hematocrits Due to elevated LFTs as well as fecal occult blood positive status GI consu ltation is warranted Continue antibiotics as ordered. He has received Zosyn in the emergency department Recommend gentle hydration with IV fluids patient is n.p.o. Continue analgesics Continue antiemetics Further recommendations will be made based on the above studies as they are completed and available. Patient with plans as directed by medical service. We will continue to follow along with you Supervising Physician Co-Signing Physician Notes Patient with abdominal pain and evidence on CT scan of thickened inflamed gallbladder with pericholecystic fluid His liver functions are elevated with a total bili of 2.4 and elevated AST ALT His white blood cell count is 16.88 Patient underwent ultrasound which shows a thickened gallbladder MRCP performed which shows thickened gallbladder into my reading a possible stone near the neck of the gallbladder I will review this with the radiologist The patient likely has acute cholecystitis, his liver functions could be from inflamed gallbladder-concern is for developing Necrotizing cholecystitis He does take Plavix which we will hold GI has been consulted, patient will likely require laparoscopic cholecystectomy- main concerning risk is his Plavix Antibiotics for now History of Present Illness Reason for Consultation: [place] pain with concern for cholecystitis History of Present Illness Is an 85-year-old male who presented to [facility] emergency department secondary to abdominal pain radiating into his chest. Patient feels that yesterday he was in his usual state of health. He admits that he is not very active as he feels that his legs are weak and he does not ambulate much around his house but he is able to make it from his bed to the restroom. He notes that earlier today while attempting get to the restroom he did fall out of bed but did not hurt himself. Subsequent developed some chest pain and abdominal pain later in the day after lunchtime after he ate a bowl of chili. Patient says that he did not have any fevers but he did experience nausea vomiting. He notes that he has never had abdominal pain like this before. He denies any prior abdominal surgeries. Patient does not note any provocative factors other than eating lunch today and he does note that the pain was alleviated somewhat with medicines administered in the emergency department. Because of his symptoms EMS was summoned and the patient was brought to [facility] emergency department Emergency department the patient did have labs and imaging which I independently reviewed. He had a CT scan of his chest that showed no evidence of Man[place] emboli. CT scan of his abdomen and pelvis showed gallbladder wall thickening with pericholecystic edema which was felt to potentially represent cholecystitis. No biliary ductal dilatation noted on the study. Labs include a CBC her white blood cell count was elevated at 16.8. Hemoglobin and hematocrit were 13.4 and 38.7. Platelet count was within normal range. His coagulation studies showed an INR of 1.0. Chemistry profile showed sodium and potassium were normal. His BUN and creatinine were also noted to be normal. Patient was noted to have elevation of his LFTs including an elevated total bilirubin at 2.4, elevated AST at 424, and elevated ALT at 279, and an elevated alkaline phosphatase at 232. Cardiac enzymes were checked and were nonelevated. Patient did have a stool Hemoccult checked that was positive. A Covid test was performed and was noted to be negative. Patient's records were reviewed and the patient does have a past medical history of gout, hypertriglyceridemia, hypertension, abdominal aortic aneurysm, chronic kidney disease (stage III), vascular dementia, and chronic lower extremity weakness with frequent falls. Is also no over the mention that the patient was hospitalized in October 2018 secondary to a cerebrovascular accident involving the left superior occipital lobe. Since arrival to the emergency department the patient has been given Protonix due to his fecal occult blood being positive. He has also been initiated on antibiotics in the form of Zosyn. Analgesics have been administered and the patient noted he was feeling somewhat better. At the time of my interview he was in no distress. Allergies Allergy/AdvReac Type Severity Reaction Status Date / Time No Known Allergies Allergy Unknown Verified 04/19/21 20:16 Home Medications Medication Instructions Recorded Confirmed Type allopurinol 100 mg tablet 100 mg PO DAILY 04/19/18 04/19/21 History cetirizine 10 mg tablet 10 mg PO DAILY 04/19/18 04/19/21 History guaifenesin 600 mg tablet, 600 mg PO BID PRN 04/19/18 04/19/21 History extended release 12 hr (Mucinex) fluocinonide 0.05 % topical cream 1 applic TOPICAL BID 10/22/18 04/19/21 History vit C 250 mg-vit E 90 mg-zinc 40 1 tab PO DAILY 10/22/18 04/19/21 History mg-copper 1 [id number] capsule (PreserVision AREDS-2) clopidogrel 75 mg tablet (Plavix) 75 mg PO DAILY #30 tab 11/04/18 04/19/21 Rx hydralazine 25 mg tablet 25 mg PO TID #30 tab 11/04/18 04/19/21 Rx amlodipine 5 mg tablet 5 mg PO BID 04/19/21 04/19/21 History atorvastatin 40 mg tablet 40 mg PO HS 04/19/21 04/19/21 History cholecalciferol (vitamin D3) 25 25 mcg PO DAILY 04/19/21 04/19/21 History mcg (1,000 unit) tablet (Vitamin D3) diclofenac sodium 1 % topical gel 4 g TOPICAL QID 04/19/21 04/19/21 History ferrous sulfate 325 mg (65 mg 325 mg PO DAILY 04/19/21 04/19/21 History iron) tablet levothyroxine 25 mcg tablet 25 mcg PO DAILY 04/19/21 04/19/21 History melatonin 3 mg tablet 3 mg PO PM 04/19/21 04/19/21 History metoprolol tartrate 25 mg tablet 25 mg PO BID 04/19/21 04/19/21 History tamsulosin 0.4 mg capsule 0.4 mg PO DAILY 04/19/21 04/19/21 History Patient History Medical History (Updated 04/19/21 @ 21:49 by Magdiel Moya PA-C) Dementia HTN (hypertension) Family History Other Family history non-contributory Social History Smoking Status: Never smoker Hx Alcohol Use: No Hx Substance Use: No Preferred Language: Citizen Of [place] Communication Ability: Effective Vending Manager Required: Yes Beliefs That Will Affect Care: None marital status: Current Living Situation: Spouse current occupational status: retired Feels Safe at Home: Yes Assistive Devices: Walker Review of Systems Constitutional: + chills; no fever Eyes: no diplopia Ear, Nose, Mouth, Throat: no ear pain and no sore throat Respiratory: no cough and no dyspnea Cardiovascular: + chest pain (Radiating from abdomen) Gastrointestinal: + abdominal pain, + nausea and + vomiting Genitourinary: + urinary frequency; no dysuria Musculoskeletal: no back pain Integumentary: no rash Neurologic: + unsteadiness, + falls and + generalized weakness Physical Exam Constitutional: well developed and well nourished; no acute distress Eyes: no conjunctival abnormality ENMT: Ears: no hearing impairment and no external ear abnormality Mouth: no oropharynx abnormality Neck: trachea midline Respiratory: normal respiratory effort; no respiratory distress and no labored breathing Breath sounds noted be slightly decreased at the bases Cardiovascular: Rate/Rhythm: regular rate and regular rhythm Gastrointestinal (Abdomen): Abdomen is soft and nondistended. There is no rebound tenderness or guarding. Patient did have pain with palpation greatest in the right upper quadrant. Musculoskeletal: No calf tenderness Skin: no rashes Neurologic: moves all extremities Psychiatric: A+Ox3, euthymic affect Results & Data ([facility]) Vital Signs (Past 12 Hours) Vital Signs Temp Pulse Resp BP Pulse Ox 04/19/21 21:01 27 H 199/83 H 95 04/19/21 20:56 143/110 H 04/19/21 20:30 114 H 22 178/82 H 94 04/19/21 20:00 115 H 24 179/83 H 94 04/19/21 19:46 36.8 C 120 H 25 H 176/88 H 94 PG Care Time/CCT Total # of Minutes Spent Total Time Spent with Patient: Total time spent is greater than 50% in coordination of care (as documented) at patient's floor/unit and/or counseling patient: Coding Level of Care Code 50068 Inpt Consult Level 5 Diagnoses Cholecystitis K81.9
[2021-04-19] MEDS ORDERED: SODIUM CHLORIDE 0.9% 1000ML 1,000 ML IV ONE (21:58)
[2021-04-19] MEDS: INSULIN GLARGINE SOLOSTAR 100 UNITS/ML 3 ML PEN SC SCH (23:55)
--- NOTE | 2021-04-20 00:36 | History and Physical Report ---
DATE OF ADMISSION: 04/19/2021. CHIEF COMPLAINT: Abdominal pain, nausea, vomiting. 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 Lives with family with his and daughter, ambulates with a walker. The patient since yesterday is having lot of abdominal pain, right-sided abdominal pain, radiating to chest with multiple episodes of nausea, vomiting. Currently, the pain is improved. Chest pain is resolved. Resting comfortably, alert and awake, answers questions. Hemodynamically stable. Denies any headache. No earache, no runny nose, no sore throat, no cough. Does not know whether he had a fever. No shortness of breath. Normal bowel and bladder movements. Denies any blood in the stools or black stools. ALLERGIES: No known drug allergies. PAST MEDICAL HISTORY: As mentioned above. PAST SURGICAL HISTORY: Cataract surgery, kidney endoscopy. MEDICATIONS: The patient is on allopurinol 200 mg p.o. daily, amlodipine 5 mg p.o. b.i.d., atorvastatin 40 mg p.o. at bedtime, cetirizine 10 mg p.o. daily, vitamin D 25 mcg p.o. daily, Plavix 75 mg p.o. daily, Voltaren 4 g topical q.i.d., ferrous sulfate 325 mg p.o. daily, Mucinex 600 mg p.o. b.i.d. p.r.n., hydralazine 25 mg p.o. t.i.d., levothyroxine 25 mcg p.o. daily, melatonin 3 mg p.o. p.m., metoprolol tartrate 25 mg p.o. b.i.d., PreserVision AREDS 1 tablet p.o. daily, Flomax 0.4 mg p.o. daily. FAMILY HISTORY: Significant for brother has Alzheimer disease, heart disorder; father has heart disorder; mother has heart disorder, hypertension; daughter has solitary kidney; brother has colon polyps. SOCIAL HISTORY: . Quit smoking in 1990, smoked 3/4 pack a day for 36 years. No alcohol use. No drug use. REVIEW OF SYSTEMS: As per HPI. Rest of the review of systems is negative. PHYSICAL EXAMINATION: GENERAL: The patient is of moderate build, not in acute distress. VITAL SIGNS: Temperature 36.8, pulse 96, respiratory rate 22, blood pressure 150/62, oxygen 93% on room air. HEENT: Pupils equal, round and reactive to light. Oral mucosa dry. NECK: No JVD, no neck masses. CARDIOVASCULAR: S1 and S2 heard. Regular rate and rhythm. No murmur, no gallop. RESPIRATORY SYSTEM: Normal AP diameter. No accessory muscle use. No wheezing, no crackles. ABDOMEN: Soft, bowel sounds present. Tenderness in the right side of abdomen. No guarding, no rigidity, no distention. CENTRAL NERVOUS SYSTEM: Cranial nerves II-XII grossly intact, nonfocal. EXTREMITIES: No edema, no erythema. LABORATORY DATA: WBC 16.8, hemoglobin 13.4, hematocrit 38.7, platelets 232. PT 10.5, INR 1, APTT less than 20. Sodium 136, potassium 3.8, chloride 104, bicarbonate 18, BUN 21, creatinine 1.2, serum glucose 248, lactate 4.5, calcium 8.7, total bilirubin 2.4, AST 424, ALT 279, alkaline phosphatase 232. Troponin I less than 0.03. Stool occult blood positive. SARS-CoV-2 negative. IMAGING DATA: CT of the chest, no PE. CT abdomen and pelvis with IV contrast shows gallbladder wall thickening, is noted with pericholecystic edema in the setting of abdominal pain. This may represent acute cholecystitis, diverticulosis without diverticulitis, infrarenal aortic aneurysm 4.6 cm in diameter. EKG: Sinus tachycardia with premature supraventricular complex at a rate of 119, right bundle-branch block, QTc of 610. ASSESSMENT AND PLAN: This is an 85-year-old male who presents with abdominal pain, nausea, vomiting, found to have possible acute cholecystitis. 1. Nausea, vomiting, abdominal pain, possible acute cholecystitis: Sepsis.Initially had pain in the chest, but the chest pain has resolved. He has elevated white count. Seen by general surgery, ordered gallbladder ultrasound and also MRCP. The patient also has elevated bilirubin and lactic acidosis of 4.5. Empirically started on Zosyn, continue IV fluids. Follow the repeat levels. Closely monitor in the tele floor. 2. Elevated LFTs with total bilirubin 2.4, AST 424, ALT 279, alkaline phosphatase 232. We will follow the MRCP results. The patient is also having Hemoccult stools. Hemoglobin is stable at 13.4. The patient is currently on Protonix drip, which will be continued. Consult GI and await input. 3. Hyperglycemia: The patient has history of prediabetes. Sugars are 248. Will place him on Lantus and insulin sliding scale. Will follow HbA1c levels. 4. History of hypertension: Currently septic , will hold the hydralazine and continue amlodipine and metoprolol with holding parameters. 5. Hypothyroidism: Continue Synthroid. 6. Benign prostatic hypertrophy: Continue Flomax. 7. History of cerebrovascular accident: On Plavix and statin. 8. Hyperlipidemia. On statin. 9. Gout: On allopurinol. 10. History of Abdominal aortic aneurysm, 4.6 cm: Needs followup. Seems to be getting big. 11. History of essential tremor: Supposed to be on propranolol, but on Epic it is not showing up, currently on metoprolol. Will monitor. 12. Vascular dementia: Will monitor for any delirium. 13. Chronic kidney disease stage III: Baseline creatinine 1.5-1.8, currently creatinine is 1.2. Will follow the labs. 14. Ambulatory dysfunction: Uses a walker and cane at home. PT, OT when stable. 15. Deep venous thrombosis prophylaxis. Currently sequential compression devices as the patient may need procedure. DISPOSITION: Admit to tele floor. PT, OT prior to discharge. Social service to help with discharge planning. Level 1 full code. Job ID: [id number] [facility]
[2021-04-20] MEDS ORDERED: PROMETHAZINE HCL 12.5 MG in SODIUM CHLORIDE 0.9% 50 ML IV PRN (02:19)
[2021-04-20] MEDS ORDERED: guaiFENesin 600 MG TABCR PO PRN (02:19)
[2021-04-20] MEDS ORDERED: NITROGLYCERIN SL 0.4 MG/TAB TAB SL PRN (02:19)
[2021-04-20] MEDS ORDERED: MoRPHine SULFATE 2 MG/ML CARP IV PRN (02:19)
[2021-04-20] MEDS ORDERED: ACETAMINOPHEN 325 MG TAB PO PRN (02:19)
[2021-04-20] MEDS: SODIUM CHLORIDE 0.9% 1000ML 1,000 ML IV SCH ×3 (02:22→18:29)
[2021-04-20 06:00] LABS: Basophils # (auto) 0.02 K/uL (0-0.2); Basophils % (auto) 0.1 %; Eosinophils # (auto) 0.02 K/uL (0-0.5); Eosinophils % (auto) 0.1 %; Hematocrit (blood only) 35.8 % (42-52); Hemoglobin 12.3 g/dL (14.0-18.0); Immature Granulocytes # (auto) 0.03 K/uL (0.00-0.02); Immature Granulocytes % (auto) 0.2 %; Lymphocytes # (auto) 1.78 K/uL (1.2-3.4); Lymphocytes % (auto) 11.7 %; Mean Corpuscular Hemoglobin 34.7 pg (25-34); Mean Corpuscular Hgb Conc 34.4 g/dL (32-36); Mean Corpuscular Volume 101.1 fL (80-100); Mean Platelet Volume 10.4 fL (7.4-10.4); Monocytes # (auto) 0.83 K/uL (0.11-0.59); Monocytes % (auto) 5.5 %; Neutrophils % (auto) 82.4 %; Platelet Count 226 K/uL (130-400); RDW Coefficient of Variation 14.3 % (11.5-14.5); Red Blood Count 3.54 M/uL (4.7-6.1); White Blood Count 15.18 K/uL (4.8-10.8)
[2021-04-20] MEDS: INSULIN ASPART PER UNIT SC SCH ×3 (06:12→19:55)
[2021-04-20] MEDS: LEVOTHYROXINE SODIUM 25 MCG TABLET PO SCH (06:18)
[2021-04-20 06:26] LABS: Albumin Level 3.8 gm/dl (3.4-5.0); BUN Creatinine Ratio 11.8 (10-20); Bilirubin Direct 1.6 mg/dl (0-0.2); Bilirubin,Total 2.7 mg/dl (0.2-1.0); Calcium 8.3 mg/dl (8.5-10.1); Potassium 3.8 mmol/L (3.5-5.1); Total Protein 6.6 gm/dl (6.0-8.3)
--- NOTE | 2021-04-20 07:05 | Anesthesiology Consultation ---
Date of Service April 20, 2021 Assessment & Plan (1) Encounter for pre-operative examination: Chart Review Chart Review: Acceptable Risk for Surgery and Patient NOT seen in Pre Admission Testing Consults Requested none History Surgery Operation Date: 04/20/21 09:40 Proposed Procedures p Laparoscopic Cholecystectomy Possible Cholangiogram - Barry Gann MD, FACS Height/Weight Height: 5 ft 10 in Weight: 93.2 kg Allergies Allergy/AdvReac Type Severity Reaction Status Date / Time No Known Allergies Allergy Unknown Verified 04/19/21 20:16 Medications Home Medications Medication Instructions Recorded Confirmed Last Taken allopurinol 100 mg tablet 100 mg PO DAILY 04/19/18 04/19/21 10/22/18 cetirizine 10 mg tablet 10 mg PO DAILY 04/19/18 04/19/21 10/22/18 guaifenesin 600 mg tablet, 600 mg PO BID PRN 04/19/18 04/19/21 Unknown extended release 12 hr (Mucinex) fluocinonide 0.05 % topical cream 1 applic TOPICAL BID 10/22/18 04/19/21 Unknown vit C 250 mg-vit E 90 mg-zinc 40 1 tab PO DAILY 10/22/18 04/19/21 Unknown mg-copper 1 pa-[id number]-[id number] capsule (PreserVision AREDS-2) clopidogrel 75 mg tablet (Plavix) 75 mg PO DAILY #30 tab 11/04/18 04/19/21 Unknown hydralazine 25 mg tablet 25 mg PO TID #30 tab 11/04/18 04/19/21 Unknown amlodipine 5 mg tablet 5 mg PO BID 04/19/21 04/19/21 Unknown atorvastatin 40 mg tablet 40 mg PO HS 04/19/21 04/19/21 Unknown cholecalciferol (vitamin D3) 25 25 mcg PO DAILY 04/19/21 04/19/21 Unknown mcg (1,000 unit) tablet (Vitamin D3) diclofenac sodium 1 % topical gel 4 g TOPICAL QID 04/19/21 04/19/21 Unknown ferrous sulfate 325 mg (65 mg 325 mg PO DAILY 04/19/21 04/19/21 Unknown iron) tablet levothyroxine 25 mcg tablet 25 mcg PO DAILY 04/19/21 04/19/21 Unknown melatonin 3 mg tablet 3 mg PO PM 04/19/21 04/19/21 Unknown metoprolol tartrate 25 mg tablet 25 mg PO BID 04/19/21 04/19/21 Unknown tamsulosin 0.4 mg capsule 0.4 mg PO DAILY 04/19/21 04/19/21 Unknown Active Medications Generic Name Dose Route Start Last Admin Trade Name Monika PRFidel Reason Stop Dose Admin Sodium Chloride 1,000 mls @ 125 mls/hr 04/20/21 02:19 04/20/21 02:22 Nss 1000ml IV 05/20/21 02:18 125 mls/hr .Q8H YURIDIA Administration Insulin Aspart 0 units 04/20/21 06:00 04/20/21 06:12 Insulin Aspart Per Unit SC 05/20/21 05:59 Not Given Q6 YURIDIA Insulin Glargine 6 units 04/19/21 22:45 04/19/21 23:55 Insulin Glargine Solostar 100 Units/Ml 3 Ml Pen SC 05/19/21 22:44 6 units BID YURIDIA Administration Levothyroxine Sodium 25 mcg 04/20/21 06:30 04/20/21 06:18 Levothyroxine Sodium 25 Mcg Tablet PO 05/20/21 06:29 25 mcg DAILYBB YURIDIA Administration Past Medical History Medical History (Updated 04/20/21 @ 07:07 by Zachary Vazquez DO) Dementia HTN (hypertension) Past Family History Family History Other Family history non-contributory Social History Smoking Status: Never smoker Hx Alcohol Use: No Hx Substance Use: No Physical Exam Vital Signs Last Vital Signs Temp 98.3 F 04/19/21 19:46 Pulse 64 04/20/21 06:00 Resp 19 04/20/21 06:00 BP 146/58 H 04/20/21 06:00 Pulse Ox 95 04/20/21 06:00 Testing Laboratory Results 04/20/21 05:21 04/20/21 05:21 PT 10.5 Seconds (9.0-12.0) 04/19/21 20:15 INR 1.0 (0.9-1.1) 04/19/21 20:15 APTT < 20.0 Seconds (21.0-31.0) L 04/19/21 20:15 Blood Type O Positive 04/19/21 20:15 Antibody Screen NEGATIVE 04/19/21 20:15 04/20/21 05:54 POC Glucose 132 H Electrocardiogram Date: 04/19/21 Findings: + LBBB and + RBBB Premature SV complexes Echocardiogram Date: 10/28/18 EF: 55-60 LV Function: normal Valvular Disease: + MR (mild)
--- NOTE | 2021-04-20 07:11 | Ultrasound Report ---
US gallbladder LIMITED ABDOMEN CLINICAL HISTORY: Suspicion of early acute cholecystitis on CT. Ultrasound to further evaluate. COMPARISON: CT of the abdomen and pelvis from 04/19/2021 TECHNIQUE: Multiple grayscale and color images of the right upper quadrant of the abdomen. FINDINGS: This is a limited examination as the patient was unable to change positions or hold his br eath. Pancreas: The imaged portion of the pancreas is within normal limits with no focal mass or peripancre atic fluid collection identified. Liver: Liver is increased in echogenicity and mildly enlarged measuring 18.6 cm in the axillary paul n. There is no evidence for a focal mass. There is no intrahepatic biliary duct dilatation. Gallbladder: The gallbladder is distended with sludge present. There is thickening of the gallbladde r wall measuring 5 mm. Wall appears edematous with evidence for mild pericholecystic fluid seen. Ther e is no evidence of cholelithiasis. Sonographic Sheldon's sign cannot be obtained. Common Bile Duct: (CBD): It is normal in size measuring 4 mm. Inferior Vena Cava (IVC): The imaged IVC is patent. Right kidney: There is no evidence for hydronephrosis, calculus or gross renal mass. The kidney is n ormal in size. IMPRESSION: Distention of the gallbladder with thickening of the wall and edematous changes present. Sludge is seen with no evidence of cholelithiasis. The findings are suspicious for early acute radha cystitis. ACT 112: Negative or not required by law. Electronically signed by: Tonio Alcantara M.D. 04/20/2021 7:10 AM
[2021-04-20 07:15] LABS: Estimated Average Glucose 140 mg/dl; Hemoglobin A1C 6.5 % (4.5-5.6)
[2021-04-20] MEDS ORDERED: INSULIN ASPART PER UNIT SC SCH (07:30)
[2021-04-20] MEDS: PIPERACILLIN/TAZOBACTAM 3.375 GM in DEXTROSE 5% 100 ML IV SCH ×3 (07:35→22:18)
--- NOTE | 2021-04-20 07:48 | Magnetic Resonance Report ---
MRCP CLINICAL HISTORY: elevated LFTs; cholecystitis TECHNIQUE: Utilizing a 1.5 Andra magnet and dedicated coil, multiplanar, multiecho imaging of the [facility] er abdomen was performed utilizing heavily T2 weighted pulsing sequences without IV contrast. COMPARISON STUDY: CT of the abdomen and pelvis April 19, 2021. FINDINGS: No hepatic lesions are identified. The gallbladder is mildly distended. Gallbladder wall th ickening is noted. There is a small gallstone within the gallbladder. No intra or extra hepatic bilia ry ductal dilatation is identified. No common bile duct calculi are identified although sensitivity f or detection of small calculi is diminished given motion artifact on this exam. There is no peripancr eatic infiltration or fluid. No pancreatic ductal dilatation is present. Unenhanced images of the spl een and adrenal glands are unremarkable. There are several mildly enlarged upper abdominal lymph node s. Index april hepatis node measures 2.5 x 1.4 cm. Left-sided renal parapelvic cysts are noted. A 1.9 cm cortical cyst within the left kidney is also noted. There is mild stranding within the left renal sinus. Right renal atrophy is present. There is no hydronephrosis. Infrarenal abdominal aortic aneur ysm is partially imaged on this exam. This measures approximately 4.7 cm in caliber. No evidence for rupture. There are prominent retroperitoneal lymph nodes. Mildly enlarged cardiophrenic angle nodes a re also present. Caliber of visualized small and large bowel are normal. IMPRESSION: 1. No biliary ductal dilatation. No common bile duct calculi identified although sensitivity for dete ction of small calculi diminished given motion artifact. 2. Findings suggestive of acute cholecystitis. This will be called/faxed to the ordering provider at time of dictation. 3. Infrarenal abdominal aortic aneurysm measuring approximately 4.7 cm in caliber. No evidence for ru pture. 4. Mildly enlarged abdominal lymph nodes which are nonspecific. A follow-up CT of the abdomen 6 month s could be obtained to ensure stability. ACT 112: Negative or not required by law. Electronically signed by: Nahun Nascimento M.D. 04/20/2021 7:47 AM
[2021-04-20] MEDS ORDERED: INDOMETHACIN 50 MG SUPP PR ONE ×2 (08:20→13:23)
[2021-04-20] MEDS ORDERED: CHOLECALCIFEROL 1,000 UNITS 25 MCG TAB PO SCH (09:00)
[2021-04-20] MEDS ORDERED: CLOPIDOGREL BISULFATE 75 MG TAB PO SCH (09:00)
--- NOTE | 2021-04-20 09:50 | Gastrointestinal Consultation ---
Date of Consultation April 20, 2021 Assessment & Plan (1) Cholecystitis: (2) Elevated LFTs: Pt is a 85 yo male presented w symptoms of abd pain, n/v, noted to have leukocytosis, elevated LFTs, and abd imaging studies suggestive of cholecystitis. - NPO, IVF support - IV antibiotic coverage - Will plan for tandem EUS/ERCP if indicated for biliary stone removal, followed by lap cholecystectomy in OR today - Monitor LFTs (3) Fecal occult blood test positive: + FOBT w mild anemia (at baseline) and no johnson s/s of GI bleeding. No known hx of EGD/Colonoscopy eval, Has CKD ? anemia of chronic disease - Anemia workup recommended - Can discuss if pt/family desires endoscopic eval to r/o GI bleeding in outpt setting after his DC and recovery Supervising Physician Co-Signing Physician Notes I performed a history and physical examination of the patient today, including specifically on physical exam - soft abdomen. I have discussed the patient's management with the advanced practitioner. Please refer to the nurse practitioner's note for the documented findings and plan of care. Rising bilirubin concerning for choledocholithiasis MRCP has motion artifact Plan for EUS +/- ERCP Patient was explained in detail regarding risks, benefits, limitations and alternatives of the above endoscopic procedure. Risks of intravenous sedation used for procedure were also explained. Risks include, but not limited to perforation, bleeding, infection, respiratory distress, cardiac arrest and . Patient is also aware about the possibility of missed lesion. Patient's questions were answered. The patient verbalized understanding the information and agreed to undergo the procedure. History of Present Illness Reason for Consultation: Cholecystitis, elevated LFTs; FOBT + Requesting Physician: Dr. Louie Mcdaniel Attending Physician: Dr. Ever Cobian History of Present Illness Pt is a 85 yo male w PMHx as noted below who presented yesterday symptoms of abd pain w radiation to chest, N/V. No fever, SOB, changes in BM noted. On eval, note to have leukocytosis, mild anemia , increased lactate, elevated LFTs: Tbili 2.7, AST 245, ALT 274, alk phos 197. COVID negative. Abdominal imaging studies w CT a/p, U/S, MRCP showed signs of cholecystitis wo obvious signs of biliary ductal dilation or biliary duct stones. He is scheduled for lap cholecystectomy today. He tested positive for FOBT, however denies any symptoms of dark tarry stools or rectal bleeding. He denies any prior hx of endoscopies/colonoscopy, denies family hx of colorectal ca Allergies Allergy/AdvReac Type Severity Reaction Status Date / Time No Known Allergies Allergy Unknown Verified 04/19/21 20:16 Home Medications Medication Instructions Recorded Confirmed Type allopurinol 100 mg tablet 100 mg PO DAILY 04/19/18 04/19/21 History cetirizine 10 mg tablet 10 mg PO DAILY 04/19/18 04/19/21 History guaifenesin 600 mg tablet, 600 mg PO BID PRN 04/19/18 04/19/21 History extended release 12 hr (Mucinex) fluocinonide 0.05 % topical cream 1 applic TOPICAL BID 10/22/18 04/19/21 History vit C 250 mg-vit E 90 mg-zinc 40 1 tab PO DAILY 10/22/18 04/19/21 History mg-copper 1 [id number] capsule (PreserVision AREDS-2) clopidogrel 75 mg tablet (Plavix) 75 mg PO DAILY #30 tab 11/04/18 04/19/21 Rx hydralazine 25 mg tablet 25 mg PO TID #30 tab 11/04/18 04/19/21 Rx amlodipine 5 mg tablet 5 mg PO BID 04/19/21 04/19/21 History atorvastatin 40 mg tablet 40 mg PO HS 04/19/21 04/19/21 History cholecalciferol (vitamin D3) 25 25 mcg PO DAILY 04/19/21 04/19/21 History mcg (1,000 unit) tablet (Vitamin D3) diclofenac sodium 1 % topical gel 4 g TOPICAL QID 04/19/21 04/19/21 History ferrous sulfate 325 mg (65 mg 325 mg PO DAILY 04/19/21 04/19/21 History iron) tablet levothyroxine 25 mcg tablet 25 mcg PO DAILY 04/19/21 04/19/21 History melatonin 3 mg tablet 3 mg PO PM 04/19/21 04/19/21 History metoprolol tartrate 25 mg tablet 25 mg PO BID 04/19/21 04/19/21 History tamsulosin 0.4 mg capsule 0.4 mg PO DAILY 04/19/21 04/19/21 History Patient History Medical History (Updated 02/09/22 @ 09:46 by NERI Miranda) Dementia HTN (hypertension) Family History Other Family history non-contributory Social History Smoking Status: Never smoker Hx Alcohol Use: No Hx Substance Use: No Preferred Language: Kiswahili Communication Ability: Impaired Communication Ability Comment: Patient appears with some confusion, per Daughter this is normal Resistor Winder Required: No Beliefs That Will Affect Care: None marital status: Current Living Situation: Personal Care Facility Current Living Situation Comment: [facility] current occupational status: retired Other Information That Helps Us Care for You: No Feels Safe at Home: Yes Safety Concerns: Afraid for Self Assistive Devices: None Review of Systems Review of Systems: All systems reviewed & are unremarkable except as noted in HPI & below Physical Exam Constitutional: WD/WN, vitals as above well groomed, cooperative and comfor table Eyes: PERRL, conjunctivae normal, anicteric sclerae ENMT: external ear and nose normal, oropharynx normal Respiratory: normal respiratory effort, lungs clear to auscultation Cardiovascular: RRR, no murmur, no edema Gastrointestinal (Abdomen): normal bowel sounds, soft, nontender, no hepatosplenomegaly Skin: no rashes, warm and dry no jaundice Psychiatric: A+Ox3, euthymic affect Lymphatic: no lymphedema Results & Data ([facility]) Vital Signs (Past 12 Hours) Vital Signs Temp Pulse Pulse Resp BP BP Pulse Ox 04/20/21 07:00 36.9 C 68 18 151/71 H 93 04/20/21 06:00 64 19 146/58 H 95 04/20/21 05:00 69 22 142/73 H 95 04/20/21 04:58 68 2 L 137/100 95 04/20/21 04:00 71 23 161/73 H 90 04/20/21 03:00 76 22 154/77 H 94 04/20/21 02:33 85 22 166/76 H 96 04/20/21 02:00 96 H 19 163/60 H 92 04/20/21 01:00 79 21 142/74 H 93 04/20/21 00:00 87 21 150/70 H 92 04/19/21 23:42 27 H 147/74 H 94 04/19/21 22:00 95 H 28 H 151/69 H 91
[2021-04-20] MEDS: allopurinoL 100 MG TAB PO SCH (10:06)
[2021-04-20] MEDS: FERROUS SULFATE 325 MG TAB PO SCH (10:07)
[2021-04-20] MEDS: amLODIPine BESYLATE 5 MG TAB PO SCH ×2 (10:07→23:02)
[2021-04-20] MEDS: INSULIN GLARGINE SOLOSTAR 100 UNITS/ML 3 ML PEN SC SCH ×2 (10:07→23:10)
[2021-04-20] MEDS: hydrALAZINE HCL 25 MG TAB PO SCH ×3 (10:07→23:01)
[2021-04-20] MEDS: METOPROLOL TARTRATE 25 MG TAB PO SCH ×2 (10:07→23:02)
[2021-04-20] MEDS: CEROVITE ADV FORMULA TAB PO SCH (10:07)
[2021-04-20] MEDS: CETIRIZINE HCL 10 MG TABLET PO SCH (10:07)
[2021-04-20] MEDS: TAMSULOSIN HCL 0.4 MG CAP PO SCH (10:08)
[2021-04-20] MEDS: DICLOFENAC SOD 1% GEL 100 GM TUBE EXT SCH ×4 (10:17→23:09)
[2021-04-20] MEDS: FLUOCINONIDE 0.05% CR 15 GM TUBE EXT SCH ×2 (11:12→23:09)
[2021-04-20] MEDS ORDERED: ATROPINE SULFATE 0.1 MG/ML 10ML SYR IV PRN (12:37)
[2021-04-20] MEDS ORDERED: fentaNYL citrate 100 MCG/2 ML VIAL IV PRN (12:37)
[2021-04-20] MEDS ORDERED: ePHEDrine sulfate 50 MG/ML AMP IV PRN (12:37)
[2021-04-20] MEDS ORDERED: ONDANSETRON INJ 2 MG/ML 2 ML VIAL IV PRN (12:37)
[2021-04-20] MEDS ORDERED: ROCURONIUM BROMIDE 10 MG/ML 5 ML VIAL IV ONE ×5 (12:49→14:40)
[2021-04-20] MEDS ORDERED: LIDOCAINE 2% 2 ML VIAL/AMP(20MG/ML) INFIL ONE (12:49)
[2021-04-20] MEDS ORDERED: PROPOFOL IV EMULSION 10 MG/ML 20 ML VIAL IV ONE (12:49)
[2021-04-20] MEDS ORDERED: fentaNYL citrate 100 MCG/2 ML VIAL ONE ×2 (12:49→14:59)
[2021-04-20] MEDS ORDERED: BUPIVACAINE 0.5 % 5 MG/1 ML MPF 30ML VIAL ONE (12:59)
--- NOTE | 2021-04-20 13:23 | History & Physical Bridge Note ---
Date of Service April 20, 2021 History & Physical Bridge Note I have examined the patient, reviewed the History & Physical and in the interval since the performance of the History & Physical I have noted the following changes of clinical significance: no changes noted
--- NOTE | 2021-04-20 14:14 | Operative Report ---
Post Operative Report Pre & Post Diagnosis Operation Date: 04/20/21 11:00 <No data on this case meets the specified criteria> I identified the patient and participated in the time-out.: Yes Procedure Operation Date: 04/20/21 11:00 Actual Procedures s Laparoscopic Cholecystectomy Possible Cholangiogram - Barry Gann MD, FACS p Endoscopic Retrograde Cholangiopancreatogram - Ever Cobian MD s Endoscopic Ultrasonography Upper - Ever Cobian MD Surgeon Ever Cobian MD Refrigeration Houseman None Estimated Blood Loss 0 Findings See Below (Cholangitis and choledocholithiasis, stent placed) Specimens None Description of Procedure EUS/ERCP I attest to the content of the Intraoperative Record and any orders documented therein. Any exceptions are noted below.
--- NOTE | 2021-04-20 14:30 | GI REPORT ---
Patient Name: Alex Glez Procedure Date: 04/20/2021 1:05 PM Date of : 1935 Admit Type: Inpatient Age: 85 Gender: Male Attending MD: Ever Cobian MD Procedure: Upper GI endoscopy Providers: Ever Cobian MD Referring MD: HONEY Garcia Indications: Abdominal pain Medicines: General Anesthesia Complications: No immediate complications. Estimated Blood Loss: Estimated blood loss: none. Procedure: Pre-Anesthesia Assessment: - Prior to the procedure, a History and Physical was performed, and patient medications, allergies and sensitivities were reviewed. The patient's tolerance of previous anesthesia was reviewed. - The risks and benefits of the procedure and the sedation options and risks were discussed with the patient. All questions were answered and informed consent was obtained. - Patient identification and proposed procedure were verified prior to the procedure by the physician and the nurse. The procedure was verified in the procedure room. - Pre-procedure physical examination revealed no contraindications to sedation. After obtaining informed consent, the endoscope was passed under direct vision. Throughout the procedure, the patient's blood pressure, pulse, and oxygen saturations were monitored continuously. The Endoscope was introduced through the mouth, and advanced to the second part of duodenum. The upper GI endoscopy was accomplished without difficulty. The patient tolerated the procedure well. Findings: The examined esophagus was normal. The entire examined stomach was normal. The duodenal bulb and second portion of the duodenum were normal. Impression: - Normal esophagus. - Normal stomach. - Normal duodenal bulb and second portion of the duodenum. - No specimens collected. Recommendation: - Perform an upper endoscopic ultrasound (UEUS) today. Ever Cobian MD 04/20/2021 2:29:52 PM This report has been signed electronically. Note Initiated On: 04/20/2021 1:05 PM Number of Addenda: 0 I attest to the content of the Intraoperative Record and orders documented therein, exceptions below {[id number]}
[2021-04-20] MEDS ORDERED: ePHEDrine sulfate 50 MG/ML AMP ONE (14:32)
--- NOTE | 2021-04-20 14:34 | GI REPORT ---
Patient Name: Alex Glez Procedure Date: 04/20/2021 1:06 PM Date of : 1935 Admit Type: Inpatient Age: 85 Gender: Male Attending MD: Ever Cobian MD Procedure: Upper EUS Providers: Ever Cobian MD Referring MD: HONEY Garcia Indications: Elevated liver enzymes, Suspected choledocholithiasis Medicines: General Anesthesia Complications: No immediate complications. Estimated Blood Loss: Estimated blood loss: none. Procedure: Pre-Anesthesia Assessment: - Prior to the procedure, a History and Physical was performed, and patient medications, allergies and sensitivities were reviewed. The patient's tolerance of previous anesthesia was reviewed. - The risks and benefits of the procedure and the sedation options and risks were discussed with the patient. All questions were answered and informed consent was obtained. - Patient identification and proposed procedure were verified prior to the procedure by the physician and the nurse. The procedure was verified in the procedure room. - Pre-procedure physical examination revealed no contraindications to sedation. After obtaining informed consent, the endoscope was passed under direct vision. Throughout the procedure, the patient's blood pressure, pulse, and oxygen saturations were monitored continuously. The Endosonoscope was introduced through the mouth, and advanced to the second part of duodenum. The upper EUS was accomplished without difficulty. The patient tolerated the procedure well. Findings: ENDOSONOGRAPHIC FINDING: : There was no sign of significant endosonographic abnormality in the ampulla. There was dilation in the common bile duct which measured up to 8 mm. One stone was visualized endosonographically in the common bile duct. It was hyperechoic and characterized by shadowing. One stone was visualized endosonographically in the gallbladder. It was hyperechoic and characterized by shadowing. There was no sign of significant endosonographic abnormality in the entire pancreas. The pancreatic duct measured up to 2 mm in diameter. A few benign-appearing lymph nodes were visualized in the april hepatis region. The nodes were triangular, heterogenous and had well defined margins. There was no sign of significant endosonographic abnormality in the visualized portion of the left adrenal gland. There was no sign of significant endosonographic abnormality involving the celiac trunk. Impression: - There was no sign of significant pathology in the ampulla. - There was dilation in the common bile duct which measured up to 8 mm. - One stone was visualized endosonographically in the common bile duct. - One stone was visualized endosonographically in the gallbladder. There was thickening of the wall of the gallbladder. - There was no sign of significant pathology in the entire pancreas. - A few benign appearing likely reactive lymph nodes were visualized in the april hepatis region. - Endosonographic images of the left adrenal gland were unremarkable. - The celiac trunk was endosonographically normal. Recommendation: - Perform an ERCP today. Ever Cobian MD 04/20/2021 2:34:17 PM This report has been signed electronically. Note Initiated On: 04/20/2021 1:06 PM Number of Addenda: 0 I attest to the content of the Intraoperative Record and orders documented therein, exceptions below {[id number]}
--- NOTE | 2021-04-20 14:38 | GI REPORT ---
Patient Name: Alex Glez Procedure Date: 04/20/2021 1:06 PM Date of : 1935 Admit Type: Inpatient Age: 85 Gender: Male Attending MD: Ever Cobian MD Procedure: ERCP Providers: Ever Cobian MD Referring MD: HONEY Garcia Indications: For therapy of bile duct stone(s), Suspected ascending cholangitis Medicines: General Anesthesia Complications: No immediate complications. Estimated Blood Loss: Estimated blood loss: none. Procedure: Pre-Anesthesia Assessment: - Prior to the procedure, a History and Physical was performed, and patient medications, allergies and sensitivities were reviewed. The patient's tolerance of previous anesthesia was reviewed. - The risks and benefits of the procedure and the sedation options and risks were discussed with the patient. All questions were answered and informed consent was obtained. - Patient identification and proposed procedure were verified prior to the procedure by the physician and the nurse. The procedure was verified in the procedure room. - Pre-procedure physical examination revealed no contraindications to sedation. After obtaining informed consent, the scope was passed under direct vision. Throughout the procedure, the patient's blood pressure, pulse, and oxygen saturations were monitored continuously. The Duodenoscope was introduced through the mouth, and advanced to the duodenum and used to inject contrast into the bile duct. The ERCP was accomplished without difficulty. The patient tolerated the procedure well. Findings: The racing board marker film was normal. The esophagus was successfully intubated under direct vision. The scope was advanced to a normal major papilla in the descending duodenum without detailed examination of the pharynx, larynx and associated structures, and upper GI tract. The upper GI tract was grossly normal. A 0.025 inch x 270 cm angled Visiglide wire was passed into the biliary tree. The Fusion OMNI sphincterotome was passed over the guidewire and the bile duct was then deeply cannulated. Contrast was injected. I personally interpreted the bile duct images. Ductal flow of contrast was adequate. Image quality was adequate. Contrast extended to the main bile duct. Opacification of the entire biliary tree was successful. The maximum diameter of the ducts was 9 mm. Biliary sphincterotomy was made with a monofilament traction (standard) sphincterotome using ERBE electrocautery. There was no post-sphincterotomy bleeding. The biliary tree was swept with a 12 mm balloon starting at the bifurcation. Sludge was swept from the duct. One stone was removed. No stones remained. Pus was swept from the duct. One 10 Fr by 8 cm plastic biliary stent with a single external flap and a single internal flap was placed into the common bile duct. Bile flowed through the stent. The stent was in good position. Indomethacin 100 mg was given via suppository to decrease the risk of post-ERCP pancreatitis (PEP). Impression: - Acute cholangitis. - Choledocholithiasis was found. Complete removal was accomplished by biliary sphincterotomy and balloon extraction. - One plastic biliary stent was placed into the common bile duct. Recommendation: - [facility]. - Repeat ERCP in 6 weeks to remove stent. - Continue ABx and complete a 10 days course. - Avoid NSAIDs for 5 days. Ever Cobian MD 04/20/2021 2:38:21 PM This report has been signed electronically. Note Initiated On: 04/20/2021 1:06 PM Number of Addenda: 0 I attest to the content of the Intraoperative Record and orders documented therein, exceptions below {[id number]}
[2021-04-20] MEDS ORDERED: ONDANSETRON INJ 2 MG/ML 2 ML VIAL ONE (14:41)
--- NOTE | 2021-04-20 14:46 | Fluoroscopy Report ---
FL ERCP biliary ductal CLINICAL HISTORY: W/LAP ROSANA COMPARISON STUDY: MRCP and CT of the abdomen and pelvis April 19, 2021. FLUOROSCOPY TIME: 21 seconds. FLUOROSCOPIC IMAGES: 11 FINDINGS: Fluoroscopy was provided during ERCP. Common bile duct was cannulated. Balloon sweep throug h the common bile duct was performed. Biliary stent was placed. IMPRESSION: Fluoroscopy provided during ERCP with placement of a common bile duct stent. ACT 112: Negative or not required by law. Electronically signed by: Nahun Nascimento M.D. 04/20/2021 2:45 PM
[2021-04-20] MEDS ORDERED: FLOSEAL HEMOSTATIC MATRIX 10ML TOP ONE (15:01)
[2021-04-20] MEDS ORDERED: NEOSTIGMINE METHYLSULFATE 1 MG/ML 10ML VIAL ONE (15:04)
[2021-04-20] MEDS ORDERED: GLYCOPYRROLATE 0.2 MG/ML VIAL ONE (15:04)
[2021-04-20] MEDS ORDERED: ACETAMINOPHEN 1,000 MG/100 ML VIAL IV ONE (15:21)
--- NOTE | 2021-04-20 15:21 | Post Operative Brief Note ---
PG Immediate Post Op with CF Date of Surgery April 20, 2021 Pre & Post Diagnosis Operation Date: 04/20/21 11:00 Pre-Op Diagnosis: Cholangitis, choledocholithiasis Post-Op Diagnosis: Cholangitis, choledocholithiasis, acute necrotizing cholecystitis I identified the patient and participated in the time-out.: Yes Procedure Operation Date: 04/20/21 11:00 Actual Procedures s Laparoscopic Cholecystectomy (Not Applicable) - Barry Gann MD, FACS p Endoscopic Retrograde Cholangiopancreatogram, Endoscopic Ultrasonography Upper - Ever Cobian MD Surgeon Barry Gann MD, FACS Shallot Packer Yenifer Becker Estimated Blood Loss 10 Findings Consistent with Post-Op Diagnosis Severely distended gallbladder with severe edema in the wall Sludge within the gallbladder and stones Stone in the neck of the gallbladder Specimens Specimen Description: A. Gallbladder and contents Drains Luis A-Michelle Drain
--- NOTE | 2021-04-20 16:46 | Anesthesiology Progress Note ---
Date of Service April 20, 2021 Anesthesia Post Procedure Vital Signs Vital Signs: Temp Pulse Pulse Pulse Resp BP BP 04/20/21 16:30 78 18 152/71 H 04/20/21 16:15 36.2 C L 81 20 157/74 H 04/20/21 16:05 85 20 162/74 H 04/20/21 15:55 90 21 164/82 H 04/20/21 15:45 91 H 16 169/68 H 04/20/21 15:37 36.1 C L 92 H 22 167/78 H 04/20/21 11:47 36.7 C 70 20 150/77 H 04/20/21 09:00 36.8 C 73 18 150/86 H 04/20/21 07:00 36.9 C 68 18 151/71 H 04/20/21 06:00 64 19 146/58 H 04/20/21 05:00 69 22 142/73 H 04/20/21 04:58 68 2 L 137/100 04/20/21 04:00 71 23 161/73 H 04/20/21 03:00 76 22 154/77 H 04/20/21 02:33 85 22 166/76 H 04/20/21 02:00 96 H 19 163/60 H 04/20/21 01:00 79 21 142/74 H 04/20/21 00:00 87 21 150/70 H 04/19/21 23:42 27 H 147/74 H 04/19/21 22:00 95 H 28 H 151/69 H 04/19/21 21:31 96 H 22 155/62 H 04/19/21 21:01 27 H 199/83 H 04/19/21 20:56 143/110 H 04/19/21 20:30 114 H 22 178/82 H 04/19/21 20:00 115 H 24 179/83 H 04/19/21 19:46 36.8 C 120 H 25 H 176/88 H Pulse Ox 04/20/21 16:30 94 04/20/21 16:15 94 04/20/21 16:05 95 04/20/21 15:55 95 04/20/21 15:45 95 04/20/21 15:37 94 04/20/21 11:47 95 04/20/21 09:00 95 04/20/21 07:00 93 04/20/21 06:00 95 04/20/21 05:00 95 04/20/21 04:58 95 04/20/21 04:00 90 04/20/21 03:00 94 04/20/21 02:33 96 04/20/21 02:00 92 04/20/21 01:00 93 04/20/21 00:00 92 04/19/21 23:42 94 04/19/21 22:00 91 04/19/21 21:31 93 04/19/21 21:01 95 04/19/21 20:56 04/19/21 20:30 94 04/19/21 20:00 94 04/19/21 19:46 94 Transfer of Care Handoff Completed per policy Notes Mental Status: alert / awake / arousable Patient Amnestic to Procedure: Yes Nausea / Vomiting: adequately controlled Pain: adequately controlled Airway Patency, RR, SpO2: stable & adequate BP & HR: stable & adequate Hydration State: stable & adequate Anesthetic Complications: no major complications apparent and Pt Satisfied with anesthetic care Notes: The patient is awake and comfortable. His vital signs are stable. His SpO2 is 94 on 2 L NC. He was given an incentive spirometer to use while awake and will have continuous pulse oximetry on the floor.
--- NOTE | 2021-04-20 18:10 | Hospitalist Progress Note ---
Date of Service April 20, 2021 Assessment & Plan (1) Acute cholangitis: Plan: Sepsis Present on admission with abdominal pain Met sepsis criteria on admission with Tachycardia, Elevated WBC and elevated lactate Elevated LFTs with total bilirubin 2.4, AST 424, ALT 279, alkaline phosphatase [address] abd/pelvis showed gallbladder wall thickening is noted with pericholecystic edema. MRCP showed no biliary ductal dilatation. Findings suggestive of acute cholecystitis. S/p ERCP showed acute cholangitis. Choledocholithiasis was found. Complete removal wasaccomplished by biliary sphincterotomy and balloon extraction. One plastic biliary stent was placed into the common bile duct. Case discussed with gastro that recommended to repeat ERCP in 6 weeks for stent removal Continue ABx and complete a 10 days course. Will avoid NSAIDs for 5 days as per GI Continue monitor closely Diabetes type 2 Hba1c 6.5 on 04/20/21 Continue insulin sliding scale with novolog Continue monitor BS History of hypertension: Continue to hold BP sridevi due to Low BP Continue monitor BP Hypothyroidism: Continue Synthroid. Benign prostatic hypertrophy: Continue Flomax. History of cerebrovascular accident: Continue Plavix and statin. Gout: Continue allopurinol. History of Abdominal aortic aneurysm MRCP showed infrarenal abdominal aortic aneurysm measuring approximately 4.7 cm in caliber. Follow up outpatient Chronic kidney disease stage III: Baseline creatinine 1.5-1.8, currently creatinine is 1.4 W Ambulatory dysfunction: PT/OT eval fall precaution Deep venous thrombosis prophylaxis on SCD due to recent surgical procedure Code status Full code Admission and Anticipated Discharge Date Admission Date: April 19, 2021 Subjective Pt was seen and examined for postop follow up Lying in bed with no acute distress Pt said that he is not having any pain Denies any chest pain, palpitation, dizziness and SOB Review of Systems Review of Systems: All systems reviewed & are unremarkable except as noted in Subjective Physical Exam Physical Exam: General- No acute distress Head- atraumatic Eyes- PERRL, EOMI, ENT- oropharynx clear Neck- supple, no JVD Lungs- clear to auscultation Heart- regular rhythm; no murmur Abdomen- normal bowel sounds, soft, +tenderness with deep palpation Extremities- no calf tenderness Neuro- alert, oriented x 3; PERRL, EOMI; no facial palsy; no dysarthria Skin- warm & dry Results & Data Results & Data ([facility]) Vital Signs (Past 12 Hours) Vital Signs Temp Pulse Pulse Resp BP Pulse Ox 04/20/21 17:30 36.2 C L 78 22 162/75 H 95 04/20/21 17:00 76 20 160/79 H 95 04/20/21 16:30 78 18 152/71 H 94 04/20/21 16:15 36.2 C L 81 20 157/74 H 94 04/20/21 16:05 85 20 162/74 H 95 04/20/21 15:55 90 21 164/82 H 95 04/20/21 15:45 91 H 16 169/68 H 95 04/20/21 15:37 36.1 C L 92 H 22 167/78 H 94 04/20/21 11:47 36.7 C 70 20 150/77 H 95 04/20/21 09:00 36.8 C 73 18 150/86 H 95 04/20/21 07:00 36.9 C 68 18 151/71 H 93
--- NOTE | 2021-04-20 19:43 | Operative Report (OR) ---
DATE OF OPERATION: 04/20/2021. NAME OF OPERATION: Laparoscopic cholecystectomy. PREOPERATIVE DIAGNOSIS: Acute cholecystitis. POSTOPERATIVE DIAGNOSIS: Acute cholecystitis and necrotizing cholecystitis. STAFF SURGEON: Barry Gann MD. RESERVATIONS SPECIALIST: Neha Becker PA-C. ANESTHESIA: General. DESCRIPTION OF PROCEDURE: The patient was in the operating room, underwent prior EUS and ERCP. Now, his abdomen was prepped and draped for laparoscopic cholecystectomy. 0.5% plain Marcaine was used t o anesthetize all incisions. Incision was made above the umbilicus, carrying dissection down to the fascia, which was through deep adipose tissue, placing a Veress needle producing pneumoperitoneum. A n 11 mm port placed at this level. Under visualization, three 5 mm ports were placed, one cephalad a nd two laterally. Gallbladder was severely distended and edematous. I grasped the gallbladder and essentially it tore expressing bile, which was aspirated. It was sludge-like. Dissection was carried out to the april h epatis, identifying the cystic duct and cystic artery. These were clipped and transected. There was severe edema in the posterior wall of the gallbladder. Gallbladder was dissected away from the live r bed in the usual fashion. We did place some FloSeal as the patient was on Plavix. Through the late ral 5 mm port site, the 15 round Luis A-Michelle drain was placed, secured to the skin using 3-0 nylon suture, it was placed in the subhepatic space. A 5 mm scope was used. The gallbladder was placed into an Endobag and grasped. It was brought out th rough the umbilical site. I did have to enlarge the fascial defect slightly. Fascia closed at the u mbilicus using 0 PDS suture. The skin was reapproximated using 4-0 nylon suture. The patient was tr ansferred to recovery room in stable condition. Job ID: [id number]
[2021-04-20] MEDS: MELATONIN 3 MG TAB PO SCH (23:09)
[2021-04-21] MEDS ORDERED: Nursing to Pharmacy Communication SCH (00:15)
[2021-04-21] MEDS: SODIUM CHLORIDE 0.9% 1000ML 1,000 ML IV SCH ×3 (01:16→18:22)
[2021-04-21] MEDS: INSULIN ASPART PER UNIT SC SCH ×5 (04:01→20:34)
[2021-04-21] MEDS: LEVOTHYROXINE SODIUM 25 MCG TABLET PO SCH (05:49)
[2021-04-21] MEDS: PIPERACILLIN/TAZOBACTAM 3.375 GM in DEXTROSE 5% 100 ML IV SCH ×3 (05:53→21:10)
--- NOTE | 2021-04-21 06:14 | Electrocardiogram Report ---
Test Reason : Blood Pressure : / mmHG Vent. Rate : 119 BPM Atrial Rate : 119 BPM P-R Int : 170 ms QRS Dur : 122 ms QT Int : 434 ms P-R-T Axes : 089 -87 020 degrees QTc Int : 610 ms Poor data quality, interpretation may be adversely affected Sinus tachycardia with Premature supraventricular complexes Left axis deviation Right bundle branch block Possible Inferior infarct , age undetermined Abnormal ECG When compared with ECG of 22-OCT-2018 17:34, Right bundle branch block is now Present Premature supraventricular complexes are now Present Confirmed by Azam Jones ([id number]) on 04/21/2021 6:14:18 AM Referred By: [facility] Confirmed By:Azam Jones
[2021-04-21] MEDS ORDERED: HYDROCODONE/ACETAMOPHEN 5/325MG TAB PO PRN (06:44)
[2021-04-21] MEDS ORDERED: ACETAMINOPHEN 325 MG TAB PO PRN (06:44)
--- NOTE | 2021-04-21 07:24 | Surgery Progress Note ---
Date of Service April 21, 2021 Assessment & Plan (1) History of laparoscopic cholecystectomy: Plan: Patient with severe acute cholecystitis-possible necrotizing cholecystitis Choledocholithiasis with purulent fluid and likely cholangitis Patient with evidence of sepsis on admission with confusion and tachycardia, elevated white blood cell count Severely abnormal liver function studies Evidence of acute cholecystitis He appears to be doing well from laparoscopic cholecystectomy and ERCP with stent placement and removal of common bile duct stone We will continue his IV antibiotics Advance his diet Monitor his mobility-he will likely be very weak-asked PT to assess him Discharge planning-Case management Possible discharge home in 2 to 3 days Admission and Anticipated Discharge Date Admission Date: April 19, 2021 Results & Data ([facility]) Vital Signs (Past 12 Hours) Vital Signs Temp Pulse Pulse Resp BP Pulse Ox 04/21/21 04:25 36.8 C 74 20 156/70 H 92 04/20/21 23:58 92 04/20/21 22:46 37.0 C 89 18 148/72 H 96 04/20/21 22:30 82 PG Care Time/CCT Total # of Minutes Spent Total Time Spent with Patient: Total time spent is greater than 50% in coordination of care (as documented) at patient's floor/unit and/or counseling patient: Coding Level of Care Code None Diagnoses History of laparoscopic cholecystectomy Z90.49
[2021-04-21 08:07] LABS: Basophils # (auto) 0.02 K/uL (0-0.2); Basophils % (auto) 0.2 %; Eosinophils # (auto) 0.16 K/uL (0-0.5); Eosinophils % (auto) 1.3 %; Hematocrit (blood only) 36.9 % (42-52); Hemoglobin 12.3 g/dL (14.0-18.0); Immature Granulocytes # (auto) 0.05 K/uL (0.00-0.02); Immature Granulocytes % (auto) 0.4 %; Lymphocytes # (auto) 1.42 K/uL (1.2-3.4); Lymphocytes % (auto) 11.2 %; Mean Corpuscular Hgb Conc 33.3 g/dL (32-36); Mean Corpuscular Volume 101.9 fL (80-100); Mean Platelet Volume 10.9 fL (7.4-10.4); Monocytes # (auto) 0.38 K/uL (0.11-0.59); Neutrophils # (auto) 10.63 K/uL (1.4-6.5); Neutrophils % (auto) 83.9 %; Platelet Count 204 K/uL (130-400); RDW Coefficient of Variation 14.7 % (11.5-14.5); RDW Standard Deviation 55.6 fL (36.4-46.3); Red Blood Count 3.62 M/uL (4.7-6.1); White Blood Count 12.66 K/uL (4.8-10.8)
[2021-04-21] MEDS: INSULIN GLARGINE SOLOSTAR 100 UNITS/ML 3 ML PEN SC SCH ×2 (08:24→21:12)
[2021-04-21] MEDS: amLODIPine BESYLATE 5 MG TAB PO SCH ×2 (08:27→21:11)
[2021-04-21] MEDS: CLOPIDOGREL BISULFATE 75 MG TAB PO SCH (08:27)
[2021-04-21] MEDS: FERROUS SULFATE 325 MG TAB PO SCH (08:27)
[2021-04-21] MEDS: hydrALAZINE HCL 25 MG TAB PO SCH ×3 (08:27→21:10)
[2021-04-21] MEDS: CETIRIZINE HCL 10 MG TABLET PO SCH (08:27)
[2021-04-21] MEDS: METOPROLOL TARTRATE 25 MG TAB PO SCH ×2 (08:27→21:10)
[2021-04-21] MEDS: TAMSULOSIN HCL 0.4 MG CAP PO SCH (08:27)
[2021-04-21] MEDS: allopurinoL 100 MG TAB PO SCH (08:27)
[2021-04-21] MEDS: DICLOFENAC SOD 1% GEL 100 GM TUBE EXT SCH ×4 (08:28→21:10)
[2021-04-21] MEDS: PANTOprazole 40 MG TAB PO SCH (08:28)
[2021-04-21] MEDS: FLUOCINONIDE 0.05% CR 15 GM TUBE EXT SCH ×2 (08:29→21:11)
[2021-04-21] MEDS: HEPARIN SOD 5,000 UNIT/0.5 ML VIAL SQ SCH ×2 (08:29→21:11)
[2021-04-21] MEDS: CEROVITE ADV FORMULA TAB PO SCH (08:31)
[2021-04-21] MEDS: CHOLECALCIFEROL 1,000 UNITS 25 MCG TAB PO SCH (08:52)
[2021-04-21 09:13] LABS: Albumin Globulin Ratio 1.2 (0.9-2); Albumin Level 3.6 gm/dl (3.4-5.0); BUN Creatinine Ratio 10.5 (10-20); Bilirubin,Total 1.6 mg/dl (0.2-1.0); Calcium 7.8 mg/dl (8.5-10.1); Creatinine Clr Calc Pharmacy 44.1 ml/min; Est GFR (African American) 51.4 ml/min; Est GFR (Non-African American) 44.3 ml/min; Globulin 2.9 gm/dl (2.5-4.0); Total Protein 6.5 gm/dl (6.0-8.3)
[2021-04-21 09:58] LABS: Potassium 3.5 mmol/L (3.5-5.1)
--- NOTE | 2021-04-21 10:42 | Gastroenterology Progress Note ---
Date of Service April 21, 2021 Assessment & Plan (1) Cholecystitis: (2) Elevated LFTs: Plan: Pt is a 85 yo male presented w symptoms of abd pain, n/v, noted to have leukocytosis, elevated LFTs, and abd imaging studies suggestive of cholecystitis. He underwent EUS/ERCP w biliary sphincterectomy, choledocholithiasis removal; followed by geovany garcia on 04/20. Appears to have cholangitis. WBC, LFTs decreasing. He denies abd pain, n/v. - Diet advancement per surgery - Continue IV antibiotic coverage - Monitor LFTs - Recall GI prn (3) Fecal occult blood test positive: Plan: + FOBT w mild anemia (at baseline) and no johnson s/s of GI bleeding. No known hx of EGD/Colonoscopy eval, Has CKD ? anemia of chronic disease - Anemia workup recommended - Can discuss if pt/family desires endoscopic eval to r/o GI bleeding in outpt setting after his DC and recovery Admission and Anticipated Discharge Date Admission Date: April 19, 2021 Supervising Physician Co-Signing Physician Notes I performed a history and physical examination of the patient today, including specifically on physical exam - soft abdomen. I have discussed the patient's management with the advanced practitioner. Please refer to the nurse practitioner's note for the documented findings and plan of care. LFTs improved, tolerated diet. Repeat ERCP as OP for stent removal. Recall GI if needed. Subjective Pt did well overnight wo c/o nausea, vomiting, abd pain. Review of Systems Review of Systems: All systems reviewed & are unremarkable except as noted in HPI & below Physical Exam Constitutional: WD/WN, vitals as above well groomed, cooperative and comfortable Eyes: PERRL, conjunctivae normal, anicteric sclerae ENMT: external ear and nose normal, oropharynx normal Respiratory: normal respiratory effort, lungs clear to auscultation Cardiovascular: RRR, no murmur, no edema Gastrointestinal (Abdomen): normal bowel sounds, soft, nontender, no hepatosplenomegaly surgical sites, covered w dressing CDI Skin: no rashes, warm and dry no jaundice Psychiatric: A+Ox3, euthymic affect Lymphatic: no lymphedema Results & Data ([facility]) Vital Signs (Past 12 Hours) Vital Signs Temp Pulse Pulse Resp BP Pulse Ox 04/21/21 07:36 36.9 C 77 18 149/74 H 95 04/21/21 07:00 69 04/21/21 04:25 36.8 C 74 20 156/70 H 92 04/20/21 23:58 92 04/20/21 22:46 37.0 C 89 18 148/72 H 96
[2021-04-21] MEDS ORDERED: bisacodyL 5 MG TABEC PO PRN (13:32)
--- NOTE | 2021-04-21 19:28 | Hospitalist Progress Note ---
Date of Service April 21, 2021 Assessment & Plan (1) Acute cholangitis: Plan: Sepsis Present on admission with abdominal pain Met sepsis criteria on admission with Tachycardia, Elevated WBC and elevated lactate Elevated LFTs with total bilirubin 2.4, AST 424, ALT 279, alkaline phosphatase 232 on admission LFT treding down with AST 81, ALT 169 Alk [address] abd/pelvis showed gallbladder wall thickening is noted with pericholecystic edema. MRCP showed no biliary ductal dilatation. Findings suggestive of acute cholecystitis. S/p ERCP showed acute cholangitis. Choledocholithiasis was found. Complete removal wasaccomplished by biliary sphincterotomy and balloon extraction. One plastic biliary stent was placed into the common bile duct. Case discussed with gastro that recommended to repeat ERCP in 6 weeks for stent removal Continue ABx to complete a 10 days course. Will avoid NSAIDs for 5 days as per GI Continue monitor closely Diabetes type 2 Hba1c 6.5 on 04/20/21 Continue insulin sliding scale with novolog Continue monitor BS History of hypertension: Continue to hold BP sridevi due to Low BP Continue monitor BP Hypothyroidism: Continue Synthroid. Benign prostatic hypertrophy: Continue Flomax. History of cerebrovascular accident: Continue Plavix and statin. Gout: Continue allopurinol. History of Abdominal aortic aneurysm MRCP showed infrarenal abdominal aortic aneurysm measuring approximately 4.7 cm in caliber. Follow up outpatient Chronic kidney disease stage III: Baseline creatinine 1.5-1.8, currently creatinine is 1.4 Ambulatory dysfunction: PT/OT eval fall precaution Deep venous thrombosis prophylaxis on SCD due to recent surgical procedure Code status Full code Admission and Anticipated Discharge Date Admission Date: April 19, 2021 Subjective Pt was seen and examined for postop follow up Lying in bed with no acute distress Denies any chest pain, palpitation, dizziness and fever Review of Systems Review of Systems: All systems reviewed & are unremarkable except as noted in Subjective Physical Exam Physical Exam: General- No acute distress Head- atraumatic Eyes- PERRL, EOMI, ENT- oropharynx clear Neck- supple, no JVD Lungs- clear to auscultation Heart- regular rhythm; no murmur Abdomen- normal bowel sounds, soft, +tenderness with deep palpation Extremities- no calf tenderness Neuro- alert, oriented x 3; PERRL, EOMI; no facial palsy; no dysarthria Skin- warm & dry Results & Data Results & Data ([facility]) Vital Signs (Past 12 Hours) Vital Signs Temp Pulse Pulse Resp BP Pulse Ox 04/21/21 16:17 36.9 C 80 16 152/71 H 95 04/21/21 15:00 82 04/21/21 13:53 76 145/73 H 04/21/21 11:51 36.7 C 78 18 157/74 H 93 04/21/21 07:36 36.9 C 77 18 149/74 H 95
[2021-04-21] MEDS: MELATONIN 3 MG TAB PO SCH (21:10)
[2021-04-22] MEDS: SODIUM CHLORIDE 0.9% 1000ML 1,000 ML IV SCH ×2 (02:13→10:16)
[2021-04-22] MEDS: LEVOTHYROXINE SODIUM 25 MCG TABLET PO SCH (05:50)
[2021-04-22] MEDS: PIPERACILLIN/TAZOBACTAM 3.375 GM in DEXTROSE 5% 100 ML IV SCH ×3 (05:50→21:06)
--- NOTE | 2021-04-22 07:22 | Surgery Progress Note ---
Date of Service April 22, 2021 Assessment & Plan (1) History of laparoscopic cholecystectomy: Plan: Status post laparoscopic cholecystectomy, ERCP with stent placement for common bile duct stones sludge Not unexpected patient is experiencing some confusion He did know he had surgery and his gallbladder was removed Continues to need IV antibiotics and close care No changes from surgical management Leave drain for now and will most likely remove prior to discharge Admission and Anticipated Discharge Date Admission Date: April 19, 2021 Results & Data ([facility]) Vital Signs (Past 12 Hours) Vital Signs Temp Pulse Pulse Pulse Resp BP BP 04/22/21 04:20 36.7 C 79 18 144/64 H 04/22/21 00:04 37.2 C 63 18 146/71 H 04/22/21 00:03 93 H 04/21/21 20:01 36.9 C 94 H 20 164/80 H Pulse Ox 04/22/21 04:20 92 04/22/21 00:04 96 04/22/21 00:03 04/21/21 20:01 95 PG Care Time/CCT Total # of Minutes Spent Total Time Spent with Patient: Total time spent is greater than 50% in coordination of care (as documented) at patient's floor/unit and/or counseling patient: Coding Level of Care Code None Diagnoses History of laparoscopic cholecystectomy Z90.49
[2021-04-22 07:57] LABS: Albumin Globulin Ratio 1.1 (0.9-2); Albumin Level 3.1 gm/dl (3.4-5.0); BUN Creatinine Ratio 11.7 (10-20); Bilirubin,Total 0.8 mg/dl (0.2-1.0); Calcium 7.5 mg/dl (8.5-10.1); Creatinine Clr Calc Pharmacy 38.8 ml/min; Est GFR (African American) 44.2 ml/min; Est GFR (Non-African American) 38.1 ml/min; Globulin 2.7 gm/dl (2.5-4.0); Potassium 3.2 mmol/L (3.5-5.1); Total Protein 5.8 gm/dl (6.0-8.3)
[2021-04-22] MEDS: PANTOprazole 40 MG TAB PO SCH (08:20)
[2021-04-22] MEDS: CLOPIDOGREL BISULFATE 75 MG TAB PO SCH (08:20)
[2021-04-22] MEDS: DOCUSATE SODIUM/SENNA 50/8.6MG TAB PO SCH ×2 (08:20→21:07)
[2021-04-22] MEDS: CEROVITE ADV FORMULA TAB PO SCH (08:20)
[2021-04-22] MEDS: TAMSULOSIN HCL 0.4 MG CAP PO SCH (08:20)
[2021-04-22] MEDS: METOPROLOL TARTRATE 25 MG TAB PO SCH ×2 (08:20→21:07)
[2021-04-22] MEDS: FERROUS SULFATE 325 MG TAB PO SCH (08:20)
[2021-04-22] MEDS: CHOLECALCIFEROL 1,000 UNITS 25 MCG TAB PO SCH (08:21)
[2021-04-22] MEDS: allopurinoL 100 MG TAB PO SCH (08:21)
[2021-04-22] MEDS: CETIRIZINE HCL 10 MG TABLET PO SCH (08:21)
[2021-04-22] MEDS: hydrALAZINE HCL 25 MG TAB PO SCH ×3 (08:21→21:09)
[2021-04-22] MEDS: DICLOFENAC SOD 1% GEL 100 GM TUBE EXT SCH ×4 (08:22→21:08)
[2021-04-22] MEDS: amLODIPine BESYLATE 5 MG TAB PO SCH ×2 (08:22→21:09)
[2021-04-22] MEDS: FLUOCINONIDE 0.05% CR 15 GM TUBE EXT SCH ×2 (08:22→21:07)
[2021-04-22] MEDS: HEPARIN SOD 5,000 UNIT/0.5 ML VIAL SQ SCH ×2 (08:23→21:07)
[2021-04-22] MEDS: MAGNESIUM HYDROXIDE SUSP 30 ML UDC PO SCH ×2 (08:23→21:06)
[2021-04-22] MEDS: INSULIN GLARGINE SOLOSTAR 100 UNITS/ML 3 ML PEN SC SCH ×2 (08:23→21:08)
[2021-04-22] MEDS: INSULIN ASPART PER UNIT SC SCH ×4 (08:24→20:51)
[2021-04-22 10:21] LABS: Hemoglobin 10.9 g/dL (14.0-18.0); Mean Corpuscular Hemoglobin 34.2 pg (25-34); Mean Corpuscular Hgb Conc 34.1 g/dL (32-36); Mean Corpuscular Volume 100.3 fL (80-100); Mean Platelet Volume 10.2 fL (7.4-10.4); Platelet Count 201 K/uL (130-400); RDW Coefficient of Variation 14.7 % (11.5-14.5); RDW Standard Deviation 53.8 fL (36.4-46.3); Red Blood Count 3.19 M/uL (4.7-6.1); White Blood Count 9.06 K/uL (4.8-10.8)
[2021-04-22] MEDS ORDERED: POTASSIUM CHLORIDE CRTAB 20 MEQ TABCR PO STA (16:52)
[2021-04-22] MEDS: MELATONIN 3 MG TAB PO SCH (21:11)
--- NOTE | 2021-04-22 23:48 | Hospitalist Progress Note ---
Date of Service April 22, 2021 Assessment & Plan (1) Acute cholangitis: Plan: Sepsis Present on admission with abdominal pain Met sepsis criteria on admission with Tachycardia, Elevated WBC and elevated lactate Elevated LFTs with total bilirubin 2.4, AST 424, ALT 279, alkaline phosphatase 232 on admission LFT continue treding down with AST 31, ALT 93 Alk [address] abd/pelvis showed gallbladder wall thickening is noted with pericholecystic edema. MRCP showed no biliary ductal dilatation. Findings suggestive of acute cholecystitis. S/p ERCP showed acute cholangitis. Choledocholithiasis was found. Complete removal wasaccomplished by biliary sphincterotomy and balloon extraction. One plastic biliary stent was placed into the common bile duct. Case discussed with gastro that recommended to repeat ERCP in 6 weeks for stent removal Continue ABx to complete a 10 days course. Continue to avoid NSAIDs for 5 days as per GI Continue monitor closely Diabetes type 2 Hba1c 6.5 on 04/20/21 Continue insulin sliding scale with novolog Continue monitor BS History of hypertension: Continue to hold BP sridevi due to Low BP Continue monitor BP Hypothyroidism: Continue Synthroid. Benign prostatic hypertrophy: Continue Flomax. History of cerebrovascular accident: Continue Plavix and statin. Gout: Continue allopurinol. History of Abdominal aortic aneurysm MRCP showed infrarenal abdominal aortic aneurysm measuring approximately 4.7 cm in caliber. Follow up outpatient Chronic kidney disease stage III: Baseline creatinine 1.5-1.8, currently creatinine is 1.6 Ambulatory dysfunction: PT/OT eval fall precaution Deep venous thrombosis prophylaxis on SCD due to recent surgical procedure Code status Full code Admission and Anticipated Discharge Date Admission Date: April 19, 2021 Subjective Pt was seen and examined for postop follow up Lying in bed with no acute distress would like Olanzapine to be resume as per nurse, but when I reviewed outpatient chart the Olanzapine was placed on hold until next visit Denies any chest pain, palpitation, dizziness and fever Review of Systems Review of Systems: All systems reviewed & are unremarkable except as noted in Subjective Physical Exam Physical Exam: General- No acute distress Head- atraumatic Eyes- PERRL, EOMI, ENT- oropharynx clear Neck- supple, no JVD Lungs- clear to auscultation Heart- regular rhythm; no murmur Abdomen- normal bowel sounds, soft, +tenderness with deep palpation Extremities- no calf tenderness Neuro- alert, oriented x 3; PERRL, EOMI; no facial palsy; no dysarthria Skin- warm & dry Results & Data Results & Data ([facility]) Vital Signs (Past 12 Hours) Vital Signs Temp Pulse Pulse Pulse Resp BP BP 04/22/21 23:44 36.6 C 90 18 133/68 04/22/21 19:02 36.4 C L 103 H 20 155/70 H 04/22/21 16:02 36.7 C 72 20 132/72 04/22/21 15:00 78 04/22/21 13:58 73 133/71 04/22/21 12:36 36.7 C 69 18 145/74 H 04/22/21 12:00 69 Pulse Ox 04/22/21 23:44 93 04/22/21 19:02 96 04/22/21 16:02 94 04/22/21 15:00 04/22/21 13:58 04/22/21 12:36 94 04/22/21 12:00
[2021-04-23] MEDS: PIPERACILLIN/TAZOBACTAM 3.375 GM in DEXTROSE 5% 100 ML IV SCH ×3 (05:21→20:48)
[2021-04-23] MEDS: LEVOTHYROXINE SODIUM 25 MCG TABLET PO SCH (06:15)
[2021-04-23 08:07] LABS: Albumin Globulin Ratio 1.1 (0.9-2); Albumin Level 3.2 gm/dl (3.4-5.0); BUN Creatinine Ratio 13.1 (10-20); Bilirubin,Total 0.8 mg/dl (0.2-1.0); Creatinine Clr Calc Pharmacy 39.7 ml/min; Est GFR (African American) 44.9 ml/min; Est GFR (Non-African American) 38.7 ml/min; Globulin 2.9 gm/dl (2.5-4.0); Potassium 3.8 mmol/L (3.5-5.1); Total Protein 6.1 gm/dl (6.0-8.3)
[2021-04-23] MEDS: hydrALAZINE HCL 25 MG TAB PO SCH ×3 (08:33→20:49)
[2021-04-23] MEDS: CHOLECALCIFEROL 1,000 UNITS 25 MCG TAB PO SCH (08:33)
[2021-04-23] MEDS: amLODIPine BESYLATE 5 MG TAB PO SCH ×2 (08:34→20:49)
[2021-04-23] MEDS: DOCUSATE SODIUM/SENNA 50/8.6MG TAB PO SCH ×2 (08:34→20:48)
[2021-04-23] MEDS: METOPROLOL TARTRATE 25 MG TAB PO SCH ×2 (08:34→20:51)
[2021-04-23] MEDS: HEPARIN SOD 5,000 UNIT/0.5 ML VIAL SQ SCH ×2 (08:35→20:48)
[2021-04-23] MEDS: INSULIN GLARGINE SOLOSTAR 100 UNITS/ML 3 ML PEN SC SCH ×2 (08:36→20:50)
[2021-04-23] MEDS: FLUOCINONIDE 0.05% CR 15 GM TUBE EXT SCH ×2 (08:37→20:49)
[2021-04-23] MEDS: DICLOFENAC SOD 1% GEL 100 GM TUBE EXT SCH ×4 (08:37→20:49)
[2021-04-23] MEDS: MAGNESIUM HYDROXIDE SUSP 30 ML UDC PO SCH ×2 (08:42→20:48)
[2021-04-23] MEDS: INSULIN ASPART PER UNIT SC SCH ×4 (08:42→20:50)
[2021-04-23] MEDS: TAMSULOSIN HCL 0.4 MG CAP PO SCH (10:50)
[2021-04-23] MEDS: FERROUS SULFATE 325 MG TAB PO SCH (10:50)
[2021-04-23] MEDS: CETIRIZINE HCL 10 MG TABLET PO SCH (10:50)
[2021-04-23] MEDS: allopurinoL 100 MG TAB PO SCH (10:50)
[2021-04-23] MEDS: PANTOprazole 40 MG TAB PO SCH (10:51)
[2021-04-23] MEDS: CLOPIDOGREL BISULFATE 75 MG TAB PO SCH (10:51)
[2021-04-23] MEDS: CEROVITE ADV FORMULA TAB PO SCH (10:51)
--- NOTE | 2021-04-23 13:15 | Surgery Progress Note ---
Date of Service April 23, 2021 Assessment & Plan (1) History of laparoscopic cholecystectomy: Plan: Status post laparoscopic cholecystectomy, ERCP with stent placement for common bile duct stones sludge Significant improvement. Tolerating diet. Had bowel movement. VIJAY drain removed this morning. From a surgical standpoint, he will be ready for discharge. Further management per medical team Will need follow-up appointment in 1 to 2 weeks with general surgery - Dr. Gann Admission and Anticipated Discharge Date Admission Date: April 19, 2021 Subjective Postop day 4 status post ERCP/lap radha. He is doing quite well. His VIJAY was removed this morning. He denies nausea or vomiting. He is tolerating a diet. He has had bowel movements. Physical Exam Constitutional: WD/WN, vitals as above Neck: trachea midline, no thyromegaly Gastrointestinal (Abdomen): Inspection/Auscultation: abdomen normal to inspection and + abdominal surgical incision (Healing well without erythema or discharge); abdomen not distended Percussion/Palpation: abdomen soft; abdomen nontender and no guarding Musculoskeletal: Extremities: no cyanosis and no clubbing Skin: no rashes, warm and dry Results & Data ([facility]) Vital Signs (Past 12 Hours) Vital Signs Temp Pulse Pulse Pulse Resp BP BP 04/23/21 11:01 36.6 C 67 19 138/72 04/23/21 08:00 74 04/23/21 06:40 37.0 C 73 17 136/80 04/23/21 03:03 36.8 C 72 18 139/78 Pulse Ox 04/23/21 11:01 91 04/23/21 08:00 04/23/21 06:40 98 04/23/21 03:03 97 Laboratory Results 04/23/21 04/23/21 04/23/21 Range/Units 10:56 07:08 06:55 Sodium 138 (136-145) mmol/L Potassium 3.8 (3.5-5.1) mmol/L Chloride 110 H (98-107) mmol/L Carbon Dioxide 21 (21-32) mmol/L Anion Gap 7 (3-11) BUN 21 (6-23) mg/dl Creatinine 1.60 H (0.6-1.4) mg/dl Est Cr Clr Drug Dosing 39.7 ml/min Est GFR ( Amer) 44.9 ml/min Est GFR (Non-Af Amer) 38.7 ml/min BUN/Creatinine Ratio 13.1 (10-20) Glucose 124 H (70-99(Fasting)) mg/dl POC Glucose 159 H 131 H (70-99) mg/dl Calcium 8.0 L (8.5-10.1) mg/dl Total Bilirubin 0.8 (0.2-1.0) mg/dl AST 21 (13-39) U/L ALT 65 H (7-52) U/L Alkaline Phosphatase 141 H (34-104) U/L Total Protein 6.1 (6.0-8.3) gm/dl Albumin 3.2 L (3.4-5.0) gm/dl Globulin 2.9 (2.5-4.0) gm/dl Albumin/Globulin Ratio 1.1 (0.9-2) 04/22/21 04/22/21 Range/Units 20:42 16:31 Sodium (136-145) mmol/L Potassium (3.5-5.1) mmol/L Chloride (98-107) mmol/L Carbon Dioxide (21-32) mmol/L Anion Gap (3-11) BUN (6-23) mg/dl Creatinine (0.6-1.4) mg/dl Est Cr Clr Drug Dosing ml/min Est GFR ( Amer) ml/min Est GFR (Non-Af Amer) ml/min BUN/Creatinine Ratio (10-20) Glucose (70-99(Fasting)) mg/dl POC Glucose 122 H 121 H (70-99) mg/dl Calcium (8.5-10.1) mg/dl Total Bilirubin (0.2-1.0) mg/dl AST (13-39) U/L ALT (7-52) U/L Alkaline Phosphatase (34-104) U/L Total Protein (6.0-8.3) gm/dl Albumin (3.4-5.0) gm/dl Globulin (2.5-4.0) gm/dl Albumin/Globulin Ratio (0.9-2)
[2021-04-23] MEDS: MELATONIN 3 MG TAB PO SCH (21:29)
--- NOTE | 2021-04-23 23:51 | Hospitalist Progress Note ---
Date of Service April 23, 2021 Assessment & Plan (1) Acute cholangitis: Plan: Sepsis Present on admission with abdominal pain Met sepsis criteria on admission with Tachycardia, Elevated WBC and elevated lactate Elevated LFTs with total bilirubin 2.4, AST 424, ALT 279, alkaline phosphatase 232 on admission LFT continue treding down with AST 31, ALT 93 Alk [address] abd/pelvis showed gallbladder wall thickening is noted with pericholecystic edema. MRCP showed no biliary ductal dilatation. Findings suggestive of acute cholecystitis. S/p ERCP showed acute cholangitis. Choledocholithiasis was found. Complete removal wasaccomplished by biliary sphincterotomy and balloon extraction. One plastic biliary stent was placed into the common bile duct. Case discussed with gastro that recommended to repeat ERCP in 6 weeks for stent removal Continue ABx to complete a 10 days course. Will transition to Augmentin on discharge Continue to avoid NSAIDs for 5 days as per GI Tolerating regular diet Plan to discharge home tomorrow Transaminitis Liver enzymes continue trending down with AST 21, ALT 65 and ALT has 141 Continue monitor CMP Diabetes type 2 Hba1c 6.5 on 04/20/21 Continue insulin sliding scale with novolog Continue monitor BS History of hypertension: BP med on hold, will resume Continue monitor BP Hypothyroidism: Continue Synthroid. Benign prostatic hypertrophy: Continue Flomax. History of cerebrovascular accident: Continue Plavix and statin. Gout: Continue allopurinol. History of Abdominal aortic aneurysm MRCP showed infrarenal abdominal aortic aneurysm measuring approximately 4.7 cm in caliber. Follow up outpatient Chronic kidney disease stage III: Baseline creatinine 1.5-1.8, currently creatinine is 1.6 Ambulatory dysfunction: PT/OT eval fall precaution Deep venous thrombosis prophylaxis on heparin subcu Code status Full code Disposition Discharge home tomorrow Admission and Anticipated Discharge Date Admission Date: April 19, 2021 Subjective Pt was seen and examined for postop follow up Lying in bed with no acute distress Patient said that he feels fine He tolerated his diet and had bowel movement Denies any chest pain, palpitation, dizziness and fever Review of Systems Review of Systems: All systems reviewed & are unremarkable except as noted in Subjective Physical Exam Physical Exam: General- No acute distress Head- atraumatic Eyes- PERRL, EOMI, ENT- oropharynx clear Neck- supple, no JVD Lungs- clear to auscultation Heart- regular rhythm; no murmur Abdomen- normal bowel sounds, soft, +tenderness with deep palpation Extremities- no calf tenderness Neuro- alert, oriented x 3; PERRL, EOMI; no facial palsy; no dysarthria Skin- warm & dry Results & Data Results & Data ([facility]) Vital Signs (Past 12 Hours) Vital Signs Temp Pulse Pulse Resp BP BP Pulse Ox 04/23/21 22:16 37.1 C 75 17 149/76 H 91 04/23/21 18:54 36.8 C 83 17 148/73 H 93 04/23/21 15:40 36.8 C 76 18 134/75 94 04/23/21 14:57 73
[2021-04-24] MEDS: LEVOTHYROXINE SODIUM 25 MCG TABLET PO SCH (05:53)
[2021-04-24] MEDS: PIPERACILLIN/TAZOBACTAM 3.375 GM in DEXTROSE 5% 100 ML IV SCH (05:53)
[2021-04-24] MEDS: CETIRIZINE HCL 10 MG TABLET PO SCH (08:15)
[2021-04-24] MEDS: PANTOprazole 40 MG TAB PO SCH (08:15)
[2021-04-24] MEDS: INSULIN GLARGINE SOLOSTAR 100 UNITS/ML 3 ML PEN SC SCH (08:15)
[2021-04-24] MEDS: CLOPIDOGREL BISULFATE 75 MG TAB PO SCH (08:15)
[2021-04-24] MEDS: FERROUS SULFATE 325 MG TAB PO SCH (08:16)
[2021-04-24] MEDS: allopurinoL 100 MG TAB PO SCH (08:16)
[2021-04-24] MEDS: TAMSULOSIN HCL 0.4 MG CAP PO SCH (08:16)
[2021-04-24] MEDS: CHOLECALCIFEROL 1,000 UNITS 25 MCG TAB PO SCH (08:16)
[2021-04-24] MEDS: CEROVITE ADV FORMULA TAB PO SCH (08:16)
[2021-04-24] MEDS: METOPROLOL TARTRATE 25 MG TAB PO SCH (08:17)
[2021-04-24] MEDS: hydrALAZINE HCL 25 MG TAB PO SCH ×2 (08:18→14:07)
[2021-04-24] MEDS: HEPARIN SOD 5,000 UNIT/0.5 ML VIAL SQ SCH (08:18)
[2021-04-24] MEDS: DICLOFENAC SOD 1% GEL 100 GM TUBE EXT SCH ×2 (08:18→12:06)
[2021-04-24] MEDS: FLUOCINONIDE 0.05% CR 15 GM TUBE EXT SCH (08:19)
[2021-04-24] MEDS: MAGNESIUM HYDROXIDE SUSP 30 ML UDC PO SCH (08:22)
[2021-04-24] MEDS: DOCUSATE SODIUM/SENNA 50/8.6MG TAB PO SCH (08:23)
[2021-04-24] MEDS: INSULIN ASPART PER UNIT SC SCH ×2 (08:23→12:09)
[2021-04-24] MEDS: amLODIPine BESYLATE 5 MG TAB PO SCH (08:24)
--- NOTE | 2021-04-24 13:50 | Discharge Summary ---
Date of Service April 24, 2021 Admission HPI Per Admitting Provider CHIEF COMPLAINT: Abdominal pain, nausea, vomiting. 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 Lives with family with his and daughter, ambulates with a walker. The patient since yesterday is having lot of abdominal pain, right-sided abdominal pain, radiating to chest with multiple episodes of nausea, vomiting. Currently, the pain is improved. Chest pain is resolved. Resting comfortably, alert and awake, answers questions. Hemodynamically stable. Denies any headache. No earache, no runny nose, no sore throat, no cough. Does not know whether he had a fever. No shortness of breath. Normal bowel and bladder movements. Denies any blood in the stools or black stools. Admission Exam Per Admitting Provider GENERAL: The patient is of moderate build, not in acute distress. VITAL SIGNS: Temperature 36.8, pulse 96, respiratory rate 22, blood pressure 150/62, oxygen 93% on room air. HEENT: Pupils equal, round and reactive to light. Oral mucosa dry. NECK: No JVD, no neck masses. CARDIOVASCULAR: S1 and S2 heard. Regular rate and rhythm. No murmur, no gallop. RESPIRATORY SYSTEM: Normal AP diameter. No accessory muscle use. No wheezing, no crackles. ABDOMEN: Soft, bowel sounds present. Tenderness in the right side of abdomen. No guarding, no rigidity, no distention. CENTRAL NERVOUS SYSTEM: Cranial nerves II-XII grossly intact, nonfocal. EXTREMITIES: No edema, no erythema. Principal Diagnosis 35 minutes Discharge Exam General- No acute distress Head- atraumatic Eyes- PERRL, EOMI, ENT- oropharynx clear Neck- supple, no JVD Lungs- clear to auscultation Heart- regular rhythm; no murmur Abdomen- normal bowel sounds, soft, +tenderness with deep palpation Extremities- no calf tenderness Neuro- alert, oriented x 3; PERRL, EOMI; no facial palsy; no dysarthria Skin- warm & dry Discharge Data Allergies Allergy/AdvReac Type Severity Reaction Status Date / Time No Known Allergies Allergy Unknown Verified 04/19/21 20:16 Consultations 04/19/21 21:59 Consult Gastroenterology Routine 04/19/21 23:48 ED Decision to Admit Stat Procedures Performed Operation Date: 04/20/21 11:00 Actual Procedures s Laparoscopic Cholecystectomy (Not Applicable) - Barry Gann MD, FACS p Endoscopic Retrograde Cholangiopancreatogram, - Ever Cobian MD s Endoscopic Ultrasonography Upper(Not Applicable) - Ever Cobian MD Ordered Studies 04/19/21 20:34 CT abd pelvis IV con only Stat CT angio chest PE protocol Stat 04/19/21 21:56 MR MRCP Stat US gallbladder Urgent 04/20/21 FL ERCP biliary ductal Routine 04/20/21 13:01 US upper EUS PACS images Routine CT abd pelvis IV con only CLINICAL HISTORY: ab pain, n/v TECHNIQUE: Helical axial images of the abdomen and pelvis were obtained and displayed. Automated dose lowering techniques and/or adjustment according to patient size were utilized for this exam. This exam was performed with intravenous contrast. COMPARISON: None available at the time of this dictation. FINDINGS: Lower chest: No acute abnormality Liver: Unremarkable. No focal lesions are seen. Gallbladder and biliary tree: There is mild wall thickening of the gallbladder measuring approximately 4 mm in diameter. There is mild pericholecystic fluid. No intra- or extrahepatic biliary ductal dilation. Pancreas: Fatty replacement of the pancreas is seen. Spleen: Calcifications are noted in the spleen compatible with prior granulomatous disease. Adrenals: Unremarkable. Kidneys and ureters: Multiple parapelvic renal cysts are seen on the left. Bladder: Unremarkable. Reproductive organs: Prostatomegaly is seen. Bowel: Diverticulosis is seen without evidence of diverticulitis. The appendix is normal. Lymph nodes Retroperitoneal: Subcentimeter lymph nodes are noted. Mesenteric: Unremarkable. Pelvic: Subcentimeter lymph nodes are noted. Peritoneum: Normal. Vessels: There is an infrarenal aortic aneurysm measuring 46 mm in diameter. Abdominal wall: Left fat containing inguinal hernia. Bones: Degenerative changes in the visualized spine. IMPRESSION: 1. Gallbladder wall thickening is noted with pericholecystic edema. In the setting of abdominal pain, this may represent acute cholecystitis. 2. Diverticulosis without diverticulitis. 3. Infrarenal aortic aneurysm. ACT 112: Negative or not required by law. Electronically signed by: Faizan Condon M.D. 04/19/2021 9:11 PM Dictated:04/19/212106 Transcribed: 04/19/212106 CT angio chest PE protocol CLINICAL HISTORY: PE TECHNIQUE: Multidetector row helical CT of the chest was performed. Coronal and sagittal reformations were obtained. Coronal and sagittal MIPS were obtained from the axial data set and were submitted for review. Automated dose lowering techniques and/or adjustment according to patient size were utilized for this exam. Comparison: None available at the time of this dictation. FINDINGS: Lungs and pleura: Reticular interstitial opacities are seen bilaterally. Heart and pericardium: Heart size is normal. No pericardial effusion. Vessels: No evidence of pulmonary embolism. Moderate atherosclerotic calcifications are seen. Mediastinum and edi: Subcentimeter lymph nodes are seen. Chest wall and lower neck: Unremarkable. Abdomen: A hiatal hernia is seen. Bones: Degenerative changes in the thoracic spine. IMPRESSION: No evidence of pulmonary embolism. ACT 112: Negative or not required by law. Electronically signed by: Faizan Condon M.D. 04/19/2021 9:06 PM Dictated:04/19/212058 Transcribed: 04/19/212058 MRCP CLINICAL HISTORY: elevated LFTs; cholecystitis TECHNIQUE: Utilizing a 1.5 Andra magnet and dedicated coil, multiplanar, multiecho imaging of the upper abdomen was performed utilizing heavily T2 weighted pulsing sequences without IV contrast. COMPARISON STUDY: CT of the abdomen and pelvis April 19, 2021. FINDINGS: No hepatic lesions are identified. The gallbladder is mildly distended. Gallbladder wall thickening is noted. There is a small gallstone within the gallbladder. No intra or extra hepatic biliary ductal dilatation is identified. No common bile duct calculi are identified although sensitivity for detection of small calculi is diminished given motion artifact on this exam. There is no peripancreatic infiltration or fluid. No pancreatic ductal dilatation is present. Unenhanced images of the spleen and adrenal glands are unremarkable. There are several mildly enlarged upper abdominal lymph nodes. Index april hepatis node measures 2.5 x 1.4 cm. Left-sided renal parapelvic cysts are noted. A 1.9 cm cortical cyst within the left kidney is also noted. There is mild stranding within the left renal sinus. Right renal atrophy is present. There is no hydronephrosis. Infrarenal abdominal aortic aneurysm is partially imaged on this exam. This measures approximately 4.7 cm in caliber. No evidence for rupture. There are prominent retroperitoneal lymph nodes. Mildly enlarged cardiophrenic angle nodes are also present. Caliber of visualized small and large bowel are normal. IMPRESSION: 1. No biliary ductal dilatation. No common bile duct calculi identified although sensitivity for detection of small calculi diminished given motion artifact. 2. Findings suggestive of acute cholecystitis. This will be called/faxed to the ordering provider at time of dictation. 3. Infrarenal abdominal aortic aneurysm measuring approximately 4.7 cm in caliber. No evidence for rupture. 4. Mildly enlarged abdominal lymph nodes which are nonspecific. A follow-up CT of the abdomen 6 months could be obtained to ensure stability. ACT 112: Negative or not required by law. Electronically signed by: Nahun Nascimento M.D. 04/20/2021 7:47 AM Dictated:04/20/21 0739 Transcribed: 04/20/21 0739 US gallbladder LIMITED ABDOMEN CLINICAL HISTORY: Suspicion of early acute cholecystitis on CT. Ultrasound to further evaluate. COMPARISON: CT of the abdomen and pelvis from 04/19/2021 TECHNIQUE: Multiple grayscale and color images of the right upper quadrant of the abdomen. FINDINGS: This is a limited examination as the patient was unable to change positions or hold his breath. Pancreas: The imaged portion of the pancreas is within normal limits with no focal mass or peripancreatic fluid collection identified. Liver: Liver is increased in echogenicity and mildly enlarged measuring 18.6 cm in the axillary margin. There is no evidence for a focal mass. There is no intrahepatic biliary duct dilatation. Gallbladder: The gallbladder is distended with sludge present. There is thickening of the gallbladder wall measuring 5 mm. Wall appears edematous with evidence for mild pericholecystic fluid seen. There is no evidence of cholelithiasis. Sonographic Sheldon's sign cannot be obtained. Common Bile Duct: (CBD): It is normal in size measuring 4 mm. Inferior Vena Cava (IVC): The imaged IVC is patent. Right kidney: There is no evidence for hydronephrosis, calculus or gross renal mass. The kidney is normal in size. IMPRESSION: Distention of the gallbladder with thickening of the wall and edematous changes present. Sludge is seen with no evidence of cholelithiasis. The findings are suspicious for early acute cholecystitis. ACT 112: Negative or not required by law. Electronically signed by: Tonio Alcantara M.D. 04/20/2021 7:10 AM Dictated:04/20/21705 Transcribed: 04/20/21705 FL ERCP biliary ductal CLINICAL HISTORY: W/LAP ROSANA COMPARISON STUDY: MRCP and CT of the abdomen and pelvis April 19, 2021. FLUOROSCOPY TIME: 21 seconds. FLUOROSCOPIC IMAGES: 11 FINDINGS: Fluoroscopy was provided during ERCP. Common bile duct was cannulated. Balloon sweep through the common bile duct was performed. Biliary stent was placed. IMPRESSION: Fluoroscopy provided during ERCP with placement of a common bile duct stent. ACT 112: Negative or not required by law. Electronically signed by: Nahun Nascimento M.D. 04/20/2021 2:45 PM Dictated:04/20/21 144 Transcribed: 04/20/211442 DICTATED BY:Ever Cobian MD Patient Name: Alex Glez Procedure Date: 04/20/2021 1:06 PM Date of : 1935 Admit Type: Inpatient Age: 85 Gender: Male Attending MD: Ever Cobian MD Procedure: ERCP Providers: Ever Cobian MD Referring MD: LOUIE Garcia Indications: For therapy of bile duct stone(s), Suspected ascending cholangitis Medicines: General Anesthesia Complications: No immediate complications. Estimated Blood Loss: Estimated blood loss: none. Procedure: Pre-Anesthesia Assessment: - Prior to the procedure, a History and Physical was performed, and patient medications, allergies and sensitivities were reviewed. The patient's tolerance of previous anesthesia was reviewed. - The risks and benefits of the procedure and the sedation options and risks were discussed with the patient. All questions were answered and informed consent was obtained. - Patient identification and proposed procedure were verified prior to the procedure by the physician and the nurse. The procedure was verified in the procedure room. - Pre-procedure physical examination revealed no contraindications to sedation. After obtaining informed consent, the scope was passed under direct vision. Throughout the procedure, the patient's blood pressure, pulse, and oxygen saturations were monitored continuously. The Duodenoscope was introduced through the mouth, and advanced to the duodenum and used to inject contrast into the bile duct. The ERCP was accomplished without difficulty. The patient tolerated the procedure well. Findings: The auditor internal film was normal. The esophagus was successfully intubated under direct vision. The scope was advanced to a normal major papilla in the descending duodenum without detailed examination of the pharynx, larynx and associated structures, and upper GI tract. The upper GI tract was grossly normal. A 0.025 inch x 270 cm angled Visiglide wire was passed into the biliary tree. The Fusion OMNI sphincterotome was passed over the guidewire and the bile duct was then deeply cannulated. Contrast was injected. I personally interpreted the bile duct images. Ductal flow of contrast was adequate. Image quality was adequate. Contrast extended to the main bile duct. Opacification of the entire biliary tree was successful. The maximum diameter of the ducts was 9 mm. Biliary sphincterotomy was made with a monofilament traction (standard) sphincterotome using ERBE electrocautery. There was no post-sphincterotomy bleeding. The biliary tree was swept with a 12 mm balloon starting at the bifurcation. Sludge was swept from the duct. One stone was removed. No stones remained. Pus was swept from the duct. One 10 Fr by 8 cm plastic biliary stent with a single external flap and a single internal flap was placed into the common bile duct. Bile flowed through the stent. The stent was in good position. Indomethacin 100 mg was given via suppository to decrease the risk of post-ERCP pancreatitis (PEP). Impression: - Acute cholangitis. - Choledocholithiasis was found. Complete removal was accomplished by biliary sphincterotomy and balloon extraction. - One plastic biliary stent was placed into the common bile duct. Recommendation: - [facility]. - Repeat ERCP in 6 weeks to remove stent. - Continue ABx and complete a 10 days course. - Avoid NSAIDs for 5 days. Ever Cobian MD 04/20/2021 2:38:21 PM This report has been signed electronically. Note Initiated On: 04/20/2021 1:06 PM Number of Addenda: 0 I attest to the content of the Intraoperative Record and orders documented therein, exceptions below Signed By: Created/Dictated:04/20/21 1306 Transcribed: 04/20/21 1438 Search Engine Optimization Consultant: LILO Diabetes Follow up Diabetes Follow-up Needed for Newly Diagnosed Diabetes Hospital Course (1) Acute cholangitis: Sepsis Present on admission with abdominal pain Met sepsis criteria on admission with Tachycardia, Elevated WBC and elevated lactate Elevated LFTs with total bilirubin 2.4, AST 424, ALT 279, alkaline phosphatase 232 on admission LFT continue treding down with AST 31, ALT 93 Alk [address] abd/pelvis showed gallbladder wall thickening is noted with pericholecystic edema. MRCP showed no biliary ductal dilatation. Findings suggestive of acute cholecystitis. S/p ERCP showed acute cholangitis. Choledocholithiasis was found. Complete removal wasaccomplished by biliary sphincterotomy and balloon extraction. One plastic biliary stent was placed into the common bile duct. Case discussed with gastro that recommended to repeat ERCP in 6 weeks for stent removal Continue ABx to complete a 10 days course. Will transition to Augmentin on discharge Continue to avoid NSAIDs for 5 days as per GI Tolerating regular diet Plan to discharge home tomorrow Transaminitis Liver enzymes continue trending down with AST 21, ALT 65 and ALT has 141 Continue monitor CMP Diabetes type 2 Hba1c 6.5 on 04/20/21 Continue insulin sliding scale with novolog Continue monitor BS History of hypertension: BP med on hold, will resume Continue monitor BP Hypothyroidism: Continue Synthroid. Benign prostatic hypertrophy: Continue Flomax. History of cerebrovascular accident: Continue Plavix and statin. Gout: Continue allopurinol. History of Abdominal aortic aneurysm MRCP showed infrarenal abdominal aortic aneurysm measuring approximately 4.7 cm in caliber. Follow up outpatient Chronic kidney disease stage III: Baseline creatinine 1.5-1.8, currently creatinine is 1.6 Ambulatory dysfunction: PT/OT eval fall precaution Deep venous thrombosis prophylaxis on heparin subcu Code status Full code Disposition Discharge home tomorrow Total Time Total Time Spent Total Time Spent (In Minutes): 35 minutes Discharge Plan Discharge Items Patient Disposition: Home - Self-Care Reason For Visit: ABD PAIN Discharge Diagnosis: cholecystitis, choledocholithiasis, cholangitis Activity: Per Instructions section Activity Comment: light activity for 4 weeks Lifting: No more than 10 pounds Bathing Comment: may shower; no soaking in tubs/pools Sexual Activity: When tolerated Exercise/Sports: Wait until after follow-up appointment Exercise Comment: wait 4 weeks Driving/Machine Use: no driving while taking narcotics for pain Non-emergency contact: Primary Care Provider Call non-emergency contact if: you have any medication questions, your pain is not controlled, your pain is worsening, you have a fever, your temperature is above 101.5, your wound has increased redness, your wound has increased drainage and your wound pain has increased Follow-up/Referrals: Barry Gann MD, FACS [Physician] - 05/05/21 1:00 pm (Please follow up with Dr. Gann on 05/05/21 at 1:00 pm. Please arrive to the office at 12:45 pm for your appointment. If you are unable to keep this appointment, please call the office to reschedule at [phone]. ) [facility] [Primary Care Provider] - Diet: Heart Healthy Addtl Attending Provider Instructions: Follow up with your primary care provider within 1 week (office will call you for the appointment) Follow up with gastroenterology in 6 weeks for stent removal Follow up with surgery dr. Gann in 1-2 weeks Follow up with vascular surgery outpatient for the abdominal aortic aneurysm Complete the course of the antibiotic with Augmentin Fall precaution Check LFT in 1-2 week to monitor liver function SPECIAL CARE INSTRUCTIONS: * Cover incisions and change daily for comfort/drainage. * May use ibuprofen for pain as tolerated. * Expect some swelling and bruising. Call your doctor if: * Temperature above 101 degrees * Pain not relieved by pain medicine ordered * There is increased drainage or redness from any incision * You have any unanswered questions or concerns [phone]. FOLLOW UP VISIT: If not already scheduled, please call the office for a follow-up visit. For next weeksuture removal OFFICE PHONE NUMBER: Dr. Gann Office Pending Studies at Discharge: Yes Studies:: surgical pathology Stand-Alone Forms: My [employer], Smoking Cessation Medications and DC Order Prescriptions: New hydrocodone-acetaminophen 5-325 mg tablet 1 tab PO Q4H PRN (Reason: pain) Qty: 30 RF: 0 pantoprazole 40 mg Tablet,Delayed Release (Dr/Ec) 40 mg PO QAM 30 Days Qty: 30 RF: 0 bisacodyl [Gentle Laxative (bisacodyl)] 5 mg Tablet,Delayed Release (Dr/Ec) 5 mg PO DAILY PRN (Reason: constipation) Qty: 30 RF: 0 amoxicillin-pot clavulanate [Augmentin] 500-125 mg tablet 1 tab PO BID Qty: 10 RF: 0 Continued PreserVision AREDS-2 [id number] Capsule 1 tab PO DAILY RF: 0 fluocinonide 0.05 % cream 1 applic topical BID RF: 0 clopidogrel [Plavix] 75 mg tablet 75 mg PO DAILY Qty: 30 RF: 0 hydralazine 25 mg tablet 25 mg PO TID Qty: 30 RF: 0 allopurinol 100 mg tablet 100 mg PO DAILY RF: 0 cetirizine 10 mg tablet 10 mg PO DAILY RF: 0 guaifenesin [Mucinex] 600 mg Tablet Extended Release 12hr 600 mg PO BID PRN (Reason: Congestion) RF: 0 atorvastatin 40 mg Tablet 40 mg PO HS RF: 0 melatonin 3 mg Tablet 3 mg PO PM RF: 0 amlodipine 5 mg tablet 5 mg PO BID RF: 0 tamsulosin 0.4 mg capsule 0.4 mg PO DAILY RF: 0 ferrous sulfate 325 mg (65 mg iron) Tablet 325 mg PO DAILY RF: 0 metoprolol tartrate 25 mg tablet 25 mg PO BID RF: 0 cholecalciferol (vitamin D3) [Vitamin D3] 25 mcg (1,000 unit) Tablet 25 mcg PO DAILY RF: 0 diclofenac sodium 1 % Gel 4 g TOPICAL QID RF: 0 levothyroxine 25 mcg Tablet 25 mcg PO DAILY RF: 0 Discharge Orders: Discharge Order (Routine); Ordered 04/24/21 Ordered By: Louie Mcdaniel Admission Data Admit Date/Time: 04/19/21 22:25 Attending Provider: Louie Mcdaniel Admit Provider: Allen Fisher Primary Care Provider: [facility] Other Providers: Ever Cobian ; Allen Fisher Other Interventions: Discharge Summary Assessment (RN) Last Done: 04/24/21 14:41 Supervising Physician Co-Signing Physician Notes I performed a history and physical examination of the patient today, including specifically on physical exam - soft abdomen. I have discussed the patient's management with the advanced practitioner. Please refer to the nurse practitioner's note for the documented findings and plan of care. LFTs improved, tolerated diet. Repeat ERCP as OP for stent removal. Recall GI if needed.
[2021-04-24] MEDS ORDERED: AMOXICILLIN/CLAVULANATE 500 MG TAB PO SCH ×2 (14:48→15:00)
== END 2021-04-24 15:30 | disposition home or self-care (01) | DRG 854 ==
LOC: ED 19:31 → EDINP 22:25 → 2S 04-20 18:03

== ENCOUNTER 2024-06-18 13:46 | Inpatient (IN) ==
[2024-06-18 14:23] LABS: Basophils # (auto) 0.07 K/uL (0.00-0.20); Basophils % (auto) 0.8 %; Eosinophils # (auto) 0.33 K/uL (0.00-0.50); Eosinophils % (auto) 3.6 %; Hematocrit (blood only) 38.5 % (42.0-52.0); Hemoglobin 13.2 g/dl (14.0-18.0); Immature Granulocytes # (auto) 0.04 K/uL (0.01-0.20); Immature Granulocytes % (auto) 0.4 %; Lymphocytes # (auto) 3.11 K/uL (1.20-3.40); Lymphocytes % (auto) 33.8 %; Mean Corpuscular Hemoglobin 34.6 pg (25.0-34.0); Mean Corpuscular Hgb Conc 34.3 g/dL (32.0-36.0); Mean Platelet Volume 10.2 fL (9.4-12.4); Monocytes # (auto) 0.64 K/uL (0.11-0.59); Monocytes % (auto) 6.9 %; Neutrophils # (auto) 5.02 K/uL (1.40-6.50); Neutrophils % (auto) 54.5 %; Nucleated RBC # (auto) 0.02 K/uL (0.00-0.12); Nucleated RBC % (auto) 0.2 %; Platelet Count 262 K/uL (130-400); RDW Standard Deviation 51.8 fL (36.4-46.3); Red Blood Count 3.81 M/uL (4.70-6.10); White Blood Count 9.21 K/ul (4.8-10.8)
[2024-06-18 14:37] LABS: Albumin Globulin Ratio 1.3 (0.9-2); Albumin Level 3.8 gm/dl (3.4-5.0); BUN Creatinine Ratio 20.9 (10-20); Bilirubin,Total 0.4 mg/dl (0.2-1.0); Calcium 8.5 mg/dl (8.6-10.3); Creatinine Clr Calc Pharmacy 29.5 ml/min; Globulin 2.9 gm/dl (2.5-4.0); Potassium 3.8 mmol/L (3.5-5.1); Total Protein 6.7 gm/dl (6.0-8.3)
[2024-06-18 14:45] LABS: Troponin I High Sensitivity 31.5 pg/ml (0-20)
[2024-06-18 14:48] LABS: Prothrombin Time 10.8 Seconds (9.0-12.0)
[2024-06-18 14:52] LABS: Thyroid Stimulating Hormone 4.97 uIu/ml (0.300-4.500)
[2024-06-18 15:27] LABS: T4 Free Thyroxine 0.8 ng/dl (0.61-1.60)
[2024-06-18 15:32] LABS: Adenovirus PCR Not Detected (NotDetected); Bordetella parapertussis PCR Not Detected (NotDetected); Bordetella pertussis PCR Not Detected (NotDetected); Chlamydia pneumoniae PCR Not Detected (NotDetected); Coronavirus 229E PCR Not Detected (NotDetected); Coronavirus CoV-2 (COVID19)PCR Not Detected (NotDetected); Coronavirus HKU1 PCR Not Detected (NotDetected); Coronavirus NL63 PCR Not Detected (NotDetected); Coronavirus OC43PCR Not Detected (NotDetected); Human Metapneumovirus PCR Not Detected (NotDetected); Influenza A PCR Not Detected (NotDetected); Influenza B PCR Not Detected (NotDetected); Mycoplasma pneumoniae PCR Not Detected (NotDetected); Parainfluenza Virus 1 PCR Not Detected (NotDetected); Parainfluenza Virus 2 PCR Not Detected (NotDetected); Parainfluenza Virus 3 PCR Not Detected (NotDetected); Parainfluenza Virus 4 PCR Not Detected (NotDetected); Respiratory Syncytial VirusPCR Not Detected (NotDetected); Rhinovirus/Enterovirus PCR Not Detected (NotDetected)
[2024-06-18 15:37] LABS: Appearance Urine Clear (Clear); Bacteria Urine Automated None Seen (None Seen); Bilirubin Urine Negative (Negative); Blood Urine Negative (Negative); Color Urine Yellow; Epithelial Cell Urine Auto 0-2 /hpf (0-2); Glucose Urine UA Negative (Negative); Ketones Urine Negative (Negative); Leukocyte Esterase Urine Negative (Negative); Nitrite Urine Negative (Negative); Protein Urine 3+ (Negative); RBC Urine Automated 0-2 /hpf (0-2); Specific Gravity Urine 1.017 (1.000-1.030); Urobilinogen Urine Negative (Negative); WBC Urine Automated 0-5 /hpf (0-5); pH Urine 5.5 (4.5-7.5)
--- NOTE | 2024-06-18 16:16 | XRay Report ---
Clinical History: Shortness of breath Technique: 2 frontal views of the chest were obtained Comparison is made to the prior examination dated 10/22/2018 Findings: There are no definite focal pulmonary infiltrates. The heart size is at the upper limit of normal. No pleural effusion or pneumothorax is seen. There is suspected mild pulmonary vascular congestion No fracture is noted. There is scoliosis Impression: Suspected mild pulmonary vascular congestion ACT 112: Positive. There are findings on this exam that require communication between the performing entity and the patient following Patient Test Result Information Act ([place] ACT 112) guidelines. Electronically signed by Stiven Cueva 06-18-2024 4:15 PM
[2024-06-18] MEDS: FUROSEMIDE INJ 20 MG/2 ML VIAL IV ONE (16:24)
--- NOTE | 2024-06-18 17:06 | Emergency Department Note ---
Impression & Plan Dyspnea, Bilateral leg weakness, Atrial fibrillation with RVR, CHF (congestive heart failure), CKD (chronic kidney disease) ED Provider Note ED Provider Note NAME: AMANUEL LLOYD AGE:88 SEX: Male : 1935 ARRIVES VIA: EMS INFORMANT: Patient ED PROVIDER(s): Tamiko Ramirez DO CHIEF COMPLAINT: Increased trouble breathing, leg weakness HPI: This is an 88-year-old male presents emergency department due to concern for increased shortness of breath particular with exertion and increased bilateral leg weakness. Patient states symptoms have been evolving over the last 3 weeks. He denies any prior similar episodes. Patient states he does have a history of atrial fibrillation but denies any history of CHF. Patient denies having a commercial credit analyst through the [place]. Patient denies any recent fevers, chills, or URI symptoms. He denies any recent change in bowel or bladder function. He denies any recent change in medication. Patient denies any accompanying cough. He denies chest pain or palpitations. PAST MEDICAL HISTORY:See Below PAST SURGICAL HISTORY:See Below FAMILY HISTORY:See Below SOCIAL HISTORY:See Below HOME MEDICATIONS:See Below ALLERGIES:See Below VITALS:See Below PHYSICAL EXAMINATION: GENERAL: alert, well appearing, well nourished, no distress, non-toxic EYE EXAM: normal conjunctiva, PERRL and EOM's grossly intact OROPHARYNX: no exudate, no erythema, lips, buccal mucosa, and tongue normal and mucous membranes are moist NECK: supple, no nuchal rigidity, no adenopathy, non-tender LUNGS: Clear to auscultation. Normal chest wall mechanics, no w/r/r HEART: no murmurs, S1 normal and S2 normal ABDOMEN: abdomen soft, non-tender, normo-active bowel sounds, no masses, no rebound or guarding. BACK: Back is symmetrical on inspection and there is no deformity, no midline tenderness, no CVA tenderness. SKIN: no rashes, petechiae, orbruising UPPER EXTREMITIES: upper extremities are grossly normal. FROM, nml pulses b/l. LOWER EXTREMITIES: No pitting edema. FROM, nml pulses b/l. NEURO EXAM: Normal sensorium, cranial nerves II-XII grossly intact, normal speech, no facial droop,nogross weakness of arms, no gross weakness of legs. Gross sensation intact. No ataxia. Vital Signs: reviewed and remarkable Differential Diagnosis: pneumonia, bronchitis, COPD/Asthma exacerbation, pneumothorax, pulmonary embolism, congestive heart failure, acute coronary syndrome, as well as others were considered MEDICAL DECISION MAKING: This is an 88 yo male who presents to the ER via EMS due to 3 weeks of worsening dyspnea on exertion. Labs drawn and sent, IV established, EKG and CXR performed and interpreted at bedside, and patient placed on telemetry. He was noted to have tachycardia with any movement however otherwise his a.fib was well controlled. Vitals otherwise stable. No hypoxia or dyspnea at rest. Patient noted to have elevated BNP and pulm edema on cxr consistent with hx and exam. I have a low suspicion for PE, however CTA chest not performed due to CKD and Cr 2. Patient given iv lasix. Patient given IV metoprolol additionally to help with rate control. Patient updated on all results and need for further evaluation. Case discussed with the hospitalist team for additional evaluation and mgmt. Consultation(s): 1720: Discussed with Elise Kan hospitalist team, for additional evaluation and mgmt. ER Treatment Provided: See below Diagnostics Interpreted By Me: -ECG: a.fib at 81, left axis, RBBB, nonspecific ST/t wave changes -Cardiac Monitoring: An order was placed for continuous cardiac monitoring. The monitor shows a rate of 104 with a.fib rhythm. -Laboratory studies: As stated above and show below. -Imaging studies: cxr: No wide venous time, no pleural effusions, mild cardiomegaly, increased interstitial markings bilaterally, no focal consolidation Triage Nursing Note Reviewed Prior/Outside Records Reviewed Past Med/Surg History Problem List (Updated 06/19/24 @ 20:33 by Tamiko Ramirez DO) CKD (chronic kidney disease) (Acute) CHF (congestive heart failure) (Acute) Diabetes mellitus, type II History of CVA (cerebrovascular accident) CHF (congestive heart failure) Atrial fibrillation with RVR (Acute) Bilateral leg weakness (Acute) Dyspnea (Acute) Encounter for pre-operative examination Hypertensive urgency (Acute) Near syncope (Acute) CKD (chronic kidney disease) stage 4, GFR 15-29 ml/min (Acute) CKD (chronic kidney disease) stage 3, GFR 30-59 ml/min Ischemic stroke Acute kidney injury superimposed on CKD Medical History Macular degeneration Hx of basal cell carcinoma Degenerative disc disease Neuropathy BLE Kidney disease, chronic, stage III (GFR 30-59 ml/min) BPH (benign prostatic hyperplasia) Prediabetes Hypothyroidism Anemia Stroke 2018 >REASON FOR PLAVIX (DENIES PROBLEMS FROM EVENT) Hyperlipidemia Acute cholangitis Encounter for pre-operative examination Abdominal aortic aneurysm (AAA) 3.0 cm to 5.5 cm in diameter in male BEING MONITORED- FOLLOWED BY [facility] VASCULAR SURGERY- LAST SEEN 01/2021 Per abdomen/pelvis CT - infrarenal aortic aneurysm measuring 46mm in diameter Dementia Vascular dementia per records HTN (hypertension) Surgical History History of ERCP WITH STENT History of cholecystectomy History of tooth extraction History of cataract surgery RT/LEFT History of laparoscopic cholecystectomy Family History Brother Family history of diabetes mellitus Other Family history non-contributory No family history of adverse response to anesthesia Social History Smoking Status: Former smoker Tobacco Type: Cigarettes Cigarettes Per Day: 30+ YEARS AGO; Second Hand Exposure: No; Do You Dip or Chew Tobacco: No; Hx Alcohol Use: No Hx Substance Use: No Preferred Language: Tuvaluan Communication Ability: Effective Communication Ability Comment: Patient appears with some confusion, per Daughter this is normal Unemployment Insurance Director Required: No Beliefs That Will Affect Care: None marital status: Current Living Situation: Spouse Current Living Situation Comment: home current occupational status: retired How many Children do You have: 3 Feels Safe at Home: Yes Safety Concerns: Feels Safe At This Time Assistive Devices: Cane and Walker Allergies Allergies Allergy/AdvReac Type Severity Reaction Status Date / Time hydrochlorothiazide Allergy Unknown CAN'T Verified 10/30/22 01:35 REMEMBER ON Collections MED LIST Home Meds Home Medications Medication Instructions Recorded Confirmed allopurinol 100 mg tablet 100 mg PO QAM 04/19/18 06/18/24 cetirizine 10 mg tablet 10 mg PO DAILY 04/19/18 06/18/24 guaifenesin 600 mg tablet, 600 mg PO DAILY PRN Congestion 04/19/18 06/18/24 extended release 12 hr (Mucinex) fluocinonide 0.05 % topical cream 1 applic topical BID PRN Skin 10/22/18 06/18/24 Irritation vit C 250 mg-vit E 90 mg-zinc 40 1 tab PO QPM 10/22/18 06/18/24 mg-copper 1 [id number] capsule (PreserVision AREDS-2) amlodipine 5 mg tablet 5 mg PO UD 04/19/21 06/18/24 cholecalciferol (vitamin D3) 25 25 mcg PO UD 04/19/21 06/18/24 mcg (1,000 unit) tablet (Vitamin D3) tamsulosin 0.4 mg capsule 0.4 mg PO QPM 04/19/21 06/18/24 levothyroxine 50 mcg capsule 50 mcg PO QAM 05/30/21 06/18/24 acetaminophen 500 mg tablet 650 mg PO BID PRN 10/30/22 06/18/24 (Tylenol Extra Strength) pain,fever,headache diphenhydramine HCl 2 % topical 1 applic topical BID PRN Skin 10/30/22 06/18/24 gel (Benadryl) Irritation atorvastatin 20 mg tablet 20 mg PO DAILY 06/18/24 06/18/24 diclofenac sodium 1 % topical gel 2 g topical QID PRN joint pain 06/18/24 06/18/24 duloxetine 20 mg capsule,delayed 20 mg PO DAILY 06/18/24 06/18/24 release fluticasone propionate 50 2 spray intranasal HS 06/18/24 06/18/24 mcg/actuation nasal spray,suspension losartan 25 mg tablet 25 mg PO DAILY 06/18/24 06/18/24 nut.tx.gluc.intol,lac-free,soy 1 ea PO DAILY 06/18/24 06/18/24 (Glucerna oral liquid) polyethylene glycol 3350 17 17 g PO DAILY 06/18/24 06/18/24 gram/dose oral powder (Miralax) Previous Rx's Medication Instructions Recorded clopidogrel 75 mg tablet (Plavix) 75 mg PO DAILY #30 tabs 11/04/18 apixaban 5 mg tablet (Eliquis) 5 mg PO BID #60 tabs 06/19/24 metoprolol succinate 100 mg 100 mg PO DAILY #30 ea 04/10/25 capsule sprinkle, ext. release 24 hr metoprolol tartrate 25 mg tablet 25 mg PO Q8H 1 day #3 tabs 06/19/24 Results & Data (ED) Vital Signs Vital Signs - 24 hr 06/18/24 13:55 06/18/24 14:00 06/18/24 14:01 Temperature 36.5 C Temperature Source Oral Pulse Rate 93 H Pulse Rate [Apical] 92 H Pulse Rhythm [Apical] Respiratory Rate 23 24 Respiratory Effort / Characteristics Non-Labored Spontaneous Non-Labored Spontaneous Respiratory Depth Normal Normal Respiratory Pattern Regular Regular Blood Pressure 139/86 Blood Pressure [Left Arm] Blood Pressure [Right Arm] 139/86 Blood Pressure Mean 103 Blood Pressure Mean [Left Arm] Blood Pressure Mean [Right Arm] 103 Blood Pressure Position [Left Arm] Blood Pressure Position [Right Arm] Pulse Oximetry 94 94 Oxygen Delivery Method Room Air Room Air Room Air Sepsis Recent Fever Within 48 Hours No Sepsis New/Unexplained Change in Mental Status No Sepsis Action Taken by Nursing No Action Required 06/18/24 14:17 06/18/24 16:23 06/18/24 17:11 Temperature 37.1 C Temperature Source Oral Pulse Rate 97 H Pulse Rate [Apical] 121 H 118 H Pulse Rhythm [Apical] Irregular Irregular Respiratory Rate 20 20 Respiratory Effort / Characteristics Non-Labored Spontaneous Non-Labored Spontaneous Respiratory Depth Normal Normal Respiratory Pattern Regular Regular Blood Pressure Blood Pressure [Left Arm] 164/121 H Blood Pressure [Right Arm] 156/118 H Blood Pressure Mean Blood Pressure Mean [Left Arm] 135 Blood Pressure Mean [Right Arm] 130 Blood Pressure Position [Left Arm] Semi-fowlers Blood Pressure Position [Right Arm] Semi-fowlers Semi-fowlers Pulse Oximetry 97 97 Oxygen Delivery Method Room Air Room Air Sepsis Recent Fever Within 48 Hours Sepsis New/Unexplained Change in Mental Status Sepsis Action Taken by Nursing Laboratory Data 06/19/24 06:28 06/19/24 06:28 Lab Results 06/18/24 06/18/24 06/18/24 Range/Units 13:50 14:23 15:05 WBC 9.21 (4.8-10.8) K/ul RBC 3.81 L (4.70-6.10) M/uL Hgb 13.2 L (14.0-18.0) g/dl Hct 38.5 L (42.0-52.0) % MCV 101.0 H (80.0-100.0) fL MCH 34.6 H (25.0-34.0) pg MCHC 34.3 (32.0-36.0) g/dL RDW Std Deviation 51.8 H (36.4-46.3) fL RDW Coeff of Angelika 14.0 (11.5-14.5) % Plt Count 262 (130-400) K/uL MPV 10.2 (9.4-12.4) fL Immature Gran % (Auto) 0.4 % Neut % (Auto) 54.5 % Lymph % (Auto) 33.8 % Merrick % (Auto) 6.9 % Eos % (Auto) 3.6 % Baso % (Auto) 0.8 % Neut # (Auto) 5.02 (1.40-6.50) K/uL Lymph # (Auto) 3.11 (1.20-3.40) K/uL Merrick # (Auto) 0.64 H (0.11-0.59) K/uL Eos # (Auto) 0.33 (0.00-0.50) K/uL Baso # (Auto) 0.07 (0.00-0.20) K/uL Immature Gran # (Auto) 0.04 (0.01-0.20) K/uL Absolute Nucleated RBC 0.02 (0.00-0.12) K/uL Nucleated RBC % (auto) 0.2 % PT 10.8 (9.0-12.0) Seconds INR 1.0 (0.9-1.1) Sodium 136 (136-145) mmol/L Potassium 3.8 (3.5-5.1) mmol/L Chloride 102 (98-107) mmol/L Carbon Dioxide 26 (21-32) mmol/L Anion Gap 8 (3-11) BUN 42 H (6-23) mg/dl Creatinine 2.01 H (0.6-1.4) mg/dl Est Cr Clr Drug Dosing 29.5 ml/min eGFR 31.32 BUN/Creatinine Ratio 20.9 H (10-20) Glucose 160 H (70-99(Fasting)) mg/dl Calcium 8.5 L (8.6-10.3) mg/dl Magnesium 2.0 (1.7-2.4) mg/dl Total Bilirubin 0.4 (0.2-1.0) mg/dl AST 16 (13-39) U/L ALT 14 (7-52) U/L Alkaline Phosphatase 79 (34-104) U/L Troponin I High Sens 31.5 H (0-20) pg/ml B-Natriuretic Peptide 565 H (0-100) pg/ml Total Protein 6.7 (6.0-8.3) gm/dl Albumin 3.8 (3.4-5.0) gm/dl Globulin 2.9 (2.5-4.0) gm/dl Albumin/Globulin Ratio 1.3 (0.9-2) Lipase 16 (11-82) U/L TSH 4.970 H (0.300-4.500) uIu/ml Free T4 0.80 (0.61-1.60) ng/dl Urine Color Yellow Urine Appearance Clear (Clear) Urine pH 5.5 (4.5-7.5) Ur Specific [place] 1.017 (1.000-1.030) Urine Protein 3+ H (Negative) Urine Glucose (UA) Negative (Negative) Urine Ketones Negative (Negative) Urine Blood Negative (Negative) Urine Nitrite Negative (Negative) Urine Bilirubin Negative (Negative) Urine Urobilinogen Negative (Negative) Ur Leukocyte Esterase Negative (Negative) Urine WBC (Auto) 0-5 (0-5) /hpf Urine RBC (Auto) 0-2 (0-2) /hpf U Hyaline Cast (Auto) 3-5 H (0-2) /lpf U Epithel Cells (Auto) 0-2 (0-2) /hpf Urine Bacteria (Auto) None Seen (None Seen) Adenovirus (PCR) Not Detected (NotDetected) B. pertussis DNA (PCR) Not Detected (NotDetected) B.parapertussis DNA PCR Not Detected (NotDetected) C. pneumoniae DNA (PCR) Not Detected (NotDetected) Coronavirus OC43 (PCR) Not Detected (NotDetected) Coronavirus HKU1 (PCR) Not Detected (NotDetected) Coronavirus 229E (PCR) Not Detected (NotDetected) SARS-CoV-2 (PCR) Not Detected (NotDetected) Coronavirus NL63 (PCR) Not Detected (NotDetected) Human Metapneumovir PCR Not Detected (NotDetected) Influenza Type A (PCR) Not Detected (NotDetected) Influenza Type B (PCR) Not Detected (NotDetected) M. pneumoniae (PCR) Not Detected (NotDetected) Parainfluenza 1 (PCR) Not Detected (NotDetected) Parainfluenza 2 (PCR) Not Detected (NotDetected) Parainfluenza 3 (PCR) Not Detected (NotDetected) Parainfluenza 4 (PCR) Not Detected (NotDetected) RSV (PCR) Not Detected (NotDetected) Entero/Rhino (PCR) Not Detected (NotDetected) Administered Medications Discontinued Medications Allopurinol (Allopurinol 100 Mg Tab) 100 mg PO QAM YURIDIA Stop: 07/19/24 08:59 Last Admin: 06/19/24 08:26 Dose: 100 mg Documented By: MIRZA Atorvastatin Calcium (Atorvastatin 20 Mg Tab) 20 mg PO DAILY YURIDIA Stop: 07/19/24 08:59 Last Admin: 06/19/24 08:25 Dose: 20 mg Documented By: MIRZA Cetirizine HCl (Cetirizine Hcl 10 Mg Tablet) 10 mg PO DAILY YURIDIA Stop: 07/19/24 08:59 Last Admin: 06/19/24 08:26 Dose: 10 mg Documented By: MIRZA Clopidogrel Bisulfate (Clopidogrel Bisulfate 75 Mg Tab) 75 mg PO DAILY YURIDIA Stop: 07/19/24 08:59 Last Admin: 06/19/24 08:25 Dose: 75 mg Documented By: MIRZA Duloxetine HCl (Duloxetine Hcl 20 Mg Cap) 20 mg PO DAILY YURIDIA Stop: 07/19/24 08:59 Last Admin: 06/19/24 08:26 Dose: 20 mg Documented By: MIRZA Fluticasone Propionate (Fluticasone Propionate Na Spr 16 Gm Btl) 2 sprays NADIYA HS YURIDIA Stop: 07/18/24 21:40 Last Admin: 06/18/24 23:13 Dose: 2 sprays Documented By: ARIES Furosemide (Furosemide Inj 20 Mg/2 Ml Vial) 20 mg IV ONE ONE Stop: 06/18/24 15:45 Last Admin: 06/18/24 16:24 Dose: 20 mg Documented By: PRIYANKA Furosemide (Furosemide Inj 20 Mg/2 Ml Vial) 20 mg IV DAILY YURIDIA Stop: 07/19/24 08:59 Last Admin: 06/19/24 08:26 Dose: 20 mg Documented By: MIRZA Heparin Sodium/Dextrose (Heparin 83351 Unit/500 Ml D5w) 25,000 units in 500 mls @ 30 mls/hr IV .[id number] [facility]; Protocol Stop: 07/18/24 18:29 Last Admin: 06/19/24 11:30 Dose: 1,500 units/hr, 30 mls/hr Documented By: MIRZA Co-signed By: ADALID Titration: 06/19/24 11:16 Dose: Infused Documented By: MIRZA Co-signed By: ADALID Titration: 06/19/24 07:08 Dose: 1,500 units/hr, 30 mls/hr Documented By: MIRZA Co-signed By: ARIES Titration: 06/19/24 01:10 Dose: 1,500 units/hr, 30 mls/hr Documented By: ARIES Co-signed By: AIDA Admin: 06/18/24 18:36 Dose: 1,500 units/hr, 30 mls/hr Documented By: PRIYANKA Co-signed By: LISSETH Insulin Aspart (Insulin Aspart Per Unit Charge) 0 units SC ACHS [facility] Stop: 07/18/24 21:40 Last Admin: 06/19/24 11:54 Dose: 1 units Documented By: MIRZA Co-signed By: ADALID Admin: 06/19/24 08:24 Dose: 1 units Documented By: MIRZA Co-signed By: ADALID Admin: 06/18/24 23:12 Dose: 2 units Documented By: ARIES Co-signed By: AIDA Labetalol HCl (Labetalol Hcl Iv 5 Mg/Ml 20ml) 5 mg IV NOW STA Stop: 06/19/24 03:14 Last Admin: 06/19/24 03:20 Dose: 5 mg Documented By: ARIES Levothyroxine Sodium (Levothyroxine Sodium 50 Mcg Tablet) 50 mcg PO DAILYBB [facility] Stop: 07/19/24 06:29 Last Admin: 06/19/24 05:51 Dose: 50 mcg Documented By: ARIES Losartan Potassium (Losartan Potassium 25 Mg Tab) 25 mg PO DAILY YURIDIA Stop: 07/19/24 08:59 Last Admin: 06/19/24 08:25 Dose: 25 mg Documented By: MIRZA Metoprolol Tartrate (Metoprolol Tartrate 1 Mg/Ml Vial) 5 mg IV NOW STA Stop: 06/18/24 17:11 Last Admin: 06/18/24 17:26 Dose: 5 mg Documented By: PRIYANKA Metoprolol Tartrate (Metoprolol Tartrate 25 Mg Tab) 12.5 mg PO NOW STA Stop: 06/18/24 17:49 Last Admin: 06/18/24 18:00 Dose: 12.5 mg Documented By: LISSETH Metoprolol Tartrate (Metoprolol Tartrate 25 Mg Tab) 12.5 mg PO Q8H YURIDIA Stop: 07/18/24 21:59 Last Admin: 06/19/24 05:51 Dose: 12.5 mg Documented By: Admin: 06/18/24 23:12 Dose: 12.5 mg Documented By: ARIES Metoprolol Tartrate (Metoprolol Tartrate 25 Mg Tab) 25 mg PO Q8H YURIDIA Stop: 07/19/24 07:59 Last Admin: 06/19/24 08:25 Dose: 25 mg Documented By: MIRZA Metoprolol Tartrate (Metoprolol Tartrate 1 Mg/Ml Vial) 5 mg IV NOW STA Stop: 06/19/24 07:57 Last Admin: 06/19/24 08:54 Dose: 5 mg Documented By: MIRZA Nystatin (Nystatin Powder 15gm Btl) 1 appln EXT BID YURIDIA Stop: 07/18/24 22:44 Last Admin: 06/19/24 08:26 Dose: 1 appln Documented By: Admin: 06/18/24 23:13 Dose: 1 appln Documented By: ARIES Potassium Chloride (Potassium Chloride 10 Meq Tabcr) 20 meq PO NOW STA Stop: 06/18/24 17:47 Last Admin: 06/18/24 18:00 Dose: 20 meq Documented By: LISSETH Tamsulosin HCl (Tamsulosin Hcl 0.4 Mg Cap) 0.4 mg PO QPM YURIDIA Stop: 07/18/24 21:59 Last Admin: 06/18/24 23:12 Dose: 0.4 mg Documented By: ARIES Imaging Data Radiologist's Impression: Chest X-Ray 06/18/24 15:44 Clinical History: Shortness of breath Technique: 2 frontal views of the chest were obtained Comparison is made to the prior examination dated 10/22/2018 Findings: There are no definite focal pulmonary infiltrates. The heart size is at the upper limit of normal. No pleural effusion or pneumothorax is seen. There is suspected mild pulmonary vascular congestion No fracture is noted. There is scoliosis Impression: Suspected mild pulmonary vascular congestion ACT 112: Positive. There are findings on this exam that require communication between the performing entity and the patient following Patient Test Result Information Act ([place] ACT 112) guidelines. Electronically signed by Stiven Cueva 06-18-2024 4:15 PM Discharge Plan Visit Data Chief Complaint: Tachycardia Stated Complaint: TACHYCARDIA, WEAKNESS ED Provider: Tamiko Ramirez Discharge Problem: Dyspnea, Bilateral leg weakness, Atrial fibrillation with RVR, CHF (congestive heart failure), CKD (chronic kidney disease) Patient Disposition: Admitted As Inpatient Discharge Instructions Interventions: ED Discharge Assessment Last Done: 06/18/24 21:07
[2024-06-18] MEDS: METOPROLOL TARTRATE 1 MG/ML VIAL IV STA (17:26)
--- NOTE | 2024-06-18 17:27 | History & Physical Report ---
Date of Service June 18, 2024 Assessment & Plan (1) Atrial fibrillation with RVR: Plan: Patient is 88 year old male with PMH HTN, HLD, history CVA, DM II, CKD III, BPH, gout, hypothyroidism, h/o AAA presented to ER with c/o irregular heart rhythm found by HH nurse today and increased fatigue and bilateral leg weakness x several weeks. It is reported patient found to be in atrial fibrillation by EMS and was reported to be given Cardizem by EMS. In ER noted to be in atrial fibrillation and given additional metoprolol tartrate 5mg IV. Troponin flat at 31, 38 BNP: 565 TSH: 4.9 CXR: Mild vascular congestion On exam HR in 114, BP elevated. Pt denies SOB, CP, palpitations or dizziness currently Start metoprolol tartrate 12.5mg Q8H and hold home metoprolol succinate Heparin IV Echo Cardiology consult EKG in am CBC, BMP in am (2) CHF (congestive heart failure): Plan: Denies known prior history CHF Possible acute CHF secondary to afib RVR Obtain resting Echo In ER given lasix 20mg IV Lasix 20mg IV daily Monitor I's &O's, daily weight Low sodium diet (3) Bilateral leg weakness: Plan: #Ambulatory dysfunction Walks with walker at baseline Recently more fatigue and bilateral leg weakness Fall precautions PT/OT eval (4) CKD (chronic kidney disease) stage 3, GFR 30-59 ml/min: Plan: Cr: 2.0. Unsure of recent baseline. 10/30/22 Cr: 1.36 Monitor renal functions, avoid nephrotoxic agents when possible [facility] (5) HTN (hypertension): Plan: Will need to confirm patient's outpatient home medication list with [facility] tomorrow Appears home amlodipine, hydralazine was discontinued Will hold home metoprolol succinate and change to tartrate Continue losartan (6) Hyperlipidemia: Plan: Continue atorvastatin (7) History of CVA (cerebrovascular accident): Plan: Continue atorvastatin, Plavix (8) Diabetes mellitus, type II: Plan: Unknown recent A1c Random glucose 160 A1c clarissa Novolog sliding scale per protocol (9) BPH (benign prostatic hyperplasia): Plan: Continue tamsulosin (10) Hypothyroidism: Plan: Continue levothyroxine DVT Prophylaxis IV heparin Admit telemetry DNR/DNI as per discussion with pt Follows with [facility] for routine care Pt was seen and care coordinated with Dr Weathers. See addendum I spent a total of 77 minutes reviewing notes, outpatient records, labs, medication, coordinating, documenting and providing care for this patient excluding time spent in the performance of separately billed services and excluding time spent by another provider/QHP. History of Present Illness Chief Complaint: Fatigue and reported irregular heart rhythm Primary Care Provider: [facility] Patient is 88 year old male with PMH HTN, HLD, history CVA, DM II, CKD III, BPH, gout, hypothyroidism, h/o AAA presented to ER with c/o irregular heart rhythm. History obtained from patient and patient's over the phone. Patient reports has been feeling dizzy in the morning for past couple of weeks and has to sit awhile before he gets up and walks around. Denies syncope. Denies any falls. Feeling weak in the morning and continues throughout the day. Uses walker for over 6 months. Having bilateral leg pain. States been feeling increasingly tired past couple of days. Having some nausea, no vomiting. States good appetite and eating normally. Denies feeling SOB. Denies CP or palpitations. Denies sore throat. reports couple of days ago had some sneezing and cough at night and took one dose of Mucinex with relief of symptoms. and patient reports no history of a-fib or irregular heart rhythm. Reports has [place] home health nurse that comes every couple of weeks. States a home nurse noted that his heart was irregular today and recommended EMS and ER evaluation. is unsure of his medications. States the nurse places his pills in weekly container. Denies fever/chills, diaphoresis, N/V/D/C, neck pain, orthopnea, rhinorrhea, abdominal pain, paresthesias, extremity edema, rashes, urinary symptoms. It is reported patient found to be in atrial fibrillation by EMS and was reported to be given Cardizem by EMS. In ER noted to be in atrial fibrillation and given additional metoprolol tartrate 5mg IV. Allergies Allergy/AdvReac Type Severity Reaction Status Date / Time hydrochlorothiazide Allergy Unknown CAN'T Verified 10/30/22 01:35 REMEMBER ON [employer] Sensus Experience Home Medications Medication Instructions Recorded Confirmed Type allopurinol 100 mg tablet 100 mg PO QAM 04/19/18 06/18/24 History cetirizine 10 mg tablet 10 mg PO DAILY 04/19/18 06/18/24 History guaifenesin 600 mg tablet, 600 mg PO DAILY PRN Congestion 04/19/18 06/18/24 History extended release 12 hr (Mucinex) fluocinonide 0.05 % topical cream 1 applic topical BID PRN Skin 10/22/18 06/18/24 History Irritation vit C 250 mg-vit E 90 mg-zinc 40 1 tab PO QPM 10/22/18 06/18/24 History mg-copper 1 fi-vlgghc-[id number] capsule (PreserVision AREDS-2) clopidogrel 75 mg tablet (Plavix) 75 mg PO DAILY #30 tabs 11/04/18 06/18/24 Rx amlodipine 5 mg tablet 5 mg PO UD 04/19/21 06/18/24 History cholecalciferol (vitamin D3) 25 25 mcg PO UD 04/19/21 06/18/24 History mcg (1,000 unit) tablet (Vitamin D3) tamsulosin 0.4 mg capsule 0.4 mg PO QPM 04/19/21 06/18/24 History hydralazine 25 mg tablet 12.5 mg PO UD 05/30/21 06/18/24 History levothyroxine 50 mcg capsule 50 mcg PO QAM 05/30/21 06/18/24 History acetaminophen 500 mg tablet 650 mg PO BID PRN 10/30/22 06/18/24 History (Tylenol Extra Strength) pain,fever,headache diphenhydramine HCl 2 % topical 1 applic topical BID PRN Skin 10/30/22 06/18/24 History gel (Benadryl) Irritation atorvastatin 20 mg tablet 20 mg PO DAILY 06/18/24 06/18/24 History diclofenac sodium 1 % topical gel 2 g topical QID PRN joint pain 06/18/24 06/18/24 History duloxetine 20 mg capsule,delayed 20 mg PO DAILY 06/18/24 06/18/24 History release fluticasone propionate 50 2 spray intranasal HS 06/18/24 06/18/24 History mcg/actuation nasal spray,suspension losartan 25 mg tablet 25 mg PO DAILY 06/18/24 06/18/24 History metoprolol succinate 25 mg 25 mg PO DAILY 06/18/24 06/18/24 History tablet,extended release 24 hr nut.tx.gluc.intol,lac-free,soy 1 ea PO DAILY 06/18/24 06/18/24 History (Glucerna oral liquid) polyethylene glycol 3350 17 17 g PO DAILY 06/18/24 06/18/24 History gram/dose oral powder (Miralax) Past Med/Surg History Problem List (Updated 06/18/24 @ 20:00 by Loreta Allison PA-C) Diabetes mellitus, type II History of CVA (cerebrovascular accident) CHF (congestive heart failure) Atrial fibrillation with RVR Bilateral leg weakness (Acute) Dyspnea (Acute) Encounter for pre-operative examination Hypertensive urgency (Acute) Near syncope (Acute) CKD (chronic kidney disease) stage 4, GFR 15-29 ml/min (Acute) CKD (chronic kidney disease) stage 3, GFR 30-59 ml/min Ischemic stroke Acute kidney injury superimposed on CKD Medical History Macular degeneration Hx of basal cell carcinoma Degenerative disc disease Neuropathy BLE Kidney disease, chronic, stage III (GFR 30-59 ml/min) BPH (benign prostatic hyperplasia) Prediabetes Hypothyroidism Anemia Stroke 2018 >REASON FOR PLAVIX (DENIES PROBLEMS FROM EVENT) Hyperlipidemia Acute cholangitis Encounter for pre-operative examination Abdominal aortic aneurysm (AAA) 3.0 cm to 5.5 cm in diameter in male BEING MONITORED- FOLLOWED BY [facility] V[facility]ULAR SURGERY- LAST SEEN 01/2021 Per abdomen/pelvis CT - infrarenal aortic aneurysm measuring 46mm in diameter Dementia Vascular dementia per records HTN (hypertension) Surgical History History of ERCP WITH STENT History of cholecystectomy History of tooth extraction History of cataract surgery RT/LEFT History of laparoscopic cholecystectomy Family History Brother Family history of diabetes mellitus Other Family history non-contributory No family history of adverse response to anesthesia Social History Smoking Status: Never smoker Tobacco Type: Cigarettes Cigarettes Per Day: 30+ YEARS AGO; Second Hand Exposure: No; Do You Dip or Chew Tobacco: No; Hx Alcohol Use: No Hx Substance Use: No Preferred Language: Sami Communication Ability: Effective Communication Ability Comment: Patient appears with some confusion, per Daughter this is normal [employer]ane Maintenance Required: No Beliefs That Will Affect Care: None marital status: Current Living Situation: Spouse Current Living Situation Comment: [facility] current occupational status: retired How many Children do You have: 3 Feels Safe at Home: Yes Assistive Devices: Cane, Glasses and Walker Review of Systems Review of Systems: All systems reviewed & are unremarkable except as noted in HPI & below Physical Exam Physical Exam: General: no distress, WDWN elderly male Head: normocephalic, atraumatic Eyes: PERRL, EOM's intact, conjunctiva non-injected, anicteric ENT: hard of hearing, normal inspection external ears, nose, mucous membranes moist Neck: supple, trachea midline Lungs: no respiratory distress, 94% on room air. diminished breath sounds at bases CV: irregular, rate 114, trace pretibial edema Abd: normal BS, soft, non-tender Ext: no cyanosis, no calf tenderness Neuro: Alert, oriented to person, place. Knows year is 2024, thinks its July. no focal deficits noted, normal affect Skin: warm, dry Results & Data Results & Data Vital Signs (Past 12 Hours) Vital Signs Temp Pulse Pulse Resp BP BP BP 06/18/24 17:22 115 H 20 183/111 H 06/18/24 17:11 118 H 20 164/121 H 06/18/24 16:23 37.1 C 121 H 20 156/118 H 06/18/24 14:17 97 H 06/18/24 14:01 06/18/24 14:00 92 H 24 139/86 06/18/24 13:55 36.5 C 93 H 23 139/86 Pulse Ox O2 Del Method 06/18/24 17:22 96 Room Air 06/18/24 17:11 97 Room Air 06/18/24 16:23 97 Room Air 06/18/24 14:17 06/18/24 14:01 Room Air 06/18/24 14:00 94 Room Air 06/18/24 13:55 94 Room Air Laboratory Results Short CBC 06/18/24 Range/Units 13:50 WBC 9.21 (4.8-10.8) K/ul Hgb 13.2 L (14.0-18.0) g/dl Hct 38.5 L (42.0-52.0) % Plt Count 262 (130-400) K/uL BMP 06/18/24 13:50 Sodium 136 Potassium 3.8 Chloride 102 Carbon Dioxide 26 BUN 42 H Creatinine 2.01 H Glucose 160 H Calcium 8.5 L Liver Function 06/18/24 Range/Units 13:50 Total Bilirubin 0.4 (0.2-1.0) mg/dl AST 16 (13-39) U/L ALT 14 (7-52) U/L Alkaline Phosphatase 79 (34-104) U/L Albumin 3.8 (3.4-5.0) gm/dl Urine 06/18/24 Range/Units 15:05 Urine Color Yellow Urine Appearance Clear (Clear) Urine pH 5.5 (4.5-7.5) Ur Specific [place] 1.017 (1.000-1.030) Urine Protein 3+ H (Negative) Urine Glucose (UA) Negative (Negative) Diagnostic Findings Chest X-Ray 06/18/24 15:44 Clinical History: Shortness of breath Technique: 2 frontal views of the chest were obtained Comparison is made to the prior examination dated 10/22/2018 Findings: There are no definite focal pulmonary infiltrates. The heart size is at the upper limit of normal. No pleural effusion or pneumothorax is seen. There is suspected mild pulmonary vascular congestion No fracture is noted. There is scoliosis Impression: Suspected mild pulmonary vascular congestion ACT 112: Positive. There are findings on this exam that require communication between the performing entity and the patient following Patient Test Result Information Act ([place] ACT 112) guidelines. Electronically signed by Stiven Cueva 06-18-2024 4:15 PM ECG Additional Comments: atrial fibrillation, RBBB, nonspecific T wave changes per my interpretation Supervising Physician Co-Signing Physician Notes 88 yo M w/ PMH of HTN, HLD, CAD, Hypothyroidism presents to ED w/ co increasing ble weakness, easy fatigability over the last few weeks. Pt denies sore throat, cough, chest pain, acute changes in bowel/bladder/appetite habit. No history of A-fib or irregular heart rhythm per patient and his . Patient was sent to the ED for evaluation after he was noted to have irregular heart rate by home health nurse. Labs reviewed, CBC fairly at his baseline, INR 1.0, creatinine slightly elevated at 2.01 (baseline seems to be around 1.6-1.8], magnesium 2.0, liver function test WNL, troponin mildly elevated at 31.5, BNP elevated at 565. Lipase WNL. TSH mildly elevated with normal free T4. UA negative for UTI. Respiratory pathogen panel negative. CXR with mild pulmonary vascular congestion. EKG with A-fib with rate 81. Active problems: Atrial fibrillation with RVR: Patient noted to be in atrial fibrillation with heart rate in 110s at bedside exam. Continue with metoprolol twice daily, heparin drip. Telemetry monitoring. Cardiology consult. Likely acute CHF: Unspecified type, will get echo. Received 20 Mg IV Lasix in the ED, will continue with 20 Mg IV Lasix daily. CXR with pulmonary vascular congestion. Demand ischemia: In the setting of acute illness as above. Trend troponin. Patient denies any chest pain. On examination: GENERAL: Alert and oriented x3. NAD, on RA. Appears elderly/frail/weak/ill. HEENT: No pallor, no icterus. Pupils equal, round and reactive to light. Oral mucosa moist. NECK: No JVD, no neck masses. HEART: S1 and S2 heard. Irregular rate and rhythm. HR in 110s. No murmur, no gallop. RESPIRATORY SYSTEM: Normal AP diameter. No accessory muscle use. No wheezing, bb crackles. ABDOMEN: Soft, bowel sounds present, nontender, + distention. CENTRAL NERVOUS SYSTEM: No facial droop. Speech is clear. Obeys simple commands. Moves extremities. EXTREMITIES: No edema, no erythema seen. I have seen and examined the patient and have discussed the case with the provider above. I agree with the assessment and plan as stated. Time spent: 30 min.
[2024-06-18] MEDS: POTASSIUM CHLORIDE 10 MEQ TABCR PO STA (18:00)
[2024-06-18] MEDS: METOPROLOL TARTRATE 25 MG TAB PO STA (18:00)
[2024-06-18] MEDS ORDERED: Heparin IV Adult Wt-Based Standard *NO* INITIAL Bolus Protocol IV STA (18:13)
[2024-06-18] MEDS: HEPARIN 25000 UNIT/500 ML D5W 25,000 UNITS/500 ML BAG IV SCH (18:36)
[2024-06-18] MEDS ORDERED: GLUCAGON FOR INJ 1 MG VIAL SQ PRN (21:41)
[2024-06-18] MEDS ORDERED: GLUCOSE 40% GEL 15 GM TUBE PO PRN (21:41)
[2024-06-18] MEDS ORDERED: ONDANSETRON INJ 2 MG/ML 2 ML VIAL IV PRN (21:41)
[2024-06-18] MEDS ORDERED: ACETAMINOPHEN 325 MG TAB PO PRN (21:41)
[2024-06-18] MEDS ORDERED: GLUCOSE 10 TAB/TUBE PO PRN (21:41)
[2024-06-18] MEDS ORDERED: DICLOFENAC SOD 1% GEL 100 GM TUBE EXT PRN (21:41)
[2024-06-18] MEDS ORDERED: POLYETHYLENE (MIRALAX) 17 GM PACK PO PRN (21:41)
[2024-06-18] MEDS ORDERED: DEXTROSE 50% 50 ML SYRINGE IV PRN (21:41)
[2024-06-18] MEDS ORDERED: CARBOHYDRATES FOR HYPOGLYCEMIA PO PRN (21:41)
[2024-06-18] MEDS ORDERED: INFLUENZA VACC TS2024-25(65y+)/PF (IIV3) 0.5mL Syr IM ONE (22:36)
[2024-06-18] MEDS ORDERED: PNEUMOCOCCAL VACCINE (PCV20) 20-VAL CONJ-DIP CRM/PF 0.5 ML SYR IM ONE (22:36)
[2024-06-18] MEDS: INSULIN ASPART PER UNIT CHARGE SC SCH (23:12)
[2024-06-18] MEDS: METOPROLOL TARTRATE 25 MG TAB PO SCH (23:12)
[2024-06-18] MEDS: TAMSULOSIN HCL 0.4 MG CAP PO SCH (23:12)
[2024-06-18] MEDS: NYSTATIN POWDER 15GM BTL EXT SCH (23:13)
[2024-06-18] MEDS: FLUTICASONE PROPIONATE NA SPR 16 GM BTL NAE SCH (23:13)
[2024-06-19 01:07] LABS: ANTI-Xa, UFH(UnfractionatedHep 0.37 IU/ml (0.3-0.7)
[2024-06-19] MEDS: LABETALOL HCL IV 5 MG/ML 20ML IV STA (03:20)
[2024-06-19] MEDS: LEVOTHYROXINE SODIUM 50 MCG TABLET PO SCH (05:51)
[2024-06-19 07:08] LABS: Hematocrit (blood only) 35.6 % (42.0-52.0); Hemoglobin 12.3 g/dl (14.0-18.0); Mean Corpuscular Hemoglobin 34.6 pg (25.0-34.0); Mean Corpuscular Hgb Conc 34.6 g/dL (32.0-36.0); Mean Corpuscular Volume 100.3 fL (80.0-100.0); Mean Platelet Volume 10.5 fL (9.4-12.4); Platelet Count 230 K/uL (130-400); RDW Coefficient of Variation 14.1 % (11.5-14.5); RDW Standard Deviation 51.2 fL (36.4-46.3); Red Blood Count 3.55 M/uL (4.70-6.10); White Blood Count 9.26 K/ul (4.8-10.8)
[2024-06-19 07:39] LABS: Estimated Average Glucose 163 mg/dl; Hemoglobin A1C 7.3 % (4.5-5.6)
[2024-06-19 07:56] LABS: BUN Creatinine Ratio 19.5 (10-20); Calcium 8.4 mg/dl (8.6-10.3); Creatinine Clr Calc Pharmacy 29.9 ml/min; Magnesium 1.9 mg/dl (1.7-2.4); Potassium 3.7 mmol/L (3.5-5.1)
[2024-06-19] MEDS: LOSARTAN POTASSIUM 25 MG TAB PO SCH (08:25)
[2024-06-19] MEDS: CLOPIDOGREL BISULFATE 75 MG TAB PO SCH (08:25)
[2024-06-19] MEDS: ATORVASTATIN 20 MG TAB PO SCH (08:25)
[2024-06-19] MEDS: METOPROLOL TARTRATE 25 MG TAB PO SCH (08:25)
[2024-06-19] MEDS: DULoxetine HCL 20 MG CAP PO SCH (08:26)
[2024-06-19] MEDS: FUROSEMIDE INJ 20 MG/2 ML VIAL IV SCH (08:26)
[2024-06-19] MEDS: CETIRIZINE HCL 10 MG TABLET PO SCH (08:26)
[2024-06-19] MEDS: allopurinoL 100 MG TAB PO SCH (08:26)
[2024-06-19 08:33] LABS: Troponin I High Sensitivity 40.9 pg/ml (0-20)
[2024-06-19] MEDS: METOPROLOL TARTRATE 1 MG/ML VIAL IV STA (08:54)
[2024-06-19 11:21] VITALS: BP 158/80; RESP 19; TEMP 98.1; O2SAT 95
[2024-06-19 13:27] VITALS: PULSE 72
--- NOTE | 2024-06-19 14:26 | Discharge Summary ---
Discharge Summary Date of Service June 19, 2024 Principal Dx & Hospital Course #1 = Principal Diagnosis (1) Atrial fibrillation with RVR: Patient is 88 year old male with PMH HTN, HLD, history CVA, DM II, CKD III, BPH, gout, hypothyroidism, h/o AAA presented to ER with c/o irregular heart rhythm found by nurse today and increased fatigue and bilateral leg weakness x several weeks. It is reported patient found to be in atrial fibrillation by EMS and was reported to be given Cardizem by EMS. In ER noted to be in atrial fibrillation and given additional metoprolol tartrate 5mg IV. Troponin flat at 31, 38 BNP: 565 TSH: 4.9 CXR: Mild vascular congestion Plan: -start eliquis bid for anticoagulation -discussed with cardiology, set up outpatient appt -start metoprolol succinate 100 mg daily -rate controlled at discharge -echo reassuring -per patient would like to go home (2) CHF (congestive heart failure): Denies known prior history CHF Possible acute CHF secondary to afib RVR Obtain resting Echo In ER given lasix 20mg IV Lasix 20mg IV daily Monitor I's &O's, daily weight Low sodium diet (3) CKD (chronic kidney disease) stage 3, GFR 30-59 ml/min: -creatinine improving with fluids (4) HTN (hypertension): (5) Hyperlipidemia: -Continue atorvastatin (6) History of CVA (cerebrovascular accident): -Continue atorvastatin, Plavix (7) Diabetes mellitus, type II: -Unknown recent A1c -Random glucose 160 - clarissa Novolog sliding scale per protocol (8) BPH (benign prostatic hyperplasia): -Continue tamsulosin (9) Hypothyroidism: -Continue levothyroxine Notes For Next Care Provider Patient is 88 year old male with PMH HTN, HLD, history CVA, DM II, CKD III, BPH, gout, hypothyroidism, h/o AAA presented to ER with c/o irregular heart rhythm. In ED noted to be in afib with RVR. On medicine, rate controlled, started on heparin. Discussed with cardiology, will set up outpatient appt. Echo reassuring. On 06/19/2024 patient medically stable for discharge home with increased metoprolol and eliquis. Medication Changes From Visit -increased metoprolol succinate, eliquis Admission HPI Per Admitting Provider Patient is 88 year old male with PMH HTN, HLD, history CVA, DM II, CKD III, BPH, gout, hypothyroidism, h/o AAA presented to ER with c/o irregular heart rhythm. History obtained from patient and patient's over the phone. Patient reports has been feeling dizzy in the morning for past couple of weeks and has to sit awhile before he gets up and walks around. Denies syncope. Denies any falls. Feeling weak in the morning and continues throughout the day. Uses walker for over 6 months. Having bilateral leg pain. States been feeling increasingly tired past couple of days. Having some nausea, no vomiting. States good appetite and eating normally. Denies feeling SOB. Denies CP or palpitations. Denies sore throat. reports couple of days ago had some sneezing and cough at night and took one dose of Mucinex with relief of symptoms. and patient reports no history of a-fib or irregular heart rhythm. Reports has [place] home health nurse that comes every couple of weeks. States a home nurse noted that his heart was irregular today and recommended EMS and ER evaluation. is unsure of his medications. States the nurse places his pills in weekly container. Denies fever/chills, diaphoresis, N/V/D/C, neck pain, orthopnea, rhinorrhea, abdominal pain, paresthesias, extremity edema, rashes, urinary symptoms. It is reported patient found to be in atrial fibrillation by EMS and was reported to be given Cardizem by EMS. In ER noted to be in atrial fibrillation and given additional metoprolol tartrate 5mg IV. Discharge Exam Gen: A&O 3 NAD HEENT: NCAT, EOMI, not icteric. External ears normal. No rhinorrhea. Moist mucous membranes. Neck: Supple, full range of motion, no observable masses, No meningeal sign. Lungs: No Respiratory distress. CV: RRR, no edema. Abdomen: Soft, nondistended, No rebound tenderness. MSK: No joint swelling, no redness. Skin: No rashes, petechiae, lesions. Normal color per patient. Neuro: Normal Gait, Grossly intact. Psych: Appropriate for situation. Updated Medication List Medication Instructions Recorded Confirmed Type allopurinol 100 mg tablet 100 mg PO QAM 04/19/18 06/18/24 History cetirizine 10 mg tablet 10 mg PO DAILY 04/19/18 06/18/24 History guaifenesin 600 mg tablet, 600 mg PO DAILY PRN Congestion 04/19/18 06/18/24 History extended release 12 hr (Mucinex) fluocinonide 0.05 % topical cream 1 applic topical BID PRN Skin 10/22/18 06/18/24 History Irritation vit C 250 mg-vit E 90 mg-zinc 40 1 tab PO QPM 10/22/18 06/18/24 History mg-copper 1 ec-tejixv-vwymru capsule (PreserVision AREDS-2) clopidogrel 75 mg tablet (Plavix) 75 mg PO DAILY #30 tabs 11/04/18 06/18/24 Rx amlodipine 5 mg tablet 5 mg PO UD 04/19/21 06/18/24 History cholecalciferol (vitamin D3) 25 25 mcg PO UD 04/19/21 06/18/24 History mcg (1,000 unit) tablet (Vitamin D3) tamsulosin 0.4 mg capsule 0.4 mg PO QPM 04/19/21 06/18/24 History levothyroxine 50 mcg capsule 50 mcg PO QAM 05/30/21 06/18/24 History acetaminophen 500 mg tablet 650 mg PO BID PRN 10/30/22 06/18/24 History (Tylenol Extra Strength) pain,fever,headache diphenhydramine HCl 2 % topical 1 applic topical BID PRN Skin 10/30/22 06/18/24 History gel (Benadryl) Irritation atorvastatin 20 mg tablet 20 mg PO DAILY 06/18/24 06/18/24 History diclofenac sodium 1 % topical gel 2 g topical QID PRN joint pain 06/18/24 06/18/24 History duloxetine 20 mg capsule,delayed 20 mg PO DAILY 06/18/24 06/18/24 History release fluticasone propionate 50 2 spray intranasal HS 06/18/24 06/18/24 History mcg/actuation nasal spray,suspension losartan 25 mg tablet 25 mg PO DAILY 06/18/24 06/18/24 History nut.tx.gluc.intol,lac-free,soy 1 ea PO DAILY 06/18/24 06/18/24 History (Glucerna oral liquid) polyethylene glycol 3350 17 17 g PO DAILY 06/18/24 06/18/24 History gram/dose oral powder (Miralax) apixaban 5 mg tablet (Eliquis) 5 mg PO BID #60 tabs 06/19/24 Rx metoprolol succinate 100 mg 100 mg PO DAILY #30 ea 06/19/24 Rx capsule sprinkle, ext. release 24 hr metoprolol tartrate 25 mg tablet 25 mg PO Q8H 1 day #3 tabs 06/19/24 Rx Hospital Stay Data Consultations 06/18/24 17:21 ED Decision to Admit Stat Pending Results Patient Have Any Pending Studies at Discharge: No Discharge Instructions Given to Patient (Per Discharging Provider) 1. Please take medications as prescribed. 2. Follow up with PCP and cardiology. Total Time Total Time Spent Total Time Spent (In Minutes): I spent a total of 35 minutes in direct patient care, including pgkv-[id number] time with the patient and/or family, reviewing medical records, ordering and reviewing diagnostic tests, and coordinating care with other healthcare providers. This time includes: history taking, physical examination, medical decision making, counseling, ECG interpretation, imaging interpretation, lab interpretation, orders, and education, excluding time spent in the performance of separately billed services.
--- NOTE | 2024-06-19 21:40 | Electrocardiogram Report ---
Test Reason : Blood Pressure : */* mmHG Vent. Rate : 81 BPM Atrial Rate : * BPM P-R Int : * ms QRS Dur : 122 ms QT Int : 412 ms P-R-T Axes : * -77 16 degrees QTcB Int : 478 ms Atrial fibrillation Left axis deviation Right bundle branch block Minimal voltage criteria for LVH, may be normal variant ( R in aVL ) Possible Lateral infarct (cited on or before 22-Oct-2018) Inferior infarct (cited on or before 19-Apr-2021) Abnormal ECG When compared with ECG of 30-Oct-2022 01:21, Atrial fibrillation has replaced Sinus rhythm Confirmed by Azam Jones ([id number]) on 06/19/2024 9:40:27 PM Referred By: REFERRED SELF Confirmed By: Azam Jones
--- NOTE | 2024-06-19 21:41 | Electrocardiogram Report ---
Test Reason : Blood Pressure : */* mmHG Vent. Rate : 74 BPM Atrial Rate : 74 BPM P-R Int : 192 ms QRS Dur : 132 ms QT Int : 462 ms P-R-T Axes : 16 -68 26 degrees QTcB Int : 512 ms Normal sinus rhythm Right bundle branch block Left anterior fascicular block Bifascicular block Cannot rule out Inferior infarct (cited on or before 19-Apr-2021) Abnormal ECG When compared with ECG of 18-Jun-2024 13:52, Sinus rhythm has replaced Atrial fibrillation Borderline criteria for Lateral infarct are no longer Present Confirmed by Azam Jones ([id number]) on 06/19/2024 9:40:50 PM Referred By: REFERRED SELF Confirmed By: Azam Jones
--- NOTE | 2024-06-20 13:18 | Coding Query ---
CONGESTIVE HEART FAILURE To Promote full compliance with coding requirements relating to patient care, physician participation is requested in all cases of control valve technician uncertainty. Please assist us with the following questions. A diagnosis of Congestive Heart Failure is documented in the patient's medical record. To accurately code this diagnosis and to compare patient severity, we ask that you specify the type of heart failure by placing an X within the parenthesis (x). Pt admitted with atrial fib. Short stay- DS: possible acute heart faiure. Thanks for your help. Antonoi Basurto, KAIA [facility] SYSTOLIC HEART FAILURE ( ) Acute ( ) Chronic ( ) Acute on Chronic ( ) Rheumatic ( ) Unknown DIASTOLIC HEART FAILURE ( ) Acute ( ) Chronic ( ) Acute on Chronic ( ) Rheumatic ( ) Unknown COMBINED SYSTOLIC AND DIASTOLIC HEART FAILURE ( ) Acute ( ) Chronic ( ) Acute on Chronic ( ) Rheumatic ( ) Unknown Was the CHF Present On Admission? Please check the appropriate box: ( ) Present on Admission ( ) Not Present On Admission ( ) Clinically undetermined Hello, this patient did not have heart failure on my evaluation. There is no evidence of heart failure on echo either. I am sorry, but I cannot help with this. Thank you! FELIPE
== END 2024-06-19 14:00 | disposition home or self-care (01) | DRG 309 ==
LOC: ED 13:46 → SUATTDRO 17:50 → 2E 17:50

== ENCOUNTER 2024-06-20 11:40 | Inpatient (IN) ==
--- NOTE | 2024-06-20 12:40 | CT Scan Report ---
CT head/brain wo con CLINICAL HISTORY: Trauma. TECHNIQUE: Multiple axial CT images of the head were obtained without contrast. A dose lowering tech nique was utilized adhering to the principles of ALARA. CT DOSE: 2718.72 mGy.cm COMPARISON: 10/30/2022 FINDINGS: There are stable severe chronic small vessel ischemic changes. Stable small area of encepha lomalacia right occipital lobe consistent with old infarction. No intracranial hemorrhage seen. No ma ss effect, midline shift, or hydrocephalus. Stable globus pallidus calcifications, unremarkable in th is age group. No skull fracture seen. Visualized paranasal sinuses and mastoid air cells are clear. IMPRESSION: No acute findings. ACT 112: Negative or not required by law. The above report was generated using voice recognition software. It may contain grammatical, syntax o r spelling errors. Electronically signed by: Michael Bell M.D. 06/20/2024 12:38 PM
--- NOTE | 2024-06-20 12:43 | CT Scan Report ---
CT SCAN OF THE CERVICAL SPINE CLINICAL HISTORY: Fall. COMPARISON STUDY: CTA of the neck October 30, 2022. Chest CT April 19, 2021. TECHNIQUE: CT scan of the cervical spine is performed from the skull base to the upper thoracic spine . Images are reviewed in the axial, sagittal, and coronal planes. IV contrast was not administered fo r this examination. A dose lowering technique was utilized adhering to the principles of ALARA. FINDINGS: Alignment of the cervical spine is anatomic. Vertebral body heights are maintained. There a re no cervical spine fractures. There is moderate degenerative disc disease and facet arthrosis withi n the cervical spine. Cortical irregularity of the inferior endplate of T2 is unchanged since CT of A ug2022. No acute fractures are identified. There is no prevertebral edema. Interlobular septa l thickening within the lung apices is incidentally noted. IMPRESSION: No acute cervical spine fracture or subluxation. ACT 112: Negative or not required by law. Electronically signed by: Nahun Nascimento M.D. 06/20/2024 12:42 PM
[2024-06-20 12:50] LABS: Basophils # (auto) 0.04 K/uL (0.00-0.20); Basophils % (auto) 0.4 %; Eosinophils # (auto) 0.05 K/uL (0.00-0.50); Eosinophils % (auto) 0.5 %; Hematocrit (blood only) 37.2 % (42.0-52.0); Hemoglobin 12.5 g/dl (14.0-18.0); Immature Granulocytes # (auto) 0.08 K/uL (0.01-0.20); Immature Granulocytes % (auto) 0.8 %; Lymphocytes # (auto) 1.43 K/uL (1.20-3.40); Lymphocytes % (auto) 14.1 %; Mean Corpuscular Hemoglobin 34.1 pg (25.0-34.0); Mean Corpuscular Hgb Conc 33.6 g/dL (32.0-36.0); Mean Corpuscular Volume 101.4 fL (80.0-100.0); Mean Platelet Volume 10.4 fL (9.4-12.4); Monocytes # (auto) 0.53 K/uL (0.11-0.59); Monocytes % (auto) 5.2 %; Neutrophils # (auto) 8.01 K/uL (1.40-6.50); Platelet Count 232 K/uL (130-400); RDW Coefficient of Variation 14.1 % (11.5-14.5); RDW Standard Deviation 52.2 fL (36.4-46.3); Red Blood Count 3.67 M/uL (4.70-6.10); White Blood Count 10.14 K/ul (4.8-10.8)
[2024-06-20 12:54] LABS: Appearance Urine Clear (Clear); Bacteria Urine Automated None Seen (None Seen); Bilirubin Urine Negative (Negative); Blood Urine 1+ (Negative); Cast Urine Automated 0-2 /lpf (0-2); Color Urine Yellow; Epithelial Cell Urine Auto 0-2 /hpf (0-2); Glucose Urine UA Trace (Negative); Ketones Urine Negative (Negative); Leukocyte Esterase Urine Negative (Negative); Nitrite Urine Negative (Negative); Protein Urine 2+ (Negative); RBC Urine Automated 0-2 /hpf (0-2); Specific Gravity Urine 1.011 (1.000-1.030); Urobilinogen Urine Negative (Negative); WBC Urine Automated 0-5 /hpf (0-5); pH Urine 6.5 (4.5-7.5)
[2024-06-20 12:56] LABS: iSTAT Creatinine 2.4 mg/dl (0.6-1.3); iSTAT Hemoglobin 11.9 g/dl (14.0-18.0); iSTAT Ionized Calcium 1.1 mmol/l (1.12-1.32); iSTAT Potassium 3.8 mmol/L (3.3-5.0)
--- NOTE | 2024-06-20 12:59 | CT Scan Report ---
CT OF THE ABDOMEN AND PELVIS WITHOUT CONTRAST CLINICAL HISTORY: Trauma. COMPARISON STUDY: CT of the abdomen and pelvis, MRCP and right upper quadrant ultrasound April 19, 2021. TECHNIQUE: Axial images of the abdomen and pelvis were obtained without IV contrast. Images were revi ewed in the axial, sagittal, and coronal planes. Automated exposure control was utilized for the jarred dy. A dose lowering technique was utilized adhering to the principles of ALARA. FINDINGS: Cardiomegaly and mild interlobular septal thickening within the lower lungs are incidentall y noted. No hemoperitoneum or pneumoperitoneum is present. Solid abdominal viscera are suboptimally a ssessed on unenhanced exam but there is no evidence for traumatic injury to the liver, spleen, adrena l glands, kidneys or pancreas. There is hepatic steatosis. No biliary ductal dilatation status post c holecystectomy. Prominent april hepatis lymph nodes are unchanged. Left-sided parapelvic cysts are no saira. Stranding within the left renal sinus is unchanged. There is a 5.5 cm infrarenal abdominal aorti c aneurysm without evidence for rupture. The aneurysm measured 4.[address] of April 19, 2021. Derick lópez and wall thickness of small and large bowel are normal. There is sigmoid diverticulosis without e vidence for acute diverticulitis. Prostate is enlarged, measuring 5.4 cm in transverse diameter. A sm all portion of the proximal sigmoid colon slightly extends into a left inguinal hernia. There is an a cute horizontal fracture along the inferior endplate of L1 with minimal loss of vertebral body height . No retropulsion is present. No extension into the posterior elements is noted. No additional acute fractures. IMPRESSION: 1. Acute horizontal fracture along the inferior endplate of L1 with minimal loss of vertebral body he ight. No retropulsion. No extension into the posterior elements. 2. No additional acute traumatic findings on unenhanced exam. 3. 5.5 cm infrarenal abdominal aortic aneurysm, increased in caliber since CT of April 19, 2021 whe n it measured 4.8 cm. 4. Cardiomegaly with mild interstitial pulmonary edema. ACT 112: Negative or not required by law. Electronically signed by: Nahun Nascimento M.D. 06/20/2024 12:58 PM
--- NOTE | 2024-06-20 12:59 | XRay Report ---
XR pelvis 1-2V routine CLINICAL HISTORY: Trauma COMPARISON: None FINDINGS: No fracture or dislocation seen. IMPRESSION: No pelvic fracture seen. ACT 112: Negative or not required by law. Electronically signed by: Michael Bell M.D. 06/20/2024 12:58 PM
--- NOTE | 2024-06-20 13:00 | XRay Report ---
XR chest 1V portable CLINICAL HISTORY: Trauma COMPARISON STUDY: 06/18/2024 FINDINGS: Stable moderate cardiomegaly without pulmonary vascular congestion. No effusion, consolidat ion, or pneumothorax seen. IMPRESSION: No acute findings seen. ACT 112: Negative or not required by law. Electronically signed by: Michael Bell M.D. 06/20/2024 12:59 PM
[2024-06-20 13:17] LABS: Albumin Globulin Ratio 1.5 (0.9-2); Albumin Level 4.1 gm/dl (3.4-5.0); BUN Creatinine Ratio 20.5 (10-20); Bilirubin,Total 0.8 mg/dl (0.2-1.0); Calcium 8.6 mg/dl (8.6-10.3); Creatinine Clr Calc Pharmacy 27.1 ml/min; Globulin 2.7 gm/dl (2.5-4.0); Potassium 3.9 mmol/L (3.5-5.1); Total Protein 6.8 gm/dl (6.0-8.3)
[2024-06-20 13:26] LABS: Partial Thromboplastin Time 27 Seconds (21-31); Prothrombin Time 10.8 Seconds (9.0-12.0)
[2024-06-20 13:30] LABS: Troponin I High Sensitivity 27.1 pg/ml (0-20)
[2024-06-20] MEDS: ONDANSETRON INJ 2 MG/ML 2 ML VIAL IV STA (14:09)
[2024-06-20] MEDS: MoRPHine SULFATE 2 MG/ML CARP IV STA (14:09)
--- NOTE | 2024-06-20 14:22 | History & Physical Report ---
Date of Service June 20, 2024 Assessment & Plan (1) Fall: (2) Low back pain: (3) L1 vertebral fracture: (4) Atrial fibrillation with RVR: (5) History of CVA (cerebrovascular accident): (6) Diabetes mellitus, type II: (7) CKD (chronic kidney disease) stage 3, GFR 30-59 ml/min: Plan: Patient is 88 year old male with PMH HTN, HLD, history CVA, DM II, CKD III, BPH, gout, hypothyroidism, h/o AAA, dementia, PAF anticoagulated on Eliquis presented to ER with c/o fall during the night and low back pain. Trying to quickly ambulate to bathroom without walker and fell. #Fall #Ambulatory dysfunction #L1 fracture CT Head: No acute findings. CT C-Spine: No acute fracture Pelvis Xray: No acute fracture CT Abd/pelvis: 1. Acute horizontal fracture along the inferior endplate of L1 with minimal loss of vertebral body height. No retropulsion. No extension into the posterior elements. 2. No additional acute traumatic findings on unenhanced exam. 3. 5.5 cm infrarenal abdominal aortic aneurysm, increased in caliber since CT of April 19, 2021 when it measured 4.8 cm. 4. Cardiomegaly with mild interstitial pulmonary edema. In ER given morphine 2mg IV Obtain CT Thoracic spine to r/o thoracic fracture Pain control with lidocaine patch, scheduled Tylenol, oxycodone, morphine prn pain Orthotics consult for TLSO brace Walks with walker at baseline Fall precautions PT/OT eval May need to consider ortho spine consult #History PAF #Afib RVR Admitted 06/18/24-06/19/24 for new onset A-fib RVR. Started on metoprolol succinate 100 mg daily and started on Eliquis twice daily. 06/19/24 echo: Moderate concentric LVH, no wall motion abnormalities, EF: 50-55%, trace aortic regurgitation, mild-moderate mitral regurgitation. Today Troponins flat 27, 28 Pt did not have home medications today Initially presented to ER in sinus rhythm. During ER course patient appeared to develop A-fib RVR rate up to 160. Patient is asymptomatic denies chest pain, shortness of breath, dizziness or palpitations. BP 211/101 Patient given dose of IV Lopressor 5 mg. Repeat heart rate 123, BP 127/96 Give home metoprolol succinate now and continue daily dosing Continue Eliquis. May need further discussion of risks and benefits with fall risk Monitor on telemetry #Chronic HFpEF Not currently on diuretics Monitor volume status closely #CKD III Cr: 2.1. Was 2.0 on 06/18/24. (Per discussion with OR clinic creatinine 1.6 on 03/19/2024) Monitor renal functions, avoid nephrotoxic agents when possible #HTN Continue losartan, metoprolol succinate Pain control as above #History of CVA (cerebrovascular accident): Continue Plavix Atorvastatin was d/c in 05/2024 per pt and request to decrease amount of medications #Diabetes mellitus, type II: A1c: 7.3 on 06/19/24 Not on home medication per pt request Novolog sliding scale per protocol #BPH (benign prostatic hyperplasia): Continue tamsulosin #Hypothyroidism: Continue levothyroxine #Dementia Currently appears at baseline Had reported delirium like symptoms yesterday upon discharge from hospital which seems to have cleared when pt returned home Monitor for delirium Attempt frequent re-orientation DVT Prophylaxis On Eliquis Admit telemetry DNR/DNI as per discussion with pt, pt's Follows with OR clinic for routine care Pt was seen and care coordinated with Dr Mendez. See addendum I spent a total of 80 minutes reviewing notes, outpatient records, labs, medication, coordinating, documenting and providing care, and discussion with family members for this patient excluding time spent in the performance of separately billed services and excluding time spent by another provider/QHP. History of Present Illness Chief Complaint: Fall Primary Care Provider: [facility] Patient is 88 year old male with PMH HTN, HLD, history CVA, DM II, CKD III, BPH, gout, hypothyroidism, h/o AAA, dementia, PAF anticoagulated on Eliquis, presented to ER with c/o fall during the night and low back pain. Per inpatient chart review patient admitted 06/18/24-06/19/24 for new onset A-fib RVR. Was started on metoprolol succinate 100 mg daily and started on Eliquis twice daily. 06/19/24 echo: Moderate concentric LVH, no wall motion abnormalities, EF: 50-55%, trace aortic regurgitation, mild-moderate mitral regurgitation. Patient had acute HFpEF thought secondary to rapid A-fib and received IV Lasix and return to euvolemic status. Was not discharged on any diuretics. Per discussion with patient's on the phone the friend/neighbor who took patient home yesterday stated patient was more confused. states when he got home yesterday in the afternoon he seemed to be having vision hallucination and was more confused. states last night he seemed back to his normal baseline. Denies any further hallucinations during the night. Patient reports during the night he had to go to bathroom quickly and didn't take his walker and fell backwards in the jay. He thinks hit his head. Thinks might have passed out. Per discussion with she states she was also up and heard him fall and was able to get to him in couple of minutes and he was alert and at that time he denied LOC and was just complaining of back pain. States got him his walker and he was eventually able to get self up and walked to bathroom and was able to get back in bed. Reports prior to getting up he did have urinary incontinence. Patient states he "already had to pee and didn't make it to bathroom". states again around 6am patient attempted to go to bathroom and was weak and c/o back pain. reports patient has been complaining of ongoing bilateral leg weakness. Patient C/O pain to lower back since the fall and is denying leg pain. He denies [place], dizziness, N/V/D/C, vision changes, neck pain, CP, SOB, palpitations, cough, rhinorrhea, abdominal pain, extremity edema, rashes, dysuria, hematuria. This provider Spoke to his [facility] nurse, Santhosh, on phone to confirm his home medications. Reports patient and were concerned about the amount of medications patient was taking so his [facility] PCP stopped amlodipine and hydralazine on 05/28/2024 and losartan was started instead. Reports appears patient's outpatient BP has been well-controlled on losartan. 05/28/2024 atorvastatin and vitamins were also stopped in order to alleviate medication burden. Nurse reports that patient and live home with intellectually challenged adult daughter. Reports patient and have denied placement in past. A neighbor, Brittany, will assist in gathering groceries and sometimes assists in transportation. Allergies Allergy/AdvReac Type Severity Reaction Status Date / Time hydrochlorothiazide Allergy Unknown CAN'T Verified 10/30/22 01:35 REMEMBER ON OR MED LIST Home Medications Medication Instructions Recorded Confirmed Type allopurinol 100 mg tablet 100 mg PO QAM 04/19/18 06/20/24 History cetirizine 10 mg tablet 10 mg PO DAILY 04/19/18 06/20/24 History guaifenesin 600 mg tablet, 600 mg PO DAILY PRN Congestion 04/19/18 06/20/24 History extended release 12 hr (Mucinex) fluocinonide 0.05 % topical cream 1 applic topical BID PRN Skin 10/22/18 06/20/24 History Irritation clopidogrel 75 mg tablet (Plavix) 75 mg PO DAILY #30 tabs 11/04/18 06/20/24 Rx tamsulosin 0.4 mg capsule 0.4 mg PO QPM 04/19/21 06/20/24 History levothyroxine 50 mcg capsule 50 mcg PO QAM 05/30/21 06/20/24 History acetaminophen 500 mg tablet 650 mg PO BID PRN 10/30/22 06/20/24 History (Tylenol Extra Strength) pain,fever,headache diphenhydramine HCl 2 % topical 1 applic topical BID PRN Skin 10/30/22 06/20/24 History gel (Benadryl) Irritation diclofenac sodium 1 % topical gel 2 g topical QID PRN joint pain 06/18/24 06/20/24 History duloxetine 20 mg capsule,delayed 20 mg PO DAILY 06/18/24 06/20/24 History release fluticasone propionate 50 2 spray intranasal HS 06/18/24 06/20/24 History mcg/actuation nasal spray,suspension losartan 25 mg tablet 25 mg PO DAILY 06/18/24 06/20/24 History nut.tx.gluc.intol,lac-free,soy 1 ea PO DAILY 06/18/24 06/20/24 History (Glucerna oral liquid) polyethylene glycol 3350 17 17 g PO DAILY 06/18/24 06/20/24 History gram/dose oral powder (Miralax) apixaban 5 mg tablet (Eliquis) 5 mg PO BID #60 tabs 06/19/24 06/20/24 Rx metoprolol succinate 100 mg 100 mg PO DAILY #30 ea 06/19/24 06/20/24 Rx capsule sprinkle, ext. release 24 hr Past Med/Surg History Problem List (Updated 06/20/24 @ 15:50 by Loreta Allison PA-C) L1 vertebral fracture Low back pain Fall CKD (chronic kidney disease) (Acute) CHF (congestive heart failure) (Acute) Diabetes mellitus, type II History of CVA (cerebrovascular accident) CHF (congestive heart failure) Atrial fibrillation with RVR (Acute) Bilateral leg weakness (Acute) Dyspnea (Acute) Encounter for pre-operative examination Hypertensive urgency (Acute) Near syncope (Acute) CKD (chronic kidney disease) stage 4, GFR 15-29 ml/min (Acute) CKD (chronic kidney disease) stage 3, GFR 30-59 ml/min Ischemic stroke Acute kidney injury superimposed on CKD Medical History Macular degeneration Hx of basal cell carcinoma Degenerative disc disease Neuropathy BLE Kidney disease, chronic, stage III (GFR 30-59 ml/min) BPH (benign prostatic hyperplasia) Prediabetes Hypothyroidism Anemia Stroke 2018 >REASON FOR PLAVIX (DENIES PROBLEMS FROM EVENT) Hyperlipidemia Acute cholangitis Encounter for pre-operative examination Abdominal aortic aneurysm (AAA) 3.0 cm to 5.5 cm in diameter in male BEING MONITORED- FOLLOWED BY [facility] VASCULAR SURGERY- LAST SEEN 01/2021 Per abdomen/pelvis CT - infrarenal aortic aneurysm measuring 46mm in diameter Dementia Vascular dementia per records HTN (hypertension) Surgical History History of ERCP WITH STENT History of cholecystectomy History of tooth extraction History of cataract surgery RT/LEFT History of laparoscopic cholecystectomy Family History Brother Family history of diabetes mellitus Other Family history non-contributory No family history of adverse response to anesthesia Social History Smoking Status: Unknown if ever smoked Tobacco Type: Cigarettes Cigarettes Per Day: 30+ YEARS AGO; Second Hand Exposure: No; Do You Dip or Chew Tobacco: No; Hx Alcohol Use: No Hx Substance Use: No Preferred Language: Monegasque Communication Ability: Effective Communication Ability Comment: Patient appears with some confusion, per Daughter this is normal Customer Support Technician Required: No Beliefs That Will Affect Care: None marital status: Current Living Situation: Spouse Current Living Situation Comment: home current occupational status: retired How many Children do You have: 3 Feels Safe at Home: Yes Assistive Devices: Cane and Walker Review of Systems Review of Systems: All systems reviewed & are unremarkable except as noted in HPI & below Physical Exam Physical Exam: PE per Dr Mendez Results & Data Results & Data Vital Signs (Past 12 Hours) Vital Signs Temp Pulse Resp BP Pulse Ox O2 Del Method O2 Flow Rate 06/20/24 12:30 98 Room Air 06/20/24 12:12 Room Air 06/20/24 12:11 76 06/20/24 11:55 36.8 C 73 20 217/102 H 90 Room Air 0 06/20/24 11:50 36.5 C 72 22 168/100 H 94 Room Air Laboratory Results Short CBC 06/20/24 Range/Units 12:00 WBC 10.14 (4.8-10.8) K/ul Hgb 12.5 L (14.0-18.0) g/dl Hct 37.2 L (42.0-52.0) % Plt Count 232 (130-400) K/uL BMP 06/20/24 12:00 Sodium 140 Potassium 3.9 Chloride 104 Carbon Dioxide 26 BUN 44 H Creatinine 2.15 H Glucose 167 H Calcium 8.6 Cardiac Enzymes 06/20/24 Range/Units 12:00 Total Creatine Kinase 276 H (30-223) U/L Liver Function 06/20/24 Range/Units 12:00 Total Bilirubin 0.8 (0.2-1.0) mg/dl AST 31 (13-39) U/L ALT 17 (7-52) U/L Alkaline Phosphatase 89 (34-104) U/L Albumin 4.1 (3.4-5.0) gm/dl Urine 06/20/24 Range/Units 12:37 Urine Color Yellow Urine Appearance Clear (Clear) Urine pH 6.5 (4.5-7.5) Ur Specific Oriental 1.011 (1.000-1.030) Urine Protein 2+ H (Negative) Urine Glucose (UA) Trace H (Negative) Diagnostic Findings Chest X-Ray 06/20/24 12:13 XR chest 1V portable CLINICAL HISTORY: Trauma COMPARISON STUDY: 06/18/2024 FINDINGS: Stable moderate cardiomegaly without pulmonary vascular congestion. No effusion, consolidation, or pneumothorax seen. IMPRESSION: No acute findings seen. ACT 112: Negative or not required by law. Electronically signed by: Michael Bell M.D. 06/20/2024 12:59 PM Pelvis X-Ray 06/20/24 12:13 XR pelvis 1-2V routine CLINICAL HISTORY: Trauma COMPARISON: None FINDINGS: No fracture or dislocation seen. IMPRESSION: No pelvic fracture seen. ACT 112: Negative or not required by law. Electronically signed by: Michael Bell M.D. 06/20/2024 12:58 PM Abdomen/Pelvis CT 06/20/24 12:14 CT OF THE ABDOMEN AND PELVIS WITHOUT CONTRAST CLINICAL HISTORY: Trauma. COMPARISON STUDY: CT of the abdomen and pelvis, MRCP and right upper quadrant ultrasound April 19, 2021. TECHNIQUE: Axial images of the abdomen and pelvis were obtained without IV contrast. Images were reviewed in the axial, sagittal, and coronal planes. Automated exposure control was utilized for the study. A dose lowering technique was utilized adhering to the principles of ALARA. FINDINGS: Cardiomegaly and mild interlobular septal thickening within the lower lungs are incidentally noted. No hemoperitoneum or pneumoperitoneum is present. Solid abdominal viscera are suboptimally assessed on unenhanced exam but there is no evidence for traumatic injury to the liver, spleen, adrenal glands, kidneys or pancreas. There is hepatic steatosis. No biliary ductal dilatation status post cholecystectomy. Prominent april hepatis lymph nodes are unchanged. Left-sided parapelvic cysts are noted. Stranding within the left renal sinus is unchanged. There is a 5.5 cm infrarenal abdominal aortic aneurysm without evidence for rupture. The aneurysm measured 4.[address] of April 19, 2021. Caliber and wall thickness of small and large bowel are normal. There is sigmoid diverticulosis without evidence for acute diverticulitis. Prostate is enlarged, measuring 5.4 cm in transverse diameter. A small portion of the proximal sigmoid colon slightly extends into a left inguinal hernia. There is an acute horizontal fracture along the inferior endplate of L1 with minimal loss of vertebral body height. No retropulsion is present. No extension into the posterior elements is noted. No additional acute fractures. IMPRESSION: 1. Acute horizontal fracture along the inferior endplate of L1 with minimal loss of vertebral body height. No retropulsion. No extension into the posterior elements. 2. No additional acute traumatic findings on unenhanced exam. 3. 5.5 cm infrarenal abdominal aortic aneurysm, increased in caliber since CT of April 19, 2021 when it measured 4.8 cm. 4. Cardiomegaly with mild interstitial pulmonary edema. ACT 112: Negative or not required by law. Electronically signed by: Nahun Nascimento M.D. 06/20/2024 12:[address] 06/20/24 12:14 CT SCAN OF THE CERVICAL SPINE CLINICAL HISTORY: Fall. COMPARISON STUDY: CTA of the neck October 30, 2022. Chest CT April 19, 2021. TECHNIQUE: CT scan of the cervical spine is performed from the skull base to the upper thoracic spine. Images are reviewed in the axial, sagittal, and coronal planes. IV contrast was not administered for this examination. A dose lowering technique was utilized adhering to the principles of ALARA. FINDINGS: Alignment of the cervical spine is anatomic. Vertebral body heights are maintained. There are no cervical spine fractures. There is moderate degenerative disc disease and facet arthrosis within the cervical spine. Cortical irregularity of the inferior endplate of T2 is unchanged since CT of October 30, 2022. No acute fractures are identified. There is no prevertebral edema. Interlobular septal thickening within the lung apices is incidentally noted. IMPRESSION: No acute cervical spine fracture or subluxation. ACT 112: Negative or not required by law. Electronically signed by: Nahun Nascimento M.D. 06/20/2024 12:[address] 06/20/24 12:14 CT head/brain wo con CLINICAL HISTORY: Trauma. TECHNIQUE: Multiple axial CT images of the head were obtained without contrast. A dose lowering technique was utilized adhering to the principles of ALARA. CT DOSE: 2718.72 mGy.cm COMPARISON: 10/30/2022 FINDINGS: There are stable severe chronic small vessel ischemic changes. Stable small area of encephalomalacia right occipital lobe consistent with old infarction. No intracranial hemorrhage seen. No mass effect, midline shift, or hydrocephalus. Stable globus pallidus calcifications, unremarkable in this age group. No skull fracture seen. Visualized paranasal sinuses and mastoid air cells are clear. IMPRESSION: No acute findings. ACT 112: Negative or not required by law. The above report was generated using voice recognition software. It may contain grammatical, syntax or spelling errors. Electronically signed by: Michael Bell M.D. 06/20/2024 12:38 PM Supervising Physician Co-Signing Physician Notes Patient seen and examined independently. Discussed with above provider. Patient presents to the hospital with mechanical fall after he fell on his back while using the walker. He immediately had lower back pain; denies any weakness/numbness of lower extremity, loss of consciousness, bleeding from any orifice. CT abdomen pelvis showed acute horizontal fracture along the inferior endplate of L1 with minimal loss of vertebral body height. Telemetry on admission shows atrial fibrillation with RVR likely secondary to pain. Plan is to admit to telemetry; pain control with Tylenol, oxycodone and morphine. PT OT evaluation. Will resume home meds for atrial fibrillation with RVR. On physical examination; Constitutional: Awake alert oriented x 3; in pain. Respiratory: normal respiratory effort, lungs clear to auscultation, no wheeze, rales, rhonchi. Normal insp/exp effort, no accessory muscle use Cardiovascular: Irregular, no murmur, no edema Vessels: no JVD or carotid bruit Chest: normal inspection of chest Abdomen: normal bowel sounds, soft, nontender, no hepatosplenomegaly Musculoskeletal: Tenderness in lower back. Neurologic: PERRL, EOMI, accommodation nl, no face palsy, no dysarthria CN's II- XI intact bilaterally and moves all extremities I have reviewed the advanced practitioner's documentation, and I agree with, and take responsibility for the plan of care I spent a total of 24 minutes coordinating, documenting, and providing care for this patient excluding time spent in the performance of separately billed services. All of the aforementioned completed while collaborating with the assigned advanced practitioner for a full treatment plan
[2024-06-20] MEDS: METOPROLOL TARTRATE 1 MG/ML VIAL IV STA ×2 (14:40→20:43)
[2024-06-20] MEDS: oxyCODONE HCL IR 5 MG TAB (IMMEDIATE RELEASE) PO STA (14:41)
[2024-06-20] MEDS: ACETAMINOPHEN 500 MG TAB PO STA (15:38)
[2024-06-20] MEDS: METOPROLOL SUCC 50MG EXT REL TAB PO STA (15:47)
[2024-06-20] MEDS: LIDOCAINE 5% 1 PATCH TD STA (15:47)
[2024-06-20] MEDS: SODIUM CHLORIDE 0.9% 500 ML IV SCH (15:54)
--- NOTE | 2024-06-20 16:16 | Electrocardiogram Report ---
Test Reason : Blood Pressure : */* mmHG Vent. Rate : 75 BPM Atrial Rate : 75 BPM P-R Int : 186 ms QRS Dur : 130 ms QT Int : 460 ms P-R-T Axes : 107 -76 -10 degrees QTcB Int : 513 ms Normal sinus rhythm Right bundle branch block Left anterior fascicular block Bifascicular block Possible Lateral infarct , age undetermined Abnormal ECG When compared with ECG of 19-Jun-2024 04:37, No significant change was found Confirmed by Bayron Mcclure ([id number]) on 06/20/2024 4:16:47 PM Referred By: Confirmed By: Bayron Mcclure
--- NOTE | 2024-06-20 16:21 | Electrocardiogram Report ---
Test Reason : Blood Pressure : */* mmHG Vent. Rate : 122 BPM Atrial Rate : * BPM P-R Int : * ms QRS Dur : 122 ms QT Int : 384 ms P-R-T Axes : * -78 40 degrees QTcB Int : 547 ms Sinus tachycardia with frequent , and consecutive Premature atrial complexes Left axis deviation Right bundle branch block Minimal voltage criteria for LVH, may be normal variant ( R in aVL ) Possible Lateral infarct (cited on or before 22-Oct-2018) Inferior infarct , age undetermined Abnormal ECG When compared with ECG of 20-Jun-2024 11:54, (unconfirmed) Vent. rate has increased by 47 bpm T wave inversion no longer evident in Inferior leads Confirmed by Bayron Mcclure ([id number]) on 06/20/2024 4:20:40 PM Referred By: REFERRED SELF Confirmed By: Bayron Mcclure
--- NOTE | 2024-06-20 16:57 | CT Scan Report ---
EXAM: CT Thoracic and Lumbar Spine Without Intravenous Contrast INDICATION: Posttraumatic pain. Fell today. TECHNIQUE: Axial computed tomography images of the thoracic and lumbar spine without intravenous contrast. Sagittal and coronal reformatted images were created and reviewed. This CT exam was performed using one or more of the following dose reduction techniques: automated exposure control, adjustment of the mA and/or kV according to patient size, and/or use of iterative reconstruction technique. COMPARISON: No relevant prior studies available. FINDINGS: Vertebrae: The bones are demineralized. There is mild convex right thoracic and convex left lumbar spinal bowing. There is an acute compression fracture of the superior endplate of L1 with 3-4 mm retropulsion and mild superior endplate concavity. There is mild anterior height loss. There is an acute appearing mild compression deformity of the inferior endplate of T2 with mild anterior wedging. No retropulsion. There is moderate thoracolumbar spondylosis. There is mild to moderate diffuse lumbar facet arthrosis. There is grade 1 degenerative retrolisthesis of L3 on L4. No traumatic subluxation identified. There are 12 rib-bearing thoracic and 5 nonrib-bearing lumbar type vertebra. Discs/spinal canal/neural foramina: There is diffuse thoracolumbar mild to moderate disc space narrowing. There is mild ventral canal stenosis related to retropulsion of the L1 fracture and degenerative disc change. There is moderate canal stenosis secondary to diffuse osteophyte disc bulge and ligamentous and facet hypertrophy L2-L3, L3-L4 and L4-L5. Bilateral foraminal stenosis at these levels. There is a diffuse predominantly central disc bulge L5-S1 with slight bilateral subarticular narrowing right greater than left with impingement of the right foraminal S1 nerve root and moderate canal stenosis. Soft tissues: No significant abnormality noted. Lymph nodes: Shotty nodes present in all mediastinal compartments and smaller nodes in the bilateral hilum. Largest singly measurable node is in the aortopulmonary window measuring short axis dimension 1.3 cm. Lungs and pleural spaces: There is coarse bilateral symmetrical reticulation and mild bronchiectasis and honeycombing in the visualized lower lobes. Heart: Partially imaged heart is enlarged. IMPRESSION: 1. Acute appearing compression fractures of T2 and L1 as above. 2. Moderate to marked multilevel degenerative changes of the lumbar spine. 3. Pulmonary fibrosis and mediastinal and hilar adenopathy likely reactive. ACT 112: Positive. There are findings on this exam that require communication between the performing entity and the patient following Patient Test Result Information Act ([place] ACT 112) guidelines. Electronically signed by Brianna Delaney 06-20-2024 4:56 PM
--- OUTSIDE RECORDS SUMMARY | 2024-06-20 17:08 | External Medical Summary | Summary of Care ---
Author Name Unknown Organization [facility] Address [address] [facility] [address] Phone [phone] Care Team Providers Care Piece Goods Clerk Name Role Phone Unavailable Primary Care Provider Unavailabl e Reason for Referral * Evaluate & Treat - Unlimited Visits (Within 10 days (routine)) - Authorized Specialty Diagnoses / Procedures Referred By Contact Referred To Contact Cardiovascular Medicine / Cardiology Diagnoses A-fib (HCC) Jani Albrecht DO [address] [place] [address] Phone: tel: fax: Referral ID Status Reason Start Date Expiration Date Visits Requested Visits Authorized [id number] Authorized Specialty Services Required 06/19/[phone] Question Answer Referral Priority Within 10 days (routine) Where should this appointment be scheduled? [facility] For which of the following conditions are you referring? Atrial Fibrillation (A. Fib) Comments Pt d/c from [facility] with recommendation to establish care with cardiology. No cardiology consult while inpatient. Encounter Details Date Type Department Care Team (Late st Contact Info) Description 06/19/2024 Orders Only Cardiology, [facility] [address] [place] [phone] Jani Albrecht DO [address] [place] [address] A-fib (HCC)* Allergies Active Allergy Reactions Criticality Noted Date Comments Hydrochlorothiazide Rash 02/07/2013 documented as of this encounter (statuses as of 06/19/2024) Medications gukaryFENesin ER 600 MG Oral Tablet Extended Release 12 Hour Take 1 Tablet by mouth 2 times a day as needed for Congestion. Take with plenty of water. Do not cut, crush or chew 40 Tab 2 7 Active Multiple Vitamins-Mineral s (PRESERVISION AREDS 2+MULTI VIT) CAPS Take by mouth. Activ e Cholecalciferol (VITAMIN D) 1000 units Tablet Take 1 Tablet by mouth in the morning. Active Ferrous Sulfate (IRON) 325 (65 Fe) MG TABS Take by mouth daily. 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 30 Tab 1 Active Cetirizine HCl 10 MG Oral Tablet (ZyrTEC)Indicati ons:Chronic pansinusitis Take 1 Tab by mouth daily. 90 Tab 3 1 Active Amoxicillin-Pot Clavulanate 500-125 MG Oral Tablet Take 1 Tablet by mouth in the morning and 1 Tablet before bedtime. PER [facility] DC INSTRUCTIONS DATED 04/24/21. 20 Tablet 2 Active Pantoprazole Sodium 40 MG Oral Tablet Delayed Release (Protonix) Take 1 Tablet by mouth in the morning. PER [facility] DC INSTRUCTIONS DATED 04/24/21. 2 Active hydrALAZINE HCl 25 MG Oral Tablet (Apresoline)Loly cations:Vascular dementia without behavioral disturbance (HCC) Take by mouth 0.5 Tablets in the morning AND 0.5 Tablets before bedtime. 100 Tablet 3 2 Active Tamsulosin HCl 0.4 MG Oral Capsule (Flomax) TAKE 1 CAPSULE DAILY 90 Capsule 3 2 Active Atorvastatin Calcium 40 MG Oral Tablet (Lipitor)Indicat ions:Hyperlipide cristina with target LDL less than 100 TAKE 1 TABLET DAILY AT BEDTIME 90 Tablet 3 2 Active Metoprolol Tartrate 25 MG Oral Tablet (Lopressor)Indic ations:Vascular dementia without behavioral disturbance (HCC) TAKE 1 TABLET TWICE A DAY FOR HYPERTENSION (INSTEAD OF PROPANOLOL) 180 Tablet 3 Active amLODIPine Besylate 5 MG Oral Tablet (Norvasc)Indicat ions:HTN, goal below 140/90 TAKE 1 TABLET TWICE A DAY 180 Tablet 3 Active Clopidogrel Bisulfate 75 MG Oral Tablet (pLAVix)Indicati ons:Vascular dementia without behavioral disturbance (HCC) TAKE 1 TABLET DAILY 90 Tablet 3 Active documented as of this encounter (statuses as of 06/19/2024) Active Problems Problem Noted Date Diagnosed Date Type 2 diabetes mellitus wit h hemoglobin A1c goal of less than 8.0% 10/12/2022 Chronic kidney disease, stage 3b 07/20/2020 Overview: Per CKD protocol Hypertensive kidney disease with stage 3b chronic kidney disease 01/19/2020 Overview: Per CKD protocol Alzheimer's disease, unspecified (CODE) 04/10/19 20 Occipital stroke 01/26/2019 Bilateral leg weakness 05/23/2018 Imbalance 05/23/2018 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 05/23/2018 ACEI/ARB contraindicated 05/22/2017 Chronic pansinusitis 01/22/2017 Abdominal aortic aneurysm (AAA) without rupture 04/03/2016 Parapelvic renal cyst 12/14/2015 DDD (degenerative disc disease), lumbar 12/02/19 16 History of basal cell carcinoma 04/22/2013 Impaired fasting glucose 11/18/2012 High triglycerides 01/30/2011 Encounter for long-term (current) use of medicat ions 01/08/2004 Overview (01/02/2017): ICD-10 update of inactive term Chronic idiopathic gout of foot 03/24/2003 Essential tremor HTN, goal below 140/90 Statin intolerance Vascular dementia with behavior disturbance Stroke, lacunar Overview (01/27/2019): seen in CT documented as of this encounter (statuses as of 06/19/2024) Resolved Problems Problem Noted Date Diagnosed Date Resolved Date Chronic kidney disease, stage 3b 07/20/2020 08/26/2020 Overview: Per CKD protocol Chronic kidney disease, stage 3 unspecified 06/04/2020 07/22/2020 Overview: Per CKD protocol Prediabetes 04/22/2019 10/26/2022 Overview: Per Prediabetes protocol Prediabetes 03/25/2018 01/24/2019 Overview: Per Prediabetes protocol #1 MEDICATION USE AGREEMENT 05/12/2016 Dermatitis 03/19/2013 05/22/2017 HTN, goal below 130/80 02/21/201212/27 Hypertensive kidney disease with chronic kidney disease stage III 07/21/2011 01/22/2020 Overview: Per CKD protocol ADVANCE DIRECTIVE INFORMATION 12/25/2005 01/14/2024 Overview (12/25/2005): Information given to patient. SPRAIN SHOULDER-ARM NEC 03/24/200305/10 Stroke, lacunar 05/21/2018 Overview (04/26/2018): seen in CT documented as of this encounter (statuses as of 06/19/2024) Immunizations Name Administration Dates Next Due COVID-19 mRNA, LNP-s, No Pre serve, 2-Dose Series (Dctio) 07/19/2020,06/28/2020 Diptheria/Tetanus (Adult) 03/12/2009 Pneumococcal Conjugate Vacc, 13 Valent (Prevnar) 11/19/2015 Season Influenza, Quad, PF, Adjuvanted, 65+ Yrs, IM (FLUAD) 12/03/2019 Seasonal Influenza Vac., MDV , IM, 0.5 mL (Fluzone) 02/01/2016,01/22/2015,01/29/2014,2012,11/17/2011,01/16/2006 Seasonal Influenza Virus Vac cine, Unspecified Formulation 11/23/2018,01/14/2018,01/22/2017,2016,02/01/2016,01/14/2015,01/29/2014,1 03/12/2012,11/18/2012,11/17/2011, 009,12/19/2007,12/10/2006,01/16/2006,,01/16/2005,02/22/2004,12/26/19 03,01/10/2002,01/11/2001,01/18/2000,10/1998 Seasonal Influenza, PF, 6 M & above, IM , (FluLaval or Fluzone) 01/14/2018,01/22/2017 Seasonal Influenza, Quadriva lent Hd (Fluzone Hd) 12/06/2020 Seasonal Influenza, Quadriva lent Hd, 65+ Yrs 01/14/2018 Seasonal Influenza, Quadriva lent, No Preserve, IM 01/14/2015 Seasonal Influenza, Trivalen t, Adjuvanted, 65+ YRS, PF, (Fluad) 11/25/2018 TD - Tetanus/Diptheria (ADULT) 03/12/2009 TD, Preservative Free 03/12/2009 TDAP (age 10 and older)(Boostrix) 01/10/2019 Zoster Vaccine Recombinant (Shingrix) 05/05/2019 ,01/10/2019 documented as of this encounter Social History Tobacco Use Types Packs/Day Years Used Date Smoking Tobacco: Former Cigarettes 0.8 36 0 [birth year]/12/1954 - 03/12/1990 Smokeless Tobacco: Never Alcohol Use Standard Drinks/Week Comments No 0 (1 standard drink = 0.6 oz pur e alcohol) PHQ-2 Answer Date Recorded PHQ Adult Total Score 0 06/04/2020 Hunger Vital Sign Answer Date Recorded Worried About Running Out of Food in the Last Ye ar Never true 01/06/2019 Ran Out of Food in the Last Year Never true 01/06/2019 Utilities Answer Date Recorded Do you have trouble paying y our heating, water, or electric bill? (Adult - for ages 18 years and over) Not on file 08/28/2023 Is your family able to pay t he heat, water, or electric bill? (Household - for ages 0-17 years) Not on file 08/28/2023 Does your family have access to good internet? (Household - for ages 0-17 years) Not on file 08/28/2023 Social Connections Answer Date Recorded How often do you feel lonely or isolated from those around you? (Adult - for ages 18 years and over) Not on file 08/28/2023 Sex and Gender Information Value Date Recorded Sex Assigned at Male 11/25/2018 1:15 PM EDT Legal Sex Male 4:55 AM EST Gender Identity Male 11/25/2018 1:15 PM EDT Sexual Orientation Straight 11/25/2018 1: 15 PM EDT documented as of this encounter Plan of Treatment Upcoming Encounters Date Type Department Care Team (Late st Contact Info) Description 09/26/2024 9:00 AM EDT Office Visit Cardiology, [facility] [address] [place] [phone] Stu Ledezma MD [address] [place] [phone] Scheduled Referrals Name Type Priority Associated Diagnoses Orde r Schedule CARDIOLOGY REFERRAL OP Referral Within 10 days (routine) A-fib (HCC) Ordered: 06/19/2024 Health Maintenance Due Date Last Done Comments Depression Screening 1947 Albumin/Creatinine Ratio 09[birth year]20/1953 Diabetic Eye Exam 09/20/1953 Diabetic Foot Exam 09/20/1953 CKD PHOS USE SMARTSET 67692 06/13/2022 04/0 06/2021, 07/14/2019, 04/10/2019, Additional history exists HbA1c 07/10/2023 01/09/2023, 0603/2022, 12/06/2020, Additional history exists CKD HGB USE SMARTSET 31807 01/10/202401/09, 08/30/2022, 09/15/2021, Additional history exists COVID-19 Vaccine ( season) 2024 12/13/2023, 01/08/2023, 02/10/2021, Additional history exists DTap/Tdap Vaccines (2 - Td or Tdap) 01/10/2029 01/10/2019, 03/12/2009, 03/12/2009, Additional history exists Zoster Vaccines Completed 05/05/2019, 01/10/2019 Pneumococcal Vaccine: 50+ Years Completed 05/01/2023, 11/19/2015, 03/20/2002 Influenza Vaccine (FLU shot) Completed 06/2023, 12/06/2020, 12/03/2019, Additional history exists HPV (Gardasil) Vaccine Aged Out No lo nger eligible based on patient's age to complete this topic Hepatitis B Vaccine Aged Out No longe r eligible based on patient's age to complete this topic MENINGOCOCCAL (MENACTRA/MENVEO) Aged Out No longer eligible based on patient's age to complete this topic Meningitis B Vaccine (Bexsero/Trumemba) Aged Out No longer eligible based on patient's age to complete this topic documented as of this encounter Medical Devices Not on filedocumented as of this encounter Visit Diagnoses Diagnosis A-fib (HCC)- Primary Atrial fibrillation documented in this encounter Advance Directives Documents on File Type Date Recorded Patient Plant Health Care Technician Expl anation LILIAN 10/05/2022 [place] [facility] FOR LIFE-SUSTAINING TREATMENT
--- NOTE | 2024-06-20 18:06 | Emergency Department Note ---
History of Present Illness General Chief complaint: Trauma Time Seen by Provider: 06/20/24 12:06 History of Present Illness Provider complaint: Trauma Maximum Pain Intensity: 2 88-year-old male on Eliquis presents emergency department as a trauma. Patient reports he got up to use the bathroom last night and then passed out and fell. Patient reporting pain in his lower back. Patient denies any chest pain headache abdominal pain or neck pain. Home Medications Medication Instructions Recorded Confirmed Type allopurinol 100 mg tablet 100 mg PO QAM 04/19/18 06/20/24 History cetirizine 10 mg tablet 10 mg PO DAILY 04/19/18 06/20/24 History guaifenesin 600 mg tablet, 600 mg PO DAILY PRN Congestion 04/19/18 06/20/24 History extended release 12 hr (Mucinex) fluocinonide 0.05 % topical cream 1 applic topical BID PRN Skin 10/22/18 06/20/24 History Irritation clopidogrel 75 mg tablet (Plavix) 75 mg PO DAILY #30 tabs 11/04/18 06/20/24 Rx tamsulosin 0.4 mg capsule 0.4 mg PO QPM 04/19/21 06/20/24 History levothyroxine 50 mcg capsule 50 mcg PO QAM 05/30/21 06/20/24 History acetaminophen 500 mg tablet 650 mg PO BID PRN 10/30/22 06/20/24 History (Tylenol Extra Strength) pain,fever,headache diphenhydramine HCl 2 % topical 1 applic topical BID PRN Skin 10/30/22 06/20/24 History gel (Benadryl) Irritation diclofenac sodium 1 % topical gel 2 g topical QID PRN joint pain 06/18/24 06/20/24 History duloxetine 20 mg capsule,delayed 20 mg PO DAILY 06/18/24 06/20/24 History release fluticasone propionate 50 2 spray intranasal HS 06/18/24 06/20/24 History mcg/actuation nasal spray,suspension losartan 25 mg tablet 25 mg PO DAILY 06/18/24 06/20/24 History nut.tx.gluc.intol,lac-free,soy 1 ea PO DAILY 06/18/24 06/20/24 History (Glucerna oral liquid) polyethylene glycol 3350 17 17 g PO DAILY 06/18/24 06/20/24 History gram/dose oral powder (Miralax) apixaban 5 mg tablet (Eliquis) 5 mg PO BID #60 tabs 06/19/24 06/20/24 Rx metoprolol succinate 100 mg 100 mg PO DAILY #30 ea 06/19/24 06/20/24 Rx capsule sprinkle, ext. release 24 hr Allergies Allergy/AdvReac Type Severity Reaction Status Date / Time hydrochlorothiazide Allergy Unknown CAN'T Verified 10/30/22 01:35 REMEMBER [facility] Past Med/Surg History Problem List (Updated 06/20/24 @ 18:06 by Jus Chilel MD) L1 vertebral fracture (Acute) Low back pain Fall (Acute) CKD (chronic kidney disease) (Acute) CHF (congestive heart failure) (Acute) Diabetes mellitus, type II History of CVA (cerebrovascular accident) CHF (congestive heart failure) Atrial fibrillation with RVR (Acute) Bilateral leg weakness (Acute) Dyspnea (Acute) Encounter for pre-operative examination Hypertensive urgency (Acute) Near syncope (Acute) CKD (chronic kidney disease) stage 4, GFR 15-29 ml/min (Acute) CKD (chronic kidney disease) stage 3, GFR 30-59 ml/min Ischemic stroke Acute kidney injury superimposed on CKD Medical History Macular degeneration Hx of basal cell carcinoma Degenerative disc disease Neuropathy BLE Kidney disease, chronic, stage III (GFR 30-59 ml/min) BPH (benign prostatic hyperplasia) Prediabetes Hypothyroidism Anemia Stroke 2018 >REASON FOR PLAVIX (DENIES PROBLEMS FROM EVENT) Hyperlipidemia Acute cholangitis Encounter for pre-operative examination Abdominal aortic aneurysm (AAA) 3.0 cm to 5.5 cm in diameter in male BEING MONITORED- FOLLOWED BY [facility]ULAR SURGERY- LAST SEEN 01/2021 Per abdomen/pelvis CT - infrarenal aortic aneurysm measuring 46mm in diameter Dementia Vascular dementia per records HTN (hypertension) Surgical History History of ERCP WITH STENT History of cholecystectomy History of tooth extraction History of cataract surgery RT/LEFT History of laparoscopic cholecystectomy Family History Brother Family history of diabetes mellitus Other Family history non-contributory No family history of adverse response to anesthesia Social History Smoking Status: Unknown if ever smoked Tobacco Type: Cigarettes Cigarettes Per Day: 30+ YEARS AGO; Second Hand Exposure: No; Do You Dip or Chew Tobacco: No; Hx Alcohol Use: No Hx Substance Use: No Preferred Language: Welsh Communication Ability: Effective Communication Ability Comment: Patient appears with some confusion, per Daughter this is normal Aviation Safety Inspector Required: No Beliefs That Will Affect Care: None marital status: Current Living Situation: Spouse Current Living Situation Comment: home current occupational status: retired How many Children do You have: 3 Feels Safe at Home: Yes Assistive Devices: Cane and Walker Physical Exam Vital Signs Vital Signs - 24 hr 06/20/24 11:50 06/20/24 11:55 06/20/24 12:11 Temperature 36.5 C 36.8 C Temperature Source Oral Pulse Rate 72 73 76 Pulse Rate [Apical] Pulse Strength [Left Carotid] Normal Respiratory Rate 22 20 Blood Pressure 168/100 H 217/102 H Blood Pressure [Right Arm] Blood Pressure Mean 122 Blood Pressure Mean [Right Arm] Pulse Oximetry 94 90 Oxygen Delivery Method Room Air Room Air Oxygen Flow Rate 0 Sepsis Recent Fever Within 48 Hours No Sepsis New/Unexplained Change in Mental Status N/A Sepsis Action Taken by Nursing Physician Notified 06/20/24 12:12 06/20/24 12:12 06/20/24 12:30 Temperature Temperature Source Pulse Rate Pulse Rate [Apical] 75 Pulse Strength [Left Carotid] Respiratory Rate 22 Blood Pressure Blood Pressure [Right Arm] 195/99 H Blood Pressure Mean Blood Pressure Mean [Right Arm] 131 Pulse Oximetry 91 98 Oxygen Delivery Method Room Air Room Air Room Air Oxygen Flow Rate Sepsis Recent Fever Within 48 Hours Sepsis New/Unexplained Change in Mental Status Sepsis Action Taken by Nursing 06/20/24 13:12 06/20/24 14:12 06/20/24 14:29 Temperature Temperature Source Pulse Rate 160 H Pulse Rate [Apical] 74 72 Pulse Strength [Left Carotid] Respiratory Rate 16 17 Blood Pressure Blood Pressure [Right Arm] 207/100 H 211/101 H Blood Pressure Mean Blood Pressure Mean [Right Arm] 135 137 Pulse Oximetry 91 92 Oxygen Delivery Method Nasal Cannula Nasal Cannula Oxygen Flow Rate 2 2 Sepsis Recent Fever Within 48 Hours Sepsis New/Unexplained Change in Mental Status Sepsis Action Taken by Nursing 06/20/24 14:40 06/20/24 15:30 Temperature Temperature Source Pulse Rate 132 H 123 H Pulse Rate [Apical] Pulse Strength [Left Carotid] Respiratory Rate Blood Pressure 169/115 H 127/96 Blood Pressure [Right Arm] Blood Pressure Mean Blood Pressure Mean [Right Arm] Pulse Oximetry Oxygen Delivery Method Oxygen Flow Rate Sepsis Recent Fever Within 48 Hours Sepsis New/Unexplained Change in Mental Status Sepsis Action Taken by Nursing Physical Exam HENT: Exam performed. - Head: Abrasions on the patient's head. EYES: Conjunctivae and EOM are normal. Pupils are equal, round, and reactive to light. Right eye exhibits no discharge. Left eye exhibits no discharge. No scleral icterus. NECK: Normal range of motion. Neck supple. No JVD present. No spinous process tenderness present. CV: Normal rate, regular rhythm, normal heart sounds and intact distal pulses. There is no peripheral edema. Palpable radial pulses bue. PULM/CHEST: Effort normal and breath sounds normal. No respiratory distress. No stridor. He has no wheezes. He has no rales. ABD: The abdomen is soft.There is no tenderness. There is no rebound, no guarding. MUSC/SKEL: No C or T-spine tenderness. Pain on palpation of the L-spine reproducing chief complaint. NEURO: Motor and sensation grossly intact. SKIN: Ecchymosis to the left upper extremity. Course Course 1206: The patient was evaluated in room B11. A complete history and physical exam was performed Cardiac monitoring: An order was placed for continuous cardiac monitoring. The monitor shows a rate of 70 with sinus rhythm interpreted by me Patient was made trauma alert. External medical history reviewed. Patient was discharged yesterday from the hospital. Patient is DNR/DNI. Patient was discharged with diagnosis of A-fib RVR. 1335: Vital signs stable. Labs are unremarkable. Imaging shows an L1 fracture. No significant retropulsion. [facility] be [facility] to the [facility] team. Administered Medications Sodium Chloride (Nss) 500 mls @ 80 mls/hr IV .[id number] YURIDIA Stop: 06/20/24 22:14 Last Admin: 06/20/24 15:54 Dose: 80 mls/hr Documented By: CEF Discontinued Medications Acetaminophen (Acetaminophen 500 Mg Tab) 1,000 mg PO NOW STA Stop: 06/20/24 14:46 Last Admin: 06/20/24 15:38 Dose: 1,000 mg Documented By: CEF Lidocaine (Lidocaine 5% 1 Patch) 1 patch TD NOW STA Stop: 06/20/24 14:53 Last Admin: 06/20/24 15:47 Dose: 1 patch Documented By: CEF Metoprolol Succinate (Metoprolol Succ 50mg Ext Rel Tab) 100 mg PO NOW STA Stop: 06/20/24 14:41 Last Admin: 06/20/24 15:47 Dose: 100 mg Documented By: CEF Metoprolol Tartrate (Metoprolol Tartrate 1 Mg/Ml Vial) 5 mg IV NOW STA Stop: 06/20/24 14:34 Last Admin: 06/20/24 14:40 Dose: 5 mg Documented By: HORTENCIA Morphine Sulfate (Morphine Sulfate 2 Mg/Ml Carp) 2 mg IV NOW STA Stop: 06/20/24 13:36 Last Admin: 06/20/24 14:09 Dose: 2 mg Documented By: SCOTT Ondansetron HCl (Ondansetron Inj 2 Mg/Ml 2 Ml Vial) 4 mg IV NOW STA Stop: 06/20/24 13:36 Last Admin: 06/20/24 14:09 Dose: 4 mg Documented By: SCOTT Oxycodone HCl (Oxycodone Hcl Ir 5 Mg Tab (Immediate Release)) 5 mg PO NOW STA Stop: 06/20/24 14:36 Last Admin: 06/20/24 14:41 Dose: 5 mg Documented By: HORTENCIA Medical Decision Making Laboratory Data Attestation: I reviewed the patient's lab results. 06/20/24 12:00 06/20/24 12:00 Lab Results 06/20/24 06/20/24 06/20/24 Range/Units 12:00 12:32 12:37 WBC 10.14 (4.8-10.8) K/ul RBC 3.67 L (4.70-6.10) M/uL Hgb 12.5 L (14.0-18.0) g/dl POC Hgb (14.0-18.0) g/dl Hct 37.2 L (42.0-52.0) % POC Hct (42-52) % MCV 101.4 H (80.0-100.0) fL MCH 34.1 H (25.0-34.0) pg MCHC 33.6 (32.0-36.0) g/dL RDW Std Deviation 52.2 H (36.4-46.3) fL RDW Coeff of Angelika 14.1 (11.5-14.5) % Plt Count 232 (130-400) K/uL MPV 10.4 (9.4-12.4) fL Immature Gran % (Auto) 0.8 % Neut % (Auto) 79.0 % Lymph % (Auto) 14.1 % Frederick % (Auto) 5.2 % Eos % (Auto) 0.5 % Baso % (Auto) 0.4 % Neut # (Auto) 8.01 H (1.40-6.50) K/uL Lymph # (Auto) 1.43 (1.20-3.40) K/uL Frederick # (Auto) 0.53 (0.11-0.59) K/uL Eos # (Auto) 0.05 (0.00-0.50) K/uL Baso # (Auto) 0.04 (0.00-0.20) K/uL Immature Gran # (Auto) 0.08 (0.01-0.20) K/uL PT 10.8 (9.0-12.0) Seconds INR 1.0 (0.9-1.1) APTT 27 (21-31) Seconds PTT Ratio 1.0 POC Sodium (135-144) mmol/L Sodium 140 (136-145) mmol/L POC Potassium (3.3-5.0) mmol/L Potassium 3.9 (3.5-5.1) mmol/L POC Chloride (101-112) mmol/L Chloride 104 (98-107) mmol/L Carbon Dioxide 26 (21-32) mmol/L POC Total CO2 (24-31) mmol/L Anion Gap 10 (3-11) POC Anion Gap (16-25) mmol/L POC BUN (7-18) mg/dl BUN 44 H (6-23) mg/dl Creatinine 2.15 H (0.6-1.4) mg/dl POC Creatinine (0.6-1.3) mg/dl Est Cr Clr Drug Dosing 27.1 ml/min eGFR 28.89 BUN/Creatinine Ratio 20.5 H (10-20) Glucose 167 H (70-99(Fasting)) mg/dl POC Glucose 171 H (70-99) mg/dl POC Glucose (other) (70-99) mg/dl Calcium 8.6 (8.6-10.3) mg/dl POC Ioniz Calcium Erinn (1.12-1.32) mmol/l Total Bilirubin 0.8 (0.2-1.0) mg/dl AST 31 (13-39) U/L ALT 17 (7-52) U/L Alkaline Phosphatase 89 (34-104) U/L Total Creatine Kinase 276 H (30-223) U/L Troponin I High Sens 27.1 H D (0-20) pg/ml Total Protein 6.8 (6.0-8.3) gm/dl Albumin 4.1 (3.4-5.0) gm/dl Globulin 2.7 (2.5-4.0) gm/dl Albumin/Globulin Ratio 1.5 (0.9-2) Lipase 9 L (11-82) U/L Urine Color Yellow Urine Appearance Clear (Clear) Urine pH 6.5 (4.5-7.5) Ur Specific [place] 1.011 (1.000-1.030) Urine Protein 2+ H (Negative) Urine Glucose (UA) Trace H (Negative) Urine Ketones Negative (Negative) Urine Blood 1+ H (Negative) Urine Nitrite Negative (Negative) Urine Bilirubin Negative (Negative) Urine Urobilinogen Negative (Negative) Ur Leukocyte Esterase Negative (Negative) Urine WBC (Auto) 0-5 (0-5) /hpf Urine RBC (Auto) 0-2 (0-2) /hpf U Hyaline Cast (Auto) 0-2 (0-2) /lpf U Epithel Cells (Auto) 0-2 (0-2) /hpf Urine Bacteria (Auto) None Seen (None Seen) Blood Type O Positive Antibody Screen NEGATIVE 06/20/24 06/20/24 Range/Units 12:42 15:06 WBC (4.8-10.8) K/ul RBC (4.70-6.10) M/uL Hgb (14.0-18.0) g/dl POC Hgb 11.9 L (14.0-18.0) g/dl Hct (42.0-52.0) % POC Hct 35 L (42-52) % MCV (80.0-100.0) fL MCH (25.0-34.0) pg MCHC (32.0-36.0) g/dL RDW Std Deviation (36.4-46.3) fL RDW Coeff of Angelika (11.5-14.5) % Plt Count (130-400) K/uL MPV (9.4-12.4) fL Immature Gran % (Auto) % Neut % (Auto) % Lymph % (Auto) % Frederick % (Auto) % Eos % (Auto) % Baso % (Auto) % Neut # (Auto) (1.40-6.50) K/uL Lymph # (Auto) (1.20-3.40) K/uL Frederick # (Auto) (0.11-0.59) K/uL Eos # (Auto) (0.00-0.50) K/uL Baso # (Auto) (0.00-0.20) K/uL Immature Gran # (Auto) (0.01-0.20) K/uL PT (9.0-12.0) Seconds INR (0.9-1.1) APTT (21-31) Seconds PTT Ratio POC Sodium 140 (135-144) mmol/L Sodium (136-145) mmol/L POC Potassium 3.8 (3.3-5.0) mmol/L Potassium (3.5-5.1) mmol/L POC Chloride 104 (101-112) mmol/L Chloride (98-107) mmol/L Carbon Dioxide (21-32) mmol/L POC Total CO2 24 (24-31) mmol/L Anion Gap (3-11) POC Anion Gap 17.0 (16-25) mmol/L POC BUN 38 H (7-18) mg/dl BUN (6-23) mg/dl Creatinine (0.6-1.4) mg/dl POC Creatinine 2.4 H (0.6-1.3) mg/dl Est Cr Clr Drug Dosing ml/min eGFR BUN/Creatinine Ratio (10-20) Glucose (70-99(Fasting)) mg/dl POC Glucose (70-99) mg/dl POC Glucose (other) 139 H (70-99) mg/dl Calcium (8.6-10.3) mg/dl POC Ioniz Calcium Erinn 1.10 L (1.12-1.32) mmol/l Total Bilirubin (0.2-1.0) mg/dl AST (13-39) U/L ALT (7-52) U/L Alkaline Phosphatase (34-104) U/L Total Creatine Kinase (30-223) U/L Troponin I High Sens 28.7 H (0-20) pg/ml Total Protein (6.0-8.3) gm/dl Albumin (3.4-5.0) gm/dl Globulin (2.5-4.0) gm/dl Albumin/Globulin Ratio (0.9-2) Lipase (11-82) U/L Urine Color Urine Appearance (Clear) Urine pH (4.5-7.5) Ur Specific [place] (1.000-1.030) Urine Protein (Negative) Urine Glucose (UA) (Negative) Urine Ketones (Negative) Urine Blood (Negative) Urine Nitrite (Negative) Urine Bilirubin (Negative) Urine Urobilinogen (Negative) Ur Leukocyte Esterase (Negative) Urine WBC (Auto) (0-5) /hpf Urine RBC (Auto) (0-2) /hpf U Hyaline Cast (Auto) (0-2) /lpf U Epithel Cells (Auto) (0-2) /hpf Urine Bacteria (Auto) (None Seen) Blood Type Antibody Screen Imaging Data Attestation: I personally reviewed and interpreted this imaging study as follows: My Impression: Pelvis x-ray: No acute fracture or dislocation Radiologist's Impression: Chest X-Ray 06/20/24 12:13 XR chest 1V portable CLINICAL HISTORY: Trauma COMPARISON STUDY: 06/18/2024 FINDINGS: Stable moderate cardiomegaly without pulmonary vascular congestion. No effusion, consolidation, or pneumothorax seen. IMPRESSION: No acute findings seen. ACT 112: Negative or not required by law. Electronically signed by: Michael Bell M.D. 06/20/2024 12:59 PM Pelvis X-Ray 06/20/24 12:13 XR pelvis 1-2V routine CLINICAL HISTORY: Trauma COMPARISON: None FINDINGS: No fracture or dislocation seen. IMPRESSION: No pelvic fracture seen. ACT 112: Negative or not required by law. Electronically signed by: Michael Bell M.D. 06/20/2024 12:58 PM Abdomen/Pelvis CT 06/20/24 12:14 CT OF THE ABDOMEN AND PELVIS WITHOUT CONTRAST CLINICAL HISTORY: Trauma. COMPARISON STUDY: CT of the abdomen and pelvis, MRCP and right upper quadrant ultrasound April 19, 2021. TECHNIQUE: Axial images of the abdomen and pelvis were obtained without IV contrast. Images were reviewed in the axial, sagittal, and coronal planes. Automated exposure control was utilized for the study. A dose lowering technique was utilized adhering to the principles of ALARA. FINDINGS: Cardiomegaly and mild interlobular septal thickening within the lower lungs are incidentally noted. No hemoperitoneum or pneumoperitoneum is present. Solid abdominal viscera are suboptimally assessed on unenhanced exam but there is no evidence for traumatic injury to the liver, spleen, adrenal glands, kidneys or pancreas. There is hepatic steatosis. No biliary ductal dilatation status post cholecystectomy. Prominent april hepatis lymph nodes are unchanged. Left-sided parapelvic cysts are noted. Stranding within the left renal sinus is unchanged. There is a 5.5 cm infrarenal abdominal aortic aneurysm without evidence for rupture. The aneurysm measured 4.[address] of April 19, 2021. Caliber and wall thickness of small and large bowel are normal. There is sigmoid diverticulosis without evidence for acute diverticulitis. Prostate is enlarged, measuring 5.4 cm in transverse diameter. A small portion of the proximal sigmoid colon slightly extends into a left inguinal hernia. There is an acute horizontal fracture along the inferior endplate of L1 with minimal loss of vertebral body height. No retropulsion is present. No extension into the posterior elements is noted. No additional acute fractures. IMPRESSION: 1. Acute horizontal fracture along the inferior endplate of L1 with minimal loss of vertebral body height. No retropulsion. No extension into the posterior elements. 2. No additional acute traumatic findings on unenhanced exam. 3. 5.5 cm infrarenal abdominal aortic aneurysm, increased in caliber since CT of April 19, 2021 when it measured 4.8 cm. 4. Cardiomegaly with mild interstitial pulmonary edema. ACT 112: Negative or not required by law. Electronically signed by: Nahun Nascimento M.D. 06/20/2024 12:[address] 06/20/24 12:14 CT SCAN OF THE CERVICAL SPINE CLINICAL HISTORY: Fall. COMPARISON STUDY: CTA of the neck October 30, 2022. Chest CT April 19, 2021. TECHNIQUE: CT scan of the cervical spine is performed from the skull base to the upper thoracic spine. Images are reviewed in the axial, sagittal, and coronal planes. IV contrast was not administered for this examination. A dose lowering technique was utilized adhering to the principles of ALARA. FINDINGS: Alignment of the cervical spine is anatomic. Vertebral body heights are maintained. There are no cervical spine fractures. There is moderate degenerative disc disease and facet arthrosis within the cervical spine. Cortical irregularity of the inferior endplate of T2 is unchanged since CT of October 30, 2022. No acute fractures are identified. There is no prevertebral edema. Interlobular septal thickening within the lung apices is incidentally noted. IMPRESSION: No acute cervical spine fracture or subluxation. ACT 112: Negative or not required by law. Electronically signed by: Nahun Nascimento M.D. 06/20/2024 12:[address] 06/20/24 12:14 CT head/brain wo con CLINICAL HISTORY: Trauma. TECHNIQUE: Multiple axial CT images of the head were obtained without contrast. A dose lowering technique was utilized adhering to the principles of ALARA. CT DOSE: 2718.72 mGy.cm COMPARISON: 10/30/2022 FINDINGS: There are stable severe chronic small vessel ischemic changes. Stable small area of encephalomalacia right occipital lobe consistent with old infarction. No intracranial hemorrhage seen. No mass effect, midline shift, or hydrocephalus. Stable globus pallidus calcifications, unremarkable in this age group. No skull fracture seen. Visualized paranasal sinuses and mastoid air cells are clear. IMPRESSION: No acute findings. ACT 112: Negative or not required by law. The above report was generated using voice recognition software. It may contain grammatical, syntax or spelling errors. Electronically signed by: Michael Bell M.D. 06/20/2024 12:[address] 06/20/24 15:09 EXAM: CT Thoracic and Lumbar Spine Without Intravenous Contrast INDICATION: Posttraumatic pain. Fell today. TECHNIQUE: Axial computed tomography images of the thoracic and lumbar spine without intravenous contrast. Sagittal and coronal reformatted images were created and reviewed. This CT exam was performed using one or more of the following dose reduction techniques: automated exposure control, adjustment of the mA and/or kV according to patient size, and/or use of iterative reconstruction technique. COMPARISON: No relevant prior studies available. FINDINGS: Vertebrae: The bones are demineralized. There is mild convex right thoracic and convex left lumbar spinal bowing. There is an acute compression fracture of the superior endplate of L1 with 3-4 mm retropulsion and mild superior endplate concavity. There is mild anterior height loss. There is an acute appearing mild compression deformity of the inferior endplate of T2 with mild anterior wedging. No retropulsion. There is moderate thoracolumbar spondylosis. There is mild to moderate diffuse lumbar facet arthrosis. There is grade 1 degenerative retrolisthesis of L3 on L4. No traumatic subluxation identified. There are 12 rib-bearing thoracic and 5 nonrib-bearing lumbar type vertebra. Discs/spinal canal/neural foramina: There is diffuse thoracolumbar mild to moderate disc space narrowing. There is mild ventral canal stenosis related to retropulsion of the L1 fracture and degenerative disc change. There is moderate canal stenosis secondary to diffuse osteophyte disc bulge and ligamentous and facet hypertrophy L2-L3, L3-L4 and L4-L5. Bilateral foraminal stenosis at these levels. There is a diffuse predominantly central disc bulge L5-S1 with slight bilateral subarticular narrowing right greater than left with impingement of the right foraminal S1 nerve root and moderate canal stenosis. Soft tissues: No significant abnormality noted. Lymph nodes: Shotty nodes present in all mediastinal compartments and smaller nodes in the bilateral hilum. Largest singly measurable node is in the aortopulmonary window measuring short axis dimension 1.3 cm. Lungs and pleural spaces: There is coarse bilateral symmetrical reticulation and mild bronchiectasis and honeycombing in the visualized lower lobes. Heart: Partially imaged heart is enlarged. IMPRESSION: 1. Acute appearing compression fractures of T2 and L1 as above. 2. Moderate to marked multilevel degenerative changes of the lumbar spine. 3. Pulmonary fibrosis and mediastinal and hilar adenopathy likely reactive. ACT 112: Positive. There are findings on this exam that require communication between the performing entity and the patient following Patient Test Result Information Act ([place] ACT 112) guidelines. Electronically signed by Brianna Delaney 06-20-2024 4:[address] 06/20/24 15:09 EXAM: CT Thoracic and Lumbar Spine Without Intravenous Contrast INDICATION: Posttraumatic pain. Fell today. TECHNIQUE: Axial computed tomography images of the thoracic and lumbar spine without intravenous contrast. Sagittal and coronal reformatted images were created and reviewed. This CT exam was performed using one or more of the following dose reduction techniques: automated exposure control, adjustment of the mA and/or kV according to patient size, and/or use of iterative reconstruction technique. COMPARISON: No relevant prior studies available. FINDINGS: Vertebrae: The bones are demineralized. There is mild convex right thoracic and convex left lumbar spinal bowing. There is an acute compression fracture of the superior endplate of L1 with 3-4 mm retropulsion and mild superior endplate concavity. There is mild anterior height loss. There is an acute appearing mild compression deformity of the inferior endplate of T2 with mild anterior wedging. No retropulsion. There is moderate thoracolumbar spondylosis. There is mild to moderate diffuse lumbar facet arthrosis. There is grade 1 degenerative retrolisthesis of L3 on L4. No traumatic subluxation identified. There are 12 rib-bearing thoracic and 5 nonrib-bearing lumbar type vertebra. Discs/spinal canal/neural foramina: There is diffuse thoracolumbar mild to moderate disc space narrowing. There is mild ventral canal stenosis related to retropulsion of the L1 fracture and degenerative disc change. There is moderate canal stenosis secondary to diffuse osteophyte disc bulge and ligamentous and facet hypertrophy L2-L3, L3-L4 and L4-L5. Bilateral foraminal stenosis at these levels. There is a diffuse predominantly central disc bulge L5-S1 with slight bilateral subarticular narrowing right greater than left with impingement of the right foraminal S1 nerve root and moderate canal stenosis. Soft tissues: No significant abnormality noted. Lymph nodes: Shotty nodes present in all mediastinal compartments and smaller nodes in the bilateral hilum. Largest singly measurable node is in the aortopulmonary window measuring short axis dimension 1.3 cm. Lungs and pleural spaces: There is coarse bilateral symmetrical reticulation and mild bronchiectasis and honeycombing in the visualized lower lobes. Heart: Partially imaged heart is enlarged. IMPRESSION: 1. Acute appearing compression fractures of T2 and L1 as above. 2. Moderate to marked multilevel degenerative changes of the lumbar spine. 3. Pulmonary fibrosis and mediastinal and hilar adenopathy likely reactive. ACT 112: Positive. There are findings on this exam that require communication between the performing entity and the patient following Patient Test Result Information Act ([place] ACT 112) guidelines. Electronically signed by Brianna Delaney 06-20-2024 4:56 PM ECG Data Attestation: I personally reviewed and interpreted this ECG as follows: Additional Comments: Sinus rhythm with rate of 75. SC 186 QRS [address] elevation or ST depression. Bifascicular block present. [facility] Narrative 1206: The patient was evaluated in room B11. A complete history and physical exam was performed Cardiac monitoring: An order was placed for continuous cardiac monitoring. The monitor shows a rate of 70 with sinus rhythm interpreted by me Patient was made trauma alert. External medical history reviewed. Patient was discharged yesterday from the hospital. Patient is DNR/DNI. Patient was discharged with diagnosis of A-fib RVR. 1335: Vital signs stable. Labs are unremarkable. Imaging shows an L1 fracture. No significant retropulsion. Patient be admitted to the [facility] team. Impression & Plan L1 vertebral fracture, Fall Discharge Plan Visit Data Chief Complaint: Trauma ED Provider: Jus Chilel Discharge Problem: L1 vertebral fracture, Fall Patient Disposition: Admitted As Inpatient Forms Stand Alone Forms: [facility] Prescriptions Prescriptions: No Action fluocinonide 0.05 % cream 1 applic topical BID PRN (Reason: Skin Irritation) clopidogrel [Plavix] 75 mg tablet 75 mg PO DAILY Qty: 30 0RF Patient Comments: STOPPED FOR PROCEDURE allopurinol 100 mg tablet 100 mg PO QAM cetirizine 10 mg tablet 10 mg PO DAILY guaifenesin [Mucinex] 600 mg Tablet Extended Release 12hr 600 mg PO DAILY PRN (Reason: Congestion) tamsulosin 0.4 mg capsule 0.4 mg PO QPM levothyroxine 50 mcg Capsule 50 mcg PO QAM Benadryl 2 % Gel 1 applic TOPICAL BID PRN (Reason: Skin Irritation) acetaminophen [Tylenol Extra Strength] 500 mg Tablet 650 mg PO BID PRN (Reason: pain,fever,headache) losartan 25 mg Tablet 25 mg PO DAILY polyethylene glycol 3350 [Miralax] 17 gram/dose Powder 17 g PO DAILY fluticasone propionate 50 mcg/actuation [place],Suspension 2 spray INTRANASAL HS Rx Instructions: alternatively can be given 1 spay in each nostril BID. administer into each nostril Glucerna Liquid 1 ea PO DAILY duloxetine 20 mg Capsule,Delayed Release(Dr/Ec) 20 mg PO DAILY diclofenac sodium 1 % Gel 2 g TOPICAL QID PRN (Reason: joint pain) Rx Instructions: apply to single elbow, wrist or hand; for hand includes palm/fingers/back of hand metoprolol succinate 100 mg capsule,sprinkle,ER 24hr 100 mg PO DAILY Qty: 30 0RF Rx Instructions: please start tomorrow 06/20 in AM Eliquis 5 mg tablet 5 mg PO BID Qty: 60 0RF Referrals Referrals: [facility],Hospital [Primary Care Provider] -
[2024-06-20] MEDS ORDERED: guaiFENesin 600 MG TABCR PO PRN (18:29)
[2024-06-20] MEDS ORDERED: GLUCOSE 10 TAB/TUBE PO PRN (18:29)
[2024-06-20] MEDS ORDERED: CARBOHYDRATES FOR HYPOGLYCEMIA PO PRN (18:29)
[2024-06-20] MEDS ORDERED: GLUCOSE 40% GEL 15 GM TUBE PO PRN (18:29)
[2024-06-20] MEDS ORDERED: DEXTROSE 50% 50 ML SYRINGE IV PRN (18:29)
[2024-06-20] MEDS ORDERED: GLUCAGON FOR INJ 1 MG VIAL SQ PRN (18:29)
[2024-06-20] MEDS: INSULIN ASPART PER UNIT CHARGE SC SCH (19:23)
[2024-06-20] MEDS: oxyCODONE HCL IR 5 MG TAB (IMMEDIATE RELEASE) PO PRN (19:24)
[2024-06-20] MEDS: CLOPIDOGREL BISULFATE 75 MG TAB PO SCH (19:26)
[2024-06-20] MEDS: APIXABAN 5 MG TABLET PO SCH (19:27)
[2024-06-20] MEDS: TAMSULOSIN HCL 0.4 MG CAP PO SCH (19:27)
[2024-06-20] MEDS: FLUTICASONE PROPIONATE NA SPR 16 GM BTL NAE SCH (20:27)
[2024-06-21] MEDS: MoRPHine SULFATE 2 MG/ML CARP IV PRN (03:22)
[2024-06-21] MEDS: LEVOTHYROXINE SODIUM 50 MCG TABLET PO SCH (05:35)
[2024-06-21 05:54] LABS: Hematocrit (blood only) 34.2 % (42.0-52.0); Hemoglobin 11.3 g/dl (14.0-18.0); Mean Platelet Volume 10.1 fL (9.4-12.4); Platelet Count 194 K/uL (130-400); RDW Coefficient of Variation 14.6 % (11.5-14.5); Red Blood Count 3.32 M/uL (4.70-6.10); White Blood Count 9.66 K/ul (4.8-10.8)
[2024-06-21 06:06] LABS: BUN Creatinine Ratio 19.3 (10-20); Calcium 8.2 mg/dl (8.6-10.3); Creatinine Clr Calc Pharmacy 26.5 ml/min; Potassium 3.9 mmol/L (3.5-5.1)
[2024-06-21] MEDS: DULoxetine HCL 20 MG CAP PO SCH (08:17)
[2024-06-21] MEDS: METOPROLOL SUCC 50MG EXT REL TAB PO SCH (08:17)
[2024-06-21] MEDS: allopurinoL 100 MG TAB PO SCH (08:17)
[2024-06-21] MEDS: LOSARTAN POTASSIUM 25 MG TAB PO SCH (08:18)
[2024-06-21] MEDS: CETIRIZINE HCL 10 MG TABLET PO SCH (08:18)
[2024-06-21] MEDS: POLYETHYLENE (MIRALAX) 17 GM PACK PO SCH (08:27)
[2024-06-21] MEDS: ONDANSETRON INJ 2 MG/ML 2 ML VIAL IV PRN (08:27)
[2024-06-21] MEDS: ACETAMINOPHEN 500 MG TAB PO PRN (09:51)
--- NOTE | 2024-06-21 10:32 | XRay Report ---
XR chest 1V portable CLINICAL HISTORY: poss. aspiration COMPARISON STUDY: 06/20/2024 FINDINGS: There is stable cardiomegaly without pulmonary vascular congestion. Inspiration is shallow. There is increased stranding opacity at the right lung base with partial obscuration of the right he midiaphragm. No other consolidation or pleural effusion. No pneumothorax. IMPRESSION: Atelectasis versus early pneumonia right lung base. ACT 112: Negative or not required by law. Electronically signed by: Michael Bell M.D. 06/21/2024 10:30 AM
[2024-06-21] MEDS: LIDOCAINE 5% 1 PATCH TD SCH (11:08)
--- NOTE | 2024-06-21 12:01 | Hospitalist Progress Note ---
Date of Service June 21, 2024 Assessment & Plan (1) Fall: (2) Low back pain: (3) L1 vertebral fracture: (4) Atrial fibrillation with RVR: (5) History of CVA (cerebrovascular accident): (6) Diabetes mellitus, type II: (7) CKD (chronic kidney disease) stage 3, GFR 30-59 ml/min: Plan: Patient is 88 year old male with PMH HTN, HLD, history CVA, DM II, CKD III, BPH, gout, hypothyroidism, h/o AAA, dementia, PAF anticoagulated on Eliquis presented to ER with c/o fall during the night and low back pain. Trying to quickly ambulate to bathroom without walker and fell. #Fall #Ambulatory dysfunction #T2, L1 fracture CT Head: No acute findings. CT C-Spine: No acute fracture Pelvis Xray: No acute fracture CT Abd/pelvis: 1. Acute horizontal fracture along the inferior endplate of L1 with minimal loss of vertebral body height. No retropulsion. No extension into the posterior elements. 2. No additional acute traumatic findings on unenhanced exam. 3. 5.5 cm infrarenal abdominal aortic aneurysm, increased in caliber since CT of April 19, 2021 when it measured 4.8 cm. 4. Cardiomegaly with mild interstitial pulmonary edema. In ER given morphine 2mg IV CT Thoracic spine to r/o thoracic fracture 1. Acute appearing compression fractures of T2 and L1 as above. 2. Moderate to marked multilevel degenerative changes of the lumbar spine. 3. Pulmonary fibrosis and mediastinal and hilar adenopathy likely reactive. Pain control with lidocaine patch, scheduled Tylenol, oxycodone, morphine prn pain Orthotics consult for TLSO brace Walks with walker at baseline Fall precautions PT/OT eval Ortho spine contacted - will see pt tmrw as well #History PAF #Afib RVR Admitted 06/18/24-06/19/24 for new onset A-fib RVR. Started on metoprolol succinate 100 mg daily and started on Eliquis twice daily. 06/19/24 echo: Moderate concentric LVH, no wall motion abnormalities, EF: 50-55%, trace aortic regurgitation, mild-moderate mitral regurgitation. On admission Troponins flat 27, 28 Pt did not have home medications today Initially presented to ER in sinus rhythm. During ER course patient appeared to develop A-fib RVR rate up to 160. Patient is asymptomatic denies chest pain, s hortness of breath, dizziness or palpitations. BP 211/101 Patient given dose of IV Lopressor 5 mg. Repeat heart rate 123, BP 127/96 Give home metoprolol succinate now and continue daily dosing Continue Eliquis. May need further discussion of risks and benefits with fall risk Monitor on telemetry Episode of vomiting, after getting morphine CXR Atelectasis versus early pneumonia right lung base. currently on 2L of suppl. O2 guaifenesin, flutter valve, IS start empiric abx #Chronic HFpEF Not currently on diuretics Monitor volume status closely #CKD III Cr: 2.1. Was 2.0 on 06/18/24. (Per discussion with MD clinic creatinine 1.6 on 03/19/2024) Monitor renal functions, avoid nephrotoxic agents when possible #HTN Continue losartan, metoprolol succinate Pain control as above #History of CVA (cerebrovascular accident): Continue Plavix Atorvastatin was d/c in 05/2024 per pt and request to decrease amount of medications #Diabetes mellitus, type II: A1c: 7.3 on 06/19/24 Not on home medication per pt request Novolog sliding scale per protocol #BPH (benign prostatic hyperplasia): Continue tamsulosin #Hypothyroidism: Continue levothyroxine #Dementia Currently appears at baseline Had reported delirium like symptoms yesterday upon discharge from hospital which seems to have cleared when pt returned home Monitor for delirium Attempt frequent re-orientation DVT Prophylaxis On Eliquis Admit telemetry DNR/DNI as per discussion with pt, pt's Follows with [facility] for routine care Admission and Anticipated Discharge Date Admission Date: June 20, 2024 Subjective Pt seen in follow up of fall recently admitted for Afib RVR, started on eliquis and metoprolol Currently lying in bed , drowsy He is cooperating, working with flutter valve, IS however quite drowsy. RN at the bedside and discussed with RN reports some mild vomiting after getting morphine for pain Pt reports pain w/ movement in lower back Ortho-spine contacted - will eval pt tmrw CXR obtained Review of Systems Review of Systems: All systems reviewed & are unremarkable except as noted in Subjective Physical Exam Physical Exam: Constitutional: WD/WN elderly M in NAD, however drowsy and on suppl. O2 Respiratory: decreased breath sounds, +mild rhonchi on right, no wheezes Cardiovascular: regular, no murmur, no edema Chest: normal inspection of chest Abdomen: normal bowel sounds, soft, nontender Musculoskeletal: Tenderness in lower back. Neurologic: drowsy (after getting morphine), no face palsy, answers appropriately, no dysarthria, moves extremities Results & Data Results & Data Vital Signs (Past 12 Hours) Vital Signs Temp Pulse Pulse Resp BP Pulse Ox O2 Del Method 06/21/24 11:43 36.5 C 76 17 134/79 95 Nasal Cannula 06/21/24 08:08 36.4 C L 77 18 178/95 H 91 Nasal Cannula 06/21/24 08:00 70 06/21/24 08:00 Nasal Cannula 06/21/24 03:17 36.4 C L 72 18 178/92 H 94 Nasal Cannula 06/21/24 00:00 70 O2 Flow Rate 06/21/24 11:43 2 06/21/24 08:08 1 06/21/24 08:00 06/21/24 08:00 2 06/21/24 03:17 1.0 06/21/24 00:00 Laboratory Results 06/21/24 06/21/24 06/20/24 Range/Units 08:07 05:31 21:31 WBC 9.66 (4.8-10.8) K/ul RBC 3.32 L (4.70-6.10) M/uL Hgb 11.3 L (14.0-18.0) g/dl POC Hgb (14.0-18.0) g/dl Hct 34.2 L (42.0-52.0) % POC Hct (42-52) % MCV 103.0 H (80.0-100.0) fL MCH 34.0 (25.0-34.0) pg MCHC 33.0 (32.0-36.0) g/dL RDW Std Deviation 55.0 H (36.4-46.3) fL RDW Coeff of Angelika 14.6 H (11.5-14.5) % Plt Count 194 (130-400) K/uL MPV 10.1 (9.4-12.4) fL Immature Gran % (Auto) % Neut % (Auto) % Lymph % (Auto) % Crisp % (Auto) % Eos % (Auto) % Baso % (Auto) % Neut # (Auto) (1.40-6.50) K/uL Lymph # (Auto) (1.20-3.40) K/uL Crisp # (Auto) (0.11-0.59) K/uL Eos # (Auto) (0.00-0.50) K/uL Baso # (Auto) (0.00-0.20) K/uL Immature Gran # (Auto) (0.01-0.20) K/uL PT (9.0-12.0) Seconds INR (0.9-1.1) APTT (21-31) Seconds PTT Ratio POC Sodium (135-144) mmol/L Sodium 141 (136-145) mmol/L POC Potassium (3.3-5.0) mmol/L Potassium 3.9 (3.5-5.1) mmol/L POC Chloride (101-112) mmol/L Chloride 106 (98-107) mmol/L Carbon Dioxide 26 (21-32) mmol/L POC Total CO2 (24-31) mmol/L Anion Gap 9 (3-11) POC Anion Gap (16-25) mmol/L POC BUN (7-18) mg/dl BUN 42 H (6-23) mg/dl Creatinine 2.18 H (0.6-1.4) mg/dl POC Creatinine (0.6-1.3) mg/dl Est Cr Clr Drug Dosing 26.5 ml/min eGFR 28.41 BUN/Creatinine Ratio 19.3 (10-20) Glucose 159 H (70-99(Fasting)) mg/dl POC Glucose 164 H 167 H (70-99) mg/dl POC Glucose (other) (70-99) mg/dl Calcium 8.2 L (8.6-10.3) mg/dl POC Ioniz Calcium Erinn (1.12-1.32) mmol/l Total Bilirubin (0.2-1.0) mg/dl AST (13-39) U/L ALT (7-52) U/L Alkaline Phosphatase (34-104) U/L Total Creatine Kinase (30-223) U/L Troponin I High Sens (0-20) pg/ml Total Protein (6.0-8.3) gm/dl Albumin (3.4-5.0) gm/dl Globulin (2.5-4.0) gm/dl Albumin/Globulin Ratio (0.9-2) Lipase (11-82) U/L Urine Color Urine Appearance (Clear) Urine pH (4.5-7.5) Ur Specific [place] (1.000-1.030) Urine Protein (Negative) Urine Glucose (UA) (Negative) Urine Ketones (Negative) Urine Blood (Negative) Urine Nitrite (Negative) Urine Bilirubin (Negative) Urine Urobilinogen (Negative) Ur Leukocyte Esterase (Negative) Urine WBC (Auto) (0-5) /hpf Urine RBC (Auto) (0-2) /hpf U Hyaline Cast (Auto) (0-2) /lpf U Epithel Cells (Auto) (0-2) /hpf Urine Bacteria (Auto) (None Seen) Blood Type Antibody Screen 06/20/24 06/20/24 06/20/24 Range/Units 19:17 15:06 12:42 WBC (4.8-10.8) K/ul RBC (4.70-6.10) M/uL Hgb (14.0-18.0) g/dl POC Hgb 11.9 L (14.0-18.0) g/dl Hct (42.0-52.0) % POC Hct 35 L (42-52) % MCV (80.0-100.0) fL MCH (25.0-34.0) pg MCHC (32.0-36.0) g/dL RDW Std Deviation (36.4-46.3) fL RDW Coeff of Angelika (11.5-14.5) % Plt Count (130-400) K/uL MPV (9.4-12.4) fL Immature Gran % (Auto) % Neut % (Auto) % Lymph % (Auto) % Crisp % (Auto) % Eos % (Auto) % Baso % (Auto) % Neut # (Auto) (1.40-6.50) K/uL Lymph # (Auto) (1.20-3.40) K/uL Crisp # (Auto) (0.11-0.59) K/uL Eos # (Auto) (0.00-0.50) K/uL Baso # (Auto) (0.00-0.20) K/uL Immature Gran # (Auto) (0.01-0.20) K/uL PT (9.0-12.0) Seconds INR (0.9-1.1) APTT (21-31) Seconds PTT Ratio POC Sodium 140 (135-144) mmol/L Sodium (136-145) mmol/L POC Potassium 3.8 (3.3-5.0) mmol/L Potassium (3.5-5.1) mmol/L POC Chloride 104 (101-112) mmol/L Chloride (98-107) mmol/L Carbon Dioxide (21-32) mmol/L POC Total CO2 24 (24-31) mmol/L Anion Gap (3-11) POC Anion Gap 17.0 (16-25) mmol/L POC BUN 38 H (7-18) mg/dl BUN (6-23) mg/dl Creatinine (0.6-1.4) mg/dl POC Creatinine 2.4 H (0.6-1.3) mg/dl Est Cr Clr Drug Dosing ml/min eGFR BUN/Creatinine Ratio (10-20) Glucose (70-99(Fasting)) mg/dl POC Glucose 187 H (70-99) mg/dl POC Glucose (other) 139 H (70-99) mg/dl Calcium (8.6-10.3) mg/dl POC Ioniz Calcium Erinn 1.10 L (1.12-1.32) mmol/l Total Bilirubin (0.2-1.0) mg/dl AST (13-39) U/L ALT (7-52) U/L Alkaline Phosphatase (34-104) U/L Total Creatine Kinase (30-223) U/L Troponin I High Sens 28.7 H (0-20) pg/ml Total Protein (6.0-8.3) gm/dl Albumin (3.4-5.0) gm/dl Globulin (2.5-4.0) gm/dl Albumin/Globulin Ratio (0.9-2) Lipase (11-82) U/L Urine Color Urine Appearance (Clear) Urine pH (4.5-7.5) Ur Specific [place] (1.000-1.030) Urine Protein (Negative) Urine Glucose (UA) (Negative) Urine Ketones (Negative) Urine Blood (Negative) Urine Nitrite (Negative) Urine Bilirubin (Negative) Urine Urobilinogen (Negative) Ur Leukocyte Esterase (Negative) Urine WBC (Auto) (0-5) /hpf Urine RBC (Auto) (0-2) /hpf U Hyaline Cast (Auto) (0-2) /lpf U Epithel Cells (Auto) (0-2) /hpf Urine Bacteria (Auto) (None Seen) Blood Type Antibody Screen 06/20/24 06/20/24 06/20/24 Range/Units 12:37 12:32 12:00 WBC 10.14 (4.8-10.8) K/ul RBC 3.67 L (4.70-6.10) M/uL Hgb 12.5 L (14.0-18.0) g/dl POC Hgb (14.0-18.0) g/dl Hct 37.2 L (42.0-52.0) % POC Hct (42-52) % MCV 101.4 H (80.0-100.0) fL MCH 34.1 H (25.0-34.0) pg MCHC 33.6 (32.0-36.0) g/dL RDW Std Deviation 52.2 H (36.4-46.3) fL RDW Coeff of Angelika 14.1 (11.5-14.5) % Plt Count 232 (130-400) K/uL MPV 10.4 (9.4-12.4) fL Immature Gran % (Auto) 0.8 % Neut % (Auto) 79.0 % Lymph % (Auto) 14.1 % Crisp % (Auto) 5.2 % Eos % (Auto) 0.5 % Baso % (Auto) 0.4 % Neut # (Auto) 8.01 H (1.40-6.50) K/uL Lymph # (Auto) 1.43 (1.20-3.40) K/uL Crisp # (Auto) 0.53 (0.11-0.59) K/uL Eos # (Auto) 0.05 (0.00-0.50) K/uL Baso # (Auto) 0.04 (0.00-0.20) K/uL Immature Gran # (Auto) 0.08 (0.01-0.20) K/uL PT 10.8 (9.0-12.0) Seconds INR 1.0 (0.9-1.1) APTT 27 (21-31) Seconds PTT Ratio 1.0 POC Sodium (135-144) mmol/L Sodium 140 (136-145) mmol/L POC Potassium (3.3-5.0) mmol/L Potassium 3.9 (3.5-5.1) mmol/L POC Chloride (101-112) mmol/L Chloride 104 (98-107) mmol/L Carbon Dioxide 26 (21-32) mmol/L POC Total CO2 (24-31) mmol/L Anion Gap 10 (3-11) POC Anion Gap (16-25) mmol/L POC BUN (7-18) mg/dl BUN 44 H (6-23) mg/dl Creatinine 2.15 H (0.6-1.4) mg/dl POC Creatinine (0.6-1.3) mg/dl Est Cr Clr Drug Dosing 27.1 ml/min eGFR 28.89 BUN/Creatinine Ratio 20.5 H (10-20) Glucose 167 H (70-99(Fasting)) mg/dl POC Glucose 171 H (70-99) mg/dl POC Glucose (other) (70-99) mg/dl Calcium 8.6 (8.6-10.3) mg/dl POC Ioniz Calcium Erinn (1.12-1.32) mmol/l Total Bilirubin 0.8 (0.2-1.0) mg/dl AST 31 (13-39) U/L ALT 17 (7-52) U/L Alkaline Phosphatase 89 (34-104) U/L Total Creatine Kinase 276 H (30-223) U/L Troponin I High Sens 27.1 H D (0-20) pg/ml Total Protein 6.8 (6.0-8.3) gm/dl Albumin 4.1 (3.4-5.0) gm/dl Globulin 2.7 (2.5-4.0) gm/dl Albumin/Globulin Ratio 1.5 (0.9-2) Lipase 9 L (11-82) U/L Urine Color Yellow Urine Appearance Clear (Clear) Urine pH 6.5 (4.5-7.5) Ur Specific [place] 1.011 (1.000-1.030) Urine Protein 2+ H (Negative) Urine Glucose (UA) Trace H (Negative) Urine Ketones Negative (Negative) Urine Blood 1+ H (Negative) Urine Nitrite Negative (Negative) Urine Bilirubin Negative (Negative) Urine Urobilinogen Negative (Negative) Ur Leukocyte Esterase Negative (Negative) Urine WBC (Auto) 0-5 (0-5) /hpf Urine RBC (Auto) 0-2 (0-2) /hpf U Hyaline Cast (Auto) 0-2 (0-2) /lpf U Epithel Cells (Auto) 0-2 (0-2) /hpf Urine Bacteria (Auto) None Seen (None Seen) Blood Type O Positive Antibody Screen NEGATIVE Medications Administered Current Inpatient Medications Acetaminophen (Acetaminophen 500 Mg Tab) 1,000 mg PO Q8H PRN PRN Reason: Pain or Fever Stop: 07/20/24 22:59 Last Admin: 06/21/24 09:51 Dose: 1,000 mg Allopurinol (Allopurinol 100 Mg Tab) 100 mg PO QAM YURIDIA Stop: 07/21/24 08:59 Last Admin: 06/21/24 08:17 Dose: 100 mg Apixaban (Apixaban 5 Mg Tablet) 5 mg PO BID YURIDIA Stop: 07/20/24 20:59 Last Admin: 06/21/24 08:18 Dose: 5 mg Cetirizine HCl (Cetirizine Hcl 10 Mg Tablet) 10 mg PO DAILY YURIDIA Stop: 07/21/24 08:59 Last Admin: 06/21/24 08:18 Dose: 10 mg Clopidogrel Bisulfate (Clopidogrel Bisulfate 75 Mg Tab) 75 mg PO DAILY YURIDIA Stop: 07/20/24 18:28 Last Admin: 06/21/24 08:17 Dose: 75 mg Dextrose (Dextrose 50% 50 Ml Syringe) 25 - 50 ml IV UD PRN; Protocol PRN Reason: Hypoglycemia Protocol Stop: 07/20/24 18:28 Duloxetine HCl (Duloxetine Hcl 20 Mg Cap) 20 mg PO DAILY YURIDIA Stop: 07/21/24 08:59 Last Admin: 06/21/24 08:17 Dose: 20 mg Fluticasone Propionate (Fluticasone Propionate Na Spr 16 Gm Btl) 2 sprays NADIYA HS YURIDIA Stop: 07/20/24 20:59 Last Admin: 06/20/24 20:27 Dose: 2 sprays Glucagon (Glucagon For Inj 1 Mg Vial) 1 mg SQ UD PRN; Protocol PRN Reason: Hypoglycemia Protocol Stop: 07/20/24 18:28 Glucose (Glucose 40% Gel 15 Gm Tube) 15 - 30 gm PO UD PRN; Protocol PRN Reason: Hypoglycemia Protocol Stop: 07/20/24 18:28 Glucose (Glucose 10 Tab/Tube) 4 - 8 tab PO UD PRN; Protocol PRN Reason: Hypoglycemia Protocol Stop: 07/20/24 18:28 Guaifenesin (Guaifenesin 600 Mg Tabcr) 600 mg PO DAILY YURIDIA Stop: 07/22/24 08:59 Insulin Aspart (Insulin Aspart Per Unit Charge) 0 units SC ACHS [facility] Stop: 07/20/24 18:44 Last Admin: 06/21/24 09:09 Dose: 1 units Levothyroxine Sodium (Levothyroxine Sodium 50 Mcg Tablet) 50 mcg PO DAILYBB [facility] Stop: 07/21/24 06:29 Last Admin: 06/21/24 05:35 Dose: 50 mcg Lidocaine (Lidocaine 5% 1 Patch) 1 patch TD QAM [facility] Stop: 07/21/24 10:59 Last Admin: 06/21/24 11:08 Dose: 1 patch Losartan Potassium (Losartan Potassium 25 Mg Tab) 25 mg PO DAILY [facility] Stop: 07/21/24 08:59 Last Admin: 06/21/24 08:18 Dose: 25 mg Metoprolol Succinate (Metoprolol Succ 50mg Ext Rel Tab) 100 mg PO DAILY [facility] Stop: 07/21/24 08:59 Last Admin: 06/21/24 08:17 Dose: 100 mg Miscellaneous (Carbohydrates For Hypoglycemia ) 15 - 30 gm PO UD PRN PRN Reason: Hypoglycemia Protocol Stop: 07/20/24 18:28 Miscellaneous (Remove Lidoderm Patch) 1 each N/A DAILY@2100 [facility] Stop: 07/21/24 20:59 Morphine Sulfate (Morphine Sulfate 2 Mg/Ml Carp) 2 mg IV Q4H PRN PRN Reason: Severe Pain (Scale 7, 8, 9,10) Stop: 07/04/24 18:28 Last Admin: 06/21/24 08:18 Dose: 2 mg Ondansetron HCl (Ondansetron Inj 2 Mg/Ml 2 Ml Vial) 4 mg IV Q6H PRN PRN Reason: Nausea Stop: 07/20/24 18:28 Last Admin: 06/21/24 08:27 Dose: 4 mg Oxycodone HCl (Oxycodone Hcl Ir 5 Mg Tab (Immediate Release)) 5 mg PO Q6H PRN PRN Reason: Moderate Pain (Scale 4, 5, 6) Stop: 07/04/24 18:28 Last Admin: 06/21/24 05:34 Dose: 5 mg Polyethylene Glycol (Polyethylene (Miralax) 17 Gm Pack) 17 gm PO DAILY [facility] Stop: 07/21/24 08:59 Last Admin: 06/21/24 08:27 Dose: Not Given Tamsulosin HCl (Tamsulosin Hcl 0.4 Mg Cap) 0.4 mg PO QPM [facility] Stop: 07/20/24 20:59 Last Admin: 06/20/24 19:27 Dose: 0.4 mg
--- NOTE | 2024-06-21 12:36 | Electrocardiogram Report ---
Test Reason : Blood Pressure : */* mmHG Vent. Rate : 73 BPM Atrial Rate : 73 BPM P-R Int : 200 ms QRS Dur : 134 ms QT Int : 456 ms P-R-T Axes : 103 -68 -11 degrees QTcB Int : 502 ms Normal sinus rhythm Right bundle branch block Left anterior fascicular block Bifascicular block Minimal voltage criteria for LVH, may be normal variant ( R in aVL ) Cannot rule out Inferior infarct (cited on or before 19-Apr-2021) Abnormal ECG When compared with ECG of 20-Jun-2024 14:40, Sinus rhythm has replaced Atrial fibrillation Vent. rate has decreased by 49 bpm T wave inversion now evident in Inferior leads Confirmed by Bayron Mcclure ([id number]) on 06/21/2024 12:35:39 PM Referred By: REFERRED SELF Confirmed By: Bayron Mcclure
[2024-06-21] MEDS ORDERED: ONDANSETRON INJ 2 MG/ML 2 ML VIAL IV PRN (12:49)
[2024-06-21] MEDS: SODIUM CHLORIDE 0.9% 500 ML IV ONE (12:52)
[2024-06-21] MEDS: PIPERACILLIN/TAZOBACTAM 4.5 GM/100 ML BAG IV ONE (14:49)
[2024-06-21] MEDS: PIPERACILLIN/TAZOBACTAM 4.5 GM/100 ML BAG IV SCH (20:34)
[2024-06-21] MEDS: APIXABAN 2.5 MG TAB PO SCH (20:37)
[2024-06-22] MEDS: ACETAMINOPHEN 1,000 MG/100 ML VIAL IV PRN (00:18)
[2024-06-22] MEDS: NYSTATIN POWDER 15GM BTL EXT SCH (00:18)
[2024-06-22 00:26] LABS: Base Excess VBG 2.2 mEq/L; HCO3 VBG 28 mmol/L; Oxygen Saturation VBG < 60.0 %; PCO2 VBG 46 mmHg (38-50); PO2 VBG 31 mmHg; pH VBG 7.39 (7.36-7.41)
[2024-06-22] MEDS: DOXYCYCLINE HYCLATE 100 MG in DEXTROSE 5% MINI-B 100 ML IV SCH (00:31)
--- NOTE | 2024-06-22 01:36 | XRay Report ---
EXAM: XR chest 1V portable CLINICAL HISTORY: sob. TECHNIQUE: An X-ray image of the chest is obtained in AP projection. COMPARISON: 06/20/2024 CR. FINDINGS: Rotated projection. Pulmonary Parenchyma: Prominent perihilar bronchovascular markings. Airspace changes involving the lower zones, more on the right side. Atelectatic changes along the right horizontal fissure. A mildly blunted right costophrenic angle may represent pleural effusion. Heart and Mediastinum: Heart size and shape are normal. No mediastinal widening or masses. No hilar or mediastinal lymphadenopathy. Bony Thorax: Degenerative changes in the visualized skeleton. Soft Tissues: Soft tissues overlying the chest wall are unremarkable. Overlying chest leads are seen. IMPRESSION: 1. Airspace changes involving the lower zones, more on the right side, are concerning for infective/inflammatory change(new). Clinical and lab correlation is suggested. 2. A mildly blunted right costophrenic angle may represent pleural effusion (new). 3. The prominence of perihilar broncho-vascular markings is probably due to pulmonary vascular congestion (unchanged). Electronically signed by Guanako Ballesteros 06-22-2024 01:35 AM
[2024-06-22] MEDS: LEVALBUTEROL 1.25 MG/3 ML NEB NEB PRN (03:46)
[2024-06-22 04:26] LABS: Appearance Urine Clear (Clear); Bacteria Urine Automated None Seen (None Seen); Bilirubin Urine Negative (Negative); Blood Urine Trace (Negative); Cast Urine Automated 0-2 /lpf (0-2); Color Urine Yellow; Epithelial Cell Urine Auto 0-2 /hpf (0-2); Glucose Urine UA Negative (Negative); Ketones Urine Negative (Negative); Leukocyte Esterase Urine Negative (Negative); Nitrite Urine Negative (Negative); Protein Urine 3+ (Negative); RBC Urine Automated 0-2 /hpf (0-2); Specific Gravity Urine 1.019 (1.000-1.030); Urobilinogen Urine Negative (Negative); pH Urine 5.5 (4.5-7.5)
[2024-06-22 06:21] LABS: Hematocrit (blood only) 36.7 % (42.0-52.0); Hemoglobin 12.3 g/dl (14.0-18.0); Mean Corpuscular Hemoglobin 34.7 pg (25.0-34.0); Mean Corpuscular Hgb Conc 33.5 g/dL (32.0-36.0); Mean Corpuscular Volume 103.7 fL (80.0-100.0); Mean Platelet Volume 10.6 fL (9.4-12.4); Platelet Count 196 K/uL (130-400); RDW Coefficient of Variation 14.5 % (11.5-14.5); RDW Standard Deviation 55.2 fL (36.4-46.3); Red Blood Count 3.54 M/uL (4.70-6.10); White Blood Count 11.47 K/ul (4.8-10.8)
[2024-06-22 06:49] LABS: BUN Creatinine Ratio 16.3 (10-20); Calcium 8.6 mg/dl (8.6-10.3); Creatinine Clr Calc Pharmacy 24.2 ml/min; Magnesium 2.2 mg/dl (1.7-2.4); Phosphorus 3.4 mg/dl (2.5-4.9); Potassium 3.6 mmol/L (3.5-5.1)
--- NOTE | 2024-06-22 07:28 | Hospitalist Progress Note ---
Date of Service June 22, 2024 Assessment & Plan (1) Fall: (2) Low back pain: (3) L1 vertebral fracture: (4) Atrial fibrillation with RVR: (5) History of CVA (cerebrovascular accident): (6) Diabetes mellitus, type II: (7) CKD (chronic kidney disease) stage 3, GFR 30-59 ml/min: Plan: Patient is 88 year old male with PMH HTN, HLD, history CVA, DM II, CKD III, BPH, gout, hypothyroidism, h/o AAA, dementia, PAF anticoagulated on Eliquis presented to ER with c/o fall during the night and low back pain. Trying to quickly ambulate to bathroom without walker and fell. #Fall #Ambulatory dysfunction #T2, L1 fracture CT Head: No acute findings. CT C-Spine: No acute fracture Pelvis Xray: No acute fracture CT Abd/pelvis: 1. Acute horizontal fracture along the inferior endplate of L1 with minimal loss of vertebral body height. No retropulsion. No extension into the posterior elements. 2. No additional acute traumatic findings on unenhanced exam. 3. 5.5 cm infrarenal abdominal aortic aneurysm, increased in caliber since CT of April 19, 2021 when it measured 4.8 cm. 4. Cardiomegaly with mild interstitial pulmonary edema. In ER given morphine 2mg IV CT Thoracic spine to r/o thoracic fracture 1. Acute appearing compression fractures of T2 and L1 as above. 2. Moderate to marked multilevel degenerative changes of the lumbar spine. 3. Pulmonary fibrosis and mediastinal and hilar adenopathy likely reactive. Pain control with lidocaine patch, scheduled Tylenol, oxycodone, morphine prn pain Orthotics consult for TLSO brace Walks with walker at baseline Fall precautions PT/OT eval Ortho spine consulted - lumbar spine MRI ordered #History PAF #Afib RVR Admitted 06/18/24-06/19/24 for new onset A-fib RVR. Started on metoprolol succinate 100 mg daily and started on Eliquis twice daily. 06/19/24 echo: Moderate concentric LVH, no wall motion abnormalities, EF: 50-55%, trace aortic regurgitation, mild-moderate mitral regurgitation. On admission Troponins flat 27, 28 Initially presented to ER in sinus rhythm. During ER course patient appeared to develop A-fib RVR rate up to 160. Patient is asymptomatic denies chest pain, shortness of breath, dizziness or palpitations. BP 211/101 Patient given dose of IV Lopressor 5 mg. Repeat heart rate 123, BP 127/96 Give home metoprolol succinate now and continue daily dosing Continue Eliquis. May need further discussion of risks and benefits with fall risk Monitor on telemetry Episode of vomiting, after getting morphine CXR Atelectasis versus early pneumonia right lung base. Initially on 2L of suppl. O2 guaifenesin, flutter valve, IS started empiric abx Overnight (06/21/24) pt's oxygen requirement increased. 06/22 AM 5L -> 13L CXR, VBG obtained overnight, doxy added AM added lasix iv - pt responded well and now down to 6L. will cont. w/ abx and diuresis cont. to closely monitor #Acute on Chronic HFpEF Not currently on home diuretics - likely secondary to pna, Afib RVR, etc. - diuresis and abx treatment as above Monitor volume status closely #CKD III Cr: 2.1 on admission. Was 2.0 on 06/18/24. (Per discussion with [facility] creatinine 1.6 on 03/19/2024) - current Cr 2.4 Monitor renal functions, avoid nephrotoxic agents when possible #HTN Continue losartan, metoprolol succinate Pain control as above #History of CVA (cerebrovascular accident): Continue Plavix Atorvastatin was d/c in 05/2024 per pt and request to decrease amount of medications #Diabetes mellitus, type II: A1c: 7.3 on 06/19/24 Not on home medication per pt request Novolog sliding scale per protocol #BPH (benign prostatic hyperplasia): Continue tamsulosin #Hypothyroidism: Continue levothyroxine #Dementia Currently appears at baseline Had reported delirium like symptoms upon discharge from hospital which seems to have cleared when pt returned home Monitor for delirium Attempt frequent re-orientation DVT Prophylaxis On Eliquis Dispo: telemetry DNR/DNI as per discussion with pt, pt's Follows with [facility] for routine care Admission and Anticipated Discharge Date Admission Date: June 20, 2024 Subjective Pt seen in follow up of fall recently admitted for Afib RVR, started on eliquis and metoprolol Currently lying in bed , still little drowsy He is cooperating RN at the bedside and discussed with overnight increased oxygen requirement , this AM discussed w/ RN and pt up on 13L. Gave lasix -> responded well with good urine outpt, now on 6L Pt reports pain w/ movement in lower back. Also reports back pain with deep breath and cough Ortho-spine consulted - lumbar spine MRI ordered Review of Systems Review of Systems: All systems reviewed & are unremarkable except as noted in Subjective Physical Exam Physical Exam: Constitutional: WD/WN elderly M in NAD, however still little drowsy and on suppl. O2 - increased O2 requirement Respiratory: decreased breath sounds, +mild rhonchi, no wheezes Cardiovascular: regular, no murmur, no edema Abdomen: normal bowel sounds, soft, nontender Musculoskeletal: Tenderness in lower back. Neurologic: still little drowsy, no face palsy, answers appropriately, no dysarthria, moves extremities Results & Data Results & Data Vital Signs (Past 12 Hours) Vital Signs Temp Pulse Pulse Resp BP Pulse Ox O2 Del Method 06/22/24 03:46 70 18 94 Oxymask 06/22/24 03:43 36.8 C 71 22 178/81 H 93 Nebulizer 06/21/24 23:50 Oxymask 06/21/24 23:00 72 06/21/24 23:00 37.0 C 72 20 184/93 H 90 Nasal Cannula 06/21/24 20:07 36.5 C 71 18 169/85 H 93 Nasal Cannula O2 Flow Rate 06/22/24 03:46 5 06/22/24 03:43 06/21/24 23:50 4 06/21/24 23:00 06/21/24 23:00 2.0 06/21/24 20:07 1.0 Laboratory Results 06/22/24 06/22/24 06/22/24 Range/Units 05:32 03:45 00:36 WBC 11.47 H (4.8-10.8) K/ul RBC 3.54 L (4.70-6.10) M/uL Hgb 12.3 L (14.0-18.0) g/dl Hct 36.7 L (42.0-52.0) % MCV 103.7 H (80.0-100.0) fL MCH 34.7 H (25.0-34.0) pg MCHC 33.5 (32.0-36.0) g/dL RDW Std Deviation 55.2 H (36.4-46.3) fL RDW Coeff of Aneglika 14.5 (11.5-14.5) % Plt Count 196 (130-400) K/uL MPV 10.6 (9.4-12.4) fL VBG pH (7.36-7.41) VBG pCO2 (38-50) mmHg VBG pO2 mmHg VBG HCO3 mmol/L VBG O2 Saturation % VBG Base Excess mEq/L Sodium 139 (136-145) mmol/L Potassium 3.6 (3.5-5.1) mmol/L Chloride 105 (98-107) mmol/L Carbon Dioxide 25 (21-32) mmol/L Anion Gap 9 (3-11) BUN 39 H (6-23) mg/dl Creatinine 2.39 H (0.6-1.4) mg/dl Est Cr Clr Drug Dosing 24.2 ml/min eGFR 25.45 BUN/Creatinine Ratio 16.3 (10-20) Glucose 154 H (70-99(Fasting)) mg/dl POC Glucose 167 H (70-99) mg/dl Calcium 8.6 (8.6-10.3) mg/dl Phosphorus 3.4 (2.5-4.9) mg/dl Magnesium 2.2 (1.7-2.4) mg/dl Urine Color Yellow Urine Appearance Clear (Clear) Urine pH 5.5 (4.5-7.5) Ur Specific Duncan 1.019 (1.000-1.030) Urine Protein 3+ H (Negative) Urine Glucose (UA) Negative (Negative) Urine Ketones Negative (Negative) Urine Blood Trace H (Negative) Urine Nitrite Negative (Negative) Urine Bilirubin Negative (Negative) Urine Urobilinogen Negative (Negative) Ur Leukocyte Esterase Negative (Negative) Urine WBC (Auto) 11-20 H (0-5) /hpf Urine RBC (Auto) 0-2 (0-2) /hpf U Hyaline Cast (Auto) 0-2 (0-2) /lpf U Epithel Cells (Auto) 0-2 (0-2) /hpf Urine Bacteria (Auto) None Seen (None Seen) 06/22/24 06/21/24 06/21/24 Range/Units 00:03 20:19 16:54 WBC (4.8-10.8) K/ul RBC (4.70-6.10) M/uL Hgb (14.0-18.0) g/dl Hct (42.0-52.0) % MCV (80.0-100.0) fL MCH (25.0-34.0) pg MCHC (32.0-36.0) g/dL RDW Std Deviation (36.4-46.3) fL RDW Coeff of Angelika (11.5-14.5) % Plt Count (130-400) K/uL MPV (9.4-12.4) fL VBG pH 7.39 (7.36-7.41) VBG pCO2 46 (38-50) mmHg VBG pO2 31 mmHg VBG HCO3 28 mmol/L VBG O2 Saturation < 60.0 % VBG Base Excess 2.2 mEq/L Sodium (136-145) mmol/L Potassium (3.5-5.1) mmol/L Chloride (98-107) mmol/L Carbon Dioxide (21-32) mmol/L Anion Gap (3-11) BUN (6-23) mg/dl Creatinine (0.6-1.4) mg/dl Est Cr Clr Drug Dosing ml/min eGFR BUN/Creatinine Ratio (10-20) Glucose (70-99(Fasting)) mg/dl POC Glucose 129 H 176 H (70-99) mg/dl Calcium (8.6-10.3) mg/dl Phosphorus (2.5-4.9) mg/dl Magnesium (1.7-2.4) mg/dl Urine Color Urine Appearance (Clear) Urine pH (4.5-7.5) Ur Specific Duncan (1.000-1.030) Urine Protein (Negative) Urine Glucose (UA) (Negative) Urine Ketones (Negative) Urine Blood (Negative) Urine Nitrite (Negative) Urine Bilirubin (Negative) Urine Urobilinogen (Negative) Ur Leukocyte Esterase (Negative) Urine WBC (Auto) (0-5) /hpf Urine RBC (Auto) (0-2) /hpf U Hyaline Cast (Auto) (0-2) /lpf U Epithel Cells (Auto) (0-2) /hpf Urine Bacteria (Auto) (None Seen) 06/21/24 06/21/24 Range/Units 12:05 08:07 WBC (4.8-10.8) K/ul RBC (4.70-6.10) M/uL Hgb (14.0-18.0) g/dl Hct (42.0-52.0) % MCV (80.0-100.0) fL MCH (25.0-34.0) pg MCHC (32.0-36.0) g/dL RDW Std Deviation (36.4-46.3) fL RDW Coeff of Angelika (11.5-14.5) % Plt Count (130-400) K/uL MPV (9.4-12.4) fL VBG pH (7.36-7.41) VBG pCO2 (38-50) mmHg VBG pO2 mmHg VBG HCO3 mmol/L VBG O2 Saturation % VBG Base Excess mEq/L Sodium (136-145) mmol/L Potassium (3.5-5.1) mmol/L Chloride (98-107) mmol/L Carbon Dioxide (21-32) mmol/L Anion Gap (3-11) BUN (6-23) mg/dl Creatinine (0.6-1.4) mg/dl Est Cr Clr Drug Dosing ml/min eGFR BUN/Creatinine Ratio (10-20) Glucose (70-99(Fasting)) mg/dl POC Glucose 156 H 164 H (70-99) mg/dl Calcium (8.6-10.3) mg/dl Phosphorus (2.5-4.9) mg/dl Magnesium (1.7-2.4) mg/dl Urine Color Urine Appearance (Clear) Urine pH (4.5-7.5) Ur Specific Duncan (1.000-1.030) Urine Protein (Negative) Urine Glucose (UA) (Negative) Urine Ketones (Negative) Urine Blood (Negative) Urine Nitrite (Negative) Urine Bilirubin (Negative) Urine Urobilinogen (Negative) Ur Leukocyte Esterase (Negative) Urine WBC (Auto) (0-5) /hpf Urine RBC (Auto) (0-2) /hpf U Hyaline Cast (Auto) (0-2) /lpf U Epithel Cells (Auto) (0-2) /hpf Urine Bacteria (Auto) (None Seen) Medications Administered Current Inpatient Medications Acetaminophen (Acetaminophen 500 Mg Tab) 1,000 mg PO Q8H PRN PRN Reason: Pain or Fever Stop: 07/20/24 22:59 Last Admin: 06/21/24 09:51 Dose: 1,000 mg Allopurinol (Allopurinol 100 Mg Tab) 100 mg PO QAM YURIDIA Stop: 07/21/24 08:59 Last Admin: 06/21/24 08:17 Dose: 100 mg Apixaban (Apixaban 2.5 Mg Tab) 2.5 mg PO BID YURIDIA Stop: 07/21/24 20:59 Last Admin: 06/21/24 20:37 Dose: 2.5 mg Cetirizine HCl (Cetirizine Hcl 10 Mg Tablet) 10 mg PO DAILY YURIDIA Stop: 07/21/24 08:59 Last Admin: 06/21/24 08:18 Dose: 10 mg Clopidogrel Bisulfate (Clopidogrel Bisulfate 75 Mg Tab) 75 mg PO DAILY YURIDIA Stop: 07/20/24 18:28 Last Admin: 06/21/24 08:17 Dose: 75 mg Dextrose (Dextrose 50% 50 Ml Syringe) 25 - 50 ml IV UD PRN; Protocol PRN Reason: Hypoglycemia Protocol Stop: 07/20/24 18:28 Duloxetine HCl (Duloxetine Hcl 20 Mg Cap) 20 mg PO DAILY YURIDIA Stop: 07/21/24 08:59 Last Admin: 06/21/24 08:17 Dose: 20 mg Fluticasone Propionate (Fluticasone Propionate Na Spr 16 Gm Btl) 2 sprays NADIYA HS YURIDIA Stop: 07/20/24 20:59 Last Admin: 06/21/24 20:37 Dose: 2 sprays Furosemide (Furosemide Inj 20 Mg/2 Ml Vial) 20 mg IV ONE ONE Stop: 06/22/24 07:26 Glucagon (Glucagon For Inj 1 Mg Vial) 1 mg SQ UD PRN; Protocol PRN Reason: Hypoglycemia Protocol Stop: 07/20/24 18:28 Glucose (Glucose 40% Gel 15 Gm Tube) 15 - 30 gm PO UD PRN; Protocol PRN Reason: Hypoglycemia Protocol Stop: 07/20/24 18:28 Glucose (Glucose 10 Tab/Tube) 4 - 8 tab PO UD PRN; Protocol PRN Reason: Hypoglycemia Protocol Stop: 07/20/24 18:28 Guaifenesin (Guaifenesin 600 Mg Tabcr) 600 mg PO DAILY [facility] Stop: 07/22/24 08:59 Piperacillin Sod/Tazobactam Sod (Zosyn) 4.5 gm in 100 mls @ 25 mls/hr IV Q8H [facility]; Protocol Stop: 06/23/24 19:29 Last Admin: 06/22/24 04:24 Dose: 25 mls/hr Acetaminophen (Ofirmev) 1,000 mg in 100 mls @ 400 mls/hr IV Q8H PRN PRN Reason: Pain or Fever Stop: 06/24/24 23:48 Last Infusion: 06/22/24 00:40 Dose: Infused Doxycycline Hyclate 100 mg/ (Dextrose) 100 mls @ 50 mls/hr IV Q12H [facility] Stop: 06/27/24 00:00 Last Infusion: 06/22/24 02:31 Dose: Infused Potassium Chloride (K Rohan / Wtr) 10 meq in 100 mls @ 100 mls/hr IV Q1H [facility] Stop: 06/22/24 09:29 Insulin Aspart (Insulin Aspart Per Unit Charge) 0 units SC ACHS [facility] Stop: 07/20/24 18:44 Last Admin: 06/21/24 20:22 Dose: Not Given Levalbuterol HCl (Levalbuterol 1.25 Mg/3 Ml Neb) 1.25 mg NEB Q4H PRN PRN Reason: Shortness Of Breath Or Wheezing Stop: 07/22/24 01:04 Last Admin: 06/22/24 03:46 Dose: 1.25 mg Levothyroxine Sodium (Levothyroxine Sodium 50 Mcg Tablet) 50 mcg PO DAILYBB [facility] Stop: 07/21/24 06:29 Last Admin: 06/22/24 06:00 Dose: 50 mcg Lidocaine (Lidocaine 5% 1 Patch) 1 patch TD QAM [facility] Stop: 07/21/24 10:59 Last Admin: 06/21/24 11:08 Dose: 1 patch Losartan Potassium (Losartan Potassium 25 Mg Tab) 25 mg PO DAILY YURIDIA Stop: 07/21/24 08:59 Last Admin: 06/21/24 08:18 Dose: 25 mg Metoprolol Succinate (Metoprolol Succ 50mg Ext Rel Tab) 100 mg PO DAILY [facility] Stop: 07/21/24 08:59 Last Admin: 06/21/24 08:17 Dose: 100 mg Miscellaneous (Carbohydrates For Hypoglycemia ) 15 - 30 gm PO UD PRN PRN Reason: Hypoglycemia Protocol Stop: 07/20/24 18:28 Miscellaneous (Remove Lidoderm Patch) 1 each N/A DAILY@2100 [facility] Stop: 07/21/24 20:59 Last Admin: 06/21/24 20:37 Dose: 1 each Morphine Sulfate (Morphine Sulfate 2 Mg/Ml Carp) 1 mg IV Q4H PRN PRN Reason: Severe Pain (Scale 7, 8, 9,10) Stop: 07/04/24 18:28 Nystatin (Nystatin Powder 15gm Btl) 1 appln EXT BID [facility] Stop: 07/21/24 23:44 Last Admin: 06/22/24 00:18 Dose: 1 appln Ondansetron HCl (Ondansetron Inj 2 Mg/Ml 2 Ml Vial) 2 mg IV Q6H PRN PRN Reason: Nausea Stop: 07/20/24 18:28 Oxycodone HCl (Oxycodone Hcl Ir 5 Mg Tab (Immediate Release)) 5 mg PO Q6H PRN PRN Reason: Moderate Pain (Scale 4, 5, 6) Stop: 07/04/24 18:28 Last Admin: 06/21/24 05:34 Dose: 5 mg Polyethylene Glycol (Polyethylene (Miralax) 17 Gm Pack) 17 gm PO DAILY [facility] Stop: 07/21/24 08:59 Last Admin: 06/21/24 08:27 Dose: Not Given Tamsulosin HCl (Tamsulosin Hcl 0.4 Mg Cap) 0.4 mg PO QPM [facility] Stop: 07/20/24 20:59 Last Admin: 06/21/24 20:38 Dose: 0.4 mg
[2024-06-22] MEDS: FUROSEMIDE INJ 20 MG/2 ML VIAL IV ONE ×4 (07:58→17:32)
[2024-06-22] MEDS: POTASSIUM CHLORIDE / WTR 10 MEQ/100 ML PLCT IV SCH (07:58)
--- NOTE | 2024-06-22 08:05 | Orthopedic Consultation ---
Date of Consultation June 22, 2024 Assessment & Plan (1) L1 vertebral fracture: Patient had a fall likely resulting in the 2 acute fractures that were noted on CT scans. Unfortunately not able to view the films today. To assess the possible canal compromise at L1 I believe he would benefit from going MRI of his lumbar spine. He may need to wait a day or so for his pain to be better controlled however. It appears they have already ordered a LSO brace which is reasonable. He also would benefit from upright films in the brace once it arrives. He may work with physical therapy and Occupational Therapy when the brace arrives as well. Otherwise he should be bed to chair. History of Present Illness Attending Physician: Dez Jolly MD History of Present Illness Patient was seen bedside in room 460 bed 2. Mr. Yost is an 88-year-old male who taken a fall at home on 06/20/2024. He states he just lost his balance and tripped. He is not sure how he fell. He was brought to the emergency room and was noted to have T2 and L1 burst fracture. All of his pain is in the back itself he is not having any pain going down the legs. He states his pain is poorly controlled at this point. He has a history of chronic low back pain but this pain is different. He denies any other numbness, tingling, or paresthesias. Allergies Allergy/AdvReac Type Severity Reaction Status Date / Time hydrochlorothiazide Allergy Unknown CAN'T Verified 10/30/22 01:35 REMEMBER ON [facility] MED LIST Home Medications Medication Instructions Recorded Confirmed Type allopurinol 100 mg tablet 100 mg PO QAM 04/19/18 06/20/24 History cetirizine 10 mg tablet 10 mg PO DAILY 04/19/18 06/20/24 History guaifenesin 600 mg tablet, 600 mg PO DAILY PRN Congestion 04/19/18 06/20/24 History extended release 12 hr (Mucinex) fluocinonide 0.05 % topical cream 1 applic topical BID PRN Skin 10/22/18 06/20/24 History Irritation clopidogrel 75 mg tablet (Plavix) 75 mg PO DAILY #30 tabs 11/04/18 06/20/24 Rx tamsulosin 0.4 mg capsule 0.4 mg PO QPM 04/19/21 06/20/24 History levothyroxine 50 mcg capsule 50 mcg PO QAM 05/30/21 06/20/24 History acetaminophen 500 mg tablet 650 mg PO BID PRN 10/30/22 06/20/24 History (Tylenol Extra Strength) pain,fever,headache diphenhydramine HCl 2 % topical 1 applic topical BID PRN Skin 10/30/22 06/20/24 History gel (Benadryl) Irritation diclofenac sodium 1 % topical gel 2 g topical QID PRN joint pain 06/18/24 06/20/24 History duloxetine 20 mg capsule,delayed 20 mg PO DAILY 06/18/24 06/20/24 History release fluticasone propionate 50 2 spray intranasal HS 06/18/24 06/20/24 History mcg/actuation nasal spray,suspension losartan 25 mg tablet 25 mg PO DAILY 06/18/24 06/20/24 History nut.tx.gluc.intol,lac-free,soy 1 ea PO DAILY 06/18/24 06/20/24 History (Glucerna oral liquid) polyethylene glycol 3350 17 17 g PO DAILY 06/18/24 06/20/24 History gram/dose oral powder (Miralax) apixaban 5 mg tablet (Eliquis) 5 mg PO BID #60 tabs 06/19/24 06/20/24 Rx metoprolol succinate 100 mg 100 mg PO DAILY #30 ea 06/19/24 06/20/24 Rx capsule sprinkle, ext. release 24 hr Patient History Medical History Macular degeneration Hx of basal cell carcinoma Degenerative disc disease Neuropathy BLE Kidney disease, chronic, stage III (GFR 30-59 ml/min) BPH (benign prostatic hyperplasia) Prediabetes Hypothyroidism Anemia Stroke 2018 >REASON FOR PLAVIX (DENIES PROBLEMS FROM EVENT) Hyperlipidemia Acute cholangitis Encounter for pre-operative examination Abdominal aortic aneurysm (AAA) 3.0 cm to 5.5 cm in diameter in male BEING MONITORED- FOLLOWED BY [facility] VASCULAR SURGERY- LAST SEEN 01/2021 Per abdomen/pelvis CT - infrarenal aortic aneurysm measuring 46mm in diameter Dementia Vascular dementia per records HTN (hypertension) Surgical History History of ERCP WITH STENT History of cholecystectomy History of tooth extraction History of cataract surgery RT/LEFT History of laparoscopic cholecystectomy Family History Brother Family history of diabetes mellitus Other Family history non-contributory No family history of adverse response to anesthesia Social History Smoking Status: Former smoker Tobacco Type: Cigarettes Cigarettes Per Day: 30+ YEARS AGO; Second Hand Exposure: No; Do You Dip or Chew Tobacco: No; Hx Alcohol Use: No Hx Substance Use: No Preferred Language: Romanian Communication Ability: Effective Communication Ability Comment: Patient appears with some confusion, per Daughter this is normal Costumer Required: No Beliefs That Will Affect Care: None marital status: Current Living Situation: Spouse and Family Current Living Situation Comment: home current occupational status: retired How many Children do You have: 3 Feels Safe at Home: Yes Assistive Devices: Walker Physical Exam Physical Exam: On exam the patient is lying on his back in room 460. He answers questions appropriately. His eyes however closed during most of the interview. Any attempts at rolling in bed increase his tenderness. His lower extremity motor exam reveals no focal atrophy he has full strength with dorsiflexion and plantarflexion. His sensations intact in both feet. Dorsalis pedis and posterior tibialis pulses are palpable. He is nontender with logrolling of either hip. His abdomen soft and nontender his calves are supple and nontender. Results & Data Vital Signs (Past 12 Hours) Vital Signs Temp Pulse Pulse Resp BP Pulse Ox O2 Del Method 06/22/24 03:46 70 18 94 Oxymask 06/22/24 03:43 36.8 C 71 22 178/81 H 93 Nebulizer 06/21/24 23:50 Oxymask 06/21/24 23:00 72 06/21/24 23:00 37.0 C 72 20 184/93 H 90 Nasal Cannula 06/21/24 20:07 36.5 C 71 18 169/85 H 93 Nasal Cannula O2 Flow Rate 06/22/24 03:46 5 06/22/24 03:43 06/21/24 23:50 4 06/21/24 23:00 06/21/24 23:00 2.0 06/21/24 20:[address] scans of the thoracic and lumbar spine are available by report the images are not available to personally review the films. This reveals a T12 and L1 compression fracture. There is a burst component to the L1 fracture per the note with the retropulsed fragments and some intrusion into the canal. Both fractures are read as likely acute.
[2024-06-22] MEDS: guaiFENesin 600 MG TABCR PO SCH (08:43)
[2024-06-22] MEDS: SODIUM CHLOR 7% 4 ML NEB NEB SCH (09:54)
[2024-06-22] MEDS: POTASSIUM CHLORIDE CRTAB 20 MEQ TABCR PO STA ×2 (11:52→13:19)
[2024-06-22] MEDS: KETOROLAC TROMETHAMINE 15 MG/ML VIAL IV ONE (15:25)
[2024-06-22] MEDS: hydrALAZINE HCL 20 MG/ML VIAL IV ONE (16:30)
[2024-06-22] MEDS: hydrALAZINE HCL 20 MG/ML VIAL IV PRN (19:43)
[2024-06-23] MEDS: METOPROLOL TARTRATE 1 MG/ML VIAL IV STA ×3 (01:24→03:08)
[2024-06-23 01:45] LABS: Base Excess VBG 2.3 mEq/L; HCO3 VBG 25 mmol/L; Oxygen Saturation VBG 89.9 %; PCO2 VBG 31 mmHg (38-50); PO2 VBG 51 mmHg; pH VBG 7.51 (7.36-7.41)
[2024-06-23] MEDS: dilTIAZem HCl 5 MG/ML 5 ML VIAL IV STA (02:01)
--- NOTE | 2024-06-23 02:14 | XRay Report ---
EXAM: XR chest 1V portable CLINICAL HISTORY: SOB TECHNIQUE: An X-ray image of the chest is obtained in AP projection. COMPARISON: 06/21/2024. FINDINGS: Rotated projection. Pulmonary Parenchyma: Prominent perihilar bronchovascular markings. Airspace changes involving the lower zones, more on the right side. Slight interval regression. Interval regression of right sided mild pleural effusion. Unchanged mild left sided pleural effusion. Heart and Mediastinum: Borderline cardiac size. No mediastinal widening or masses. No hilar or mediastinal lymphadenopathy. Bony Thorax: Degenerative changes in the visualized skeleton. Soft Tissues: Soft tissues overlying the chest wall are unremarkable. Overlying chest leads are seen. IMPRESSION: 1. Airspace changes involving the lower zones, more on the right side, are concerning for infective/inflammatory change. Slight interval regression on the right side. 2. Interval regression of right sided mild pleural effusion. 3. Unchanged mild left sided pleural effusion. 4. Pulmonary vascular congestion (unchanged). Electronically signed by Guanako Ballesteros 06-23-2024 02:13 AM
[2024-06-23] MEDS: SODIUM CHLORIDE 0.9% 500 ML IV ONE (02:20)
[2024-06-23] MEDS ORDERED: 0.2 MICRON FILTER SET 1 EACH IV STA (03:21)
[2024-06-23] MEDS ORDERED: STAT IV Infusion **Titration per Protocol STA ×2 (03:21→05:30)
[2024-06-23] MEDS ORDERED: AMIODARONE IV BOLUS & DRIP IV STA (03:21)
[2024-06-23] MEDS: AMIODARONE / D5W 150 MG/100 ML BAG IV STA (03:29)
[2024-06-23] MEDS: AMIODARONE / D5W 360 MG/200 ML BAG IV ONE (03:50)
[2024-06-23] MEDS: LACTATED RINGER'S 1,000 ML IV SCH (03:52)
[2024-06-23] MEDS: POTASSIUM CHLORIDE CRTAB 20 MEQ TABCR PO STA (04:49)
[2024-06-23] MEDS ORDERED: DIGOXIN 125 MCG in SYRINGE 9.5 ML IV STA (05:04)
[2024-06-23] MEDS: METOPROLOL TARTRATE 25 MG TAB PO STA (05:22)
[2024-06-23] MEDS: dilTIAZem HCL 125 MG in DEXTROSE 5% 100 ML IV SCH (06:10)
[2024-06-23 06:14] LABS: Hematocrit (blood only) 35.3 % (42.0-52.0); Hemoglobin 12.2 g/dl (14.0-18.0); Mean Corpuscular Hemoglobin 34.9 pg (25.0-34.0); Mean Corpuscular Hgb Conc 34.6 g/dL (32.0-36.0); Mean Corpuscular Volume 100.9 fL (80.0-100.0); Mean Platelet Volume 10.3 fL (9.4-12.4); Platelet Count 206 K/uL (130-400); RDW Coefficient of Variation 14.5 % (11.5-14.5); RDW Standard Deviation 54.3 fL (36.4-46.3); White Blood Count 10.44 K/ul (4.8-10.8)
[2024-06-23 06:35] LABS: BUN Creatinine Ratio 16.1 (10-20); Calcium 8.3 mg/dl (8.6-10.3); Creatinine Clr Calc Pharmacy 25.9 ml/min; Magnesium 1.9 mg/dl (1.7-2.4); Phosphorus 3.3 mg/dl (2.5-4.9); Potassium 3.7 mmol/L (3.5-5.1)
[2024-06-23 06:40] LABS: Troponin I High Sensitivity 20.8 pg/ml (0-20)
--- NOTE | 2024-06-23 07:49 | Hospitalist Progress Note ---
Date of Service June 23, 2024 Assessment & Plan (1) Fall: (2) Low back pain: (3) L1 vertebral fracture: (4) Atrial fibrillation with RVR: (5) History of CVA (cerebrovascular accident): (6) Diabetes mellitus, type II: (7) CKD (chronic kidney disease) stage 3, GFR 30-59 ml/min: Plan: Patient is 88 year old male with PMH HTN, HLD, history CVA, DM II, CKD III, BPH, gout, hypothyroidism, h/o AAA, dementia, PAF anticoagulated on Eliquis presented to ER with c/o fall during the night and low back pain. Trying to quickly ambulate to bathroom without walker and fell. #Fall #Ambulatory dysfunction #T2, L1 fracture CT Head: No acute findings. CT C-Spine: No acute fracture Pelvis Xray: No acute fracture CT Abd/pelvis: 1. Acute horizontal fracture along the inferior endplate of L1 with minimal loss of vertebral body height. No retropulsion. No extension into the posterior elements. 2. No additional acute traumatic findings on unenhanced exam. 3. 5.5 cm infrarenal abdominal aortic aneurysm, increased in caliber since CT of April 19, 2021 when it measured 4.8 cm. 4. Cardiomegaly with mild interstitial pulmonary edema. In ER given morphine 2mg IV CT Thoracic spine to r/o thoracic fracture 1. Acute appearing compression fractures of T2 and L1 as above. 2. Moderate to marked multilevel degenerative changes of the lumbar spine. 3. Pulmonary fibrosis and mediastinal and hilar adenopathy likely reactive. Pain control with lidocaine patch, scheduled Tylenol, oxycodone, morphine prn pain Orthotics consult for TLSO brace Walks with walker at baseline Fall precautions PT/OT eval Ortho spine consulted - lumbar spine MRI ordered 1. Unchanged alignment of the acute horizontal fracture involving the superior endplate and mid vertebral body at L1 resulting in less than 20% vertebral body height loss and no retropulsion. 2. No additional acute fracture or subluxation. 3. Degenerative changes of the lumbar spine as above with resultant multilevel central canal and neural foraminal narrowing. 4. Aneurysmal dilation of the abdominal aorta redemonstrated. #History PAF #Afib RVR Admitted 06/18/24-06/19/24 for new onset A-fib RVR. Started on metoprolol succinate 100 mg daily and started on Eliquis twice daily. 06/19/24 echo: Moderate concentric LVH, no wall motion abnormalities, EF: 50-55%, trace aortic regurgitation, mild-moderate mitral regurgitation. On admission Troponins flat 27, 28 Initially presented to ER in sinus rhythm. During ER course patient appeared to develop A-fib RVR rate up to 160. Patient is asymptomatic denies chest pain, shortness of breath, dizziness or palpitations. BP 211/101 Patient given dose of IV Lopressor 5 mg. Repeat heart rate 123, BP 127/96 Give home metoprolol succinate now and continue daily dosing Continue Eliquis. 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 Initially on 2L of suppl. O2 guaifenesin, flutter valve, IS started empiric abx Overnight (06/21/24) pt's oxygen requirement increased. 06/22 AM 5L -> 13L CXR, VBG obtained overnight, doxy added AM added lasix iv - pt responded well and now down to 6L. will cont. w/ abx and diuresis cont. to closely monitor 06/23 HR increased overnight and so oxygen requirement also increased, currently on 8L #Acute on Chronic HFpEF Not currently on home diuretics - likely secondary to pna, Afib RVR, etc. - diuresis and abx treatment as above, treatment for Afib Monitor volume status closely #CKD III Cr: 2.1 on admission. Was 2.0 on 06/18/24. (Per discussion with [facility] creatinine 1.6 on 03/19/2024) - current Cr 2.4 Monitor renal functions, avoid nephrotoxic agents when possible #HTN Continue losartan, metoprolol succinate Pain control as above #History of CVA (cerebrovascular accident): Continue Plavix Atorvastatin was d/c in 05/2024 per pt and request to decrease amount of medications #Diabetes mellitus, type II: A1c: 7.3 on 06/19/24 Not on home medication per pt request Novolog sliding scale per protocol #BPH (benign prostatic hyperplasia): Continue tamsulosin #Hypothyroidism: Continue levothyroxine #Dementia Currently appears at baseline Had reported delirium like symptoms upon discharge from hospital which seems to have cleared when pt returned home Monitor for delirium Attempt frequent re-orientation DVT Prophylaxis On Eliquis Dispo: telemetry DNR/DNI as per discussion with pt, pt's Follows with [facility] for routine care Admission and Anticipated Discharge Date Admission Date: June 20, 2024 Subjective Pt seen in follow up of fall recently admitted for Afib RVR, started on eliquis and metoprolol at 1am HR increased to 150s, Afib w/ RVR, security administrator managing with different medications but not successful to control HR, cardiology consulted and discussed with -> pt now on iv amiodarone, HR still not controlled yet thiugh oxygen requirement again increased this AM - seen pt multiple times today diuresing w/ IV lasix, Reyez also placed Initially able to go down to about 5L of suppl. O2, currently at 8L Pt did get spine MRI today Pt awake, little drowsy, cooperates, able to take a deep breath and cough when prompted RN at the bedside and discussed with multiple times Pt's updated over the phone Review of Systems Review of Systems: All systems reviewed & are unremarkable except as noted in Subjective Physical Exam Physical Exam: Constitutional: WD/WN elderly M in NAD, awake but little drowsy and on suppl. O2 - increased O2 requirement Respiratory: decreased breath sounds, +rhonchi,crackles no wheezes Cardiovascular: regular, no murmur, no edema Abdomen: normal bowel sounds, soft, nontender Musculoskeletal: Tenderness in lower back. Neurologic: awake but still little drowsy, no face palsy, answers appropriately, no dysarthria, moves extremities Results & Data Results & Data Vital Signs (Past 12 Hours) Vital Signs Temp Pulse Pulse Resp BP BP Pulse Ox 06/23/24 07:11 132 H 06/23/24 07:05 112 H 22 93 06/23/24 06:28 140 H 144/77 H 06/23/24 06:13 131/93 06/23/24 04:55 145 H 22 107/72 95 06/23/24 03:21 150 H 127/72 06/23/24 03:08 151 H 122/88 06/23/24 02:24 125/83 06/23/24 02:07 152 H 87/54 L 06/23/24 01:57 147 H 138/95 06/23/24 01:39 143 H 154/101 H 06/23/24 01:24 140 H 146/107 H 06/23/24 00:13 182/97 H 06/22/24 23:56 197/111 H 06/22/24 23:14 75 06/22/24 22:39 37 C 78 18 197/101 H 92 06/22/24 21:19 O2 Del Method O2 Flow Rate 06/23/24 07:11 06/23/24 07:05 Nasal Cannula 4 06/23/24 06:28 06/23/24 06:13 06/23/24 04:55 High Flow Nasal Cannula 9 06/23/24 03:21 06/23/24 03:08 06/23/24 02:24 06/23/24 02:07 06/23/24 01:57 06/23/24 01:39 06/23/24 01:24 06/23/24 00:13 06/22/24 23:56 06/22/24 23:14 06/22/24 22:39 Nasal Cannula 06/22/24 21:19 High Flow Nasal Cannula 3 Laboratory Results 06/23/24 06/23/24 06/23/24 Range/Units 05:47 05:30 01:30 WBC 10.44 (4.8-10.8) K/ul RBC 3.50 L (4.70-6.10) M/uL Hgb 12.2 L (14.0-18.0) g/dl Hct 35.3 L (42.0-52.0) % MCV 100.9 H (80.0-100.0) fL MCH 34.9 H (25.0-34.0) pg MCHC 34.6 (32.0-36.0) g/dL RDW Std Deviation 54.3 H (36.4-46.3) fL RDW Coeff of Angelika 14.5 (11.5-14.5) % Plt Count 206 (130-400) K/uL MPV 10.3 (9.4-12.4) fL VBG pH 7.51 H (7.36-7.41) VBG pCO2 31 L (38-50) mmHg VBG pO2 51 mmHg VBG HCO3 25 mmol/L VBG O2 Saturation 89.9 % VBG Base Excess 2.3 mEq/L Sodium 139 (136-145) mmol/L Potassium 3.7 (3.5-5.1) mmol/L Chloride 106 (98-107) mmol/L Carbon Dioxide 23 (21-32) mmol/L Anion Gap 10 (3-11) BUN 36 H (6-23) mg/dl Creatinine 2.23 H (0.6-1.4) mg/dl Est Cr Clr Drug Dosing 25.9 ml/min eGFR 27.65 BUN/Creatinine Ratio 16.1 (10-20) Glucose 231 H (70-99(Fasting)) mg/dl POC Glucose 227 H (70-99) mg/dl Calcium 8.3 L (8.6-10.3) mg/dl Phosphorus 3.3 (2.5-4.9) mg/dl Magnesium 1.9 (1.7-2.4) mg/dl Troponin I High Sens 20.8 H (0-20) pg/ml 06/22/24 06/22/24 06/22/24 Range/Units 20:09 16:52 12:07 WBC (4.8-10.8) K/ul RBC (4.70-6.10) M/uL Hgb (14.0-18.0) g/dl Hct (42.0-52.0) % MCV (80.0-100.0) fL MCH (25.0-34.0) pg MCHC (32.0-36.0) g/dL RDW Std Deviation (36.4-46.3) fL RDW Coeff of Angelika (11.5-14.5) % Plt Count (130-400) K/uL MPV (9.4-12.4) fL VBG pH (7.36-7.41) VBG pCO2 (38-50) mmHg VBG pO2 mmHg VBG HCO3 mmol/L VBG O2 Saturation % VBG Base Excess mEq/L Sodium (136-145) mmol/L Potassium (3.5-5.1) mmol/L Chloride (98-107) mmol/L Carbon Dioxide (21-32) mmol/L Anion Gap (3-11) BUN (6-23) mg/dl Creatinine (0.6-1.4) mg/dl Est Cr Clr Drug Dosing ml/min eGFR BUN/Creatinine Ratio (10-20) Glucose (70-99(Fasting)) mg/dl POC Glucose 144 H 177 H 163 H (70-99) mg/dl Calcium (8.6-10.3) mg/dl Phosphorus (2.5-4.9) mg/dl Magnesium (1.7-2.4) mg/dl Troponin I High Sens (0-20) pg/ml 06/22/24 Range/Units 08:19 WBC (4.8-10.8) K/ul RBC (4.70-6.10) M/uL Hgb (14.0-18.0) g/dl Hct (42.0-52.0) % MCV (80.0-100.0) fL MCH (25.0-34.0) pg MCHC (32.0-36.0) g/dL RDW Std Deviation (36.4-46.3) fL RDW Coeff of Angelika (11.5-14.5) % Plt Count (130-400) K/uL MPV (9.4-12.4) fL VBG pH (7.36-7.41) VBG pCO2 (38-50) mmHg VBG pO2 mmHg VBG HCO3 mmol/L VBG O2 Saturation % VBG Base Excess mEq/L Sodium (136-145) mmol/L Potassium (3.5-5.1) mmol/L Chloride (98-107) mmol/L Carbon Dioxide (21-32) mmol/L Anion Gap (3-11) BUN (6-23) mg/dl Creatinine (0.6-1.4) mg/dl Est Cr Clr Drug Dosing ml/min eGFR BUN/Creatinine Ratio (10-20) Glucose (70-99(Fasting)) mg/dl POC Glucose 166 H (70-99) mg/dl Calcium (8.6-10.3) mg/dl Phosphorus (2.5-4.9) mg/dl Magnesium (1.7-2.4) mg/dl Troponin I High Sens (0-20) pg/ml Medications Administered Current Inpatient Medications Acetaminophen (Acetaminophen 500 Mg Tab) 1,000 mg PO Q8H PRN PRN Reason: Pain or Fever Stop: 07/20/24 22:59 Last Admin: 06/22/24 08:41 Dose: 1,000 mg Allopurinol (Allopurinol 100 Mg Tab) 100 mg PO QAM [facility] Stop: 07/21/24 08:59 Last Admin: 06/22/24 08:43 Dose: 100 mg Apixaban (Apixaban 2.5 Mg Tab) 2.5 mg PO BID YURIDIA Stop: 07/21/24 20:59 Last Admin: 06/22/24 20:57 Dose: 2.5 mg Cetirizine HCl (Cetirizine Hcl 10 Mg Tablet) 10 mg PO DAILY YURIDIA Stop: 07/21/24 08:59 Last Admin: 06/22/24 08:42 Dose: 10 mg Clopidogrel Bisulfate (Clopidogrel Bisulfate 75 Mg Tab) 75 mg PO DAILY [facility] Stop: 07/20/24 18:28 Last Admin: 06/22/24 08:42 Dose: 75 mg Dextrose (Dextrose 50% 50 Ml Syringe) 25 - 50 ml IV UD PRN; Protocol PRN Reason: Hypoglycemia Protocol Stop: 07/20/24 18:28 Duloxetine HCl (Duloxetine Hcl 20 Mg Cap) 20 mg PO DAILY [facility] Stop: 07/21/24 08:59 Last Admin: 06/22/24 08:42 Dose: 20 mg Fluticasone Propionate (Fluticasone Propionate Na Spr 16 Gm Btl) 2 sprays NADIYA HS [facility] Stop: 07/20/24 20:59 Last Admin: 06/22/24 20:57 Dose: 2 sprays Glucagon (Glucagon For Inj 1 Mg Vial) 1 mg SQ UD PRN; Protocol PRN Reason: Hypoglycemia Protocol Stop: 07/20/24 18:28 Glucose (Glucose 40% Gel 15 Gm Tube) 15 - 30 gm PO UD PRN; Protocol PRN Reason: Hypoglycemia Protocol Stop: 07/20/24 18:28 Glucose (Glucose 10 Tab/Tube) 4 - 8 tab PO UD PRN; Protocol PRN Reason: Hypoglycemia Protocol Stop: 07/20/24 18:28 Guaifenesin (Guaifenesin 600 Mg Tabcr) 600 mg PO DAILY [facility] Stop: 07/22/24 08:59 Last Admin: 06/22/24 08:43 Dose: 600 mg Hydralazine HCl (Hydralazine Hcl 20 Mg/Ml Vial) 5 mg IV Q4H PRN PRN Reason: SBP > 170 Stop: 07/22/24 17:46 Last Admin: 06/22/24 23:50 Dose: 5 mg Piperacillin Sod/Tazobactam Sod (Zosyn) 4.5 gm in 100 mls @ 25 mls/hr IV Q8H [facility]; Protocol Stop: 06/23/24 19:29 Last Admin: 06/23/24 03:11 Dose: 25 mls/hr Acetaminophen (Ofirmev) 1,000 mg in 100 mls @ 400 mls/hr IV Q8H PRN PRN Reason: Pain or Fever Stop: 06/24/24 23:48 Last Infusion: 06/22/24 00:40 Dose: Infused Doxycycline Hyclate 100 mg/ (Dextrose) 100 mls @ 50 mls/hr IV Q12H [facility] Stop: 06/27/24 00:00 Last Infusion: 06/23/24 02:09 Dose: Infused Diltiazem HCl 125 mg/ Dextrose 125 mls @ 5 mls/hr IV .Q24H [facility]; Protocol Stop: 07/23/24 05:29 Last Titration: 06/23/24 07:07 Dose: 5 mg/hr, 5 mls/hr Insulin Aspart (Insulin Aspart Per Unit Charge) 0 units SC ACHS [facility] Stop: 07/20/24 18:44 Last Admin: 06/22/24 20:13 Dose: Not Given Levalbuterol HCl (Levalbuterol 1.25 Mg/3 Ml Neb) 1.25 mg NEB Q4H PRN PRN Reason: Shortness Of Breath Or Wheezing Stop: 07/22/24 01:04 Last Admin: 06/22/24 03:46 Dose: 1.25 mg Levothyroxine Sodium (Levothyroxine Sodium 50 Mcg Tablet) 50 mcg PO DAILYBB [facility] Stop: 07/21/24 06:29 Last Admin: 06/23/24 05:24 Dose: 50 mcg Lidocaine (Lidocaine 5% 1 Patch) 1 patch TD QAM [facility] Stop: 07/21/24 10:59 Last Admin: 06/22/24 08:43 Dose: 1 patch Losartan Potassium (Losartan Potassium 25 Mg Tab) 25 mg PO DAILY YURIDIA Stop: 07/21/24 08:59 Last Admin: 06/22/24 08:42 Dose: 25 mg Metoprolol Succinate (Metoprolol Succ 50mg Ext Rel Tab) 100 mg PO DAILY [facility] Stop: 07/21/24 08:59 Last Admin: 06/22/24 08:42 Dose: 100 mg Miscellaneous (Carbohydrates For Hypoglycemia ) 15 - 30 gm PO UD PRN PRN Reason: Hypoglycemia Protocol Stop: 07/20/24 18:28 Miscellaneous (Remove Lidoderm Patch) 1 each N/A DAILY@2100 [facility] Stop: 07/21/24 20:59 Last Admin: 06/22/24 20:58 Dose: 1 each Morphine Sulfate (Morphine Sulfate 2 Mg/Ml Carp) 1 mg IV Q4H PRN PRN Reason: Severe Pain (Scale 7, 8, 9,10) Stop: 07/04/24 18:28 Nystatin (Nystatin Powder 15gm Btl) 1 appln EXT BID [facility] Stop: 07/21/24 23:44 Last Admin: 06/22/24 20:57 Dose: 1 appln Ondansetron HCl (Ondansetron Inj 2 Mg/Ml 2 Ml Vial) 2 mg IV Q6H PRN PRN Reason: Nausea Stop: 07/20/24 18:28 Oxycodone HCl (Oxycodone Hcl Ir 5 Mg Tab (Immediate Release)) 2.5 mg PO Q6H PRN PRN Reason: Moderate Pain (Scale 4, 5, 6) Stop: 07/04/24 18:28 Polyethylene Glycol (Polyethylene (Miralax) 17 Gm Pack) 17 gm PO DAILY [facility] Stop: 07/21/24 08:59 Last Admin: 06/22/24 08:41 Dose: 17 gm Sodium Chloride (Sodium Chlor 7% 4 Ml Neb) 4 ml NEB BIDR [facility] Stop: 07/22/24 09:38 Last Admin: 06/23/24 07:05 Dose: 4 ml Tamsulosin HCl (Tamsulosin Hcl 0.4 Mg Cap) 0.4 mg PO QPM [facility] Stop: 07/20/24 20:59 Last Admin: 06/22/24 20:56 Dose: 0.4 mg
--- NOTE | 2024-06-23 08:27 | Cardiology Consultation ---
Date of Consultation June 23, 2024 Assessment & Plan (1) Atrial fibrillation with RVR: (2) L1 vertebral fracture: (3) Pneumonia: (4) Acute on chronic heart failure with preserved ejection fraction: (5) CKD (chronic kidney disease): (6) Acute and chronic respiratory failure with hypoxia: Plan Patient admitted s/p fall with acute compression fractures of T2 and L1. Ortho consulted and awaiting brace. Ongoing pain control recommended as well. During admission he had recurrent afib RVR. Initially diagnosed during admission earlier this month along with worsening respiratory status - acute respiratory failure wiht hypoxia (possible aspiration event) and HFpEF. Afib RVR since last night -Difficult to control rates. -Initially attempt at rhythm control with IV diltiazem overnight. Titration of dose resulted in hypotension -He was also treated with several doses of IV amiodarone, however there was concerns regarding prolonged QT interval (when in NSR due to RBBB) and this was discontinued overnight. -This morning, his rates remain uncontrolled and medications limited due to mild hypotension. -Despite mildly prolonged QT interval at baseline (due to RBBB), recommend resuming low dose IV amiodarone 1mg/min continuous. No bolus. - Monitor QT duration. Repeat EKG later today -Metoprolol 100 mg daily was held this morning. BP improved. Resume metoprolol succinate 50 mg this morning. Consider BID dosing. -Continue low dose Eliquis 2.5 mg BID. He is fall risk. Monitor closely -supplement potassium to keep 4-5. -Supplement Magnesium > 2.0 Acute on chronic respiratory failure/Acute HFpEF - Worsening hypoxia noted since yesterday, multifactorial with possible aspiration event -continue antibiotics -continue supplemental O2 -Repeat IV lasix 20 mg this morning -Monitor renal function/creatinine - current 2.2. Near baseline -supplement potassium -daily weight with standing scale (if able) -Monitor I+O's Hypertension -improved -Transient hypotension (resolved) -continue metoprolol, losartan Case discussed with Dr. Hernandez I spent a total of 70 minutes on the date of service in preparation, delivery, and documentation of the care provided to this patient, excluding any time spent in the performance of separately billed services. Elena Flowers PA-C Department of Cardiology, [facility] This chart was completed in part utilizing Speech Voice Recognition Software. Grammatical errors, random word insertions, pronoun errors, and incomplete sentences are an occasional consequence of this system due to software limitations, ambient noise, and hardware issues. Any formal questions or concerns about the content, text, or information contained within the body of this dictation should be directly addressed to the provider for clarification. Supervising Physician Co-Signing Physician Notes Attending attestation: Case reviewed with the advanced practitioner. I have personally performed a history and physical examination on the patient. I have reviewed the advanced practitioner's documentation on the date of service referenced in note, and I agree with, and take responsibility for the plan of care. Subjective: Patient unable to give adequate subjective history. He has been confused having received narcotic analgesics for his back pain. Oxygen requirement has increased over the last 24 to 48 hours. Exam: Cardiovascular: Irregular rhythm, tachycardic, no edema Data: Echocardiogram performed 06/19/2024, LVEF at the lower limit of normal 50 to 55% Calcified aortic valve without evidence of aortic stenosis Mild to moderate mitral regurgitation, trace aortic regurgitation EKG performed interpreted dependently: Atrial fibrillation versus flutter at 145 bpm, right bundle branch block, QRS duration 122 ms, corrected QT interval 515 ms, age-indeterminate inferior infarct pattern Impression/ Plan: Patient with increasing oxygen requirements Chest x-ray and exam suggest volume overload, with concern of superimposed aspir ation Although the corrected QT intervals prolonged, this needs to be interpreted with taking the right bundle branch block into account. Hypertension has been an issue limiting additional rate control medications. At present, it is felt that the potential benefit of amiodarone for rate control outweighs potential proarrhythmia risks. Proceed with Reyez catheter placement and administration of IV furosemide. Patient reassessed at bedside with Dr Jolly. Within the case was discussed for the purpose of coordination of care. I spent a total of 30 minutes coordinating, documenting, and providing care for this patient excluding time spent in the performance of separately billed services or time spent by another provider. Da Hernandez DO History of Present Illness Reason for Consultation: Afib RVR Requesting Physician: Elise Leigh Attending Physician: Dr. Hernandez History of Present Illness Patient is a 88 year old male admitted to [facility] after a fall, sustaining a T2, L1 fracture. Admitted for pain control and ortho consult. During admission, patient had recurrent afib RVR, and cardiology consult requested. Overnight patient's heart rates were significantly elevated. He was initially treated with several doses of IV amiodarone. Due to concerns for possible QT prolongation, this was switched to IV diltiazem. He was also given oral and IV metoprolol. Heart rates this morning remain elevated. Patient resting in bed this morning, feeling "well". He reports his back pain has improved at rest. He denies symptoms of chest pain, SOB, palpitations. Review of systems is questionable given dementia. Yesterday he required higher supplemental O2. There was concern if he aspirated during a vomiting event. Chest xray concerning for pneumonia. Started on antibiotics. Also treated with several doses of IV lasix with good outputs. History includes: * HTN * HLD * history CVA (chronic plavix) * DM II, * CKD III * hypothyroidism * h/o AAA * dementia * PAF, diagnosed several weeks ago upon presentation to [facility] with palpitations afib RVR. Started on anticoagulation with Eliquis 2.5 mg BID and metoprolol 100 mg daily Echo during admission several weeks ago (at onset of afib diagnosis) demonstrating normal LVEF 50-55%, Normal left atrial size, possible mild , mild to moderate MR Allergies Allergy/AdvReac Type Severity Reaction Status Date / Time hydrochlorothiazide Allergy Unknown CAN'T Verified 10/30/22 01:35 REMEMBER ON ePAR Home Medications Medication Instructions Recorded Confirmed Type allopurinol 100 mg tablet 100 mg PO QAM 04/19/18 06/20/24 History cetirizine 10 mg tablet 10 mg PO DAILY 04/19/18 06/20/24 History guaifenesin 600 mg tablet, 600 mg PO DAILY PRN Congestion 04/19/18 06/20/24 History extended release 12 hr (Mucinex) fluocinonide 0.05 % topical cream 1 applic topical BID PRN Skin 10/22/18 06/20/24 History Irritation clopidogrel 75 mg tablet (Plavix) 75 mg PO DAILY #30 tabs 11/04/18 06/20/24 Rx tamsulosin 0.4 mg capsule 0.4 mg PO QPM 04/19/21 06/20/24 History levothyroxine 50 mcg capsule 50 mcg PO QAM 05/30/21 06/20/24 History acetaminophen 500 mg tablet 650 mg PO BID PRN 10/30/22 06/20/24 History (Tylenol Extra Strength) pain,fever,headache diphenhydramine HCl 2 % topical 1 applic topical BID PRN Skin 10/30/22 06/20/24 History gel (Benadryl) Irritation diclofenac sodium 1 % topical gel 2 g topical QID PRN joint pain 06/18/24 06/20/24 History duloxetine 20 mg capsule,delayed 20 mg PO DAILY 06/18/24 06/20/24 History release fluticasone propionate 50 2 spray intranasal HS 06/18/24 06/20/24 History mcg/actuation nasal spray,suspension losartan 25 mg tablet 25 mg PO DAILY 06/18/24 06/20/24 History nut.tx.gluc.intol,lac-free,soy 1 ea PO DAILY 06/18/24 06/20/24 History (Glucerna oral liquid) polyethylene glycol 3350 17 17 g PO DAILY 06/18/24 06/20/24 History gram/dose oral powder (Miralax) apixaban 5 mg tablet (Eliquis) 5 mg PO BID #60 tabs 06/19/24 06/20/24 Rx metoprolol succinate 100 mg 100 mg PO DAILY #30 ea 06/19/24 06/20/24 Rx capsule sprinkle, ext. release 24 hr Patient History Medical History Macular degeneration Hx of basal cell carcinoma Degenerative disc disease Neuropathy BLE Kidney disease, chronic, stage III (GFR 30-59 ml/min) BPH (benign prostatic hyperplasia) Prediabetes Hypothyroidism Anemia Stroke 2018 >REASON FOR PLAVIX (DENIES PROBLEMS FROM EVENT) Hyperlipidemia Acute cholangitis Encounter for pre-operative examination Abdominal aortic aneurysm (AAA) 3.0 cm to 5.5 cm in diameter in male BEING MONITORED- FOLLOWED BY [facility] VASCULAR SURGERY- LAST SEEN 01/2021 Per abdomen/pelvis CT - infrarenal aortic aneurysm measuring 46mm in diameter Dementia Vascular dementia per records HTN (hypertension) Surgical History History of ERCP WITH STENT History of cholecystectomy History of tooth extraction History of cataract surgery RT/LEFT History of laparoscopic cholecystectomy Family History Brother Family history of diabetes mellitus Other Family history non-contributory No family history of adverse response to anesthesia Social History Smoking Status: Former smoker Tobacco Type: Cigarettes Cigarettes Per Day: 30+ YEARS AGO; Second Hand Exposure: No; Do You Dip or Chew Tobacco: No; Hx Alcohol Use: No Hx Substance Use: No Preferred Language: Azeri Communication Ability: Impaired Communication Ability Comment: Patient appears with some confusion, per Daughter this is normal Project Hire Required: No Beliefs That Will Affect Care: None marital status: Current Living Situation: Spouse and Family Current Living Situation Comment: home current occupational status: retired How many Children do You have: 3 Feels Safe at Home: Yes Assistive Devices: Walker Review of Systems Review of Systems: All systems reviewed & are unremarkable except as noted in HPI & below Physical Exam Constitutional: WD/WN, vitals as above well developed and well nourished Neck: normal visual inspection Respiratory: + cough; no labored breathing Auscult ation: + crackles and + rhonchi Cardiovascular: Rate/Rhythm: + tachycardic and + irregularly irregular Heart Sounds: no murmur (No audible murmur, distant heart sounds) Vessels: no JVD Extremities: no edema Gastrointestinal (Abdomen): normal bowel sounds, soft, nontender, no hepatosplenomegaly Results & Data Vital Signs (Past 12 Hours) Vital Signs Temp Pulse Pulse Resp BP BP Pulse Ox 06/23/24 07:54 36.4 C L 136 H 19 135/82 93 06/23/24 07:14 06/23/24 07:11 132 H 06/23/24 07:05 112 H 22 93 06/23/24 06:28 140 H 144/77 H 06/23/24 06:13 131/93 06/23/24 04:55 145 H 22 107/72 95 06/23/24 03:21 150 H 127/72 06/23/24 03:08 151 H 122/88 06/23/24 02:24 125/83 06/23/24 02:07 152 H 87/54 L 06/23/24 01:57 147 H 138/95 06/23/24 01:39 143 H 154/101 H 06/23/24 01:24 140 H 146/107 H 06/23/24 00:13 182/97 H 06/22/24 23:56 197/111 H 06/22/24 23:14 75 06/22/24 22:39 37 C 78 18 197/101 H 92 06/22/24 21:19 O2 Del Method O2 Flow Rate 06/23/24 07:54 High Flow Nasal Cannula 8 06/23/24 07:14 Nasal Cannula 6 06/23/24 07:11 06/23/24 07:05 Nasal Cannula 4 06/23/24 06:28 06/23/24 06:13 06/23/24 04:55 High Flow Nasal Cannula 9 06/23/24 03:21 06/23/24 03:08 06/23/24 02:24 06/23/24 02:07 06/23/24 01:57 06/23/24 01:39 06/23/24 01:24 06/23/24 00:13 06/22/24 23:56 06/22/24 23:14 06/22/24 22:39 Nasal Cannula 06/22/24 21:19 High Flow Nasal Cannula 3 Laboratory Results Cardiac Enzymes 06/23/24 Range/Units 05:30 Troponin I High Sens 20.8 H (0-20) pg/ml CBC 06/23/24 Range/Units 05:30 WBC 10.44 (4.8-10.8) K/ul RBC 3.50 L (4.70-6.10) M/uL Hgb 12.2 L (14.0-18.0) g/dl Hct 35.3 L (42.0-52.0) % Plt Count 206 (130-400) K/uL Comprehensive Metabolic Panel 06/23/24 Range/Units 05:30 Sodium 139 (136-145) mmol/L Potassium 3.7 (3.5-5.1) mmol/L Chloride 106 (98-107) mmol/L Carbon Dioxide 23 (21-32) mmol/L BUN 36 H (6-23) mg/dl Creatinine 2.23 H (0.6-1.4) mg/dl Glucose 231 H (70-99(Fasting)) mg/dl Calcium 8.3 L (8.6-10.3) mg/dl Intake and Output 06/22/24 06/23/24 06/23/24 22:59 06:59 14:59 Intake Total 100 / 1666.102 916.102 / 1666.102 104.75 / 104.75 Output Total 1100 / 3400 700 / 3400 Balance -1000 / -1733.898 216.102 / -1733.898 104.75 / 104.75 Intake: IV 100 / 1416.102 916.102 / 1416.102 104.75 / 104.75 Amiodarone / D5w 150 mg In 100 100 / 100 ml @ 600 mls/hr IV NOW [facility] Rx#: [id number] Amiodarone / D5w 360 mg In 200 9.435 / 9.435 ml @ 1 MG/MIN 33.333 mls/hr IV ONE ONE Rx#:[id number] Doxycycline Hyclate 100 mg In 100 / 200 Dextrose 5% Mini-B 100 ml @ 50 mls/hr IV Q12H [facility] Rx#:[id number] Lactated Ringer's 1,000 ml @ 50 106.667 / 106.667 mls/hr IV .Q20H [facility] Rx#: [id number] Piperacillin/Tazobactam 4.5 gm 100 / 300 100 / 300 100 / 100 In 100 ml @ 25 mls/hr IV Q8H [facility] Rx#:[id number] Sodium Chloride 0.9% 500 ml @ 500 / 500 999 mls/hr IV .Q31M [facility] Rx#: [id number] dilTIAZem HCL 125 mg In 4.75 / 4.75 Dextrose 5% 100 ml @ 5 MG/HR 5 mls/hr IV .Q24H [facility] Rx#: [id number] Output: Urine Amount (Catheter) 1100 / 3400 700 / 3400 External 1100 / 3400 700 / 3400 Other: Other Intake Source npo Diagnostic Findings Telemetry reviewed: Atrial flutter with RVR, starting around 1:06 AM. he has been in and out of afib several times since day of admission on 06/20. Currently HR's elevated at 130-150's Chest xray report reviewed from today: IMPRESSION: 1. Airspace changes involving the lower zones, more on the right side, are concerning for infective/inflammatory change. Slight interval regression on the right side. 2. Interval regression of right sided mild pleural effusion. 3. Unchanged mild left sided pleural effusion. 4. Pulmonary vascular congestion (unchanged) EKG reviewed from admission 06/20/24 11:54: NSR RBBB LAFB QT/QTc 460/513 EKG reviewed from 06/20/24 at 14:40: Atrial fibrillation with elevated rate RBBB LAFB QT/QTc 384/547 ms EKG reviewed from 06/21/24 at 5:53 AM NSR RBBB LAFB QT/QTc 456/502 ms EKG reviewed from 06/23/24 at 1:24 AM Atrial fib/flutter with RVR RBBB LAFB QT/QTc 374/570 ms EKG reviewed from 06/23/24 at 3:59 AM Atrial fib/flutter with variable AV block LAD RBBB LAFB QT/QTc 368/539 ms Echo report reviewed from prior admission dated 06/19/24: The LV is normal in size Moderate concentric LVH No regional wall motion abnormalities LVEF 50-55% LA size is normal Aortic valve is trileaflet and moderately calcified with mild restriction in leaflet mobility Trace AI Mild to moderate MR Medications Administered Current Inpatient Medications Acetaminophen (Acetaminophen 500 Mg Tab) 1,000 mg PO Q8H PRN PRN Reason: Pain or Fever Stop: 07/20/24 22:59 Last Admin: 06/22/24 08:41 Dose: 1,000 mg Allopurinol (Allopurinol 100 Mg Tab) 100 mg PO QAM [facility]IDIA Stop: 07/21/24 08:59 Last Admin: 06/23/24 08:31 Dose: 100 mg Apixaban (Apixaban 2.5 Mg Tab) 2.5 mg PO BID YURIDIA Stop: 07/21/24 20:59 Last Admin: 06/23/24 08:31 Dose: 2.5 mg Cetirizine HCl (Cetirizine Hcl 10 Mg Tablet) 10 mg PO DAILY Y[facility] Stop: 07/21/24 08:59 Last Admin: 06/23/24 08:31 Dose: 10 mg Clopidogrel Bisulfate (Clopidogrel Bisulfate 75 Mg Tab) 75 mg PO DAILY [facility] Stop: 07/20/24 18:28 Last Admin: 06/23/24 08:31 Dose: 75 mg Dextrose (Dextrose 50% 50 Ml Syringe) 25 - 50 ml IV UD PRN; Protocol PRN Reason: Hypoglycemia Protocol Stop: 07/20/24 18:28 Duloxetine HCl (Duloxetine Hcl 20 Mg Cap) 20 mg PO DAILY YURIDIA Stop: 07/21/24 08:59 Last Admin: 06/23/24 08:31 Dose: 20 mg Fluticasone Propionate (Fluticasone Propionate Na Spr 16 Gm Btl) 2 sprays NADIYA HS [facility] Stop: 07/20/24 20:59 Last Admin: 06/22/24 20:57 Dose: 2 sprays Glucagon (Glucagon For Inj 1 Mg Vial) 1 mg SQ UD PRN; Protocol PRN Reason: Hypoglycemia Protocol Stop: 07/20/24 18:28 Glucose (Glucose 40% Gel 15 Gm Tube) 15 - 30 gm PO UD PRN; Protocol PRN Reason: Hypoglycemia Protocol Stop: 07/20/24 18:28 Glucose (Glucose 10 Tab/Tube) 4 - 8 tab PO UD PRN; Protocol PRN Reason: Hypoglycemia Protocol Stop: 07/20/24 18:28 Guaifenesin (Guaifenesin 600 Mg Tabcr) 600 mg PO DAILY [facility] Stop: 07/22/24 08:59 Last Admin: 06/23/24 08:31 Dose: 600 mg Hydralazine HCl (Hydralazine Hcl 20 Mg/Ml Vial) 5 mg IV Q4H PRN PRN Reason: SBP > 170 Stop: 07/22/24 17:46 Last Admin: 06/22/24 23:50 Dose: 5 mg Piperacillin Sod/Tazobactam Sod (Zosyn) 4.5 gm in 100 mls @ 25 mls/hr IV Q8H [facility]URIDIA; Protocol Stop: 06/23/24 19:29 Last Admin: 06/23/24 11:15 Dose: 25 mls/hr Acetaminophen (Ofirmev) 1,000 mg in 100 mls @ 400 mls/hr IV Q8H PRN PRN Reason: Pain or Fever Stop: 06/24/24 23:48 Last Infusion: 06/22/24 00:40 Dose: Infused Doxycycline Hyclate 100 mg/ (Dextrose) 100 mls @ 50 mls/hr IV Q12H [facility] Stop: 06/27/24 00:00 Last Infusion: 06/23/24 02:09 Dose: Infused Magnesium Sulfate/Dextrose (Magnesium Sulfate / D5w) 1 gm in 100 mls @ 50 mls/hr IV Q2H [facility] Stop: 06/23/24 13:14 Last Admin: 06/23/24 11:15 Dose: 50 mls/hr Amiodarone HCl/Dextrose (Nexterone / D5w) 360 mg in 200 mls @ 33.333 mls/hr IV Q6H [facility] Stop: 07/23/24 09:59 Last Admin: 06/23/24 10:19 Dose: 1 mg/min, 33.3 mls/hr Insulin Aspart (Insulin Aspart Per Unit Charge) 0 units SC Q6 [facility] Stop: 07/23/24 08:29 Last Admin: 06/23/24 08:37 Dose: 2 units Levalbuterol HCl (Levalbuterol 1.25 Mg/3 Ml Neb) 1.25 mg NEB Q4H PRN PRN Reason: Shortness Of Breath Or Wheezing Stop: 07/22/24 01:04 Last Admin: 06/23/24 10:44 Dose: 1.25 mg Levothyroxine Sodium (Levothyroxine Sodium 50 Mcg Tablet) 50 mcg PO DAILYBB [facility] Stop: 07/21/24 06:29 Last Admin: 06/23/24 05:24 Dose: 50 mcg Lidocaine (Lidocaine 5% 1 Patch) 1 patch TD QAM [facility] Stop: 07/21/24 10:59 Last Admin: 06/23/24 08:32 Dose: 1 patch Losartan Potassium (Losartan Potassium 25 Mg Tab) 25 mg PO DAILY [facility] Stop: 07/21/24 08:59 Last Admin: 06/23/24 08:31 Dose: 25 mg Metoprolol Succinate (Metoprolol Succ 50mg Ext Rel Tab) 100 mg PO DAILY [facility] Stop: 07/21/24 08:59 Last Admin: 06/22/24 08:42 Dose: 100 mg Miscellaneous (Carbohydrates For Hypoglycemia ) 15 - 30 gm PO UD PRN PRN Reason: Hypoglycemia Protocol Stop: 07/20/24 18:28 Miscellaneous (Remove Lidoderm Patch) 1 each N/A DAILY@2100 [facility] Stop: 07/21/24 20:59 Last Admin: 06/22/24 20:58 Dose: 1 each Morphine Sulfate (Morphine Sulfate 2 Mg/Ml Carp) 1 mg IV Q4H PRN PRN Reason: Severe Pain (Scale 7, 8, 9,10) Stop: 07/04/24 18:28 Nystatin (Nystatin Powder 15gm Btl) 1 appln EXT BID [facility] Stop: 07/21/24 23:44 Last Admin: 06/23/24 08:32 Dose: 1 appln Ondansetron HCl (Ondansetron Inj 2 Mg/Ml 2 Ml Vial) 2 mg IV Q6H PRN PRN Reason: Nausea Stop: 07/20/24 18:28 Oxycodone HCl (Oxycodone Hcl Ir 5 Mg Tab (Immediate Release)) 2.5 mg PO Q6H PRN PRN Reason: Moderate Pain (Scale 4, 5, 6) Stop: 07/04/24 18:28 Polyethylene Glycol (Polyethylene (Miralax) 17 Gm Pack) 17 gm PO DAILY [facility] Stop: 07/21/24 08:59 Last Admin: 06/23/24 08:39 Dose: 17 gm Sodium Chloride (Sodium Chlor 7% 4 Ml Neb) 4 ml NEB BIDR [facility] Stop: 07/22/24 09:38 Last Admin: 06/23/24 07:05 Dose: 4 ml Tamsulosin HCl (Tamsulosin Hcl 0.4 Mg Cap) 0.4 mg PO QPM [facility] Stop: 07/20/24 20:59 Last Admin: 06/22/24 20:56 Dose: 0.4 mg
[2024-06-23] MEDS: INSULIN ASPART PER UNIT CHARGE SC SCH (08:37)
[2024-06-23] MEDS ORDERED: AMIODARONE / D5W 360 MG/200 ML BAG IV SCH (09:30)
[2024-06-23] MEDS: POTASSIUM CHLORIDE CRTAB 20 MEQ TABCR PO ONE ×2 (09:31→19:45)
[2024-06-23] MEDS: MAGNESIUM SULFATE / D5W 1 GM/100 ML BAG IV SCH (09:31)
[2024-06-23] MEDS: FUROSEMIDE INJ 20 MG/2 ML VIAL IV ONE (10:19)
[2024-06-23] MEDS: AMIODARONE / D5W 360 MG/200 ML BAG IV SCH (10:19)
--- NOTE | 2024-06-23 11:13 | Electrocardiogram Report ---
Test Reason : Blood Pressure : */* mmHG Vent. Rate : 140 BPM Atrial Rate : 306 BPM P-R Int : * ms QRS Dur : 134 ms QT Int : 374 ms P-R-T Axes : * -76 43 degrees QTcB Int : 570 ms Atrial flutter with variable A-V block Left axis deviation Right bundle branch block Possible Lateral infarct , age undetermined Inferior infarct When compared with ECG of 21-Jun-2024 05:53, Confirmed by Taurus Calderon ([id number]) on 06/23/2024 11:13:37 AM Referred By: REFERRED SELF Confirmed By: Taurus Calderon
--- NOTE | 2024-06-23 11:15 | Electrocardiogram Report ---
Test Reason : Blood Pressure : */* mmHG Vent. Rate : 145 BPM Atrial Rate : * BPM P-R Int : * ms QRS Dur : 122 ms QT Int : 332 ms P-R-T Axes : * -76 16 degrees QTcB Int : 515 ms atrial flutter Left axis deviation Right bundle branch block Poor R wave progression, consider anterior VT vs. lead placement vs. LVH Inferior infarct (cited on or before 19-Apr-2021) Abnormal ECG Confirmed by Taurus Calderon ([id number]) on 06/23/2024 11:15:17 AM Referred By: REFERRED SELF Confirmed By: Taurus Calderon
--- NOTE | 2024-06-23 11:15 | Electrocardiogram Report ---
Test Reason : Blood Pressure : */* mmHG Vent. Rate : 129 BPM Atrial Rate : 267 BPM P-R Int : * ms QRS Dur : 122 ms QT Int : 368 ms P-R-T Axes : * -75 18 degrees QTcB Int : 539 ms Atrial flutter with variable A-V block Left axis deviation Right bundle branch block Possible Lateral infarct (cited on or before 22-Oct-2018) Inferior infarct (cited on or before 19-Apr-2021) Abnormal ECG When compared with ECG of 23-Jun-2024 01:24, (unconfirmed) No significant change was found Confirmed by Taurus Calderon ([id number] on 06/23/2024 11:14:42 AM Referred By: REFERRED SELF Confirmed By: Taurus Calderon
[2024-06-23] MEDS: FUROSEMIDE 40 MG/4 ML VIAL IV ONE ×2 (11:53→18:17)
[2024-06-23] MEDS: METOPROLOL SUCC 50MG EXT REL TAB PO SCH (12:22)
--- NOTE | 2024-06-23 14:53 | Magnetic Resonance Report ---
MR lumbar spine wo con CLINICAL HISTORY: 88 years-old Male with compression fracture L1. COMPARISON: CT lumbar spine and abdomen and pelvis studies 06/20/2024. TECHNIQUE: Multiplanar, multi sequence MRI of the lumbar spine was performed without intravenous cont rast. FINDINGS: Aneurysmal dilation of the infrarenal abdominal aorta redemonstrated which measured 5.5 cm on the mos t recent study from 06/20/2024. Cortical thinning of the kidneys with bilateral perinephric stranding and left renal cysts. No lymphadenopathy. Study is mildly motion degraded. There is mild Modic type I degeneration involving the superior endplate of L4. Fatty marrow changes compatible with bone demine ralization. Acute horizontal fracture through the anterior and superior endplates of L1 redemonstrate d again with less than 20% vertebral body height loss and no retropulsion. There is equivocal fractur e extension into the left pedicle. The right pedicle and bilateral lamina appear intact. Mild paraver tebral edema without additional acute fracture or subluxation. Small posterior Tarlov cysts are noted at L4-L5 and L5-S1 with multilevel facet effusions. T12-L1: Spondylotic spurring with moderate facet arthrosis. No central canal or neural foraminal betina nosis. L1-L2: Small posterior annular disc bulge with spondylitic spurring and moderate facet arthrosis. No central canal or neural foraminal stenosis. L2-L3: Mild intervertebral disc space narrowing. Spondylitic spurring with circumferential annular d isc bulge/disc osteophyte complex. Ligamentum flavum thickening with moderate to severe facet arthros is. Mild central canal stenosis with AP dimension of the thecal sac measuring 9 mm. There is at least mild narrowing of the lateral recesses. The right neural foramen is patent. Mild left foraminal sten osis. L3-L4: Osteophytic spurring is most pronounced anteriorly. Mild intervertebral disc space narrowing and circumferential annular disc bulge. Ligamentum flavum thickening with moderate facet arthrosis. M oderate central canal stenosis with AP dimension of the thecal sac measuring 6 mm. There is at least moderate narrowing of the lateral recesses. Mild to moderate bilateral foraminal stenosis. L4-L5: Mild to moderate intervertebral disc space narrowing. Osteophytic spurring is most pronounced anteriorly. Circumferential annular disc bulge with disc osteophyte complex. Severe facet arthrosis with ligamentum flavum thickening. Moderate central canal stenosis with AP dimension of the thecal sa c measuring 7 mm. Severe narrowing of the lateral recesses. Moderate right with moderate to severe le ft foraminal stenosis. L5-S1: Mild intervertebral disc space narrowing. Spondylitic spurring with small circumferential senia ular disc bulge and posterior annular fissure. Ligamentum flavum thickening with moderate to severe f acet arthrosis. Patent central canal. Moderate narrowing of the lateral recesses. Severe right with m ild to moderate left foraminal narrowing. IMPRESSION: 1. Unchanged alignment of the acute horizontal fracture involving the superior endplate and mid verte bral body at L1 resulting in less than 20% vertebral body height loss and no retropulsion. 2. No additional acute fracture or subluxation. 3. Degenerative changes of the lumbar spine as above with resultant multilevel central canal and neur al foraminal narrowing. 4. Aneurysmal dilation of the abdominal aorta redemonstrated. ACT 112: Negative or not required by law. The above report was generated using voice recognition software. It may contain grammatical, syntax o r spelling errors. Electronically signed by: Rafael Pace M.D. 06/23/2024 2:52 PM
[2024-06-24 06:20] LABS: Hemoglobin 12.4 g/dl (14.0-18.0); Mean Corpuscular Hemoglobin 34.6 pg (25.0-34.0); Mean Corpuscular Hgb Conc 34.4 g/dL (32.0-36.0); Mean Corpuscular Volume 100.6 fL (80.0-100.0); Mean Platelet Volume 10.5 fL (9.4-12.4); Platelet Count 248 K/uL (130-400); RDW Coefficient of Variation 14.6 % (11.5-14.5); RDW Standard Deviation 54.4 fL (36.4-46.3); Red Blood Count 3.58 M/uL (4.70-6.10); White Blood Count 10.62 K/ul (4.8-10.8)
[2024-06-24 06:47] LABS: BUN Creatinine Ratio 18.1 (10-20); Calcium 8.9 mg/dl (8.6-10.3); Creatinine Clr Calc Pharmacy 26.1 ml/min; Magnesium 2.3 mg/dl (1.7-2.4); Phosphorus 3.4 mg/dl (2.5-4.9); Potassium 3.8 mmol/L (3.5-5.1)
--- NOTE | 2024-06-24 08:25 | Hospitalist Progress Note ---
Date of Service June 24, 2024 Assessment & Plan (1) Fall: (2) Low back pain: (3) L1 vertebral fracture: (4) Atrial fibrillation with RVR: (5) History of CVA (cerebrovascular accident): (6) Diabetes mellitus, type II: (7) CKD (chronic kidney disease) stage 3, GFR 30-59 ml/min: Plan: Patient is 88 year old male with PMH HTN, HLD, history CVA, DM II, CKD III, BPH, gout, hypothyroidism, h/o AAA, dementia, PAF anticoagulated on Eliquis presented to ER with c/o fall during the night and low back pain. Trying to quickly ambulate to bathroom without walker and fell. #Fall #Ambulatory dysfunction #T2, L1 fracture CT Head: No acute findings. CT C-Spine: No acute fracture Pelvis Xray: No acute fracture CT Abd/pelvis: 1. Acute horizontal fracture along the inferior endplate of L1 with minimal loss of vertebral body height. No retropulsion. No extension into the posterior elements. 2. No additional acute traumatic findings on unenhanced exam. 3. 5.5 cm infrarenal abdominal aortic aneurysm, increased in caliber since CT of April 19, 2021 when it measured 4.8 cm. 4. Cardiomegaly with mild interstitial pulmonary edema. In ER given morphine 2mg IV CT Thoracic spine to r/o thoracic fracture 1. Acute appearing compression fractures of T2 and L1 as above. 2. Moderate to marked multilevel degenerative changes of the lumbar spine. 3. Pulmonary fibrosis and mediastinal and hilar adenopathy likely reactive. Pain control with lidocaine patch, scheduled Tylenol, oxycodone, morphine prn pain Orthotics consult for TLSO brace Walks with walker at baseline Fall precautions PT/OT eval Ortho spine consulted - lumbar spine MRI ordered 1. Unchanged alignment of the acute horizontal fracture involving the superior endplate and mid vertebral body at L1 resulting in less than 20% vertebral body height loss and no retropulsion. 2. No additional acute fracture or subluxation. 3. Degenerative changes of the lumbar spine as above with resultant multilevel central canal and neural foraminal narrowing. 4. Aneurysmal dilation of the abdominal aorta redemonstrated. #History PAF #Afib RVR Admitted 06/18/24-06/19/24 for new onset A-fib RVR. Started on metoprolol succinate 100 mg daily and started on Eliquis twice daily. 06/19/24 echo: Moderate concentric LVH, no wall motion abnormalities, EF: 50-55%, trace aortic regurgitation, mild-moderate mitral regurgitation. On admission Troponins flat 27, 28 Initially presented to ER in sinus rhythm. During ER course patient appeared to develop A-fib RVR rate up to 160. Patient is asymptomatic denies chest pain, shortness of breath, dizziness or palpitations. BP 211/101 Patient given dose of IV Lopressor 5 mg. Repeat heart rate 123, BP 127/96 Give home metoprolol succinate now and continue daily dosing Continue Eliquis. 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 Initially on 2L of suppl. O2 guaifenesin, flutter valve, IS started empiric abx Overnight (06/21/24) pt's oxygen requirement increased. 06/22 AM 5L -> 13L CXR, VBG obtained overnight, doxy added AM added lasix iv - pt responded well and now down to 6L. will cont. w/ abx and diuresis cont. to closely monitor 06/23 HR increased overnight and so oxygen requirement also increased, currently on 8L 06/24 Oxygen requirement down to 3L, cont. diuresis w/ IV lasix #Acute on Chronic HFpEF Not currently on home diuretics - likely secondary to pna, Afib RVR, etc. - diuresis and abx treatment as above, treatment for Afib Monitor volume status closely #CKD III Cr: 2.1 on admission. Was 2.0 on 06/18/24. (Per discussion with [place] [facility] creatinine 1.6 on 03/19/2024) - current Cr 2.4 Monitor renal functions, avoid nephrotoxic agents when possible #HTN Continue losartan, metoprolol succinate Pain control as above #History of CVA (cerebrovascular accident): Continue Plavix Atorvastatin was d/c in 05/2024 per pt and request to decrease amount of medications #Diabetes mellitus, type II: A1c: 7.3 on 06/19/24 Not on home medication per pt request Novolog sliding scale per protocol #BPH (benign prostatic hyperplasia): Continue tamsulosin #Hypothyroidism: Continue levothyroxine #Dementia Currently appears at baseline Had reported delirium like symptoms upon discharge from hospital which seems to have cleared when pt returned home Monitor for delirium Attempt frequent re-orientation DVT Prophylaxis On Eliquis Dispo: telemetry DNR/DNI as per discussion with pt, pt's Follows with [place] [facility] for routine care Admission and Anticipated Discharge Date Admission Date: June 20, 2024 Subjective Pt seen in follow up of fall recently admitted for Afib RVR, started on eliquis and metoprolol Yesterday very difficult to manage his HR, however around 11:20 am today pt converted to sinus, pt is on amiodarone and cardiology is closely following cont. diuresing w/ IV lasixAissatou also placed Oxygen requirement also down Pt did get spine MRI yesterday Pt awake, little drowsy, cooperates, able to take a deep breath and cough when prompted RN at the bedside and discussed with Review of Systems Review of Systems: All systems reviewed & are unremarkable except as noted in Subjective Physical Exam Physical Exam: Constitutional: WD/WN elderly M in NAD, awake but little drowsy and on suppl. O2 - O2 requirement down to 3L Respiratory: decreased breath sounds, +rhonchi,crackles no wheezes Cardiovascular: regular, no murmur, no edema Abdomen: normal bowel sounds, soft, nontender Musculoskeletal: Tenderness in lower back. Neurologic: awake but still little drowsy, no face palsy, answers appropriately, no dysarthria, moves extremities Results & Data Results & Data Vital Signs (Past 12 Hours) Vital Signs Temp Pulse Pulse Pulse Resp BP Pulse Ox 06/24/24 08:09 36.9 C 117 H 21 160/98 H 96 06/24/24 07:59 119 H 06/24/24 07:48 115 H 24 98 06/24/24 07:38 06/24/24 04:16 113 H 96 06/24/24 03:15 36.6 C 124 H 19 158/83 H 96 06/23/24 23:44 36.4 C L 74 18 141/88 H 97 06/23/24 22:45 131 H 04/14/25 20:50 122 H 143/54 H O2 Del Method O2 Flow Rate 06/24/24 08:09 High Flow Nasal Cannula 3 06/24/24 07:59 06/24/24 07:48 Nasal Cannula 4 06/24/24 07:38 Nasal Cannula 5 06/24/24 04:16 High Flow Nasal Cannula 5 06/24/24 03:15 High Flow Nasal Cannula 7 06/23/24 23:44 High Flow Nasal Cannula 8 06/23/24 22:45 06/23/24 20:50 Laboratory Results 06/24/24 06/24/24 06/24/24 Range/Units 06:22 05:34 00:14 WBC 10.62 (4.8-10.8) K/ul RBC 3.58 L (4.70-6.10) M/uL Hgb 12.4 L (14.0-18.0) g/dl Hct 36.0 L (42.0-52.0) % MCV 100.6 H (80.0-100.0) fL MCH 34.6 H (25.0-34.0) pg MCHC 34.4 (32.0-36.0) g/dL RDW Std Deviation 54.4 H (36.4-46.3) fL RDW Coeff of Angelika 14.6 H (11.5-14.5) % Plt Count 248 (130-400) K/uL MPV 10.5 (9.4-12.4) fL Sodium 141 (136-145) mmol/L Potassium 3.8 (3.5-5.1) mmol/L Chloride 107 (98-107) mmol/L Carbon Dioxide 23 (21-32) mmol/L Anion Gap 11 (3-11) BUN 40 H (6-23) mg/dl Creatinine 2.21 H (0.6-1.4) mg/dl Est Cr Clr Drug Dosing 26.1 ml/min eGFR 27.95 BUN/Creatinine Ratio 18.1 (10-20) Glucose 186 H (70-99(Fasting)) mg/dl POC Glucose 184 H 262 H (70-99) mg/dl Calcium 8.9 (8.6-10.3) mg/dl Phosphorus 3.4 (2.5-4.9) mg/dl Magnesium 2.3 (1.7-2.4) mg/dl B-Natriuretic Peptide (0-100) pg/ml 06/24/24 06/23/24 06/23/24 Range/Units 00:13 18:10 12:15 WBC (4.8-10.8) K/ul RBC (4.70-6.10) M/uL Hgb (14.0-18.0) g/dl Hct (42.0-52.0) % MCV (80.0-100.0) fL MCH (25.0-34.0) pg MCHC (32.0-36.0) g/dL RDW Std Deviation (36.4-46.3) fL RDW Coeff of Angelika (11.5-14.5) % Plt Count (130-400) K/uL MPV (9.4-12.4) fL Sodium (136-145) mmol/L Potassium (3.5-5.1) mmol/L Chloride (98-107) mmol/L Carbon Dioxide (21-32) mmol/L Anion Gap (3-11) BUN (6-23) mg/dl Creatinine (0.6-1.4) mg/dl Est Cr Clr Drug Dosing ml/min eGFR BUN/Creatinine Ratio (10-20) Glucose (70-99(Fasting)) mg/dl POC Glucose 218 H 227 H 233 H (70-99) mg/dl Calcium (8.6-10.3) mg/dl Phosphorus (2.5-4.9) mg/dl Magnesium (1.7-2.4) mg/dl B-Natriuretic Peptide (0-100) pg/ml 06/23/24 06/23/24 Range/Units 08:47 08:30 WBC (4.8-10.8) K/ul RBC (4.70-6.10) M/uL Hgb (14.0-18.0) g/dl Hct (42.0-52.0) % MCV (80.0-100.0) fL MCH (25.0-34.0) pg MCHC (32.0-36.0) g/dL RDW Std Deviation (36.4-46.3) fL RDW Coeff of Angelika (11.5-14.5) % Plt Count (130-400) K/uL MPV (9.4-12.4) fL Sodium (136-145) mmol/L Potassium (3.5-5.1) mmol/L Chloride (98-107) mmol/L Carbon Dioxide (21-32) mmol/L Anion Gap (3-11) BUN (6-23) mg/dl Creatinine (0.6-1.4) mg/dl Est Cr Clr Drug Dosing ml/min eGFR BUN/Creatinine Ratio (10-20) Glucose (70-99(Fasting)) mg/dl POC Glucose 198 H (70-99) mg/dl Calcium (8.6-10.3) mg/dl Phosphorus (2.5-4.9) mg/dl Magnesium (1.7-2.4) mg/dl B-Natriuretic Peptide 438 H (0-100) pg/ml Medications Administered Current Inpatient Medications Acetaminophen (Acetaminophen 500 Mg Tab) 1,000 mg PO Q8H PRN PRN Reason: Pain or Fever Stop: 07/20/24 22:59 Last Admin: 06/22/24 08:41 Dose: 1,000 mg Allopurinol (Allopurinol 100 Mg Tab) 100 mg PO QAM YURIDIA Stop: 07/21/24 08:59 Last Admin: 06/23/24 08:31 Dose: 100 mg Apixaban (Apixaban 2.5 Mg Tab) 2.5 mg PO BID YURIDIA Stop: 07/21/24 20:59 Last Admin: 06/23/24 19:46 Dose: 2.5 mg Cetirizine HCl (Cetirizine Hcl 10 Mg Tablet) 10 mg PO DAILY YURIDIA Stop: 07/21/24 08:59 Last Admin: 06/23/24 08:31 Dose: 10 mg Clopidogrel Bisulfate (Clopidogrel Bisulfate 75 Mg Tab) 75 mg PO DAILY YURIDIA Stop: 07/20/24 18:28 Last Admin: 06/23/24 08:31 Dose: 75 mg Dextrose (Dextrose 50% 50 Ml Syringe) 25 - 50 ml IV UD PRN; Protocol PRN Reason: Hypoglycemia Protocol Stop: 07/20/24 18:28 Duloxetine HCl (Duloxetine Hcl 20 Mg Cap) 20 mg PO DAILY YURIDIA Stop: 07/21/24 08:59 Last Admin: 06/23/24 08:31 Dose: 20 mg Fluticasone Propionate (Fluticasone Propionate Na Spr 16 Gm Btl) 2 sprays NADIYA HS [facility] Stop: 07/20/24 20:59 Last Admin: 06/23/24 19:52 Dose: 2 sprays Glucagon (Glucagon For Inj 1 Mg Vial) 1 mg SQ UD PRN; Protocol PRN Reason: Hypoglycemia Protocol Stop: 07/20/24 18:28 Glucose (Glucose 40% Gel 15 Gm Tube) 15 - 30 gm PO UD PRN; Protocol PRN Reason: Hypoglycemia Protocol Stop: 07/20/24 18:28 Glucose (Glucose 10 Tab/Tube) 4 - 8 tab PO UD PRN; Protocol PRN Reason: Hypoglycemia Protocol Stop: 07/20/24 18:28 Guaifenesin (Guaifenesin 600 Mg Tabcr) 600 mg PO DAILY [facility] Stop: 07/22/24 08:59 Last Admin: 06/23/24 08:31 Dose: 600 mg Hydralazine HCl (Hydralazine Hcl 20 Mg/Ml Vial) 5 mg IV Q4H PRN PRN Reason: SBP > 170 Stop: 07/22/24 17:46 Last Admin: 06/23/24 19:53 Dose: 5 mg Acetaminophen (Ofirmev) 1,000 mg in 100 mls @ 400 mls/hr IV Q8H PRN PRN Reason: Pain or Fever Stop: 06/24/24 23:48 Last Infusion: 06/22/24 00:40 Dose: Infused Doxycycline Hyclate 100 mg/ (Dextrose) 100 mls @ 50 mls/hr IV Q12H [facility] Stop: 06/27/24 00:00 Last Infusion: 06/24/24 02:20 Dose: Infused Amiodarone HCl/Dextrose (Nexterone / D5w) 360 mg in 200 mls @ 33.333 mls/hr IV Q6H [facility] Stop: 07/23/24 09:59 Last Infusion: 06/24/24 07:07 Dose: 1 mg/min, 33.3 mls/hr Insulin Aspart (Insulin Aspart Per Unit Charge) 0 units SC Q6 YURIDIA Stop: 07/23/24 08:29 Last Admin: 06/24/24 06:32 Dose: 1 units Levalbuterol HCl (Levalbuterol 1.25 Mg/3 Ml Neb) 1.25 mg NEB Q4H PRN PRN Reason: Shortness Of Breath Or Wheezing Stop: 07/22/24 01:04 Last Admin: 06/23/24 10:44 Dose: 1.25 mg Levothyroxine Sodium (Levothyroxine Sodium 50 Mcg Tablet) 50 mcg PO DAILYBB [facility] Stop: 07/21/24 06:29 Last Admin: 06/24/24 06:32 Dose: 50 mcg Lidocaine (Lidocaine 5% 1 Patch) 1 patch TD QAM [facility] Stop: 07/21/24 10:59 Last Admin: 06/23/24 08:32 Dose: 1 patch Losartan Potassium (Losartan Potassium 25 Mg Tab) 25 mg PO DAILY [facility] Stop: 07/21/24 08:59 Last Admin: 06/23/24 08:31 Dose: 25 mg Metoprolol Succinate (Metoprolol Succ 50mg Ext Rel Tab) 50 mg PO DAILY [facility] Stop: 07/23/24 11:49 Last Admin: 06/23/24 12:22 Dose: 50 mg Miscellaneous (Carbohydrates For Hypoglycemia ) 15 - 30 gm PO UD PRN PRN Reason: Hypoglycemia Protocol Stop: 07/20/24 18:28 Miscellaneous (Remove Lidoderm Patch) 1 each N/A DAILY@2100 [facility] Stop: 07/21/24 20:59 Last Admin: 06/23/24 19:51 Dose: 1 each Morphine Sulfate (Morphine Sulfate 2 Mg/Ml Carp) 1 mg IV Q4H PRN PRN Reason: Severe Pain (Scale 7, 8, 9,10) Stop: 07/04/24 18:28 Nystatin (Nystatin Powder 15gm Btl) 1 appln EXT BID [facility] Stop: 07/21/24 23:44 Last Admin: 06/23/24 19:48 Dose: 1 appln Ondansetron HCl (Ondansetron Inj 2 Mg/Ml 2 Ml Vial) 2 mg IV Q6H PRN PRN Reason: Nausea Stop: 07/20/24 18:28 Oxycodone HCl (Oxycodone Hcl Ir 5 Mg Tab (Immediate Release)) 2.5 mg PO Q6H PRN PRN Reason: Moderate Pain (Scale 4, 5, 6) Stop: 07/04/24 18:28 Polyethylene Glycol (Polyethylene (Miralax) 17 Gm Pack) 17 gm PO DAILY [facility] Stop: 07/21/24 08:59 Last Admin: 06/23/24 08:39 Dose: 17 gm Sodium Chloride (Sodium Chlor 7% 4 Ml Neb) 4 ml NEB BIDR [facility] Stop: 07/22/24 09:38 Last Admin: 06/24/24 07:46 Dose: 4 ml Tamsulosin HCl (Tamsulosin Hcl 0.4 Mg Cap) 0.4 mg PO QPM [facility] Stop: 07/20/24 20:59 Last Admin: 06/23/24 19:46 Dose: 0.4 mg
[2024-06-24] MEDS: POTASSIUM CHLORIDE CRTAB 20 MEQ TABCR PO STA (09:00)
--- NOTE | 2024-06-24 11:19 | Cardiology Progress Note ---
Date of Service June 24, 2024 Assessment & Plan (1) Atrial fibrillation with RVR: (2) L1 vertebral fracture: (3) Pneumonia: (4) Acute on chronic heart failure with preserved ejection fraction: (5) CKD (chronic kidney disease): (6) Acute and chronic respiratory failure with hypoxia: Plan 06/23/24 Patient admitted s/p fall with acute compression fractures of T2 and L1. Ortho consulted and awaiting brace. Ongoing pain control recommended as well. During admission he had recurrent afib RVR. Initially diagnosed during admission earlier this month along with worsening respiratory status - acute respiratory failure wiht hypoxia (possible aspiration event) and HFpEF. Afib RVR since last night -Difficult to control rates. -Initially attempt at rhythm control with IV diltiazem overnight. Titration of dose resulted in hypotension -He was also treated with several doses of IV amiodarone, however there was concerns regarding prolonged QT interval (when in NSR due to RBBB) and this was discontinued overnight. -This morning, his rates remain uncontrolled and medications limited due to mild hypotension. -Despite mildly prolonged QT interval at baseline (due to RBBB), recommend resuming low dose IV amiodarone 1mg/min continuous. No bolus. - Monitor QT duration. Repeat EKG later today -Metoprolol 100 mg daily was held this morning. BP improved. Resume metoprolol succinate 50 mg this morning. Consider BID dosing. -Continue low dose Eliquis 2.5 mg BID. He is fall risk. Monitor closely -supplement potassium to keep 4-5. -Supplement Magnesium > 2.0 Acute on chronic respiratory failure/Acute HFpEF - Worsening hypoxia noted since yesterday, multifactorial with possible aspiration event -continue antibiotics -continue supplemental O2 -Repeat IV lasix 20 mg this morning -Monitor renal function/creatinine - current 2.2. Near baseline -supplement potassium -daily weight with standing scale (if able) -Monitor I+O's Hypertension -improved -Transient hypotension (resolved) -continue metoprolol, losartan 06/24/24: Improving respiratory status this morning. Reduced oxygen requirements. Good urine output yesterday after several doses of IV lasix. BP now hypertensive. stable renal function Would give additional IV furosemide 40 mg x1 dose today Monitor electrolytes Monitor I+O's Continue antibiotics for probable aspiration event as well earlier this admission. Persistent atrial fibrillation this morning with variable rates Continue IV amiodarone Improved QT/QTc measurements on EKG < 500. Continue metoprolol and Eliquis. Continue on telemetry. Continue antihypertensive therapy with losartan, metoprolol and Diuretics. Pain management for compression fractures per hospitalist and ortho. Case discussed with Dr. Hernandez I spent a total of 30 minutes on the date of service in preparation, delivery, and documentation of the care provided to this patient, excluding any time spent in the performance of separately billed services. Elena Flowers PA-C Department of Cardiology, [facility] This chart was completed in part utilizing Speech Voice Recognition Software. Grammatical errors, random word insertions, pronoun errors, and incomplete sentences are an occasional consequence of this system due to software limitatio ns, ambient noise, and hardware issues. Any formal questions or concerns about the content, text, or information contained within the body of this dictation should be directly addressed to the provider for clarification. Admission and Anticipated Discharge Date Admission Date: June 20, 2024 Supervising Physician Co-Signing Physician Notes Attending attestation: Case reviewed with the advanced practitioner. I have personally performed a history and physical examination on the patient. I have reviewed the advanced practitioner's documentation on the date of service referenced in note, and I agree with, and take responsibility for the plan of care. Patient appears more comfortable. Still in AF , but rates improved to the 120s. Continue amiodarone infusion. BP is better, allowing for administration of furosemide and metoprolol. Increase metoprolol succinate to 50 mg BID, furosemide 60 mg IV x 1. Zosyn discontinued and therefore less IV fluid intake planned. I spent a total of 30 minutes coordinating, documenting, and providing care for this patient excluding time spent in the performance of separately billed services or time spent by another provider. Da Hernandez, DO Subjective Patient sleeping soundly. respiratory status and oxygen requirements improved from yesterday. Patient now hypertensive as well. Remains in atrial fib/flutter at time of evaluation, rates improving. Sleeping comfortably. Review of systems not performed. Review of Systems Review of Systems: Other (Sleeping and did not awaken easily) Physical Exam Constitutional: WD/WN, vitals as above well developed and well nourished Neck: normal visual inspection Respiratory: no labored breathing Auscultation: + diminished lung sounds (anteriorly) Cardiovascular: Rate/Rhythm: + tachycardic and + irregularly irregular Heart Sounds: no murmur (No audible murmur, distant heart sounds) Vessels: no JVD Extremities: no edema Gastrointestinal (Abdomen): normal bowel sounds, soft, nontender, no hepatosplenomegaly Results & Data Vital Signs (Past 12 Hours) Vital Signs Temp Pulse Pulse Pulse Resp BP Pulse Ox 06/24/24 08:09 36.9 C 117 H 21 160/98 H 96 06/24/24 07:59 119 H 06/24/24 07:48 115 H 24 98 06/24/24 07:38 06/24/24 04:16 113 H 96 06/24/24 03:15 36.6 C 124 H 19 158/83 H 96 06/23/24 23:44 36.4 C L 74 18 141/88 H 97 O2 Del Method O2 Flow Rate 06/24/24 08:09 High Flow Nasal Cannula 3 06/24/24 07:59 06/24/24 07:48 Nasal Cannula 4 06/24/24 07:38 Nasal Cannula 5 06/24/24 04:16 High Flow Nasal Cannula 5 06/24/24 03:15 High Flow Nasal Cannula 7 06/23/24 23:44 High Flow Nasal Cannula 8 Laboratory Results CBC 06/24/24 Range/Units 05:34 WBC 10.62 (4.8-10.8) K/ul RBC 3.58 L (4.70-6.10) M/uL Hgb 12.4 L (14.0-18.0) g/dl Hct 36.0 L (42.0-52.0) % Plt Count 248 (130-400) K/uL Comprehensive Metabolic Panel 06/24/24 Range/Units 05:34 Sodium 141 (136-145) mmol/L Potassium 3.8 (3.5-5.1) mmol/L Chloride 107 (98-107) mmol/L Carbon Dioxide 23 (21-32) mmol/L BUN 40 H (6-23) mg/dl Creatinine 2.21 H (0.6-1.4) mg/dl Glucose 186 H (70-99(Fasting)) mg/dl Calcium 8.9 (8.6-10.3) mg/dl Intake and Output 06/23/24 06/24/24 06/24/24 22:59 06:59 14:59 Intake Total 599.245 / 1226.412 300 / 1226.412 175.935 / 175.935 Output Total 600 / 1450 850 / 1450 Balance -0.755 / -223.588 -550 / -223.588 175.935 / 175.935 Intake: IV 599.245 / 1201.412 300 / 1201.412 175.935 / 175.935 Amiodarone / D5w 360 mg In 200 399.245 / 599.245 200 / 599.245 175.935 / 175.935 ml @ 1 MG/MIN 33.333 mls/hr IV Q6H [facility] Rx#:[id number] Doxycycline Hyclate 100 mg In 100 / 200 100 / 200 Dextrose 5% Mini-B 100 ml @ 50 mls/hr IV Q12H [facility] Rx#:[id number] Piperacillin/Tazobactam 4.5 gm 100 / 200 In 100 ml @ 25 mls/hr IV Q8H [facility] Rx#:[id number] Output: Urine Amount (Catheter) 600 / 1450 850 / 1450 Reyez/Indwelling 600 / 1450 850 / 1450 Other: Other Intake Source npo Diagnostic Findings Telemetry reviewed: Persistent atrial fib with rates ranging 100-120's EKG this morning at 8:56 AM: Atrial fibrillation with mildly elevated rate at 104 bmp RBBB LAFB QT/QTc 354/465 ms Medications Administered Current Inpatient Medications Acetaminophen (Acetaminophen 500 Mg Tab) 1,000 mg PO Q8H PRN PRN Reason: Pain or Fever Stop: 07/20/24 22:59 Last Admin: 06/22/24 08:41 Dose: 1,000 mg Allopurinol (Allopurinol 100 Mg Tab) 100 mg PO QAM [facility] Stop: 07/21/24 08:59 Last Admin: 06/24/24 09:00 Dose: 100 mg Apixaban (Apixaban 2.5 Mg Tab) 2.5 mg PO BID [facility] Stop: 07/21/24 20:59 Last Admin: 06/24/24 09:00 Dose: 2.5 mg Cetirizine HCl (Cetirizine Hcl 10 Mg Tablet) 10 mg PO DAILY [facility] Stop: 07/21/24 08:59 Last Admin: 06/24/24 09:00 Dose: 10 mg Clopidogrel Bisulfate (Clopidogrel Bisulfate 75 Mg Tab) 75 mg PO DAILY YURIDIA Stop: 07/20/24 18:28 Last Admin: 06/24/24 09:00 Dose: 75 mg Dextrose (Dextrose 50% 50 Ml Syringe) 25 - 50 ml IV UD PRN; Protocol PRN Reason: Hypoglycemia Protocol Stop: 07/20/24 18:28 Duloxetine HCl (Duloxetine Hcl 20 Mg Cap) 20 mg PO DAILY YURIDIA Stop: 07/21/24 08:59 Last Admin: 06/24/24 09:00 Dose: 20 mg Fluticasone Propionate (Fluticasone Propionate Na Spr 16 Gm Btl) 2 sprays NADIYA HS YURIDIA Stop: 07/20/24 20:59 Last Admin: 06/23/24 19:52 Dose: 2 sprays Glucagon (Glucagon For Inj 1 Mg Vial) 1 mg SQ UD PRN; Protocol PRN Reason: Hypoglycemia Protocol Stop: 07/20/24 18:28 Glucose (Glucose 40% Gel 15 Gm Tube) 15 - 30 gm PO UD PRN; Protocol PRN Reason: Hypoglycemia Protocol Stop: 07/20/24 18:28 Glucose (Glucose 10 Tab/Tube) 4 - 8 tab PO UD PRN; Protocol PRN Reason: Hypoglycemia Protocol Stop: 07/20/24 18:28 Guaifenesin (Guaifenesin 600 Mg Tabcr) 600 mg PO DAILY [facility] Stop: 07/22/24 08:59 Last Admin: 06/24/24 09:00 Dose: 600 mg Hydralazine HCl (Hydralazine Hcl 20 Mg/Ml Vial) 5 mg IV Q4H PRN PRN Reason: SBP > 170 Stop: 07/22/24 17:46 Last Admin: 06/23/24 19:53 Dose: 5 mg Acetaminophen (Ofirmev) 1,000 mg in 100 mls @ 400 mls/hr IV Q8H PRN PRN Reason: Pain or Fever Stop: 06/24/24 23:48 Last Infusion: 06/22/24 00:40 Dose: Infused Doxycycline Hyclate 100 mg/ (Dextrose) 100 mls @ 50 mls/hr IV Q12H [facility] Stop: 06/27/24 00:00 Last Infusion: 06/24/24 02:20 Dose: Infused Amiodarone HCl/Dextrose (Nexterone / D5w) 360 mg in 200 mls @ 33.333 mls/hr IV Q6H [facility] Stop: 07/23/24 09:59 Last Admin: 06/24/24 10:00 Dose: 1 mg/min, 33.3 mls/hr Insulin Aspart (Insulin Aspart Per Unit Charge) 0 units SC Q6 [facility] Stop: 07/23/24 08:29 Last Admin: 06/24/24 06:32 Dose: 1 units Levalbuterol HCl (Levalbuterol 1.25 Mg/3 Ml Neb) 1.25 mg NEB Q4H PRN PRN Reason: Shortness Of Breath Or Wheezing Stop: 07/22/24 01:04 Last Admin: 06/23/24 10:44 Dose: 1.25 mg Levothyroxine Sodium (Levothyroxine Sodium 50 Mcg Tablet) 50 mcg PO DAILYBB [facility] Stop: 07/21/24 06:29 Last Admin: 06/24/24 06:32 Dose: 50 mcg Lidocaine (Lidocaine 5% 1 Patch) 1 patch TD QAM [facility] Stop: 07/21/24 10:59 Last Admin: 06/24/24 09:01 Dose: 1 patch Losartan Potassium (Losartan Potassium 25 Mg Tab) 25 mg PO DAILY [facility] Stop: 07/21/24 08:59 Last Admin: 06/24/24 09:00 Dose: 25 mg Metoprolol Succinate (Metoprolol Succ 50mg Ext Rel Tab) 50 mg PO DAILY [facility] Stop: 07/23/24 11:49 Last Admin: 06/24/24 09:01 Dose: 50 mg Miscellaneous (Carbohydrates For Hypoglycemia ) 15 - 30 gm PO UD PRN PRN Reason: Hypoglycemia Protocol Stop: 07/20/24 18:28 Miscellaneous (Remove Lidoderm Patch) 1 each N/A DAILY@2100 [facility] Stop: 07/21/24 20:59 Last Admin: 06/23/24 19:51 Dose: 1 each Morphine Sulfate (Morphine Sulfate 2 Mg/Ml Carp) 1 mg IV Q4H PRN PRN Reason: Severe Pain (Scale 7, 8, 9,10) Stop: 07/04/24 18:28 Nystatin (Nystatin Powder 15gm Btl) 1 appln EXT BID [facility] Stop: 07/21/24 23:44 Last Admin: 06/24/24 09:01 Dose: 1 appln Ondansetron HCl (Ondansetron Inj 2 Mg/Ml 2 Ml Vial) 2 mg IV Q6H PRN PRN Reason: Nausea Stop: 07/20/24 18:28 Oxycodone HCl (Oxycodone Hcl Ir 5 Mg Tab (Immediate Release)) 2.5 mg PO Q6H PRN PRN Reason: Moderate Pain (Scale 4, 5, 6) Stop: 07/04/24 18:28 Polyethylene Glycol (Polyethylene (Miralax) 17 Gm Pack) 17 gm PO DAILY [facility] Stop: 07/21/24 08:59 Last Admin: 06/24/24 09:01 Dose: 17 gm Sodium Chloride (Sodium Chlor 7% 4 Ml Neb) 4 ml NEB BIDR [facility] Stop: 07/22/24 09:38 Last Admin: 06/24/24 07:46 Dose: 4 ml Tamsulosin HCl (Tamsulosin Hcl 0.4 Mg Cap) 0.4 mg PO QPM [facility] Stop: 07/20/24 20:59 Last Admin: 06/23/24 19:46 Dose: 0.4 mg
--- NOTE | 2024-06-24 11:50 | Electrocardiogram Report ---
Test Reason : Blood Pressure : */* mmHG Vent. Rate : 104 BPM Atrial Rate : * BPM P-R Int : * ms QRS Dur : 132 ms QT Int : 354 ms P-R-T Axes : * -72 61 degrees QTcB Int : 465 ms Atrial fibrillation with rapid ventricular response Right bundle branch block Left anterior fascicular block Bifascicular block Minimal voltage criteria for LVH, may be normal variant Poor R wave progression, consider anterior IA vs. lead placement vs. LVH Abnormal ECG When compared with ECG of 23-Jun-2024 05:20, No significant change was found Confirmed by Taurus Calderon ([id number]) on 06/24/2024 11:50:10 AM Referred By: REFERRED SELF Confirmed By: Taurus Calderon
--- NOTE | 2024-06-24 11:53 | Electrocardiogram Report ---
Test Reason : Blood Pressure : */* mmHG Vent. Rate : 74 BPM Atrial Rate : 74 BPM P-R Int : 190 ms QRS Dur : 130 ms QT Int : 476 ms P-R-T Axes : 18 -69 12 degrees QTcB Int : 528 ms Sinus rhythm with Premature atrial complexes Right bundle branch block Left anterior fascicular block Bifascicular block Minimal voltage criteria for LVH, may be normal variant Possible Lateral infarct (cited on or before 22-Oct-2018) Abnormal ECG When compared with ECG of 24-Jun-2024 08:56, (unconfirmed) Sinus rhythm has replaced Atrial fibrillation QT has lengthened Confirmed by Taurus Calderon ([id number]) on 06/24/2024 11:53:13 AM Referred By: REFERRED SELF Confirmed By: Taurus Calderon
[2024-06-24] MEDS: POTASSIUM CHLORIDE CRTAB 20 MEQ TABCR PO ONE (12:09)
[2024-06-24] MEDS: FUROSEMIDE 40 MG/4 ML VIAL IV ONE ×2 (12:11→12:15)
--- NOTE | 2024-06-24 15:40 | Communication Note ---
Date of Service: June 24, 2024 Patient is converted to sinus rhythm on telemetry. Repeat EKG performed/ at 11:20 AM reveals sinus rhythm at 74 bpm with occasional PACs, right bundle branch block, left anterior fascicular block (bifascicular block) with QRS duration 130 ms. The corrected QT interval is prolonged at 528 ms however this must be interpreted with taking the right bu ndle branch block into account. Plan: At present, benefit of ongoing amiodarone therapy is felt to outweigh the risks. Continue IV amiodarone, oral metoprolol, Eliquis. Patient's overall status has not seem to have changed significantly since conversion to sinus rhythm. Holland Hernandez, DO Cardiology
[2024-06-24] MEDS ORDERED: Nursing to Pharmacy Communication SCH (16:15)
[2024-06-24] MEDS: INSULIN ASPART PER UNIT CHARGE SC SCH (17:26)
[2024-06-24] MEDS: METOPROLOL SUCC 50MG EXT REL TAB PO SCH (20:47)
--- NOTE | 2024-06-25 00:46 | XRay Report ---
Exam(s): XR CXR 1 VIEW EXAM: XR Chest, 1 View CLINICAL HISTORY: Reason for exam: sob. TECHNIQUE: Frontal view of the chest. COMPARISON: June 23, 2024. FINDINGS: Lungs: There are bilateral areas of infiltration and/or atelectasis. This appears mildly worsened on the left. Pleural space: No pneumothorax. Probable small pleural effusion on the left. Heart: Unremarkable. No cardiomegaly. Mediastinum: Unremarkable. Normal mediastinal contour. Bones/joints: No acute findings. IMPRESSION: Bibasilar infiltration and/or atelectasis. The left lung base appears mildly worsened. Electronically signed by: Barry Santamaria MD 06/25/24 00:45 AM
[2024-06-25] MEDS: HYDROCORTISONE 1% OINT 30 GM TUBE EXT PRN (03:51)
[2024-06-25] MEDS: AMIODARONE 200 MG TAB PO SCH (09:25)
[2024-06-25 10:09] LABS: Basophils # (auto) 0.07 K/uL (0.00-0.20); Basophils % (auto) 0.7 %; Eosinophils # (auto) 0.41 K/uL (0.00-0.50); Eosinophils % (auto) 3.8 %; Hematocrit (blood only) 35.8 % (42.0-52.0); Immature Granulocytes # (auto) 0.07 K/uL (0.01-0.20); Immature Granulocytes % (auto) 0.7 %; Lymphocytes % (auto) 18.7 %; Mean Corpuscular Hemoglobin 34.1 pg (25.0-34.0); Mean Corpuscular Hgb Conc 33.5 g/dL (32.0-36.0); Mean Corpuscular Volume 101.7 fL (80.0-100.0); Mean Platelet Volume 10.7 fL (9.4-12.4); Monocytes # (auto) 0.64 K/uL (0.11-0.59); Neutrophils # (auto) 7.53 K/uL (1.40-6.50); Neutrophils % (auto) 70.1 %; Platelet Count 240 K/uL (130-400); RDW Coefficient of Variation 15.1 % (11.5-14.5); RDW Standard Deviation 55.9 fL (36.4-46.3); Red Blood Count 3.52 M/uL (4.70-6.10); White Blood Count 10.72 K/ul (4.8-10.8)
[2024-06-25 10:32] LABS: Albumin Level 3.3 gm/dl (3.4-5.0); Bilirubin,Total 0.6 mg/dl (0.2-1.0); Calcium 8.9 mg/dl (8.6-10.3); Magnesium 2.2 mg/dl (1.7-2.4); Potassium 3.9 mmol/L (3.5-5.1)
[2024-06-25 10:40] LABS: BUN Creatinine Ratio 18.2 (10-20); Creatinine Clr Calc Pharmacy 20.3 ml/min; Globulin 3.3 gm/dl (2.5-4.0); Phosphorus 4.8 mg/dl (2.5-4.9); Total Protein 6.6 gm/dl (6.0-8.3)
--- NOTE | 2024-06-25 11:24 | Cardiology Progress Note ---
Date of Service June 25, 2024 Assessment & Plan (1) Atrial fibrillation with RVR: (2) L1 vertebral fracture: (3) Pneumonia: (4) Acute on chronic heart failure with preserved ejection fraction: (5) CKD (chronic kidney disease): (6) Acute and chronic respiratory failure with hypoxia: Plan 06/23/24 Patient admitted s/p fall with acute compression fractures of T2 and L1. Ortho consulted and awaiting brace. Ongoing pain control recommended as well. During admission he had recurrent afib RVR. Initially diagnosed during admission earlier this month along with worsening respiratory status - acute respiratory failure wiht hypoxia (possible aspiration event) and HFpEF. Afib RVR since last night -Difficult to control rates. -Initially attempt at rhythm control with IV diltiazem overnight. Titration of dose resulted in hypotension -He was also treated with several doses of IV amiodarone, however there was concerns regarding prolonged QT interval (when in NSR due to RBBB) and this was discontinued overnight. -This morning, his rates remain uncontrolled and medications limited due to mild hypotension. -Despite mildly prolonged QT interval at baseline (due to RBBB), recommend resuming low dose IV amiodarone 1mg/min continuous. No bolus. - Monitor QT duration. Repeat EKG later today -Metoprolol 100 mg daily was held this morning. BP improved. Resume metoprolol succinate 50 mg this morning. Consider BID dosing. -Continue low dose Eliquis 2.5 mg BID. He is fall risk. Monitor closely -supplement potassium to keep 4-5. -Supplement Magnesium > 2.0 Acute on chronic respiratory failure/Acute HFpEF - Worsening hypoxia noted since yesterday, multifactorial with possible aspiration event -continue antibiotics -continue supplemental O2 -Repeat IV lasix 20 mg this morning -Monitor renal function/creatinine - current 2.2. Near baseline -supplement potassium -daily weight with standing scale (if able) -Monitor I+O's Hypertension -improved -Transient hypotension (resolved) -continue metoprolol, losartan 06/24/24: Improving respiratory status this morning. Reduced oxygen requirements. Good urine output yesterday after several doses of IV lasix. BP now hypertensive. stable renal function Would give additional IV furosemide 40 mg x1 dose today Monitor electrolytes Monitor I+O's Continue antibiotics for probable aspiration event as well earlier this admission. Persistent atrial fibrillation this morning with variable rates Continue IV amiodarone Improved QT/QTc measurements on EKG < 500. Continue metoprolol and Eliquis. Continue on telemetry. Continue antihypertensive therapy with losartan, metoprolol and Diuretics. Pain management for compression fractures per hospitalist and ortho. 06/25/24: Patient converted to NSR yesterday morning. Amio gtt stopped earlier today and transitioned to oral amiodarone 200 mg daily. Prolonged QT interval on EKG due to RBBB Continue metoprolol 50 mg BID Continue Eliquis 2.5 mg BID Ongoing cough/course breath sounds noted and requiring supplemental O2. He was diuresed yesterday with good urine outputs. unfortunately creatinine delbert from 2.2 to 2.8 this morning. Nurse reporting dark colored urine. Will avoid additional diuretics today. Continue antibiotics for underlying aspiration pneumonia per hospitalist. Continue pain management per ortho and hospitalist. Case discussed with Dr. Hernandez I spent a total of 30 minutes on the date of service in preparation, delivery, and documentation of the care provided to this patient, excluding any time spent in the performance of separately billed services. Elena Flowers PA-C Department of Cardiology, [facility] This chart was completed in part utilizing Speech Voice Recognition Software. Grammatical errors, random word insertions, pronoun errors, and incomplete sentences are an occasional consequence of this system due to software limitations, ambient noise, and hardware issues. Any formal questions or concerns about the content, text, or information contained within the body of this dictation should be directly addressed to the provider for clarification. Admission and Anticipated Discharge Date Admission Date: June 20, 2024 Supervising Physician Co-Signing Physician Notes Attending attestation: Case reviewed with the advanced practitioner. I have personally performed a history and physical examination on the patient. I have reviewed the advanced practitioner's documentation on the date of service referenced in note, and I agree with, and take responsibility for the plan of care. Pt states back pain is OK as long as he is still in bed. Patient converted from atrial fibrillation with rapid ventricular rate on 11:05 am on 06/24/24. EKG on 06/24 revealed SR with bifascicular block , QTc 528 ms, but must be interpreted with taking the bifascicular block into account. Continue increased dose of metoprolol succinate 50 mg BID. Transition from IV amiodarone to oral amiodarone 200 mg daily, with benefits of amiodarone felt to outweigh the risks in this case. Continue aspiration precautions. I spent a total of 30 minutes coordinating, documenting, and providing care for this patient excluding time spent in the performance of separately billed services or time spent by another provider. Da Hernandez, DO Subjective Patient resting in bed. More awake/alert this morning. Ongoing SOB and cough reported. No chest pain. No palpitations. No dizziness. No orthopnea. Review of Systems Review of Systems: All systems reviewed & are unremarkable except as noted in HPI & below Physical Exam Constitutional: WD/WN, vitals as above well developed and well nourished Neck: normal visual inspection Respiratory: + cough; no labored breathing Auscult ation: + diminished lung sounds (anteriorly), + crackles and + rhonchi Cardiovascular: Rate/Rhythm: regular rate and regular rhythm Heart Sounds: no murmur (No audible murmur, distant heart sounds) Vessels: no JVD Extremities: no edema Gastrointestinal (Abdomen): normal bowel sounds, soft, nontender, no hepatosplenomegaly Neurologic: PERRL, EOMI, accommodation nl, no face palsy, no dysarthria Results & Data Vital Signs (Past 12 Hours) Vital Signs Temp Pulse Pulse Pulse Resp BP Pulse Ox 06/25/24 08:30 36.7 C 65 19 149/80 H 96 06/25/24 07:26 62 06/25/24 07:26 06/25/24 06:59 90 17 93 06/25/24 02:23 36.4 C L 64 18 153/85 H 96 06/25/24 00:09 36.5 C 66 18 161/88 H 98 06/24/24 23:17 66 21 91 O2 Del Method O2 Flow Rate 06/25/24 08:30 High Flow Nasal Cannula 3 06/25/24 07:26 06/25/24 07:26 Nasal Cannula 3 06/25/24 06:59 Nasal Cannula 3 06/25/24 02:23 High Flow Nasal Cannula 5 06/25/24 00:09 High Flow Nasal Cannula 5 06/24/24 23:17 High Flow Nasal Cannula 8 Laboratory Results Cardiac Enzymes 06/25/24 Range/Units 09:19 AST 12 L (13-39) U/L CBC 06/25/24 Range/Units 09:19 WBC 10.72 (4.8-10.8) K/ul RBC 3.52 L (4.70-6.10) M/uL Hgb 12.0 L (14.0-18.0) g/dl Hct 35.8 L (42.0-52.0) % Plt Count 240 (130-400) K/uL Neut # (Auto) 7.53 H (1.40-6.50) K/uL Lymph # (Auto) 2.00 (1.20-3.40) K/uL [place] # (Auto) 0.64 H (0.11-0.59) K/uL Eos # (Auto) 0.41 (0.00-0.50) K/uL Baso # (Auto) 0.07 (0.00-0.20) K/uL Comprehensive Metabolic Panel 06/25/24 Range/Units 09:19 Sodium 140 (136-145) mmol/L Potassium 3.9 (3.5-5.1) mmol/L Chloride 104 (98-107) mmol/L Carbon Dioxide 26 (21-32) mmol/L BUN 52 H (6-23) mg/dl Creatinine 2.85 H D (0.6-1.4) mg/dl Glucose 174 H (70-99(Fasting)) mg/dl Calcium 8.9 (8.6-10.3) mg/dl AST 12 L (13-39) U/L ALT 10 (7-52) U/L Alkaline Phosphatase 83 (34-104) U/L Total Protein 6.6 (6.0-8.3) gm/dl Albumin 3.3 L (3.4-5.0) gm/dl Intake and Output 06/24/24 06/25/24 06/25/24 22:59 06:59 14:59 Intake Total 505.37 / 1077.220 295.915 / 1077.220 123.765 / 123.765 Output Total 301 / 651 350 / 651 Balance 204.37 / 426.220 -54.085 / 426.220 123.765 / 123.765 Intake: IV 385.37 / 957.220 295.915 / 957.220 123.765 / 123.765 Amiodarone / D5w 360 mg In 200 385.37 / 757.220 195.915 / 757.220 123.765 / 123.765 ml @ 1 MG/MIN 33.333 mls/hr IV Q6H [facility] Rx#:[id number] Doxycycline Hyclate 100 mg In 100 / 200 Dextrose 5% Mini-B 100 ml @ 50 mls/hr IV Q12H [facility] Rx#:[id number] Oral 120 / 120 Output: Urine Amount (Catheter) 300 / 650 350 / 650 Reyez/Indwelling 300 / 650 350 / 650 # Bowel Movements Other: Other Intake Source sips Diagnostic Findings Telemetry reviewed: NSR in the 60-70's. He converted from afib to NSR yesterday morning. Maintaining NSR over the last 24 hours. EKG yesterday 06/24/24: NSR RBBB LAFB QT/QTc 476/528 ms Medications Administered Current Inpatient Medications Acetaminophen (Acetaminophen 500 Mg Tab) 1,000 mg PO Q8H PRN PRN Reason: Pain or Fever Stop: 07/20/24 22:59 Last Admin: 06/25/24 05:51 Dose: 1,000 mg Allopurinol (Allopurinol 100 Mg Tab) 100 mg PO QAM [facility] Stop: 07/21/24 08:59 Last Admin: 06/25/24 08:46 Dose: 100 mg Amiodarone HCl (Amiodarone 200 Mg Tab) 200 mg PO QAM [facility] Stop: 07/25/24 08:59 Last Admin: 06/25/24 09:25 Dose: 200 mg Apixaban (Apixaban 2.5 Mg Tab) 2.5 mg PO BID YURIDIA Stop: 07/21/24 20:59 Last Admin: 06/25/24 08:46 Dose: 2.5 mg Cetirizine HCl (Cetirizine Hcl 10 Mg Tablet) 10 mg PO DAILY YURIDIA Stop: 07/21/24 08:59 Last Admin: 06/25/24 08:46 Dose: 10 mg Clopidogrel Bisulfate (Clopidogrel Bisulfate 75 Mg Tab) 75 mg PO DAILY [facility] Stop: 07/20/24 18:28 Last Admin: 06/25/24 08:46 Dose: 75 mg Dextrose (Dextrose 50% 50 Ml Syringe) 25 - 50 ml IV UD PRN; Protocol PRN Reason: Hypoglycemia Protocol Stop: 07/20/24 18:28 Duloxetine HCl (Duloxetine Hcl 20 Mg Cap) 20 mg PO DAILY YURIDIA Stop: 07/21/24 08:59 Last Admin: 06/25/24 08:46 Dose: 20 mg Fluticasone Propionate (Fluticasone Propionate Na Spr 16 Gm Btl) 2 sprays NADIYA HS YURIDIA Stop: 07/20/24 20:59 Last Admin: 06/24/24 20:46 Dose: 2 sprays Glucagon (Glucagon For Inj 1 Mg Vial) 1 mg SQ UD PRN; Protocol PRN Reason: Hypoglycemia Protocol Stop: 07/20/24 18:28 Glucose (Glucose 40% Gel 15 Gm Tube) 15 - 30 gm PO UD PRN; Protocol PRN Reason: Hypoglycemia Protocol Stop: 07/20/24 18:28 Glucose (Glucose 10 Tab/Tube) 4 - 8 tab PO UD PRN; Protocol PRN Reason: Hypoglycemia Protocol Stop: 07/20/24 18:28 Guaifenesin (Guaifenesin 600 Mg Tabcr) 600 mg PO DAILY YURIDIA Stop: 07/22/24 08:59 Last Admin: 06/25/24 08:46 Dose: 600 mg Hydralazine HCl (Hydralazine Hcl 20 Mg/Ml Vial) 5 mg IV Q4H PRN PRN Reason: SBP > 170 Stop: 07/22/24 17:46 Last Admin: 06/23/24 19:53 Dose: 5 mg Hydrocortisone (Hydrocortisone 1% Oint 30 Gm Tube) 1 appln EXT BID PRN PRN Reason: Itching Stop: 07/25/24 03:30 Last Admin: 06/25/24 03:51 Dose: 1 appln Doxycycline Hyclate 100 mg/ (Dextrose) 100 mls @ 50 mls/hr IV Q12H YURIDIA Stop: 06/27/24 00:00 Last Infusion: 06/25/24 02:30 Dose: Infused Insulin Aspart (Insulin Aspart Per Unit Charge) 0 units SC ACHS YURIDIA Stop: 07/23/24 08:29 Last Admin: 06/25/24 08:54 Dose: 3 units Levalbuterol HCl (Levalbuterol 1.25 Mg/3 Ml Neb) 1.25 mg NEB Q4H PRN PRN Reason: Shortness Of Breath Or Wheezing Stop: 07/22/24 01:04 Last Admin: 06/23/24 10:44 Dose: 1.25 mg Levothyroxine Sodium (Levothyroxine Sodium 50 Mcg Tablet) 50 mcg PO DAILYBB [facility] Stop: 07/21/24 06:29 Last Admin: 06/25/24 05:51 Dose: 50 mcg Losartan Potassium (Losartan Potassium 25 Mg Tab) 25 mg PO DAILY YURIDIA Stop: 07/21/24 08:59 Last Admin: 06/25/24 08:46 Dose: 25 mg Metoprolol Succinate (Metoprolol Succ 50mg Ext Rel Tab) 50 mg PO BID [facility] Stop: 07/24/24 20:59 Last Admin: 06/25/24 08:46 Dose: 50 mg Miscellaneous (Carbohydrates For Hypoglycemia ) 15 - 30 gm PO UD PRN PRN Reason: Hypoglycemia Protocol Stop: 07/20/24 18:28 Morphine Sulfate (Morphine Sulfate 2 Mg/Ml Carp) 1 mg IV Q4H PRN PRN Reason: Severe Pain (Scale 7, 8, 9,10) Stop: 07/04/24 18:28 Nystatin (Nystatin Powder 15gm Btl) 1 appln EXT BID [facility] Stop: 07/21/24 23:44 Last Admin: 06/25/24 08:47 Dose: 1 appln Ondansetron HCl (Ondansetron Inj 2 Mg/Ml 2 Ml Vial) 2 mg IV Q6H PRN PRN Reason: Nausea Stop: 07/20/24 18:28 Oxycodone HCl (Oxycodone Hcl Ir 5 Mg Tab (Immediate Release)) 2.5 mg PO Q6H PRN PRN Reason: Moderate Pain (Scale 4, 5, 6) Stop: 07/04/24 18:28 Polyethylene Glycol (Polyethylene (Miralax) 17 Gm Pack) 17 gm PO DAILY YURIDIA Stop: 07/21/24 08:59 Last Admin: 06/25/24 08:47 Dose: 17 gm Sodium Chloride (Sodium Chlor 7% 4 Ml Neb) 4 ml NEB BIDR [facility] Stop: 07/22/24 09:38 Last Admin: 06/25/24 06:59 Dose: 4 ml Tamsulosin HCl (Tamsulosin Hcl 0.4 Mg Cap) 0.4 mg PO QPM [facility] Stop: 07/20/24 20:59 Last Admin: 06/24/24 20:47 Dose: 0.4 mg
--- NOTE | 2024-06-25 16:21 | Hospitalist Progress Note ---
Date of Service June 25, 2024 Assessment & Plan (1) Fall: (2) Low back pain: (3) L1 vertebral fracture: (4) Atrial fibrillation with RVR: (5) History of CVA (cerebrovascular accident): (6) Diabetes mellitus, type II: (7) CKD (chronic kidney disease) stage 3, GFR 30-59 ml/min: Plan: Patient is 88 year old male with PMH HTN, HLD, history CVA, DM II, CKD III, BPH, gout, hypothyroidism, h/o AAA, dementia, PAF anticoagulated on Eliquis presented to ER with c/o fall during the night and low back pain. Trying to quickly ambulate to bathroom without walker and fell. Fall Ambulatory dysfunction T2, L1 fracture CT Head: No acute findings. CT C-Spine: No acute fracture Pelvis Xray: No acute fracture CT Abd/pelvis noting the followin. Acute horizontal fracture along the inferior endplate of L1 with minimal loss of vertebral body height. No retropulsion. No extension into the posterior elements. 2. No additional acute traumatic findings on unenhanced exam. 3. 5.5 cm infrarenal abdominal aortic aneurysm, increased in caliber since CT of April 19, 2021 when it measured 4.8 cm. 4. Cardiomegaly with mild interstitial pulmonary edema. CT Thoracic spine to r/o thoracic fracture 1. Acute appearing compression fractures of T2 and L1 as above. 2. Moderate to marked multilevel degenerative changes of the lumbar spine. 3. Pulmonary fibrosis and mediastinal and hilar adenopathy likely reactive. Pain control with lidocaine patch, scheduled Tylenol, oxycodone, morphine prn pain Orthotics consult for TLSO brace Walks with walker at baseline Fall precautions PT/OT eval Ortho spine consulted appreciate recs History PAF Afib RVR Admitted 06/18/24-06/19/24 for new onset A-fib RVR. Started on metoprolol succinate 100 mg daily and started on Eliquis twice daily. 06/19/24 echo: Moderate concentric LVH, no wall motion abnormalities, EF: 50-55%, trace aortic regurgitation, mild-moderate mitral regurgitation. On admission Troponins flat 27, 28 Initially presented to ER in sinus rhythm. During ER course patient appeared to develop A-fib RVR rate up to 160. Cardiology consulted, appreciate recs Possible Pneumonia Episode of vomiting, after getting morphine CXR Atelectasis versus early pneumonia right lung base. Initially on 2L of suppl. O2 guaifenesin, flutter valve, IS started empiric abx Also on diuresis Acute on Chronic HFpEF Not currently on home diuretics likely secondary to pna, Afib RVR, etc. diuresis and abx treatment as above, treatment for Afib Monitor volume status closely CKD III Cr: 2.1 on admission Monitor renal function, avoid nephrotoxic agents when possible HTN Continue losartan, metoprolol succinate Pain control as above History of CVA (cerebrovascular accident): Continue Plavix Atorvastatin was d/c in 05/2024 per pt and request to decrease amount of medications Diabetes mellitus, type II: A1c: 7.3 on 06/19/24 Not on home medication per pt request Novolog sliding scale per protocol BPH (benign prostatic hyperplasia): Continue tamsulosin Hypothyroidism: Continue levothyroxine Dementia Currently appears at baseline Had reported delirium like symptoms upon discharge from hospital which seems to have cleared when pt returned home Monitor for delirium Attempt frequent re-orientation DVT Prophylaxis: On Eliquis Dispo: telemetry DNR/DNI as per discussion with pt, pt's Admission and Anticipated Discharge Date Admission Date: June 20, 2024 Subjective pt was seen in the AM with nursing at bedside Overnight requiring increased amounts of oxygen Speech eval Also rash at lidocaine patch site Review of Systems Review of Systems: All systems reviewed & are unremarkable except as noted in Subjective Physical Exam Physical Exam: General: Alert, oriented. No acute distress Neuro: difficulty with movements HEENT: NC/AT CV: RRR Resp: Breath sounds clear bilaterally, no increased effort of breathing Abdomen: Soft, nontender Extremities: No edema in lower extremities bilaterally. Results & Data Results & Data Vital Signs (Past 12 Hours) Vital Signs Temp Pulse Pulse Pulse Resp BP Pulse Ox 06/25/24 15:30 36.5 C 64 19 192/84 H 98 06/25/24 12:06 161/77 H 06/25/24 11:38 36.3 C L 62 19 179/81 H 99 06/25/24 08:30 36.7 C 65 19 149/80 H 96 06/25/24 07:26 62 06/25/24 07:26 06/25/24 06:59 90 17 93 O2 Del Method O2 Flow Rate 06/25/24 15:30 High Flow Nasal Cannula 3 06/25/24 12:06 06/25/24 11:38 Nasal Cannula 3 06/25/24 08:30 High Flow Nasal Cannula 3 06/25/24 07:26 06/25/24 07:26 Nasal Cannula 3 06/25/24 06:59 Nasal Cannula 3
[2024-06-26] MEDS: AMIODARONE 200 MG TAB PO ONE (03:24)
[2024-06-26] MEDS: METOPROLOL TARTRATE 1 MG/ML VIAL IV STA (03:24)
[2024-06-26] MEDS: POTASSIUM CHLORIDE 10 MEQ TABCR PO STA (03:24)
[2024-06-26 06:16] LABS: Base Excess VBG -0.5 mEq/L; HCO3 VBG 23 mmol/L; Oxygen Saturation VBG 75.2 %; PCO2 VBG 34 mmHg (38-50); PO2 VBG 43 mmHg; pH VBG 7.44 (7.36-7.41)
[2024-06-26] MEDS: dilTIAZem HCl 5 MG/ML 5 ML VIAL IV STA (06:16)
[2024-06-26 06:22] LABS: Hematocrit (blood only) 37.7 % (42.0-52.0); Hemoglobin 12.8 g/dl (14.0-18.0); Mean Platelet Volume 10.7 fL (9.4-12.4); Platelet Count 247 K/uL (130-400); RDW Coefficient of Variation 14.5 % (11.5-14.5); RDW Standard Deviation 53.1 fL (36.4-46.3); Red Blood Count 3.77 M/uL (4.70-6.10); White Blood Count 9.87 K/ul (4.8-10.8)
[2024-06-26 07:10] LABS: Calcium 8.9 mg/dl (8.6-10.3); Magnesium 2.1 mg/dl (1.7-2.4); Potassium 3.2 mmol/L (3.5-5.1)
--- NOTE | 2024-06-26 07:15 | XRay Report ---
EXAM: XR chest 1V portable CLINICAL HISTORY: low O2. TECHNIQUE: An X-ray image of the chest is obtained in AP projection. COMPARISON: CR 06/24/2024. FINDINGS: Pulmonary Parenchyma: Accentuated bronchovascular markings with bilateral lower lung zone opacities and infiltrates. The left costophrenic angle is blunted. Heart and Mediastinum: Heart size and shape are normal. No mediastinal widening or masses. No hilar or mediastinal lymphadenopathy. Bony Thorax: The bony thorax appears intact without fractures or deformities. Soft Tissues: Soft tissues overlying the chest wall are unremarkable. IMPRESSION: 1. Accentuated bronchovascular markings with bilateral lower lung zone opacities and infiltrates, mildly regressive compared to the last study. 2. The left costophrenic angle is blunted, stable, could be due to small pleural effusion. Electronically signed by Guanako Ballesteros 06-26-2024 07:15 AM
[2024-06-26 07:17] LABS: BUN Creatinine Ratio 20.2 (10-20); Creatinine Clr Calc Pharmacy 23.3 ml/min; Phosphorus 3.7 mg/dl (2.5-4.9)
[2024-06-26] MEDS: AMIODARONE 200 MG TAB PO SCH (08:15)
[2024-06-26] MEDS: POTASSIUM CHLORIDE CRTAB 20 MEQ TABCR PO ONE (08:47)
[2024-06-26] MEDS: POTASSIUM CHLORIDE / WTR 10 MEQ/100 ML PLCT IV SCH (09:52)
--- NOTE | 2024-06-26 10:55 | Fluoroscopy Report ---
FL video swallow CLINICAL HISTORY: r/o aspiration COMPARISON STUDY: None TECHNIQUE: The patient was given barium mixture of varying consistencies by speech pathology. Swallow ing function was observed fluoroscopically recorded with rapid sequence filming. Total fluoroscopy ti me was 1 minute and 36 seconds. Total dose 4.95mGy Findings: There were 2 episodes of mild, silent aspiration with thin liquids. No additional abnormali ties were identified. IMPRESSION: Silent aspiration observed ACT 112: Negative or not required by law. Electronically signed by: Cece Bustos M.D. 06/26/2024 10:53 AM
--- NOTE | 2024-06-26 11:35 | Hospitalist Progress Note ---
Date of Service June 26, 2024 Assessment & Plan (1) Fall: (2) Low back pain: (3) L1 vertebral fracture: (4) Atrial fibrillation with RVR: (5) History of CVA (cerebrovascular accident): (6) Diabetes mellitus, type II: (7) CKD (chronic kidney disease) stage 3, GFR 30-59 ml/min: Plan: Patient is 88 year old male with PMH HTN, HLD, history CVA, DM II, CKD III, BPH, gout, hypothyroidism, h/o AAA, dementia, PAF anticoagulated on Eliquis who presented to the ER with c/o fall during the night and low back pain. Fall Ambulatory dysfunction T2, L1 fracture CT Head: No acute findings. CT C-Spine: No acute fracture Pelvis Xray: No acute fracture CT Abd/pelvis noting an acute fracture of L1 and "5.5 cm infrarenal abdominal aortic aneurysm, increased in caliber since CT of April 19, 2021 when it measured 4.[address] Thoracic spine to r/o thoracic fracture noting acute compression fractures of T2 and L1. MRI lumbar spine- L1 horizontal fracture, degenerative changes Pain control Orthotics consult for TLSO brace Walks with walker at baseline Fall precautions PT/OT eval- recommending SNF Ortho spine consulted appreciate recs History PAF Afib RVR Admitted 06/18/24-06/19/24 for new onset A-fib RVR. Started on metoprolol succinate 100 mg daily and started on Eliquis twice daily. 06/19/24 echo: Moderate concentric LVH, no wall motion abnormalities, EF: 50-55%, trace aortic regurgitation, mild-moderate mitral regurgitation. On admission Troponins flat 27, 28 Initially presented to ER in sinus rhythm. During ER course patient appeared to develop A-fib RVR rate up to 160. Cardiology consulted, appreciate recs. Current recommendations are: -Continue Amiodarone 200 mg daily -Continue metoprolol 50 mg BID -continue Eliquis 2.5 mg BID Continue to monitor on telemetry Possible Aspiration Pneumonia Acute hypoxic respiratory Failure Pt with episodes of difficulty swallowing XR from 06/23 concerning for pneumonia, repeat on 06/26 with noted possible pleural effusion Pt with episodes of increased oxygen requirements at times guaifenesin, flutter valve, IS started empiric abx, day 5/7 of doxycycline Also received occasional diuretic doses Speech consulted, video swallow on 06/26 noting 2 episodes of silent aspiration Continue abx at this time Oxygen supplementation as needed, wean as tolerated Acute on Chronic HFpEF Not currently on home diuretics likely secondary to pna, Afib RVR, etc. diuresis and abx treatment as above Monitor volume status closely Hypokalemia Replete as needed Chronic Anemia Hgb at baseline Monitor H/H CKD III Cr: 2.1 on admission, peaked to 2.8 Monitor renal function, avoid nephrotoxic agents when possible Abdominal Aneurysm Noted on imaging Aneurysm expanded to 5.5cm range Chart review shows Vascular Surgery notes from 2021 where continued plavix and statin therapy was recommended EPIC Chart review noted increased size to >5cm in 2022 and pt following with the [facility] program before disenrolling per recs of his PCP due to "age and conditions." PCP follow up as needed Pulmonary Fibrosis Noted on imaging Stable HTN Continue losartan, metoprolol succinate Pain control as above History of CVA (cerebrovascular accident): Continue Plavix Atorvastatin was d/c in 05/2024 per pt and request to decrease amount of medications Diabetes mellitus, type II: A1c: 7.3 on 06/19/24 Not on home medication per pt request Novolog sliding scale per protocol BPH (benign prostatic hyperplasia): Continue tamsulosin Hypothyroidism: Continue levothyroxine Dementia Currently appears at baseline Had reported delirium like symptoms upon discharge from hospital which seems to have cleared when pt returned home Monitor for delirium Attempt frequent re-orientation DVT Prophylaxis: On Eliquis Dispo: telemetry DNR/DNI as per discussion with pt, pt's Admission and Anticipated Discharge Date Admission Date: June 20, 2024 Subjective Pt was seen laying in bed about to be taken down for his video swallow More confused today Denied acute concerns Review of Systems Review of Systems: All systems reviewed & are unremarkable except as noted in Subjective Physical Exam Physical Exam: General: Alert, oriented. No acute distress Neuro: difficulty with movements HEENT: NC/AT CV: RRR Resp: Breath sounds clear bilaterally, no increased effort of breathing Abdomen: Soft, nontender Extremities: No edema in lower extremities bilaterally. Results & Data Results & Data Vital Signs (Past 12 Hours) Vital Signs Temp Pulse Pulse Pulse Resp BP BP 06/26/24 11:27 36.8 C 79 19 130/75 06/26/24 08:05 36.8 C 100 H 18 132/82 06/26/24 07:53 126 H 06/26/24 07:05 117 H 18 06/26/24 07:00 06/26/24 05:33 138 H 20 149/87 H 06/26/24 04:55 119 H 19 06/26/24 03:40 122 H 142/71 H 06/26/24 03:24 119 H 166/78 H 06/26/24 02:56 36.5 C 100 H 19 152/85 H 06/26/24 02:50 108 H 06/26/24 00:33 19 06/25/24 23:41 68 155/73 H Pulse Ox O2 Del Method O2 Flow Rate 06/26/24 11:27 96 Nasal Cannula 4 06/26/24 08:05 93 Nasal Cannula 4 06/26/24 07:53 06/26/24 07:05 96 Nasal Cannula 4 06/26/24 07:00 Nasal Cannula 3 06/26/24 05:33 94 High Flow Nasal Cannula 4 06/26/24 04:55 91 High Flow Nasal Cannula 1 06/26/24 03:40 06/26/24 03:24 06/26/24 02:56 93 Room Air 06/26/24 02:50 06/26/24 00:33 93 Room Air 06/25/24 23:41 Diagnostic Findings Chest X-Ray 06/20/24 12:13 XR chest 1V portable CLINICAL HISTORY: Trauma COMPARISON STUDY: 06/18/2024 FINDINGS: Stable moderate cardiomegaly without pulmonary vascular congestion. No effusion, consolidation, or pneumothorax seen. IMPRESSION: No acute findings seen. ACT 112: Negative or not required by law. Electronically signed by: Michael Bell M.D. 06/20/2024 12:59 PM Pelvis X-Ray 06/20/24 12:13 XR pelvis 1-2V routine CLINICAL HISTORY: Trauma COMPARISON: None FINDINGS: No fracture or dislocation seen. IMPRESSION: No pelvic fracture seen. ACT 112: Negative or not required by law. Electronically signed by: Michael Bell M.D. 06/20/2024 12:58 PM Abdomen/Pelvis CT 06/20/24 12:14 CT OF THE ABDOMEN AND PELVIS WITHOUT CONTRAST CLINICAL HISTORY: Trauma. COMPARISON STUDY: CT of the abdomen and pelvis, MRCP and right upper quadrant ultrasound April 19, 2021. TECHNIQUE: Axial images of the abdomen and pelvis were obtained without IV contrast. Images were reviewed in the axial, sagittal, and coronal planes. Automated exposure control was utilized for the study. A dose lowering technique was utilized adhering to the principles of ALARA. FINDINGS: Cardiomegaly and mild interlobular septal thickening within the lower lungs are incidentally noted. No hemoperitoneum or pneumoperitoneum is present. Solid abdominal viscera are suboptimally assessed on unenhanced exam but there is no evidence for traumatic injury to the liver, spleen, adrenal glands, kidneys or pancreas. There is hepatic steatosis. No biliary ductal dilatation status post cholecystectomy. Prominent april hepatis lymph nodes are unchanged. Left-sided parapelvic cysts are noted. Stranding within the left renal sinus is unchanged. There is a 5.5 cm infrarenal abdominal aortic aneurysm without evidence for rupture. The aneurysm measured 4.[address] of April 19, 2021. Caliber and wall thickness of small and large bowel are normal. There is sigmoid diverticulosis without evidence for acute diverticulitis. Prostate is enlarged, measuring 5.4 cm in transverse diameter. A small portion of the proximal sigmoid colon slightly extends into a left inguinal hernia. There is an acute horizontal fracture along the inferior endplate of L1 with minimal loss of vertebral body height. No retropulsion is present. No extension into the posterior elements is noted. No additional acute fractures. IMPRESSION: 1. Acute horizontal fracture along the inferior endplate of L1 with minimal loss of vertebral body height. No retropulsion. No extension into the posterior elements. 2. No additional acute traumatic findings on unenhanced exam. 3. 5.5 cm infrarenal abdominal aortic aneurysm, increased in caliber since CT of April 19, 2021 when it measured 4.8 cm. 4. Cardiomegaly with mild interstitial pulmonary edema. ACT 112: Negative or not required by law. Electronically signed by: Nahun Nascimento M.D. 06/20/2024 12:[address] 06/20/24 12:14 CT SCAN OF THE CERVICAL SPINE CLINICAL HISTORY: Fall. COMPARISON STUDY: CTA of the neck October 30, 2022. Chest CT April 19, 2021. TECHNIQUE: CT scan of the cervical spine is performed from the skull base to the upper thoracic spine. Images are reviewed in the axial, sagittal, and coronal planes. IV contrast was not administered for this examination. A dose lowering technique was utilized adhering to the principles of ALARA. FINDINGS: Alignment of the cervical spine is anatomic. Vertebral body heights are maintained. There are no cervical spine fractures. There is moderate degenerative disc disease and facet arthrosis within the cervical spine. Cortical irregularity of the inferior endplate of T2 is unchanged since CT of October 30, 2022. No acute fractures are identified. There is no prevertebral edema. Interlobular septal thickening within the lung apices is incidentally noted. IMPRESSION: No acute cervical spine fracture or subluxation. ACT 112: Negative or not required by law. Electronically signed by: Nahun Nascimento M.D. 06/20/2024 12:[address] 06/20/24 12:14 CT head/brain wo con CLINICAL HISTORY: Trauma. TECHNIQUE: Multiple axial CT images of the head were obtained without contrast. A dose lowering technique was utilized adhering to the principles of ALARA. CT DOSE: 2718.72 mGy.cm COMPARISON: 10/30/2022 FINDINGS: There are stable severe chronic small vessel ischemic changes. Stable small area of encephalomalacia right occipital lobe consistent with old infarction. No intracranial hemorrhage seen. No mass effect, midline shift, or hydrocephalus. Stable globus pallidus calcifications, unremarkable in this age group. No skull fracture seen. Visualized paranasal sinuses and mastoid air cells are clear. IMPRESSION: No acute findings. ACT 112: Negative or not required by law. The above report was generated using voice recognition software. It may contain grammatical, syntax or spelling errors. Electronically signed by: Michael Bell M.D. 06/20/2024 12:[address] 06/20/24 15:09 EXAM: CT Thoracic and Lumbar Spine Without Intravenous Contrast INDICATION: Posttraumatic pain. Fell today. TECHNIQUE: Axial computed tomography images of the thoracic and lumbar spine without intravenous contrast. Sagittal and coronal reformatted images were created and reviewed. This CT exam was performed using one or more of the following dose reduction techniques: automated exposure control, adjustment of the mA and/or kV according to patient size, and/or use of iterative reconstruction technique. COMPARISON: No relevant prior studies available. FINDINGS: Vertebrae: The bones are demineralized. There is mild convex right thoracic and convex left lumbar spinal bowing. There is an acute compression fracture of the superior endplate of L1 with 3-4 mm retropulsion and mild superior endplate concavity. There is mild anterior height loss. There is an acute appearing mild compression deformity of the inferior endplate of T2 with mild anterior wedging. No retropulsion. There is moderate thoracolumbar spondylosis. There is mild to moderate diffuse lumbar facet arthrosis. There is grade 1 degenerative retrolisthesis of L3 on L4. No traumatic subluxation identified. There are 12 rib-bearing thoracic and 5 nonrib-bearing lumbar type vertebra. Discs/spinal canal/neural foramina: There is diffuse thoracolumbar mild to moderate disc space narrowing. There is mild ventral canal stenosis related to retropulsion of the L1 fracture and degenerative disc change. There is moderate canal stenosis secondary to diffuse osteophyte disc bulge and ligamentous and facet hypertrophy L2-L3, L3-L4 and L4-L5. Bilateral foraminal stenosis at these levels. There is a diffuse predominantly central disc bulge L5-S1 with slight bilateral subarticular narrowing right greater than left with impingement of the right foraminal S1 nerve root and moderate canal stenosis. Soft tissues: No significant abnormality noted. Lymph nodes: Shotty nodes present in all mediastinal compartments and smaller nodes in the bilateral hilum. Largest singly measurable node is in the aortopulmonary window measuring short axis dimension 1.3 cm. Lungs and pleural spaces: There is coarse bilateral symmetrical reticulation and mild bronchiectasis and honeycombing in the visualized lower lobes. Heart: Partially imaged heart is enlarged. IMPRESSION: 1. Acute appearing compression fractures of T2 and L1 as above. 2. Moderate to marked multilevel degenerative changes of the lumbar spine. 3. Pulmonary fibrosis and mediastinal and hilar adenopathy likely reactive. ACT 112: Positive. There are findings on this exam that require communication between the performing entity and the patient following Patient Test Result Information Act ([place] ACT 112) guidelines. Electronically signed by Brianna Delaney 06-20-2024 4:[address] 06/20/24 15:09 EXAM: CT Thoracic and Lumbar Spine Without Intravenous Contrast INDICATION: Posttraumatic pain. Fell today. TECHNIQUE: Axial computed tomography images of the thoracic and lumbar spine without intravenous contrast. Sagittal and coronal reformatted images were created and reviewed. This CT exam was performed using one or more of the following dose reduction techniques: automated exposure control, adjustment of the mA and/or kV according to patient size, and/or use of iterative reconstruction technique. COMPARISON: No relevant prior studies available. FINDINGS: Vertebrae: The bones are demineralized. There is mild convex right thoracic and convex left lumbar spinal bowing. There is an acute compression fracture of the superior endplate of L1 with 3-4 mm retropulsion and mild superior endplate concavity. There is mild anterior height loss. There is an acute appearing mild compression deformity of the inferior endplate of T2 with mild anterior wedging. No retropulsion. There is moderate thoracolumbar spondylosis. There is mild to moderate diffuse lumbar facet arthrosis. There is grade 1 degenerative retrolisthesis of L3 on L4. No traumatic subluxation identified. There are 12 rib-bearing thoracic and 5 nonrib-bearing lumbar type vertebra. Discs/spinal canal/neural foramina: There is diffuse thoracolumbar mild to moderate disc space narrowing. There is mild ventral canal stenosis related to retropulsion of the L1 fracture and degenerative disc change. There is moderate canal stenosis secondary to diffuse osteophyte disc bulge and ligamentous and facet hypertrophy L2-L3, L3-L4 and L4-L5. Bilateral foraminal stenosis at these levels. There is a diffuse predominantly central disc bulge L5-S1 with slight bilateral subarticular narrowing right greater than left with impingement of the right foraminal S1 nerve root and moderate canal stenosis. Soft tissues: No significant abnormality noted. Lymph nodes: Shotty nodes present in all mediastinal compartments and smaller nodes in the bilateral hilum. Largest singly measurable node is in the aortopulmonary window measuring short axis dimension 1.3 cm. Lungs and pleural spaces: There is coarse bilateral symmetrical reticulation and mild bronchiectasis and honeycombing in the visualized lower lobes. Heart: Partially imaged heart is enlarged. IMPRESSION: 1. Acute appearing compression fractures of T2 and L1 as above. 2. Moderate to marked multilevel degenerative changes of the lumbar spine. 3. Pulmonary fibrosis and mediastinal and hilar adenopathy likely reactive. ACT 112: Positive. There are findings on this exam that require communication between the performing entity and the patient following Patient Test Result Information Act ([place] ACT 112) guidelines. Electronically signed by Brianna Delaney 06-20-2024 4:56 PM Chest X-Ray 06/21/24 10:14 XR chest 1V portable CLINICAL HISTORY: poss. aspiration COMPARISON STUDY: 06/20/2024 FINDINGS: There is stable cardiomegaly without pulmonary vascular congestion. Inspiration is shallow. There is increased stranding opacity at the right lung base with partial obscuration of the right hemidiaphragm. No other consolidation or pleural effusion. No pneumothorax. IMPRESSION: Atelectasis versus early pneumonia right lung base. ACT 112: Negative or not required by law. Electronically signed by: Michael Bell M.D. 06/21/2024 10:30 AM Chest X-Ray 06/21/24 23:49 EXAM: XR chest 1V portable CLINICAL HISTORY: sob. TECHNIQUE: An X-ray image of the chest is obtained in AP projection. COMPARISON: 06/20/2024 CR. FINDINGS: Rotated projection. Pulmonary Parenchyma: Prominent perihilar bronchovascular markings. Airspace changes involving the lower zones, more on the right side. Atelectatic changes along the right horizontal fissure. A mildly blunted right costophrenic angle may represent pleural effusion. Heart and Mediastinum: Heart size and shape are normal. No mediastinal widening or masses. No hilar or mediastinal lymphadenopathy. Bony Thorax: Degenerative changes in the visualized skeleton. Soft Tissues: Soft tissues overlying the chest wall are unremarkable. Overlying chest leads are seen. IMPRESSION: 1. Airspace changes involving the lower zones, more on the right side, are concerning for infective/inflammatory change(new). Clinical and lab correlation is suggested. 2. A mildly blunted right costophrenic angle may represent pleural effusion (new). 3. The prominence of perihilar broncho-vascular markings is probably due to pulmonary vascular congestion (unchanged). Electronically signed by Guanako Ballesteros 06-22-2024 01:35 AM Chest X-Ray 06/23/24 01:33 EXAM: XR chest 1V portable CLINICAL HISTORY: SOB TECHNIQUE: An X-ray image of the chest is obtained in AP projection. COMPARISON: 06/21/2024. FINDINGS: Rotated projection. Pulmonary Parenchyma: Prominent perihilar bronchovascular markings. Airspace changes involving the lower zones, more on the right side. Slight interval regression. Interval regression of right sided mild pleural effusion. Unchanged mild left sided pleural effusion. Heart and Mediastinum: Borderline cardiac size. No mediastinal widening or masses. No hilar or mediastinal lymphadenopathy. Bony Thorax: Degenerative changes in the visualized skeleton. Soft Tissues: Soft tissues overlying the chest wall are unremarkable. Overlying chest leads are seen. IMPRESSION: 1. Airspace changes involving the lower zones, more on the right side, are concerning for infective/inflammatory change. Slight interval regression on the right side. 2. Interval regression of right sided mild pleural effusion. 3. Unchanged mild left sided pleural effusion. 4. Pulmonary vascular congestion (unchanged). Electronically signed by Guanako Ballesteros 06-23-2024 02:13 AM Lumbar Spine MRI 06/23/24 12:46 MR lumbar spine wo con CLINICAL HISTORY: 88 years-old Male with compression fracture L1. COMPARISON: CT lumbar spine and abdomen and pelvis studies 06/20/2024. TECHNIQUE: Multiplanar, multi sequence MRI of the lumbar spine was performed without intravenous contrast. FINDINGS: Aneurysmal dilation of the infrarenal abdominal aorta redemonstrated which measured 5.5 cm on the most recent study from 06/20/2024. Cortical thinning of the kidneys with bilateral perinephric stranding and left renal cysts. No lymphadenopathy. Study is mildly motion degraded. There is mild Modic type I degeneration involving the superior endplate of L4. Fatty marrow changes compatible with bone demineralization. Acute horizontal fracture through the anterior and superior endplates of L1 redemonstrated again with less than 20% vertebral body height loss and no retropulsion. There is equivocal fracture extension into the left pedicle. The right pedicle and bilateral lamina appear intact. Mild paravertebral edema without additional acute fracture or subluxation. Small posterior Tarlov cysts are noted at L4-L5 and L5-S1 with multilevel facet effusions. T12-L1: Spondylotic spurring with moderate facet arthrosis. No central canal or neural foraminal stenosis. L1-L2: Small posterior annular disc bulge with spondylitic spurring and moderate facet arthrosis. No central canal or neural foraminal stenosis. L2-L3: Mild intervertebral disc space narrowing. Spondylitic spurring with circumferential annular disc bulge/disc osteophyte complex. Ligamentum flavum thickening with moderate to severe facet arthrosis. Mild central canal stenosis with AP dimension of the thecal sac measuring 9 mm. There is at least mild narrowing of the lateral recesses. The right neural foramen is patent. Mild left foraminal stenosis. L3-L4: Osteophytic spurring is most pronounced anteriorly. Mild intervertebral disc space narrowing and circumferential annular disc bulge. Ligamentum flavum thickening with moderate facet arthrosis. Moderate central canal stenosis with AP dimension of the thecal sac measuring 6 mm. There is at least moderate narrowing of the lateral recesses. Mild to moderate bilateral foraminal stenosis. L4-L5: Mild to moderate intervertebral disc space narrowing. Osteophytic spurring is most pronounced anteriorly. Circumferential annular disc bulge with disc osteophyte complex. Severe facet arthrosis with ligamentum flavum thickening. Moderate central canal stenosis with AP dimension of the thecal sac measuring 7 mm. Severe narrowing of the lateral recesses. Moderate right with moderate to severe left foraminal stenosis. L5-S1: Mild intervertebral disc space narrowing. Spondylitic spurring with small circumferential annular disc bulge and posterior annular fissure. Ligamentum flavum thickening with moderate to severe facet arthrosis. Patent central canal. Moderate narrowing of the lateral recesses. Severe right with mild to moderate left foraminal narrowing. IMPRESSION: 1. Unchanged alignment of the acute horizontal fracture involving the superior endplate and mid vertebral body at L1 resulting in less than 20% vertebral body height loss and no retropulsion. 2. No additional acute fracture or subluxation. 3. Degenerative changes of the lumbar spine as above with resultant multilevel central canal and neural foraminal narrowing. 4. Aneurysmal dilation of the abdominal aorta redemonstrated. ACT 112: Negative or not required by law. The above report was generated using voice recognition software. It may contain grammatical, syntax or spelling errors. Electronically signed by: Rafael Pace M.D. 06/23/2024 2:52 PM Chest X-Ray 06/24/24 21:38 Exam(s): XR CXR 1 VIEW EXAM: XR Chest, 1 View CLINICAL HISTORY: Reason for exam: sob. TECHNIQUE: Frontal view of the chest. COMPARISON: June 23, 2024. FINDINGS: Lungs: There are bilateral areas of infiltration and/or atelectasis. This appears mildly worsened on the left. Pleural space: No pneumothorax. Probable small pleural effusion on the left. Heart: Unremarkable. No cardiomegaly. Mediastinum: Unremarkable. Normal mediastinal contour. Bones/joints: No acute findings. IMPRESSION: Bibasilar infiltration and/or atelectasis. The left lung base appears mildly worsened. Electronically signed by: Barry Santamaria MD 06/25/24 00:45 AM Chest X-Ray 06/26/24 05:33 EXAM: XR chest 1V portable CLINICAL HISTORY: low O2. TECHNIQUE: An X-ray image of the chest is obtained in AP projection. COMPARISON: CR 06/24/2024. FINDINGS: Pulmonary Parenchyma: Accentuated bronchovascular markings with bilateral lower lung zone opacities and infiltrates. The left costophrenic angle is blunted. Heart and Mediastinum: Heart size and shape are normal. No mediastinal widening or masses. No hilar or mediastinal lymphadenopathy. Bony Thorax: The bony thorax appears intact without fractures or deformities. Soft Tissues: Soft tissues overlying the chest wall are unremarkable. IMPRESSION: 1. Accentuated bronchovascular markings with bilateral lower lung zone opacities and infiltrates, mildly regressive compared to the last study. 2. The left costophrenic angle is blunted, stable, could be due to small pleural effusion. Electronically signed by Guanako Ballesteros 06-26-2024 07:15 AM Videofluoroscopic Swallow 06/26/24 10:00 FL video swallow CLINICAL HISTORY: r/o aspiration COMPARISON STUDY: None TECHNIQUE: The patient was given barium mixture of varying consistencies by speech pathology. Swallowing function was observed fluoroscopically recorded with rapid sequence filming. Total fluoroscopy time was 1 minute and 36 seconds. Total dose 4.95mGy Findings: There were 2 episodes of mild, silent aspiration with thin liquids. No additional abnormalities were identified. IMPRESSION: Silent aspiration observed ACT 112: Negative or not required by law. Electronically signed by: Cece Bustos M.D. 06/26/2024 10:53 AM
--- NOTE | 2024-06-26 12:06 | Cardiology Progress Note ---
Date of Service June 26, 2024 Assessment & Plan (1) Atrial fibrillation with RVR: (2) L1 vertebral fracture: (3) Pneumonia: (4) Acute on chronic heart failure with preserved ejection fraction: (5) CKD (chronic kidney disease): (6) Acute and chronic respiratory failure with hypoxia: Plan 06/23/24 Patient admitted s/p fall with acute compression fractures of T2 and L1. Ortho consulted and awaiting brace. Ongoing pain control recommended as well. During admission he had recurrent afib RVR. Initially diagnosed during admission earlier this month along with worsening respiratory status - acute respiratory failure wiht hypoxia (possible aspiration event) and HFpEF. Afib RVR since last night -Difficult to control rates. -Initially attempt at rhythm control with IV diltiazem overnight. Titration of dose resulted in hypotension -He was also treated with several doses of IV amiodarone, however there was concerns regarding prolonged QT interval (when in NSR due to RBBB) and this was discontinued overnight. -This morning, his rates remain uncontrolled and medications limited due to mild hypotension. -Despite mildly prolonged QT interval at baseline (due to RBBB), recommend resuming low dose IV amiodarone 1mg/min continuous. No bolus. - Monitor QT duration. Repeat EKG later today -Metoprolol 100 mg daily was held this morning. BP improved. Resume metoprolol succinate 50 mg this morning. Consider BID dosing. -Continue low dose Eliquis 2.5 mg BID. He is fall risk. Monitor closely -supplement potassium to keep 4-5. -Supplement Magnesium > 2.0 Acute on chronic respiratory failure/Acute HFpEF - Worsening hypoxia noted since yesterday, multifactorial with possible aspiration event -continue antibiotics -continue supplemental O2 -Repeat IV lasix 20 mg this morning -Monitor renal function/creatinine - current 2.2. Near baseline -supplement potassium -daily weight with standing scale (if able) -Monitor I+O's Hypertension -improved -Transient hypotension (resolved) -continue metoprolol, losartan 06/24/24: Improving respiratory status this morning. Reduced oxygen requirements. Good urine output yesterday after several doses of IV lasix. BP now hypertensive. stable renal function Would give additional IV furosemide 40 mg x1 dose today Monitor electrolytes Monitor I+O's Continue antibiotics for probable aspiration event as well earlier this admission. Persistent atrial fibrillation this morning with variable rates Continue IV amiodarone Improved QT/QTc measurements on EKG < 500. Continue metoprolol and Eliquis. Continue on telemetry. Continue antihypertensive therapy with losartan, metoprolol and Diuretics. Pain management for compression fractures per hospitalist and ortho. 06/25/24: Patient converted to NSR yesterday morning. Amio gtt stopped earlier today and transitioned to oral amiodarone 200 mg daily. Prolonged QT interval on EKG due to RBBB Continue metoprolol 50 mg BID Continue Eliquis 2.5 mg BID Ongoing cough/course breath sounds noted and requiring supplemental O2. He was diuresed yesterday with good urine outputs. unfortunately creatinine delbert from 2.2 to 2.8 this morning. Nurse reporting dark colored urine. Will avoid additional diuretics today. Continue antibiotics for underlying aspiration pneumonia per hospitalist. Continue pain management per ortho and hospitalist. 06/26/24: Patient had recurrent episode of Afib RVR last night starting around 2:50. He converted spontaneously this morning back to NSR after oral amiodarone and potassium supplementation. Currently NSR Continue Amiodarone 200 mg daily Continue metoprolol 50 mg BID continue Eliquis 2.5 mg BID Hypokalemia noted on morning labs - supplement Potassium 40 meq x1 given this morning Monitor and keep potassium 4-5, magnesium > 2 Proceed with video swallow. Likely aspirating causing his worsening oxygen status intermittently since admission. he appears euvolemic. Creatinine improving, down from 2.8 to 2.4 would avoid additional diuretics at this time. No further cardiac testing warranted. Will sign off. Please notify individualized education plan aide cardiology provider with additional questions or concerns Case discussed with Dr. Hernandez I spent a total of 30 minutes on the date of service in preparation, delivery, and documentation of the care provided to this patient, excluding any time spent in the performance of separately billed services. Elena Flowers PA-C Department of Cardiology, [facility] This chart was completed in part utilizing Speech Voice Recognition Software. Grammatical errors, random word insertions, pronoun errors, and incomplete sentences are an occasional consequence of this system due to software limitations, ambient noise, and hardware issues. Any formal questions or concerns about the content, text, or information contained within the body of this dictation should be directly addressed to the provider for clarification. Admission and Anticipated Discharge Date Admission Date: June 20, 2024 Supervising Physician Co-Signing Physician Notes Cardiology attending: Case reviewed with the advanced practitioner. Telemetry reviewed. Patient reverted to atrial fibrillation with rapid ventricular rate on 06/26/2024 at 3 AM and converted to sinus rhythm at 9:45 AM on 06/26/2024 without conversion pause. Agree with plan to continue metoprolol, oral amiodarone, Eliquis at current doses. Da Hernandez, Subjective Patient resting in bed comfortably. No CP or SOB. No distress. Review of systems is limited. Going for swallowing evaluation soon. He had recurrent afib last night around 2:40 AM, resolved this morning. Currently NSR. Review of Systems Review of Systems: All systems reviewed & are unremarkable except as noted in HPI & below Physical Exam Constitutional: WD/WN, vitals as above well developed and well nourished Neck: normal visual inspection Respiratory: no labored breathing Auscultation: + diminished lung sounds (anteriorly) Cardiovascular: Rate/Rhythm: regular rate and regular rhythm Heart Sounds: no murmur (No audible murmur, distant heart sounds) Vessels: no JVD Extremities: no edema Gastrointestinal (Abdomen): normal bowel sounds, soft, nontender, no hepatosplenomegaly Neurologic: PERRL, EOMI, accommodation nl, no face palsy, no dysarthria Results & Data Vital Signs (Past 12 Hours) Vital Signs Temp Pulse Pulse Pulse Resp BP BP 06/26/24 11:27 36.8 C 79 19 130/75 06/26/24 08:05 36.8 C 100 H 18 132/82 06/26/24 07:53 126 H 06/26/24 07:05 117 H 18 06/26/24 07:00 06/26/24 05:33 138 H 20 149/87 H 06/26/24 04:55 119 H 19 06/26/24 03:40 122 H 142/71 H 06/26/24 03:24 119 H 166/78 H 06/26/24 02:56 36.5 C 100 H 19 152/85 H 06/26/24 02:50 108 H 06/26/24 00:33 19 Pulse Ox O2 Del Method O2 Flow Rate 06/26/24 11:27 96 Nasal Cannula 4 06/26/24 08:05 93 Nasal Cannula 4 06/26/24 07:53 06/26/24 07:05 96 Nasal Cannula 4 06/26/24 07:00 Nasal Cannula 3 06/26/24 05:33 94 High Flow Nasal Cannula 4 06/26/24 04:55 91 High Flow Nasal Cannula 1 06/26/24 03:40 06/26/24 03:24 06/26/24 02:56 93 Room Air 06/26/24 02:50 06/26/24 00:33 93 Room Air Laboratory Results CBC 06/26/24 Range/Units 05:06 WBC 9.87 (4.8-10.8) K/ul RBC 3.77 L (4.70-6.10) M/uL Hgb 12.8 L (14.0-18.0) g/dl Hct 37.7 L (42.0-52.0) % Plt Count 247 (130-400) K/uL Comprehensive Metabolic Panel 06/26/24 Range/Units 05:06 Sodium 136 (136-145) mmol/L Potassium 3.2 L (3.5-5.1) mmol/L Chloride 102 (98-107) mmol/L Carbon Dioxide 23 (21-32) mmol/L BUN 50 H (6-23) mg/dl Creatinine 2.48 H D (0.6-1.4) mg/dl Glucose 154 H (70-99(Fasting)) mg/dl Calcium 8.9 (8.6-10.3) mg/dl Intake and Output 06/25/24 06/26/24 06/26/24 22:59 06:59 14:59 Intake Total 360 / 683.765 100 / 683.765 Output Total 725 / 1125 400 / 1125 Balance -365 / -441.235 -300 / -441.235 Intake: IV 100 / 323.765 Doxycycline Hyclate 100 mg In 100 / 200 Dextrose 5% Mini-B 100 ml @ 50 mls/hr IV Q12H [facility] Rx#:[id number] Oral 360 / 360 Output: Urine Amount (Catheter) 725 / 1125 400 / 1125 Reyez/Indwelling 725 / 1125 400 / 1125 Other: Other Intake Source sips sips Diagnostic Findings Telemetry reviewed: Through the night patient reverted back to atrial fibrillation with RVR. Treated with IV diltiazem, additional PO amiodarone. This morning after AM amio and supplemental potassium, he spontaneously converted back to NSR. Medications Administered Current Inpatient Medications Acetaminophen (Acetaminophen 500 Mg Tab) 1,000 mg PO Q8H PRN PRN Reason: Pain or Fever Stop: 07/20/24 22:59 Last Admin: 06/25/24 20:17 Dose: 1,000 mg Allopurinol (Allopurinol 100 Mg Tab) 100 mg PO QAM YURIDIA Stop: 07/21/24 08:59 Last Admin: 06/26/24 08:14 Dose: 100 mg Amiodarone HCl (Amiodarone 200 Mg Tab) 200 mg PO QAM YURIDIA Stop: 07/27/24 08:59 Last Admin: 06/26/24 08:15 Dose: 200 mg Apixaban (Apixaban 2.5 Mg Tab) 2.5 mg PO BID [facility]URIDIA Stop: 07/21/24 20:59 Last Admin: 06/26/24 08:14 Dose: 2.5 mg Cetirizine HCl (Cetirizine Hcl 10 Mg Tablet) 10 mg PO DAILY [facility]IDIA Stop: 07/21/24 08:59 Last Admin: 06/26/24 08:14 Dose: 10 mg Clopidogrel Bisulfate (Clopidogrel Bisulfate 75 Mg Tab) 75 mg PO DAILY YURIDIA Stop: 07/20/24 18:28 Last Admin: 06/26/24 08:14 Dose: 75 mg Dextrose (Dextrose 50% 50 Ml Syringe) 25 - 50 ml IV UD PRN; Protocol PRN Reason: Hypoglycemia Protocol Stop: 07/20/24 18:28 Duloxetine HCl (Duloxetine Hcl 20 Mg Cap) 20 mg PO DAILY YURIDIA Stop: 07/21/24 08:59 Last Admin: 06/26/24 08:14 Dose: 20 mg Fluticasone Propionate (Fluticasone Propionate Na Spr 16 Gm Btl) 2 sprays NADIYA HS YURIDIA Stop: 07/20/24 20:59 Last Admin: 06/25/24 20:18 Dose: 2 sprays Glucagon (Glucagon For Inj 1 Mg Vial) 1 mg SQ UD PRN; Protocol PRN Reason: Hypoglycemia Protocol Stop: 07/20/24 18:28 Glucose (Glucose 40% Gel 15 Gm Tube) 15 - 30 gm PO UD PRN; Protocol PRN Reason: Hypoglycemia Protocol Stop: 07/20/24 18:28 Glucose (Glucose 10 Tab/Tube) 4 - 8 tab PO UD PRN; Protocol PRN Reason: Hypoglycemia Protocol Stop: 07/20/24 18:28 Guaifenesin (Guaifenesin 600 Mg Tabcr) 600 mg PO DAILY YURIDIA Stop: 07/22/24 08:59 Last Admin: 06/26/24 08:14 Dose: 600 mg Hydralazine HCl (Hydralazine Hcl 20 Mg/Ml Vial) 5 mg IV Q4H PRN PRN Reason: SBP > 170 Stop: 07/22/24 17:46 Last Admin: 06/25/24 22:53 Dose: 5 mg Hydrocortisone (Hydrocortisone 1% Oint 30 Gm Tube) 1 appln EXT BID PRN PRN Reason: Itching Stop: 07/25/24 03:30 Last Admin: 06/25/24 22:58 Dose: 1 appln Doxycycline Hyclate 100 mg/ (Dextrose) 100 mls @ 50 mls/hr IV Q12H [facility] Stop: 06/27/24 00:00 Last Infusion: 06/26/24 01:04 Dose: Infused Insulin Aspart (Insulin Aspart Per Unit Charge) 0 units SC ACHS [facility]URIDIA Stop: 07/23/24 08:29 Last Admin: 06/26/24 08:19 Dose: 3 units Levalbuterol HCl (Levalbuterol 1.25 Mg/3 Ml Neb) 1.25 mg NEB Q4H PRN PRN Reason: Shortness Of Breath Or Wheezing Stop: 07/22/24 01:04 Last Admin: 06/23/24 10:44 Dose: 1.25 mg Levothyroxine Sodium (Levothyroxine Sodium 50 Mcg Tablet) 50 mcg PO DAILYBB YURIDIA Stop: 07/21/24 06:29 Last Admin: 06/26/24 06:20 Dose: 50 mcg Losartan Potassium (Losartan Potassium 25 Mg Tab) 25 mg PO DAILY YURIDIA Stop: 07/21/24 08:59 Last Admin: 06/26/24 08:14 Dose: 25 mg Metoprolol Succinate (Metoprolol Succ 50mg Ext Rel Tab) 50 mg PO BID [facility]IA Stop: 07/24/24 20:59 Last Admin: 06/26/24 08:14 Dose: 50 mg Miscellaneous (Carbohydrates For Hypoglycemia ) 15 - 30 gm PO UD PRN PRN Reason: Hypoglycemia Protocol Stop: 07/20/24 18:28 Morphine Sulfate (Morphine Sulfate 2 Mg/Ml Carp) 1 mg IV Q4H PRN PRN Reason: Severe Pain (Scale 7, 8, 9,10) Stop: 07/04/24 18:28 Nystatin (Nystatin Powder 15gm Btl) 1 appln EXT BID [facility] Stop: 07/21/24 23:44 Last Admin: 06/26/24 08:14 Dose: 1 appln Ondansetron HCl (Ondansetron Inj 2 Mg/Ml 2 Ml Vial) 2 mg IV Q6H PRN PRN Reason: Nausea Stop: 07/20/24 18:28 Oxycodone HCl (Oxycodone Hcl Ir 5 Mg Tab (Immediate Release)) 2.5 mg PO Q6H PRN PRN Reason: Moderate Pain (Scale 4, 5, 6) Stop: 07/04/24 18:28 Polyethylene Glycol (Polyethylene (Miralax) 17 Gm Pack) 17 gm PO DAILY [facility] Stop: 07/21/24 08:59 Last Admin: 06/26/24 08:14 Dose: 17 gm Sodium Chloride (Sodium Chlor 7% 4 Ml Neb) 4 ml NEB BIDR [facility] Stop: 07/22/24 09:38 Last Admin: 06/26/24 07:05 Dose: 4 ml Tamsulosin HCl (Tamsulosin Hcl 0.4 Mg Cap) 0.4 mg PO QPM [facility] Stop: 07/20/24 20:59 Last Admin: 06/25/24 20:17 Dose: 0.4 mg
[2024-06-26] MEDS: oxyCODONE HCL IR 5 MG TAB (IMMEDIATE RELEASE) PO PRN (20:14)
[2024-06-27 06:31] LABS: Hematocrit (blood only) 34.4 % (42.0-52.0); Hemoglobin 11.9 g/dl (14.0-18.0); Mean Corpuscular Hemoglobin 34.4 pg (25.0-34.0); Mean Corpuscular Hgb Conc 34.6 g/dL (32.0-36.0); Mean Corpuscular Volume 99.4 fL (80.0-100.0); Mean Platelet Volume 10.6 fL (9.4-12.4); Platelet Count 270 K/uL (130-400); RDW Coefficient of Variation 14.5 % (11.5-14.5); RDW Standard Deviation 52.2 fL (36.4-46.3); Red Blood Count 3.46 M/uL (4.70-6.10); White Blood Count 10.68 K/ul (4.8-10.8)
[2024-06-27 06:47] LABS: BUN Creatinine Ratio 25.3 (10-20); Creatinine Clr Calc Pharmacy 23.3 ml/min; Magnesium 2.2 mg/dl (1.7-2.4); Potassium 3.7 mmol/L (3.5-5.1)
[2024-06-27] MEDS: MoRPHine SULFATE 2 MG/ML CARP IV PRN (11:26)
--- NOTE | 2024-06-27 12:33 | Hospitalist Progress Note ---
Date of Service June 27, 2024 Assessment & Plan (1) Fall: (2) Low back pain: (3) L1 vertebral fracture: (4) Atrial fibrillation with RVR: (5) History of CVA (cerebrovascular accident): (6) Diabetes mellitus, type II: (7) CKD (chronic kidney disease) stage 3, GFR 30-59 ml/min: Plan: Patient is 88 year old male with PMH HTN, HLD, history CVA, DM II, CKD III, BPH, gout, hypothyroidism, h/o AAA, dementia, PAF anticoagulated on Eliquis who presented to the ER with c/o fall during the night and low back pain. Dementia Acute on chronic Encephalopathy Pt confused at times Had reported delirium like symptoms upon discharge from hospital which seems to have cleared when pt returned home Head CT on admission without acute changes Acute encephalopathy in the setting of infection as well Delirium precautions. Frequent reorientation, avoid sedating medications as able Palliative care consulted, appreciate recs Continue to monitor Fall Ambulatory dysfunction T2, L1 fracture CT Head: No acute findings. CT C-Spine: No acute fracture Pelvis Xray: No acute fracture CT Abd/pelvis noting an acute fracture of L1 and "5.5 cm infrarenal abdominal aortic aneurysm, increased in caliber since CT of April 19, 2021 when it measured 4.[address] Thoracic spine to r/o thoracic fracture noting acute compression fractures of T2 and L1. MRI lumbar spine- L1 horizontal fracture, degenerative changes Pain control Orthotics consult for TLSO brace Walks with walker at baseline Fall precautions PT/OT eval- recommending SNF Ortho spine consulted appreciate recs History PAF Afib RVR Admitted 06/18/24-06/19/24 for new onset A-fib RVR. Started on metoprolol succinate 100 mg daily and started on Eliquis twice daily. 06/19/24 echo: Moderate concentric LVH, no wall motion abnormalities, EF: 50-55%, trace aortic regurgitation, mild-moderate mitral regurgitation. On admission Troponins flat 27, 28 Initially presented to ER in sinus rhythm. During ER course patient appeared to develop A-fib RVR rate up to 160. Cardiology consulted, appreciate recs. Current recommendations are: -Continue Amiodarone 200 mg daily -Continue metoprolol 50 mg BID -continue Eliquis 2.5 mg BID Continue to monitor on telemetry Possible Aspiration Pneumonia Acute hypoxic respiratory Failure Pt with episodes of difficulty swallowing XR from 06/23 concerning for pneumonia, repeat on 06/26 with noted possible pleural effusion Pt with episodes of increased oxygen requirements at times guaifenesin, flutter valve, IS Also received occasional diuretic doses Speech consulted, video swallow on 06/26 noting 2 episodes of silent aspiration Completed 5 days of abx at this time, continue to monitor off abx Oxygen supplementation as needed, wean as tolerated Acute on Chronic HFpEF Not currently on home diuretics likely secondary to pna, Afib RVR, etc. diuresis and abx treatment as above Monitor volume status closely Hypokalemia Replete as needed Chronic Anemia Hgb at baseline Monitor H/H CKD III Cr: 2.1 on admission, peaked to 2.8 Monitor renal function, avoid nephrotoxic agents when possible Abdominal Aneurysm Noted on imaging Aneurysm expanded to 5.5cm range Chart review shows Vascular Surgery notes from 2021 where continued plavix and statin therapy was recommended EPIC Chart review noted increased size to >5cm in 2022 and pt following with the [facility] STA[facility] program before disenrolling per recs of his PCP due to "age and conditions." PCP follow up as needed Pulmonary Fibrosis Noted on imaging Stable HTN Continue losartan, metoprolol succinate Pain control as above History of CVA (cerebrovascular accident): Continue Plavix Atorvastatin was d/c in 05/2024 per pt and request to decrease amount of medications Diabetes mellitus, type II: A1c: 7.3 on 06/19/24 Not on home medication per pt request Novolog sliding scale per protocol BPH (benign prostatic hyperplasia): Continue tamsulosin Hypothyroidism: Continue levothyroxine DVT Prophylaxis: On Eliquis Dispo: telemetry DNR/DNI as per discussion with pt, pt's Admission and Anticipated Discharge Date Admission Date: June 20, 2024 Subjective pt was seen in the AM, trying to get out of bed. Pleasantly confused. Review of Systems Review of Systems: All systems reviewed & are unremarkable except as noted in Subjective Physical Exam Physical Exam: General: Alert, oriented. No acute distress Neuro: difficulty with movements HEENT: NC/AT CV: RRR Resp: Breath sounds clear bilaterally, no increased effort of breathing Abdomen: Soft, nontender Extremities: No edema in lower extremities bilaterally. Results & Data Results & Data Vital Signs (Past 12 Hours) Vital Signs Temp Pulse Resp BP Pulse Ox O2 Del Method 06/27/24 10:40 36.7 C 73 16 155/62 H 93 Room Air 06/27/24 08:00 Room Air 06/27/24 08:00 36.7 C 73 17 191/82 H 94 Room Air 06/27/24 07:19 74 18 93 Room Air 06/27/24 03:03 36.7 C 72 16 186/100 H 94 Room Air Diagnostic Findings Chest X-Ray 06/20/24 12:13 XR chest 1V portable CLINICAL HISTORY: Trauma COMPARISON STUDY: 06/18/2024 FINDINGS: Stable moderate cardiomegaly without pulmonary vascular congestion. No effusion, consolidation, or pneumothorax seen. IMPRESSION: No acute findings seen. ACT 112: Negative or not required by law. Electronically signed by: Michael Bell M.D. 06/20/2024 12:59 PM Pelvis X-Ray 06/20/24 12:13 XR pelvis 1-2V routine CLINICAL HISTORY: Trauma COMPARISON: None FINDINGS: No fracture or dislocation seen. IMPRESSION: No pelvic fracture seen. ACT 112: Negative or not required by law. Electronically signed by: Michael Bell M.D. 06/20/2024 12:58 PM Abdomen/Pelvis CT 06/20/24 12:14 CT OF THE ABDOMEN AND PELVIS WITHOUT CONTRAST CLINICAL HISTORY: Trauma. COMPARISON STUDY: CT of the abdomen and pelvis, MRCP and right upper quadrant ultrasound April 19, 2021. TECHNIQUE: Axial images of the abdomen and pelvis were obtained without IV contrast. Images were reviewed in the axial, sagittal, and coronal planes. Automated exposure control was utilized for the study. A dose lowering technique was utilized adhering to the principles of ALARA. FINDINGS: Cardiomegaly and mild interlobular septal thickening within the lower lungs are incidentally noted. No hemoperitoneum or pneumoperitoneum is present. Solid abdominal viscera are suboptimally assessed on unenhanced exam but there is no evidence for traumatic injury to the liver, spleen, adrenal glands, kidneys or pancreas. There is hepatic steatosis. No biliary ductal dilatation status post cholecystectomy. Prominent april hepatis lymph nodes are unchanged. Left-sided parapelvic cysts are noted. Stranding within the left renal sinus is unchanged. There is a 5.5 cm infrarenal abdominal aortic aneurysm without evidence for rupture. The aneurysm measured 4.[address] of April 19, 2021. Caliber and wall thickness of small and large bowel are normal. There is sigmoid diverticulosis without evidence for acute diverticulitis. Prostate is enlarged, measuring 5.4 cm in transverse diameter. A small portion of the proximal sigmoid colon slightly extends into a left inguinal hernia. There is an acute horizontal fracture along the inferior endplate of L1 with minimal loss of vertebral body height. No retropulsion is present. No extension into the posterior elements is noted. No additional acute fractures. IMPRESSION: 1. Acute horizontal fracture along the inferior endplate of L1 with minimal loss of vertebral body height. No retropulsion. No extension into the posterior elements. 2. No additional acute traumatic findings on unenhanced exam. 3. 5.5 cm infrarenal abdominal aortic aneurysm, increased in caliber since CT of April 19, 2021 when it measured 4.8 cm. 4. Cardiomegaly with mild interstitial pulmonary edema. ACT 112: Negative or not required by law. Electronically signed by: Nahun Nascimento M.D. 06/20/2024 12:[address] 06/20/24 12:14 CT SCAN OF THE CERVICAL SPINE CLINICAL HISTORY: Fall. COMPARISON STUDY: CTA of the neck October 30, 2022. Chest CT April 19, 2021. TECHNIQUE: CT scan of the cervical spine is performed from the skull base to the upper thoracic spine. Images are reviewed in the axial, sagittal, and coronal planes. IV contrast was not administered for this examination. A dose lowering technique was utilized adhering to the principles of ALARA. FINDINGS: Alignment of the cervical spine is anatomic. Vertebral body heights are maintained. There are no cervical spine fractures. There is moderate degenerative disc disease and facet arthrosis within the cervical spine. Cortical irregularity of the inferior endplate of T2 is unchanged since CT of October 30, 2022. No acute fractures are identified. There is no prevertebral jo ann ma. Interlobular septal thickening within the lung apices is incidentally noted. IMPRESSION: No acute cervical spine fracture or subluxation. ACT 112: Negative or not required by law. Electronically signed by: Nahun Nascimento M.D. 06/20/2024 12:[address] 06/20/24 12:14 CT head/brain wo con CLINICAL HISTORY: Trauma. TECHNIQUE: Multiple axial CT images of the head were obtained without contrast. A dose lowering technique was utilized adhering to the principles of ALARA. CT DOSE: 2718.72 mGy.cm COMPARISON: 10/30/2022 FINDINGS: There are stable severe chronic small vessel ischemic changes. Stable small area of encephalomalacia right occipital lobe consistent with old infarction. No intracranial hemorrhage seen. No mass effect, midline shift, or hydrocephalus. Stable globus pallidus calcifications, unremarkable in this age group. No skull fracture seen. Visualized paranasal sinuses and mastoid air cells are clear. IMPRESSION: No acute findings. ACT 112: Negative or not required by law. The above report was generated using voice recognition software. It may contain grammatical, syntax or spelling errors. Electronically signed by: Michael Bell M.D. 06/20/2024 12:[address] 06/20/24 15:09 EXAM: CT Thoracic and Lumbar Spine Without Intravenous Contrast INDICATION: Posttraumatic pain. Fell today. TECHNIQUE: Axial computed tomography images of the thoracic and lumbar spine without intravenous contrast. Sagittal and coronal reformatted images were created and reviewed. This CT exam was performed using one or more of the following dose reduction techniques: automated exposure control, adjustment of the mA and/or kV according to patient size, and/or use of iterative reconstruction technique. COMPARISON: No relevant prior studies available. FINDINGS: Vertebrae: The bones are demineralized. There is mild convex right thoracic and convex left lumbar spinal bowing. There is an acute compression fracture of the superior endplate of L1 with 3-4 mm retropulsion and mild superior endplate concavity. There is mild anterior height loss. There is an acute appearing mild compression deformity of the inferior endplate of T2 with mild anterior wedging. No retropulsion. There is moderate thoracolumbar spondylosis. There is mild to moderate diffuse lumbar facet arthrosis. There is grade 1 degenerative retrolisthesis of L3 on L4. No traumatic subluxation identified. There are 12 rib-bearing thoracic and 5 nonrib-bearing lumbar type vertebra. Discs/spinal canal/neural foramina: There is diffuse thoracolumbar mild to moderate disc space narrowing. There is mild ventral canal stenosis related to retropulsion of the L1 fracture and degenerative disc change. There is moderate canal stenosis secondary to diffuse osteophyte disc bulge and ligamentous and facet hypertrophy L2-L3, L3-L4 and L4-L5. Bilateral foraminal stenosis at these levels. There is a diffuse predominantly central disc bulge L5-S1 with slight bilateral subarticular narrowing right greater than left with impingement of the right foraminal S1 nerve root and moderate canal stenosis. Soft tissues: No significant abnormality noted. Lymph nodes: Shotty nodes present in all mediastinal compartments and smaller nodes in the bilateral hilum. Largest singly measurable node is in the aortopulmonary window measuring short axis dimension 1.3 cm. Lungs and pleural spaces: There is coarse bilateral symmetrical reticulation and mild bronchiectasis and honeycombing in the visualized lower lobes. Heart: Partially imaged heart is enlarged. IMPRESSION: 1. Acute appearing compression fractures of T2 and L1 as above. 2. Moderate to marked multilevel degenerative changes of the lumbar spine. 3. Pulmonary fibrosis and mediastinal and hilar adenopathy likely reactive. ACT 112: Positive. There are findings on this exam that require communication between the performing entity and the patient following Patient Test Result Information Act ([place] ACT 112) guidelines. Electronically signed by Brianna Delaney 06-20-2024 4:[address] 06/20/24 15:09 EXAM: CT Thoracic and Lumbar Spine Without Intravenous Contrast INDICATION: Posttraumatic pain. Fell today. TECHNIQUE: Axial computed tomography images of the thoracic and lumbar spine without intravenous contrast. Sagittal and coronal reformatted images were created and reviewed. This CT exam was performed using one or more of the following dose reduction techniques: automated exposure control, adjustment of the mA and/or kV according to patient size, and/or use of iterative reconstruction technique. COMPARISON: No relevant prior studies available. FINDINGS: Vertebrae: The bones are demineralized. There is mild convex right thoracic and convex left lumbar spinal bowing. There is an acute compression fracture of the superior endplate of L1 with 3-4 mm retropulsion and mild superior endplate concavity. There is mild anterior height loss. There is an acute appearing mild compression deformity of the inferior endplate of T2 with mild anterior wedging. No retropulsion. There is moderate thoracolumbar spondylosis. There is mild to moderate diffuse lumbar facet arthrosis. There is grade 1 degenerative retrolisthesis of L3 on L4. No traumatic subluxation identified. There are 12 rib-bearing thoracic and 5 nonrib-bearing lumbar type vertebra. Discs/spinal canal/neural foramina: There is diffuse thoracolumbar mild to moderate disc space narrowing. There is mild ventral canal stenosis related to retropulsion of the L1 fracture and degenerative disc change. There is moderate canal stenosis secondary to diffuse osteophyte disc bulge and ligamentous and facet hypertrophy L2-L3, L3-L4 and L4-L5. Bilateral foraminal stenosis at these levels. There is a diffuse predominantly central disc bulge L5-S1 with slight bilateral subarticular narrowing right greater than left with impingement of the right foraminal S1 nerve root and moderate canal stenosis. Soft tissues: No significant abnormality noted. Lymph nodes: Shotty nodes present in all mediastinal compartments and smaller nodes in the bilateral hilum. Largest singly measurable node is in the aortopulmonary window measuring short axis dimension 1.3 cm. Lungs and pleural spaces: There is coarse bilateral symmetrical reticulation and mild bronchiectasis and honeycombing in the visualized lower lobes. Heart: Partially imaged heart is enlarged. IMPRESSION: 1. Acute appearing compression fractures of T2 and L1 as above. 2. Moderate to marked multilevel degenerative changes of the lumbar spine. 3. Pulmonary fibrosis and mediastinal and hilar adenopathy likely reactive. ACT 112: Positive. There are findings on this exam that require communication between the performing entity and the patient following Patient Test Result Information Act ([place] ACT 112) guidelines. Electronically signed by Brianna Delaney 06-20-2024 4:56 PM Chest X-Ray 06/21/24 10:14 XR chest 1V portable CLINICAL HISTORY: poss. aspiration COMPARISON STUDY: 06/20/2024 FINDINGS: There is stable cardiomegaly without pulmonary vascular congestion. Inspiration is shallow. There is increased stranding opacity at the right lung base with partial obscuration of the right hemidiaphragm. No other consolidation or pleural effusion. No pneumothorax. IMPRESSION: Atelectasis versus early pneumonia right lung base. ACT 112: Negative or not required by law. Electronically signed by: Michael Bell M.D. 06/21/2024 10:30 AM Chest X-Ray 06/21/24 23:49 EXAM: XR chest 1V portable CLINICAL HISTORY: sob. TECHNIQUE: An X-ray image of the chest is obtained in AP projection. COMPARISON: 06/20/2024 CR. FINDINGS: Rotated projection. Pulmonary Parenchyma: Prominent perihilar bronchovascular markings. Airspace changes involving the lower zones, more on the right side. Atelectatic changes along the right horizontal fissure. A mildly blunted right costophrenic angle may represent pleural effusion. Heart and Mediastinum: Heart size and shape are normal. No mediastinal widening or masses. No hilar or mediastinal lymphadenopathy. Bony Thorax: Degenerative changes in the visualized skeleton. Soft Tissues: Soft tissues overlying the chest wall are unremarkable. Overlying chest leads are seen. IMPRESSION: 1. Airspace changes involving the lower zones, more on the right side, are concerning for infective/inflammatory change(new). Clinical and lab correlation is suggested. 2. A mildly blunted right costophrenic angle may represent pleural effusion (new). 3. The prominence of perihilar broncho-vascular markings is probably due to pulmonary vascular congestion (unchanged). Electronically signed by Guanako Ballesteros 06-22-2024 01:35 AM Chest X-Ray 06/23/24 01:33 EXAM: XR chest 1V portable CLINICAL HISTORY: SOB TECHNIQUE: An X-ray image of the chest is obtained in AP projection. COMPARISON: 06/21/2024. FINDINGS: Rotated projection. Pulmonary Parenchyma: Prominent perihilar bronchovascular markings. Airspace changes involving the lower zones, more on the right side. Slight interval regression. Interval regression of right sided mild pleural effusion. Unchanged mild left sided pleural effusion. Heart and Mediastinum: Borderline cardiac size. No mediastinal widening or masses. No hilar or mediastinal lymphadenopathy. Bony Thorax: Degenerative changes in the visualized skeleton. Soft Tissues: Soft tissues overlying the chest wall are unremarkable. Overlying chest leads are seen. IMPRESSION: 1. Airspace changes involving the lower zones, more on the right side, are concerning for infective/inflammatory change. Slight interval regression on the right side. 2. Interval regression of right sided mild pleural effusion. 3. Unchanged mild left sided pleural effusion. 4. Pulmonary vascular congestion (unchanged). Electronically signed by Guanako Ballesteros 06-23-2024 02:13 AM Lumbar Spine MRI 06/23/24 12:46 MR lumbar spine wo con CLINICAL HISTORY: 88 years-old Male with compression fracture L1. COMPARISON: CT lumbar spine and abdomen and pelvis studies 06/20/2024. TECHNIQUE: Multiplanar, multi sequence MRI of the lumbar spine was performed without intravenous contrast. FINDINGS: Aneurysmal dilation of the infrarenal abdominal aorta redemonstrated which measured 5.5 cm on the most recent study from 06/20/2024. Cortical thinning of the kidneys with bilateral perinephric stranding and left renal cysts. No lymphadenopathy. Study is mildly motion degraded. There is mild Modic type I degeneration involving the superior endplate of L4. Fatty marrow changes c ompatible with bone demineralization. Acute horizontal fracture through the anterior and superior endplates of L1 redemonstrated again with less than 20% vertebral body height loss and no retropulsion. There is equivocal fracture extension into the left pedicle. The right pedicle and bilateral lamina appear intact. Mild paravertebral edema without additional acute fracture or subluxation. Small posterior Tarlov cysts are noted at L4-L5 and L5-S1 with multilevel facet effusions. T12-L1: Spondylotic spurring with moderate facet arthrosis. No central canal or neural foraminal stenosis. L1-L2: Small posterior annular disc bulge with spondylitic spurring and moderate facet arthrosis. No central canal or neural foraminal stenosis. L2-L3: Mild intervertebral disc space narrowing. Spondylitic spurring with circumferential annular disc bulge/disc osteophyte complex. Ligamentum flavum thickening with moderate to severe facet arthrosis. Mild central canal stenosis with AP dimension of the thecal sac measuring 9 mm. There is at least mild narrowing of the lateral recesses. The right neural foramen is patent. Mild left foraminal stenosis. L3-L4: Osteophytic spurring is most pronounced anteriorly. Mild intervertebral disc space narrowing and circumferential annular disc bulge. Ligamentum flavum thickening with moderate facet arthrosis. Moderate central canal stenosis with AP dimension of the thecal sac measuring 6 mm. There is at least moderate narrowing of the lateral recesses. Mild to moderate bilateral foraminal stenosis. L4-L5: Mild to moderate intervertebral disc space narrowing. Osteophytic spurring is most pronounced anteriorly. Circumferential annular disc bulge with disc osteophyte complex. Severe facet arthrosis with ligamentum flavum thickening. Moderate central canal stenosis with AP dimension of the thecal sac measuring 7 mm. Severe narrowing of the lateral recesses. Moderate right with moderate to severe left foraminal stenosis. L5-S1: Mild intervertebral disc space narrowing. Spondylitic spurring with small circumferential annular disc bulge and posterior annular fissure. Ligamentum flavum thickening with moderate to severe facet arthrosis. Patent central canal. Moderate narrowing of the lateral recesses. Severe right with mild to moderate left foraminal narrowing. IMPRESSION: 1. Unchanged alignment of the acute horizontal fracture involving the superior endplate and mid vertebral body at L1 resulting in less than 20% vertebral body height loss and no retropulsion. 2. No additional acute fracture or subluxation. 3. Degenerative changes of the lumbar spine as above with resultant multilevel central canal and neural foraminal narrowing. 4. Aneurysmal dilation of the abdominal aorta redemonstrated. ACT 112: Negative or not required by law. The above report was generated using voice recognition software. It may contain grammatical, syntax or spelling errors. Electronically signed by: Rafael Pace M.D. 06/23/2024 2:52 PM Chest X-Ray 06/24/24 21:38 Exam(s): XR CXR 1 VIEW EXAM: XR Chest, 1 View CLINICAL HISTORY: Reason for exam: sob. TECHNIQUE: Frontal view of the chest. COMPARISON: June 23, 2024. FINDINGS: Lungs: There are bilateral areas of infiltration and/or atelectasis. This appears mildly worsened on the left. Pleural space: No pneumothorax. Probable small pleural effusion on the left. Heart: Unremarkable. No cardiomegaly. Mediastinum: Unremarkable. Normal mediastinal contour. Bones/joints: No acute findings. IMPRESSION: Bibasilar infiltration and/or atelectasis. The left lung base appears mildly worsened. Electronically signed by: Barry Santamaria MD 06/25/24 00:45 AM Chest X-Ray 06/26/24 05:33 EXAM: XR chest 1V portable CLINICAL HISTORY: low O2. TECHNIQUE: An X-ray image of the chest is obtained in AP projection. COMPARISON: CR 06/24/2024. FINDINGS: Pulmonary Parenchyma: Accentuated bronchovascular markings with bilateral lower lung zone opacities and infiltrates. The left costophrenic angle is blunted. Heart and Mediastinum: Heart size and shape are normal. No mediastinal widening or masses. No hilar or mediastinal lymphadenopathy. Bony Thorax: The bony thorax appears intact without fractures or deformities. Soft Tissues: Soft tissues overlying the chest wall are unremarkable. IMPRESSION: 1. Accentuated bronchovascular markings with bilateral lower lung zone opacities and infiltrates, mildly regressive compared to the last study. 2. The left costophrenic angle is blunted, stable, could be due to small pleural effusion. Electronically signed by Guanako Ballesteros 06-26-2024 07:15 AM Videofluoroscopic Swallow 06/26/24 10:00 FL video swallow CLINICAL HISTORY: r/o aspiration COMPARISON STUDY: None TECHNIQUE: The patient was given barium mixture of varying consistencies by speech pathology. Swallowing function was observed fluoroscopically recorded with rapid sequence filming. Total fluoroscopy time was 1 minute and 36 seconds. Total dose 4.95mGy Findings: There were 2 episodes of mild, silent aspiration with thin liquids. No additional abnormalities were identified. IMPRESSION: Silent aspiration observed ACT 112: Negative or not required by law. Electronically signed by: Cece Bustos M.D. 06/26/2024 10:53 AM
--- NOTE | 2024-06-27 12:40 | Palliative Care Consultation ---
Date of Consultation June 27, 2024 Assessment & Plan (1) Palliative care by specialist: Met with pt at bedside and spoke with pt's spouse by phone. Discussed GOC/advanced directive with spouse from 12:30 - 13:00. Introduced Palliative Medicine and explained our role in advanced care planning, symptom management and navigation through the progression of life limiting disease. Patient and/or family were receptive to palliative services for goals of care discussions. Reviewed we are different from hospice, a home health nurse visiting service. Patient currently lacks decisional capacity based on the inability to convey understanding of personal PMHx, current medical condition, treatment options nor the risks / benefits of those options, and lack of ability to make decisions based on such knowledge. Hospital does not have written documentation of patient wishes concerning his chosen proxy for medical decisions. Per PA [id number], in absence of written documentation of patient wishes, pt's proxy for medical decisions would be his Isabell Glez. Pt does currently require a proxy for medical decisions. (2) Patient has healthcare proxy and living will: Spoke with pt's by phone, she shared that the pt does have and advanced directive and it indicates that his HCPOA is his son Bayron Glez. She shared that she has been updating Franky with pt's condition throughout admission and he will be at bedside with her on Sunday. Isabell shared that Franky is a behavioral health specialist at [facility] in [place] and he has asked her to refrain from making any decisions until he can be present with her here. She was unclear on any other details of LW/AD but agrees to bring it to hospital so that we may upload to EMR. (3) Counseling regarding goals of care: Isabell requests ACP meeting for Sunday, she is unclear on timing but stated that she and Franky (pt's son/HCPOA) will try to be at bedside after 10am tomorrow. She shared that she hopes that Franky will be in agreement to get pt back home so that they "can just spoil him" for what time he has left with no more time in the hospital. Isabell is the primary pharmacy care coordinator for the pt and their daughter (who has mental challenges 2/2 Sarah Syndrome). The three of them live in a private residence and have [facility] visiting nurses four days per week. She shared that they pt's niece Gillian has also been helping her "sort through things" because the pt's sister is currently "having alot of the same symptoms and also needs hospice". She explained that they have had experience with other family who have have problems eating and been taken care of at home with hospice. She shared that she knows that her does not want to prolong his life and she is concerned for his comfort with his recent fractures. Discussed briefly the option of continuing the current course of life prolonging care vs transition to comfort based approach to care. Discussed hospice benefit: an interdisciplinary program offered by nurses, nurses aides, social workers, chaplains and a medical billing coordinator for patients with a terminal condition and a life expectancy of less than 6 months. This is covered by Medicare at 100%/no out of pocket expense to patient and all meds/supplies needed by patient for the reason they are on hospice are paid for/covered by hospice. The goal is assure quality of life of the patient in their home setting (home, residential, inpatient hospice setting) by providing symptoms management, psychosocial and spiritual support. However, they cannot offer 24 hours care and if the family is unable to provide that care, they will have to consider personal care with out of pocket cost vs. residential placement. We discussed the goals of hospice as a patient service and the goals of care; we discussed EOL trajectories and transitions teressa the emotional impact of realizing mortality as a concrete reality from prior abstract considerations. Pt was reassured that no matter where they are along this trajectory, they are not alone - their medical team will remain by their side through their journey. Discussed the pros/cons of accepting help when especially weakened and distressed by pain-which would also help provide relief/decrease caregiver burden/strain. Continue current level of care pending [facility] discussion with family tomorrow. Plan as above. Our care team will not be onsite over weekend but will be available remotely for any Palliative Care needs. Thank you for including Palliative Care in the management of this patient. Please call with any questions or concerns regarding this consultation. History of Present Illness Reason for Consultation: goals of care Requesting Physician: Evelin Prieto MD Attending Physician: Evelin Prieto MD Allergies Allergy/AdvReac Type Severity Reaction Status Date / Time hydrochlorothiazide Allergy Unknown CAN'T Verified 10/30/22 01:35 REMEMBER ON [employer] MED LIST Home Medications Medication Instructions Recorded Confirmed Type allopurinol 100 mg tablet 100 mg PO QAM 04/19/18 06/20/24 History cetirizine 10 mg tablet 10 mg PO DAILY 04/19/18 06/20/24 History guaifenesin 600 mg tablet, 600 mg PO DAILY PRN Congestion 04/19/18 06/20/24 History extended release 12 hr (Mucinex) fluocinonide 0.05 % topical cream 1 applic topical BID PRN Skin 10/22/18 06/20/24 History Irritation clopidogrel 75 mg tablet (Plavix) 75 mg PO DAILY #30 tabs 11/04/18 06/20/24 Rx tamsulosin 0.4 mg capsule 0.4 mg PO QPM 04/19/21 06/20/24 History levothyroxine 50 mcg capsule 50 mcg PO QAM 05/30/21 06/20/24 History acetaminophen 500 mg tablet 650 mg PO BID PRN 10/30/22 06/20/24 History (Tylenol Extra Strength) pain,fever,headache diphenhydramine HCl 2 % topical 1 applic topical BID PRN Skin 10/30/22 06/20/24 History gel (Benadryl) Irritation diclofenac sodium 1 % topical gel 2 g topical QID PRN joint pain 06/18/24 06/20/24 History duloxetine 20 mg capsule,delayed 20 mg PO DAILY 06/18/24 06/20/24 History release fluticasone propionate 50 2 spray intranasal HS 06/18/24 06/20/24 History mcg/actuation nasal spray,suspension losartan 25 mg tablet 25 mg PO DAILY 06/18/24 06/20/24 History nut.tx.gluc.intol,lac-free,soy 1 ea PO DAILY 06/18/24 06/20/24 History (Glucerna oral liquid) polyethylene glycol 3350 17 17 g PO DAILY 06/18/24 06/20/24 History gram/dose oral powder (Miralax) apixaban 5 mg tablet (Eliquis) 5 mg PO BID #60 tabs 06/19/24 06/20/24 Rx metoprolol succinate 100 mg 100 mg PO DAILY #30 ea 06/19/24 06/20/24 Rx capsule sprinkle, ext. release 24 hr Patient History Medical History Macular degeneration Hx of basal cell carcinoma Degenerative disc disease Neuropathy BLE Kidney disease, chronic, stage III (GFR 30-59 ml/min) BPH (benign prostatic hyperplasia) Prediabetes Hypothyroidism Anemia Stroke 2018 >REASON FOR PLAVIX (DENIES PROBLEMS FROM EVENT) Hyperlipidemia Acute cholangitis Encounter for pre-operative examination Abdominal aortic aneurysm (AAA) 3.0 cm to 5.5 cm in diameter in male BEING MONITORED- FOLLOWED BY [facility] VASCULAR SURGERY- LAST SEEN 01/2021 Per abdomen/pelvis CT - infrarenal aortic aneurysm measuring 46mm in diameter Dementia Vascular dementia per records HTN (hypertension) Surgical History History of ERCP WITH STENT History of cholecystectomy History of tooth extraction History of cataract surgery RT/LEFT History of laparoscopic cholecystectomy Family History Brother Family history of diabetes mellitus Other Family history non-contributory No family history of adverse response to anesthesia Social History Smoking Status: Former smoker Tobacco Type: Cigarettes Cigarettes Per Day: 30+ YEARS AGO; Second Hand Exposure: No; Do You Dip or Chew Tobacco: No; Hx Alcohol Use: No Hx Substance Use: No Preferred Language: [place] Communication Ability: Impaired Communication Ability Comment: Patient appears with some confusion, per Daughter this is normal Sales Service Assistant Required: No Beliefs That Will Affect Care: None marital status: Current Living Situation: Spouse and Family Current Living Situation Comment: home current occupational status: retired How many Children do You have: 3 Feels Safe at Home: Yes Assistive Devices: Walker Review of Systems Review of Systems: Unobtainable due to cognitive status Physical Exam Physical Exam: General: Alert, oriented to person and place, pleasantly communicative. No acute distress Neuro: follows simple commands, QUACH CV: RRR Resp: Breath sounds clear bilaterally, no increased effort of breathing Abdomen: Soft, nontender normal BS Extremities: No edema in lower extremities bilaterally. Results & Data Vital Signs (Past 12 Hours) Vital Signs Temp Pulse Resp BP Pulse Ox O2 Del Method 06/27/24 10:40 36.7 C 73 16 155/62 H 93 Room Air 06/27/24 08:00 Room Air 06/27/24 08:00 36.7 C 73 17 191/82 H 94 Room Air 06/27/24 07:19 74 18 93 Room Air 06/27/24 03:03 36.7 C 72 16 186/100 H 94 Room Air Laboratory Results Abnormal lab results 06/26/24 06/26/24 06/27/24 Range/Units 17:06 20:06 05:27 RBC 3.46 L (4.70-6.10) M/uL Hgb 11.9 L (14.0-18.0) g/dl Hct 34.4 L (42.0-52.0) % MCH 34.4 H (25.0-34.0) pg RDW Std Deviation 52.2 H (36.4-46.3) fL BUN 62 H (6-23) mg/dl Creatinine 2.45 H (0.6-1.4) mg/dl BUN/Creatinine Ratio 25.3 H (10-20) Glucose 136 H (70-99(Fasting)) mg/dl POC Glucose 117 H 165 H (70-99) mg/dl 06/27/24 06/27/24 Range/Units 08:01 11:24 RBC (4.70-6.10) M/uL Hgb (14.0-18.0) g/dl Hct (42.0-52.0) % MCH (25.0-34.0) pg RDW Std Deviation (36.4-46.3) fL BUN (6-23) mg/dl Creatinine (0.6-1.4) mg/dl BUN/Creatinine Ratio (10-20) Glucose (70-99(Fasting)) mg/dl POC Glucose 143 H 155 H (70-99) mg/dl Diagnostic Findings Pelvis X-Ray 06/20/24 12:13 XR pelvis 1-2V routine CLINICAL HISTORY: Trauma COMPARISON: None FINDINGS: No fracture or dislocation seen. IMPRESSION: No pelvic fracture seen. ACT 112: Negative or not required by law. Electronically signed by: Michael Bell M.D. 06/20/2024 12:58 PM Abdomen/Pelvis CT 06/20/24 12:14 CT OF THE ABDOMEN AND PELVIS WITHOUT CONTRAST CLINICAL HISTORY: Trauma. COMPARISON STUDY: CT of the abdomen and pelvis, MRCP and right upper quadrant ultrasound April 19, 2021. TECHNIQUE: Axial images of the abdomen and pelvis were obtained without IV contrast. Images were reviewed in the axial, sagittal, and coronal planes. Automated exposure control was utilized for the study. A dose lowering technique was utilized adhering to the principles of ALARA. FINDINGS: Cardiomegaly and mild interlobular septal thickening within the lower lungs are incidentally noted. No hemoperitoneum or pneumoperitoneum is present. Solid abdominal viscera are suboptimally assessed on unenhanced exam but there is no evidence for traumatic injury to the liver, spleen, adrenal glands, kidneys or pancreas. There is hepatic steatosis. No biliary ductal dilatation status post cholecystectomy. Prominent april hepatis lymph nodes are unchanged. Left-sided parapelvic cysts are noted. Stranding within the left renal sinus is unchanged. There is a 5.5 cm infrarenal abdominal aortic aneurysm without evidence for rupture. The aneurysm measured 4.[address] of April 19, 2021. Caliber and wall thickness of small and large bowel are normal. There is sigmoid diverticulosis without evidence for acute diverticulitis. Prostate is enlarged, measuring 5.4 cm in transverse diameter. A small portion of the proximal sigmoid colon slightly extends into a left inguinal hernia. There is an acute horizontal fracture along the inferior endplate of L1 with minimal loss of vertebral body height. No retropulsion is present. No extension into the posterior elements is noted. No additional acute fractures. IMPRESSION: 1. Acute horizontal fracture along the inferior endplate of L1 with minimal loss of vertebral body height. No retropulsion. No extension into the posterior elements. 2. No additional acute traumatic findings on unenhanced exam. 3. 5.5 cm infrarenal abdominal aortic aneurysm, increased in caliber since CT of April 19, 2021 when it measured 4.8 cm. 4. Cardiomegaly with mild interstitial pulmonary edema. ACT 112: Negative or not required by law. Electronically signed by: Nahun Nascimento M.D. 06/20/2024 12:[address] 06/20/24 12:14 CT SCAN OF THE CERVICAL SPINE CLINICAL HISTORY: Fall. COMPARISON STUDY: CTA of the neck October 30, 2022. Chest CT April 19, 2021. TECHNIQUE: CT scan of the cervical spine is performed from the skull base to the upper thoracic spine. Images are reviewed in the axial, sagittal, and coronal planes. IV contrast was not administered for this examination. A dose lowering technique was utilized adhering to the principles of ALARA. FINDINGS: Alignment of the cervical spine is anatomic. Vertebral body heights are maintained. There are no cervical spine fractures. There is moderate degenerative disc disease and facet arthrosis within the cervical spine. Cortical irregularity of the inferior endplate of T2 is unchanged since CT of October 30, 2022. No acute fractures are identified. There is no prevertebral edema. Interlobular septal thickening within the lung apices is incidentally noted. IMPRESSION: No acute cervical spine fracture or subluxation. ACT 112: Negative or not required by law. Electronically signed by: Nahun Nascimento M.D. 06/20/2024 12:[address] 06/20/24 12:14 CT head/brain wo con CLINICAL HISTORY: Trauma. TECHNIQUE: Multiple axial CT images of the head were obtained without contrast. A dose lowering technique was utilized adhering to the principles of ALARA. CT DOSE: 2718.72 mGy.cm COMPARISON: 10/30/2022 FINDINGS: There are stable severe chronic small vessel ischemic changes. Stable small area of encephalomalacia right occipital lobe consistent with old infarction. No intracranial hemorrhage seen. No mass effect, midline shift, or hydrocephalus. Stable globus pallidus calcifications, unremarkable in this age group. No skull fracture seen. Visualized paranasal sinuses and mastoid air cells are clear. IMPRESSION: No acute findings. ACT 112: Negative or not required by law. The above report was generated using voice recognition software. It may contain grammatical, syntax or spelling errors. Electronically signed by: Michael Bell M.D. 06/20/2024 12:[address] 06/20/24 15:09 EXAM: CT Thoracic and Lumbar Spine Without Intravenous Contrast INDICATION: Posttraumatic pain. Fell today. TECHNIQUE: Axial computed tomography images of the thoracic and lumbar spine without intravenous contrast. Sagittal and coronal reformatted images were created and reviewed. This CT exam was performed using one or more of the following dose reduction techniques: automated exposure control, adjustment of the mA and/or kV according to patient size, and/or use of iterative reconstruction technique. COMPARISON: No relevant prior studies available. FINDINGS: Vertebrae: The bones are demineralized. There is mild convex right thoracic and convex left lumbar spinal bowing. There is an acute compression fracture of the superior endplate of L1 with 3-4 mm retropulsion and mild superior endplate concavity. There is mild anterior height loss. There is an acute appearing mild compression deformity of the inferior endplate of T2 with mild anterior wedging. No retropulsion. There is moderate thoracolumbar spondylosis. There is mild to moderate diffuse lumbar facet arthrosis. There is grade 1 degenerative retrolisthesis of L3 on L4. No traumatic subluxation identified. There are 12 rib-bearing thoracic and 5 nonrib-bearing lumbar type vertebra. Discs/spinal canal/neural foramina: There is diffuse thoracolumbar mild to moderate disc space narrowing. There is mild ventral canal stenosis related to retropulsion of the L1 fracture and degenerative disc change. There is moderate canal stenosis secondary to diffuse osteophyte disc bulge and ligamentous and facet hypertrophy L2-L3, L3-L4 and L4-L5. Bilateral foraminal stenosis at these levels. There is a diffuse predominantly central disc bulge L5-S1 with slight bilateral subarticular narrowing right greater than left with impingement of the right foraminal S1 nerve root and moderate canal stenosis. Soft tissues: No significant abnormality noted. Lymph nodes: Shotty nodes present in all mediastinal compartments and smaller nodes in the bilateral hilum. Largest singly measurable node is in the aortopulmonary window measuring short axis dimension 1.3 cm. Lungs and pleural spaces: There is coarse bilateral symmetrical reticulation and mild bronchiectasis and honeycombing in the visualized lower lobes. Heart: Partially imaged heart is enlarged. IMPRESSION: 1. Acute appearing compression fractures of T2 and L1 as above. 2. Moderate to marked multilevel degenerative changes of the lumbar spine. 3. Pulmonary fibrosis and mediastinal and hilar adenopathy likely reactive. ACT 112: Positive. There are findings on this exam that require communication between the performing entity and the patient following Patient Test Result Information Act ([place] ACT 112) guidelines. Electronically signed by Brianna Delaney 06-20-2024 4:[address] 06/20/24 15:09 EXAM: CT Thoracic and Lumbar Spine Without Intravenous Contrast INDICATION: Posttraumatic pain. Fell today. TECHNIQUE: Axial computed tomography images of the thoracic and lumbar spine without intravenous contrast. Sagittal and coronal reformatted images were created and reviewed. This CT exam was performed using one or more of the following dose reduction techniques: automated exposure control, adjustment of the mA and/or kV according to patient size, and/or use of iterative reconstruction technique. COMPARISON: No relevant prior studies available. FINDINGS: Vertebrae: The bones are demineralized. There is mild convex right thoracic and convex left lumbar spinal bowing. There is an acute compression fracture of the superior endplate of L1 with 3-4 mm retropulsion and mild superior endplate concavity. There is mild anterior height loss. There is an acute appearing mild compression deformity of the inferior endplate of T2 with mild anterior wedging. No retropulsion. There is moderate thoracolumbar spondylosis. There is mild to moderate diffuse lumbar facet arthrosis. There is grade 1 degenerative retrolisthesis of L3 on L4. No traumatic subluxation identified. There are 12 rib-bearing thoracic and 5 nonrib-bearing lumbar type vertebra. Discs/spinal canal/neural foramina: There is diffuse thoracolumbar mild to moderate disc space narrowing. There is mild ventral canal stenosis related to retropulsion of the L1 fracture and degenerative disc change. There is moderate canal stenosis secondary to diffuse osteophyte disc bulge and ligamentous and facet hypertrophy L2-L3, L3-L4 and L4-L5. Bilateral foraminal stenosis at these levels. There is a diffuse predominantly central disc bulge L5-S1 with slight bilateral subarticular narrowing right greater than left with impingement of the right foraminal S1 nerve root and moderate canal stenosis. Soft tissues: No significant abnormality noted. Lymph nodes: Shotty nodes present in all mediastinal compartments and smaller nodes in the bilateral hilum. Largest singly measurable node is in the aortopulmonary window measuring short axis dimension 1.3 cm. Lungs and pleural spaces: There is coarse bilateral symmetrical reticulation and mild bronchiectasis and honeycombing in the visualized lower lobes. Heart: Partially imaged heart is enlarged. IMPRESSION: 1. Acute appearing compression fractures of T2 and L1 as above. 2. Moderate to marked multilevel degenerative changes of the lumbar spine. 3. Pulmonary fibrosis and mediastinal and hilar adenopathy likely reactive. ACT 112: Positive. There are findings on this exam that require communication between the performing entity and the patient following Patient Test Result Information Act ([place] ACT 112) guidelines. Electronically signed by Brianna Delaney 06-20-2024 4:56 PM Lumbar Spine MRI 06/23/24 12:46 MR lumbar spine wo con CLINICAL HISTORY: 88 years-old Male with compression fracture L1. COMPARISON: CT lumbar spine and abdomen and pelvis studies 06/20/2024. TECHNIQUE: Multiplanar, multi sequence MRI of the lumbar spine was performed without intravenous contrast. FINDINGS: Aneurysmal dilation of the infrarenal abdominal aorta redemonstrated which measured 5.5 cm on the most recent study from 06/20/2024. Cortical thinning of the kidneys with bilateral perinephric stranding and left renal cysts. No lymphadenopathy. Study is mildly motion degraded. There is mild Modic type I degeneration involving the superior endplate of L4. Fatty marrow changes compatible with bone demineralization. Acute horizontal fracture through the anterior and superior endplates of L1 redemonstrated again with less than 20% vertebral body height loss and no retropulsion. There is equivocal fracture extension into the left pedicle. The right pedicle and bilateral lamina appear intact. Mild paravertebral edema without additional acute fracture or subluxation. Small posterior Tarlov cysts are noted at L4-L5 and L5-S1 with multilevel facet effusions. T12-L1: Spondylotic spurring with moderate facet arthrosis. No central canal or neural foraminal stenosis. L1-L2: Small posterior annular disc bulge with spondylitic spurring and moderate facet arthrosis. No central canal or neural foraminal stenosis. L2-L3: Mild intervertebral disc space narrowing. Spondylitic spurring with circumferential annular disc bulge/disc osteophyte complex. Ligamentum flavum thickening with moderate to severe facet arthrosis. Mild central canal stenosis with AP dimension of the thecal sac measuring 9 mm. There is at least mild narrowing of the lateral recesses. The right neural foramen is patent. Mild left foraminal stenosis. L3-L4: Osteophytic spurring is most pronounced anteriorly. Mild intervertebral disc space narrowing and circumferential annular disc bulge. Ligamentum flavum thickening with moderate facet arthrosis. Moderate central canal stenosis with AP dimension of the thecal sac measuring 6 mm. There is at least moderate narrowing of the lateral recesses. Mild to moderate bilateral foraminal stenosis. L4-L5: Mild to moderate intervertebral disc space narrowing. Osteophytic spurring is most pronounced anteriorly. Circumferential annular disc bulge with disc osteophyte complex. Severe facet arthrosis with ligamentum flavum thickening. Moderate central canal stenosis with AP dimension of the thecal sac measuring 7 mm. Severe narrowing of the lateral recesses. Moderate right with moderate to severe left foraminal stenosis. L5-S1: Mild intervertebral disc space narrowing. Spondylitic spurring with small circumferential annular disc bulge and posterior annular fissure. Ligame ntum flavum thickening with moderate to severe facet arthrosis. Patent central canal. Moderate narrowing of the lateral recesses. Severe right with mild to moderate left foraminal narrowing. IMPRESSION: 1. Unchanged alignment of the acute horizontal fracture involving the superior endplate and mid vertebral body at L1 resulting in less than 20% vertebral body height loss and no retropulsion. 2. No additional acute fracture or subluxation. 3. Degenerative changes of the lumbar spine as above with resultant multilevel central canal and neural foraminal narrowing. 4. Aneurysmal dilation of the abdominal aorta redemonstrated. ACT 112: Negative or not required by law. The above report was generated using voice recognition software. It may contain grammatical, syntax or spelling errors. Electronically signed by: Rafael Pace M.D. 06/23/2024 2:52 PM Chest X-Ray 06/26/24 05:33 EXAM: XR chest 1V portable CLINICAL HISTORY: low O2. TECHNIQUE: An X-ray image of the chest is obtained in AP projection. COMPARISON: CR 06/24/2024. FINDINGS: Pulmonary Parenchyma: Accentuated bronchovascular markings with bilateral lower lung zone opacities and infiltrates. The left costophrenic angle is blunted. Heart and Mediastinum: Heart size and shape are normal. No mediastinal widening or masses. No hilar or mediastinal lymphadenopathy. Bony Thorax: The bony thorax appears intact without fractures or deformities. Soft Tissues: Soft tissues overlying the chest wall are unremarkable. IMPRESSION: 1. Accentuated bronchovascular markings with bilateral lower lung zone opacities and infiltrates, mildly regressive compared to the last study. 2. The left costophrenic angle is blunted, stable, could be due to small pleural effusion. Electronically signed by Guanako Ballesteros 06-26-2024 07:15 AM Videofluoroscopic Swallow 06/26/24 10:00 FL video swallow CLINICAL HISTORY: r/o aspiration COMPARISON STUDY: None TECHNIQUE: The patient was given barium mixture of varying consistencies by speech pathology. Swallowing function was observed fluoroscopically recorded with rapid sequence filming. Total fluoroscopy time was 1 minute and 36 seconds. Total dose 4.95mGy Findings: There were 2 episodes of mild, silent aspiration with thin liquids. No additional abnormalities were identified. IMPRESSION: Silent aspiration observed ACT 112: Negative or not required by law. Electronically signed by: Cece Bustos M.D. 06/26/2024 10:53 AM Medications Administered Current Inpatient Medications Acetaminophen (Acetaminophen 500 Mg Tab) 1,000 mg PO Q8H PRN PRN Reason: Pain or Fever Stop: 07/20/24 22:59 Last Admin: 06/25/24 20:17 Dose: 1,000 mg Allopurinol (Allopurinol 100 Mg Tab) 100 mg PO QAM YURIDIA Stop: 07/21/24 08:59 Last Admin: 06/27/24 08:14 Dose: 100 mg Amiodarone HCl (Amiodarone 200 Mg Tab) 200 mg PO QAM YURIDIA Stop: 07/27/24 08:59 Last Admin: 06/27/24 08:16 Dose: 200 mg Apixaban (Apixaban 2.5 Mg Tab) 2.5 mg PO BID YURIDIA Stop: 07/21/24 20:59 Last Admin: 06/27/24 08:12 Dose: 2.5 mg Cetirizine HCl (Cetirizine Hcl 10 Mg Tablet) 10 mg PO DAILY YURIDIA Stop: 07/21/24 08:59 Last Admin: 06/27/24 08:14 Dose: 10 mg Clopidogrel Bisulfate (Clopidogrel Bisulfate 75 Mg Tab) 75 mg PO DAILY YURIDIA Stop: 07/20/24 18:28 Last Admin: 06/27/24 08:12 Dose: 75 mg Dextrose (Dextrose 50% 50 Ml Syringe) 25 - 50 ml IV UD PRN; Protocol PRN Reason: Hypoglycemia Protocol Stop: 07/20/24 18:28 Duloxetine HCl (Duloxetine Hcl 20 Mg Cap) 20 mg PO DAILY YURIDIA Stop: 07/21/24 08:59 Last Admin: 06/27/24 08:12 Dose: 20 mg Fluticasone Propionate (Fluticasone Propionate Na Spr 16 Gm Btl) 2 sprays NADIYA HS YURIDIA Stop: 07/20/24 20:59 Last Admin: 06/26/24 20:14 Dose: 2 sprays Glucagon (Glucagon For Inj 1 Mg Vial) 1 mg SQ UD PRN; Protocol PRN Reason: Hypoglycemia Protocol Stop: 07/20/24 18:28 Glucose (Glucose 40% Gel 15 Gm Tube) 15 - 30 gm PO UD PRN; Protocol PRN Reason: Hypoglycemia Protocol Stop: 07/20/24 18:28 Glucose (Glucose 10 Tab/Tube) 4 - 8 tab PO UD PRN; Protocol PRN Reason: Hypoglycemia Protocol Stop: 07/20/24 18:28 Guaifenesin (Guaifenesin 600 Mg Tabcr) 600 mg PO DAILY [facility] Stop: 07/22/24 08:59 Last Admin: 06/27/24 08:18 Dose: 600 mg Hydralazine HCl (Hydralazine Hcl 20 Mg/Ml Vial) 5 mg IV Q4H PRN PRN Reason: SBP > 170 Stop: 07/22/24 17:46 Last Admin: 06/27/24 06:27 Dose: 5 mg Hydrocortisone (Hydrocortisone 1% Oint 30 Gm Tube) 1 appln EXT BID PRN PRN Reason: Itching Stop: 07/25/24 03:30 Last Admin: 06/27/24 08:20 Dose: 1 appln Insulin Aspart (Insulin Aspart Per Unit Charge) 0 units SC ACHS [facility] Stop: 07/23/24 08:29 Last Admin: 06/27/24 12:23 Dose: 3 units Levalbuterol HCl (Levalbuterol 1.25 Mg/3 Ml Neb) 1.25 mg NEB Q4H PRN PRN Reason: Shortness Of Breath Or Wheezing Stop: 07/22/24 01:04 Last Admin: 06/23/24 10:44 Dose: 1.25 mg Levothyroxine Sodium (Levothyroxine Sodium 50 Mcg Tablet) 50 mcg PO DAILYBB [facility] Stop: 07/21/24 06:29 Last Admin: 06/27/24 05:42 Dose: 50 mcg Losartan Potassium (Losartan Potassium 25 Mg Tab) 25 mg PO DAILY YURIDIA Stop: 07/21/24 08:59 Last Admin: 06/27/24 08:08 Dose: 25 mg Metoprolol Succinate (Metoprolol Succ 50mg Ext Rel Tab) 50 mg PO BID [facility] Stop: 07/24/24 20:59 Last Admin: 06/27/24 08:07 Dose: 50 mg Miscellaneous (Carbohydrates For Hypoglycemia ) 15 - 30 gm PO UD PRN PRN Reason: Hypoglycemia Protocol Stop: 07/20/24 18:28 Morphine Sulfate (Morphine Sulfate 2 Mg/Ml Carp) 1 mg IV Q4H PRN PRN Reason: Severe Pain (Scale 7, 8, 9,10) Stop: 07/04/24 18:28 Last Admin: 06/27/24 11:26 Dose: 1 mg Nystatin (Nystatin Powder 15gm Btl) 1 appln EXT BID [facility] Stop: 07/21/24 23:44 Last Admin: 06/27/24 08:20 Dose: 1 appln Ondansetron HCl (Ondansetron Inj 2 Mg/Ml 2 Ml Vial) 2 mg IV Q6H PRN PRN Reason: Nausea Stop: 07/20/24 18:28 Oxycodone HCl (Oxycodone Hcl Ir 5 Mg Tab (Immediate Release)) 2.5 mg PO Q6H PRN PRN Reason: Moderate Pain (Scale 4, 5, 6) Stop: 07/04/24 18:28 Last Admin: 06/27/24 08:06 Dose: 2.5 mg Polyethylene Glycol (Polyethylene (Miralax) 17 Gm Pack) 17 gm PO DAILY YURIIDA Stop: 07/21/24 08:59 Last Admin: 06/27/24 08:23 Dose: 17 gm Sodium Chloride (Sodium Chlor 7% 4 Ml Neb) 4 ml NEB BIDR YURIDIA Stop: 07/22/24 09:38 Last Admin: 06/27/24 07:19 Dose: 4 ml Tamsulosin HCl (Tamsulosin Hcl 0.4 Mg Cap) 0.4 mg PO QPM [facility] Stop: 07/20/24 20:59 Last Admin: 06/26/24 20:16 Dose: 0.4 mg PG Care Time/CCT Total # of Minutes Spent Total Time Spent with Patient: Total time spent is greater than 50% in coordination of care (as documented) at patient's floor/unit and/or counseling patient: Advanced Care Planning 95091 Advanced Care Planning 30 [place] [address] IN/OBS CONSULT LVL 3,45M Patient Type New Medical Decision Making Low Complexity Diagnoses Palliative care by specialist Z51.5 Patient has healthcare proxy and living will Z78.9 Counseling regarding goals of care Z71.89 Additional Codes Advanced Care Planning - 41427 Advanced Care Planning 30 Min: 40960 Advanced Care Planning 30 Min ([id number])
[2024-06-28] MEDS ORDERED: MELATONIN 3 MG TAB PO PRN (04:28)
--- NOTE | 2024-06-28 04:31 | Communication Note ---
Date of Service: June 28, 2024 Made aware by RN of uncontrolled blood pressure. SBP 150-190s the last 48 hours. Heart rate 60 to 80s Usual back pain complaint on turning as per RN AP Hypertensive urgency Add amlodipine to regimen Will relay to AM provider.
[2024-06-28] MEDS: amLODIPine BESYLATE 5 MG TAB PO SCH (05:42)
[2024-06-28 05:54] LABS: Hematocrit (blood only) 35.6 % (42.0-52.0); Hemoglobin 11.9 g/dl (14.0-18.0); Mean Corpuscular Hemoglobin 33.8 pg (25.0-34.0); Mean Corpuscular Hgb Conc 33.4 g/dL (32.0-36.0); Mean Corpuscular Volume 101.1 fL (80.0-100.0); Mean Platelet Volume 10.1 fL (9.4-12.4); Platelet Count 277 K/uL (130-400); RDW Coefficient of Variation 14.6 % (11.5-14.5); RDW Standard Deviation 54.6 fL (36.4-46.3); Red Blood Count 3.52 M/uL (4.70-6.10); White Blood Count 10.83 K/ul (4.8-10.8)
[2024-06-28 06:09] LABS: Creatinine Clr Calc Pharmacy 20.6 ml/min; Magnesium 2.3 mg/dl (1.7-2.4); Phosphorus 4.6 mg/dl (2.5-4.9); Potassium 4.1 mmol/L (3.5-5.1)
[2024-06-28] MEDS: NYSTATIN SUSP 500,000 U/5 ML UDC PO SCH (15:46)
--- NOTE | 2024-06-28 17:09 | Hospitalist Progress Note ---
Date of Service June 28, 2024 Assessment & Plan (1) Fall: (2) Low back pain: (3) L1 vertebral fracture: (4) Atrial fibrillation with RVR: (5) History of CVA (cerebrovascular accident): (6) Diabetes mellitus, type II: (7) CKD (chronic kidney disease) stage 3, GFR 30-59 ml/min: Plan: Patient is 88 year old male with PMH HTN, HLD, history CVA, DM II, CKD III, BPH, gout, hypothyroidism, h/o AAA, dementia, PAF anticoagulated on Eliquis who presented to the ER with c/o fall during the night and low back pain. Dementia Acute on chronic Encephalopathy Pt confused at times Had reported delirium like symptoms upon discharge from hospital which seems to have cleared when pt returned home Head CT on admission without acute changes Acute encephalopathy in the setting of infection as well Delirium precautions. Frequent reorientation, avoid sedating medications as able Palliative care consulted, appreciate recs Continue to monitor Fall Ambulatory dysfunction T2, L1 fracture CT Head: No acute findings. CT C-Spine: No acute fracture Pelvis Xray: No acute fracture CT Abd/pelvis noting an acute fracture of L1 and "5.5 cm infrarenal abdominal aortic aneurysm, increased in caliber since CT of April 19, 2021 when it measured 4.[address] Thoracic spine to r/o thoracic fracture noting acute compression fractures of T2 and L1. MRI lumbar spine- L1 horizontal fracture, degenerative changes Pain control Orthotics consult for TLSO brace Walks with walker at baseline Fall precautions PT/OT eval- recommending SNF Ortho spine consulted appreciate recs History PAF Afib RVR Admitted 06/18/24-06/19/24 for new onset A-fib RVR. Started on metoprolol succinate 100 mg daily and started on Eliquis twice daily. 06/19/24 echo: Moderate concentric LVH, no wall motion abnormalities, EF: 50-55%, trace aortic regurgitation, mild-moderate mitral regurgitation. On admission Troponins flat 27, 28 Initially presented to ER in sinus rhythm. During ER course patient appeared to develop A-fib RVR rate up to 160. Cardiology consulted, appreciate recs. Current recommendations are: -Continue Amiodarone 200 mg daily -Continue metoprolol 50 mg BID -continue Eliquis 2.5 mg BID Continue to monitor on telemetry Possible Aspiration Pneumonia Acute hypoxic respiratory Failure Pt with episodes of difficulty swallowing XR from 06/23 concerning for pneumonia, repeat on 06/26 with noted possible pleural effusion Pt with episodes of increased oxygen requirements at times guaifenesin, flutter valve, IS Also received occasional diuretic doses Speech consulted, video swallow on 06/26 noting 2 episodes of silent aspiration Completed 5 days of abx at this time, continue to monitor off abx Oxygen supplementation as needed, wean as tolerated Acute on Chronic HFpEF Not currently on home diuretics likely secondary to pna, Afib RVR, etc. diuresis and abx treatment as above Monitor volume status closely Hypokalemia Replete as needed Chronic Anemia Hgb at baseline Monitor H/H CKD III Cr: 2.1 on admission, peaked to 2.8 Monitor renal function, avoid nephrotoxic agents when possible Abdominal Aneurysm Noted on imaging Aneurysm expanded to 5.5cm range Chart review shows Vascular Surgery notes from 2021 where continued plavix and statin therapy was recommended EPIC Chart review noted increased size to >5cm in 2022 and pt following with the [facility] before disenrollment per recs of his PCP due to "age and conditions." PCP follow up as needed Pulmonary Fibrosis Noted on imaging Stable HTN Continue losartan, metoprolol succinate Pain control as above History of CVA (cerebrovascular accident): Continue Plavix Atorvastatin was d/c in 05/2024 per pt and request to decrease amount of medications Diabetes mellitus, type II: A1c: 7.3 on 06/19/24 Not on home medication per pt request Novolog sliding scale per protocol BPH (benign prostatic hyperplasia): Continue tamsulosin Hypothyroidism: Continue levothyroxine Possible thrush Oral nystatin DVT Prophylaxis: On Eliquis Dispo: telemetry DNR/DNI as per discussion with pt, pt's Admission and Anticipated Discharge Date Admission Date: June 20, 2024 Subjective pt was seen in the AM Resting comfortably Discussion with pt's son Franky and in the AM- they would like the pt to go to SNF. Want permissive aspiration discussion with palliative, CM f/u for dispo Review of Systems Review of Systems: All systems reviewed & are unremarkable except as noted in Subjective Physical Exam Physical Exam: General: Alert, oriented. No acute distress Neuro: difficulty with movements HEENT: NC/AT CV: RRR Resp: Breath sounds clear bilaterally, no increased effort of breathing Abdomen: Soft, nontender Extremities: No edema in lower extremities bilaterally. Results & Data Results & Data Vital Signs (Past 12 Hours) Vital Signs Temp Pulse Pulse Resp BP BP Pulse Ox 06/28/24 14:47 36.7 C 71 18 142/74 H 92 06/28/24 12:23 36.6 C 70 16 138/74 96 06/28/24 10:43 06/28/24 08:36 36.9 C 70 16 167/76 H 91 06/28/24 08:00 77 06/28/24 07:16 79 18 94 O2 Del Method O2 Flow Rate 06/28/24 14:47 Nasal Cannula 3.0 06/28/24 12:23 Nasal Cannula 2.0 06/28/24 10:43 Room Air 06/28/24 08:36 Room Air 06/28/24 08:00 06/28/24 07:16 Room Air
--- NOTE | 2024-06-28 21:34 | Communication Note ---
Date of Service: June 28, 2024 Notified by RN of hypoxemia. O2 sats 80s. Patient with cough symptoms. Patient currently on permissive aspiration as per discussion with family as per a.m. notes. AP Supplemental O2 Unasyn Solu-Medrol 1 dose, neb treatment now
[2024-06-28] MEDS: ALBUT/IPRATROP 3MG/0.5MG NEB 3 ML VIAL NEB STA (21:41)
[2024-06-28] MEDS: AMPICILLIN/SULBACTAM SOD 3,000 MG/100 ML BAG IV SCH (22:53)
[2024-06-29] MEDS: methylPREDNISolone 20 MG in SYRINGE 0 ML IV ONE (01:08)
[2024-06-29 01:30] LABS: Base Excess VBG -0.7 mEq/L; HCO3 VBG 23 mmol/L; Oxygen Saturation VBG 70.7 %; PCO2 VBG 36 mmHg (38-50); PO2 VBG 39 mmHg; pH VBG 7.42 (7.36-7.41)
--- NOTE | 2024-06-29 02:05 | XRay Report ---
Exam(s): XR CXR 1 VIEW EXAM: XR Chest, 1 View CLINICAL HISTORY: Reason for exam: low o2. TECHNIQUE: Frontal view of the chest. COMPARISON: Prior chest x-ray from June 26, 2024. FINDINGS: Lungs: Mild to moderate peribronchial thickening in the central and lower lobe bronchi with bilateral lower lobe patchy opacities. Pleural space: Unremarkable. No pneumothorax. Heart: Unremarkable. No cardiomegaly. Mediastinum: Unremarkable. Normal mediastinal contour. Bones/joints: Unremarkable. No acute fracture. IMPRESSION: Bronchitis with bilateral lower lobe pulmonary infiltrates. Electronically signed by: Marly Friend MD 06/29/24 02:04 AM
[2024-06-29 06:37] LABS: Hematocrit (blood only) 36.7 % (42.0-52.0); Hemoglobin 12.3 g/dl (14.0-18.0); Mean Corpuscular Hemoglobin 34.3 pg (25.0-34.0); Mean Corpuscular Hgb Conc 33.5 g/dL (32.0-36.0); Mean Corpuscular Volume 102.2 fL (80.0-100.0); Mean Platelet Volume 10.2 fL (9.4-12.4); Platelet Count 305 K/uL (130-400); RDW Coefficient of Variation 14.8 % (11.5-14.5); RDW Standard Deviation 55.2 fL (36.4-46.3); Red Blood Count 3.59 M/uL (4.70-6.10)
[2024-06-29 06:41] LABS: Albumin Level 3.5 gm/dl (3.4-5.0); BUN Creatinine Ratio 26.2 (10-20); Bilirubin,Total 0.6 mg/dl (0.2-1.0); Calcium 9.2 mg/dl (8.6-10.3); Creatinine Clr Calc Pharmacy 21.7 ml/min; Globulin 3.6 gm/dl (2.5-4.0); Magnesium 2.6 mg/dl (1.7-2.4); Phosphorus 5.3 mg/dl (2.5-4.9); Potassium 4.8 mmol/L (3.5-5.1); Total Protein 7.1 gm/dl (6.0-8.3)
[2024-06-29 07:10] LABS: Basophils # (auto) 0.05 K/uL (0.00-0.20); Basophils % (auto) 0.4 %; Eosinophils # (auto) 0.02 K/uL (0.00-0.50); Eosinophils % (auto) 0.2 %; Immature Granulocytes # (auto) 0.11 K/uL (0.01-0.20); Immature Granulocytes % (auto) 0.9 %; Lymphocytes # (auto) 0.85 K/uL (1.20-3.40); Lymphocytes % (auto) 6.9 %; Monocytes # (auto) 0.18 K/uL (0.11-0.59); Monocytes % (auto) 1.5 %; Neutrophils # (auto) 11.19 K/uL (1.40-6.50); Neutrophils % (auto) 90.1 %
--- NOTE | 2024-06-29 07:58 | Hospitalist Progress Note ---
Date of Service June 29, 2024 Assessment & Plan (1) Fall: (2) Low back pain: (3) L1 vertebral fracture: (4) Atrial fibrillation with RVR: (5) History of CVA (cerebrovascular accident): (6) Diabetes mellitus, type II: (7) CKD (chronic kidney disease) stage 3, GFR 30-59 ml/min: Plan: Patient is 88 year old male with PMH HTN, HLD, history CVA, DM II, CKD III, BPH, gout, hypothyroidism, h/o AAA, dementia, PAF anticoagulated on Eliquis who presented to the ER with c/o fall during the night and low back pain. Possible Aspiration Pneumonia Acute hypoxic respiratory Failure Pt with episodes of difficulty swallowing XR from 06/23 concerning for pneumonia, repeat on 06/26 with noted possible pleural effusion, repeat on 06/28 with concern for pneumonia once more Pt with episodes of increased oxygen requirements at times guaifenesin, flutter valve, IS Also received occasional diuretic doses Speech consulted, video swallow on 06/26 noting 2 episodes of silent aspiration Completed 5 days of abx with repeat pneumonia noted on chest xray on 06/28- pt started on IV Unasyn, continue Oxygen supplementation as needed, wean as tolerated Continue to monitor Dementia Acute on chronic Encephalopathy Pt confused at times Had reported delirium like symptoms upon discharge from hospital which seems to have cleared when pt returned home Head CT on admission without acute changes Acute encephalopathy in the setting of infection as well Delirium precautions. Frequent reorientation, avoid sedating medications as able Palliative care consulted, appreciate recs Continue to monitor Fall Ambulatory dysfunction T2, L1 fracture CT Head: No acute findings. CT C-Spine: No acute fracture Pelvis Xray: No acute fracture CT Abd/pelvis noting an acute fracture of L1 and "5.5 cm infrarenal abdominal aortic aneurysm, increased in caliber since CT of April 19, 2021 when it measured 4.[address] Thoracic spine to r/o thoracic fracture noting acute compression fractures of T2 and L1. MRI lumbar spine- L1 horizontal fracture, degenerative changes Pain control Orthotics consult for TLSO brace Walks with walker at baseline Fall precautions PT/OT eval- recommending SNF Ortho spine consulted appreciate recs History PAF Afib RVR Admitted 06/18/24-06/19/24 for new onset A-fib RVR. Started on metoprolol succinate 100 mg daily and started on Eliquis twice daily. 06/19/24 echo: Moderate concentric LVH, no wall motion abnormalities, EF: 50-55%, trace aortic regurgitation, mild-moderate mitral regurgitation. On admission Troponins flat 27, 28 Initially presented to ER in sinus rhythm. During ER course patient appeared to develop A-fib RVR rate up to 160. Cardiology consulted, appreciate recs. Current recommendations are: -Continue Amiodarone 200 mg daily -Continue metoprolol 50 mg BID -continue Eliquis 2.5 mg BID Continue to monitor on telemetry Acute on Chronic HFpEF Not currently on home diuretics likely secondary to pna, Afib RVR, etc. diuresis and abx treatment as above Monitor volume status closely Hypokalemia Replete as needed Chronic Anemia Hgb at baseline Monitor H/H CKD III Cr: 2.1 on admission, peaked to 2.8 Monitor renal function, avoid nephrotoxic agents when possible Abdominal Aneurysm Noted on imaging Aneurysm expanded to 5.5cm range Chart review shows Vascular Surgery notes from 2021 where continued plavix and statin therapy was recommended EPIC Chart review noted increased size to >5cm in 2022 and pt following with the [facility] before disenrollment per recs of his PCP due to "age and conditions." PCP follow up as needed Pulmonary Fibrosis Noted on imaging Stable HTN Continue losartan, metoprolol succinate Pain control as above History of CVA (cerebrovascular accident): Continue Plavix Atorvastatin was d/c in 05/2024 per pt and request to decrease amount of medications Diabetes mellitus, type II: A1c: 7.3 on 06/19/24 Not on home medication per pt request Novolog sliding scale per protocol BPH (benign prostatic hyperplasia): Continue tamsulosin Hypothyroidism: Continue levothyroxine Possible thrush Oral nystatin DVT Prophylaxis: On Eliquis Dispo: telemetry DNR/DNI as per discussion with pt, pt's Admission and Anticipated Discharge Date Admission Date: June 20, 2024 Subjective pt was seen in the AM Overnight, requiring more oxygen and back on hi ismael. chest XRAY noting pneumonia, was started on Unasyn Pt's son Franky called and updated, he would like to continue with the current plan of discharge to SNF when stable and then pursue hospice care after then Review of Systems Review of Systems: All systems reviewed & are unremarkable except as noted in Subjective Physical Exam Physical Exam: General: Drowsy, No acute distress Neuro: drowsy HEENT: NC/AT CV: RRR Resp: hi ismael oxygen on nares Abdomen: Soft, nontender Extremities: No edema in lower extremities bilaterally. Results & Data Results & Data Vital Signs (Past 12 Hours) Vital Signs Temp Pulse Pulse Resp BP Pulse Ox O2 Del Method 06/29/24 07:26 87 20 98 High Flow Nasal Cannula 06/29/24 02:54 36.5 C 72 18 149/83 H 94 High Flow Nasal Cannula 06/29/24 02:51 78 20 93 High Flow Nasal Cannula 06/28/24 23:03 36.3 C L 72 20 160/85 H 91 Nasal Cannula 06/28/24 21:41 69 18 89 L Nasal Cannula 06/28/24 21:00 66 06/28/24 21:00 Nasal Cannula O2 Flow Rate FiO2 06/29/24 07:26 35 100 06/29/24 02:54 06/29/24 02:51 35 100 06/28/24 23:03 6 06/28/24 21:41 5 06/28/24 21:00 06/28/24 21:00 6
[2024-06-30 06:13] LABS: Basophils # (auto) 0.06 K/uL (0.00-0.20); Basophils % (auto) 0.4 %; Eosinophils # (auto) 0.12 K/uL (0.00-0.50); Eosinophils % (auto) 0.8 %; Immature Granulocytes # (auto) 0.06 K/uL (0.01-0.20); Immature Granulocytes % (auto) 0.4 %; Lymphocytes # (auto) 2.34 K/uL (1.20-3.40); Lymphocytes % (auto) 15.6 %; Mean Corpuscular Hemoglobin 33.8 pg (25.0-34.0); Mean Corpuscular Hgb Conc 33.3 g/dL (32.0-36.0); Mean Corpuscular Volume 101.5 fL (80.0-100.0); Mean Platelet Volume 10.4 fL (9.4-12.4); Monocytes # (auto) 0.86 K/uL (0.11-0.59); Monocytes % (auto) 5.7 %; Neutrophils % (auto) 77.1 %; Platelet Count 293 K/uL (130-400); RDW Coefficient of Variation 14.4 % (11.5-14.5); RDW Standard Deviation 53.8 fL (36.4-46.3); Red Blood Count 3.25 M/uL (4.70-6.10); White Blood Count 15.04 K/ul (4.8-10.8)
[2024-06-30 06:35] LABS: Albumin Globulin Ratio 0.9 (0.9-2); Albumin Level 3.1 gm/dl (3.4-5.0); BUN Creatinine Ratio 25.6 (10-20); Bilirubin,Total 0.7 mg/dl (0.2-1.0); Calcium 8.7 mg/dl (8.6-10.3); Creatinine Clr Calc Pharmacy 23.6 ml/min; Globulin 3.4 gm/dl (2.5-4.0); Magnesium 2.3 mg/dl (1.7-2.4); Potassium 3.9 mmol/L (3.5-5.1); Total Protein 6.5 gm/dl (6.0-8.3)
--- NOTE | 2024-06-30 09:01 | Palliative Family Discussion ---
Date of Service June 28, 2024 Patient Directed Conference Time of Meetin - 1600 06/28/2024 Participants: Maria Teresa Barr AGACNP Patient participation: no Patient Support System: Isabell Lloyd and son Franky Lloyd Other Healthcare Provider Participation: None Meeting Location: telephonic Advanced Directive available: No If yes, descriptors: The patient's surrogate medical decision maker participated: spouse Legally authorized health care proxy: Other surrogate: n/a A family meeting was held for AMANUEL LLOYD. This meeting was necessary for determining the appropriate course of treatment. Topics of Discussion Topics of Discussion: 1. advanced directive 2. goals of care 3. role of palliaitive medicine Other Content of Meetin. Opportunity given for participants to speak and ask questions. 2. Participants were assured of attention to patient comfort. 3. Reassurance provided. 4. Support was provided for informed, good-philippe decisions. 5. Emotions expressed by family were acknowledged and addressed. 6. Follow-up Outpatient: n/a 7. Plan of Care: family requests discharge to SNF/IPR with hopes to optimize strength/functional independence and return home On request of attending physician, phone conference ws held with pt's Isabell and his son Franky. We discussed pt's gradual loss of strength over last few months as well as concerns for memory loss. Family confirmed awareness that pt has dementia. They have experience caring for other family members at home with end stage dementia through end of life. Discussed the progressively debilitating nature of dementia. Explained that dementia is incurable and irreversible, and can include progressive/worsening memory loss, confusion, language difficulties/lack of comprehension skills/loss of verbal skills eventually, mood changes, impaired judgment, trouble with motor skills/coordination/balance issues, visual and spatial problems, hallucinations, and personality changes. The rate of progression in mixed dementia can vary widely from person to person. Factors such as the types of dementia involved, overall health, and genetics can influence the speed of progression. Some individuals experience a more gradual decline, while others may progress more rapidly through the stages. We discussed and differentiated dementia from delirium and helped family understand that they can co-exist. I reviewed Dementia is a terminal illness. Aggressive medical treatment for patients with advanced dementia is often inappropriate for medical reasons, has a low rate of success, and can have negative outcomes that hasten functional decline and . ([place] [employer] Ethics Committee and Clinical Practice and Models of Care Committee. J Am Geriatr Soc. 2014 Oct;62(8):1590-3 and Marvel SL, Vlado JM, Malone SC, Aníbal V. A national study of the location of for older persons with dementia. J Am Geriatr Soc 2005; 53(2):299-305.). Helped them understand differences between dementia and delirium. Discussed typical progression of dementia and how it may be staged. Stage 1: Normal Functioning: In the early stage, individuals show no signs of dementia, and their cognitive function is normal Stage 2: Very Mild Cognitive Decline: Minor memory lapses and forgetfulness may occur but are often attributed to normal aging Stage 3: Mild Cognitive Decline: Early signs of dementia become more noticeable, such as memory problems and difficulty finding words Stage 4: Moderate Cognitive Decline: Memory loss becomes more pronounced, and individuals may struggle with tasks like managing finances and planning Stage 5: Moderately Severe Cognitive Decline: Daily functioning becomes challenging, and individuals may require assistance with tasks like dressing and bathing Stage 6: Severe Cognitive Decline: In this stage, individuals need substantial help with daily activities, and communication becomes increasingly difficult Stage 7: Very Severe Cognitive Decline: In the final stage, individuals may lose the ability to communicate, walk, and perform basic tasks. They require [id number] care. Older adults with dementia frequently receive acute care in their last year of life although Hospice care was more common for home/[facility] residents. Overall time in hospice remains short due to the underutilization of the hospice benefit for terminal dementia (Kam MM, Ryan JM, Burgos KM, Boyd DE, Julio PY. Dementia Care in the Last Year of Life: Experiences in a Community Practice and in Alf Facilities. J Palliat Care. 2022;38(2):135-142. doi:10.1177/[id number]) Home Hospice is a valuable option for terminal dementia who desire to have peaceful EOL at home. Home hospice care for advanced dementia can improve symptom management and caregiver satisfaction, while decreasing caregiver burden, preventing hospitalizations and discontinuing u nnecessary medication (Carlos CASAS, Escobar R, Key G, et al. Home hospice for older people with advanced dementia: a whitewasher project [published correction appears in Isr J Health Policy Res. 2019 Sep 09;8(1):56]. Isr J Health Policy Res. 2019;8(1):42. Published 2018July 15. doi:10.1186/u35569-767-1890-y). Isabell shared that they have home visiting nursing care through [place] and this has been helpful. They have questions about additional resources that may be available to help care for pt at home through progression of his disease. They are clear in goals to continue to pursue life prolonging therapies at this time. Franky shared that if the pt does decline to the point of life prolonging therapy causing more distress than assistance they would consider hospice care, but they do not feel that pt is at that level. Franky shared understanding that the pt does have some silent aspiration, but they feel he is still eating well from a nutritional standpouint. Family would benefit from education on aspiration precautions and PNA prevention as they do appear in favor of permissive aspiration. We will sign off on this patient as goals of care are clearly established for DNR/DNI but continue all other life prolonging therapies Thank you for including Palliative Care in the management of this patient. Please call with any questions or concerns regarding this consultation. Time Involved in Meeting: I spent 40 minutes overall addressing this case: 10 in medical data review/discussion with referring provider(s) and/or preparation for the visit 30 in direct interaction with the patient's NOK 30 Advance Care Planning/Goals of Care discussions as detailed above in note (must be >16min) 0 in subsequent review and synthesis of assessment and plan 10 in communicating with other providers regarding the patient's case: attending, BSRN and DAMON
[2024-06-30] MEDS ORDERED: GLYCERIN ADULT 12 SUPP/BOX SUPP PR PRN (11:59)
--- NOTE | 2024-06-30 15:42 | Hospitalist Progress Note ---
Date of Service June 30, 2024 Assessment & Plan (1) Fall: (2) Low back pain: (3) L1 vertebral fracture: (4) Atrial fibrillation with RVR: (5) History of CVA (cerebrovascular accident): (6) Diabetes mellitus, type II: (7) CKD (chronic kidney disease) stage 3, GFR 30-59 ml/min: Plan: Patient is 88 year old male with PMH HTN, HLD, history CVA, DM II, CKD III, BPH, gout, hypothyroidism, h/o AAA, dementia, PAF anticoagulated on Eliquis who presented to the ER with c/o fall during the night and low back pain. Possible Aspiration Pneumonia Acute hypoxic respiratory Failure Pt with episodes of difficulty swallowing XR from 06/23 concerning for pneumonia, repeat on 06/26 with noted possible pleural effusion, repeat on 06/28 with concern for pneumonia once more Pt with episodes of increased oxygen requirements at times guaifenesin, flutter valve, IS Also received occasional diuretic doses Speech consulted, video swallow on 06/26 noting 2 episodes of silent aspiration Completed 5 days of abx with repeat pneumonia noted on chest xray on 06/28- pt started on IV Unasyn, continue Oxygen supplementation as needed, wean as tolerated Continue to monitor Dementia Acute on chronic Encephalopathy Pt confused at times Had reported delirium like symptoms upon discharge from hospital which seems to have cleared when pt returned home Head CT on admission without acute changes Acute encephalopathy in the setting of infection as well Delirium precautions. Frequent reorientation, avoid sedating medications as able Palliative care consulted, appreciate recs Continue to monitor Fall Ambulatory dysfunction T2, L1 fracture CT Head: No acute findings. CT C-Spine: No acute fracture Pelvis Xray: No acute fracture CT Abd/pelvis noting an acute fracture of L1 and "5.5 cm infrarenal abdominal aortic aneurysm, increased in caliber since CT of April 19, 2021 when it measured 4.[address] Thoracic spine to r/o thoracic fracture noting acute compression fractures of T2 and L1. MRI lumbar spine- L1 horizontal fracture, degenerative changes Pain control Orthotics consult for TLSO brace Walks with walker at baseline Fall precautions PT/OT eval- recommending SNF Ortho spine consulted appreciate recs History PAF Afib RVR Admitted 06/18/24-06/19/24 for new onset A-fib RVR. Started on metoprolol succinate 100 mg daily and started on Eliquis twice daily. 06/19/24 echo: Moderate concentric LVH, no wall motion abnormalities, EF: 50-55%, trace aortic regurgitation, mild-moderate mitral regurgitation. On admission Troponins flat 27, 28 Initially presented to ER in sinus rhythm. During ER course patient appeared to develop A-fib RVR rate up to 160. Cardiology consulted, appreciate recs. Current recommendations are: -Continue Amiodarone 200 mg daily -Continue metoprolol 50 mg BID -continue Eliquis 2.5 mg BID Continue to monitor on telemetry Acute on Chronic HFpEF Not currently on home diuretics likely secondary to pna, Afib RVR, etc. diuresis and abx treatment as above Monitor volume status closely Hypokalemia Replete as needed Chronic Anemia Hgb at baseline Monitor H/H CKD III Cr: 2.1 on admission, peaked to 2.8 Monitor renal function, avoid nephrotoxic agents when possible Abdominal Aneurysm Noted on imaging Aneurysm expanded to 5.5cm range Chart review shows Vascular Surgery notes from 2021 where continued plavix and statin therapy was recommended EPIC Chart review noted increased size to >5cm in 2022 and pt following with [facility] before disenrollment per recs of his PCP due to "age and conditions." PCP follow up as needed Pulmonary Fibrosis Noted on imaging Stable HTN Continue losartan, metoprolol succinate Pain control as above History of CVA (cerebrovascular accident): Continue Plavix Atorvastatin was d/c in 05/2024 per pt and request to decrease amount of medications Diabetes mellitus, type II: A1c: 7.3 on 06/19/24 Not on home medication per pt request Novolog sliding scale per protocol BPH (benign prostatic hyperplasia): Continue tamsulosin Hypothyroidism: Continue levothyroxine Possible thrush Oral nystatin DVT Prophylaxis: On Eliquis Dispo: telemetry DNR/DNI as per discussion with pt, pt's Admission and Anticipated Discharge Date Admission Date: June 20, 2024 Subjective pt was seen in the AM resting comfortably in bed, oxygen being weaned down family wants rehab Review of Systems 2 Review of Systems: All systems reviewed & are unremarkable except as noted in Subjective Physical Exam Physical Exam: General: Drowsy, No acute distress Neuro: drowsy HEENT: NC/AT CV: RRR Resp: hi ismael oxygen on nares Abdomen: Soft, nontender Extremities: No edema in lower extremities bilaterally. Results & Data Results & Data Vital Signs (Past 12 Hours) Vital Signs Temp Pulse Pulse Resp BP Pulse Ox O2 Del Method 06/30/24 12:19 36.9 C 72 20 127/66 94 Nasal Cannula 06/30/24 11:00 73 06/30/24 10:42 71 16 94 Nasal Cannula 06/30/24 09:00 High Flow Nasal Cannula 06/30/24 08:32 37.1 C 71 22 166/70 H 92 High Flow Nasal Cannula 06/30/24 07:18 74 24 87 L High Flow Nasal Cannula O2 Flow Rate FiO2 06/30/24 12:19 3 06/30/24 11:00 06/30/24 10:42 4 06/30/24 09:00 15 25 06/30/24 08:32 25 60 06/30/24 07:18 25 50
[2024-07-01 06:29] LABS: Basophils # (auto) 0.06 K/uL (0.00-0.20); Basophils % (auto) 0.5 %; Eosinophils # (auto) 0.19 K/uL (0.00-0.50); Eosinophils % (auto) 1.6 %; Hematocrit (blood only) 34.7 % (42.0-52.0); Hemoglobin 11.6 g/dl (14.0-18.0); Immature Granulocytes # (auto) 0.14 K/uL (0.01-0.20); Immature Granulocytes % (auto) 1.2 %; Lymphocytes % (auto) 18.7 %; Mean Corpuscular Hemoglobin 33.9 pg (25.0-34.0); Mean Corpuscular Hgb Conc 33.4 g/dL (32.0-36.0); Mean Corpuscular Volume 101.5 fL (80.0-100.0); Mean Platelet Volume 10.5 fL (9.4-12.4); Monocytes # (auto) 0.78 K/uL (0.11-0.59); Monocytes % (auto) 6.6 %; Neutrophils # (auto) 8.38 K/uL (1.40-6.50); Neutrophils % (auto) 71.4 %; Platelet Count 289 K/uL (130-400); RDW Coefficient of Variation 14.4 % (11.5-14.5); RDW Standard Deviation 53.6 fL (36.4-46.3); Red Blood Count 3.42 M/uL (4.70-6.10); White Blood Count 11.75 K/ul (4.8-10.8)
[2024-07-01 06:32] LABS: Albumin Globulin Ratio 0.9 (0.9-2); Albumin Level 3.1 gm/dl (3.4-5.0); BUN Creatinine Ratio 24.5 (10-20); Bilirubin,Total 0.7 mg/dl (0.2-1.0); Calcium 8.6 mg/dl (8.6-10.3); Creatinine Clr Calc Pharmacy 27.5 ml/min; Globulin 3.3 gm/dl (2.5-4.0); Magnesium 2.2 mg/dl (1.7-2.4); Phosphorus 3.1 mg/dl (2.5-4.9); Total Protein 6.4 gm/dl (6.0-8.3)
--- NOTE | 2024-07-01 13:02 | Hospitalist Progress Note ---
Date of Service July 01, 2024 Assessment & Plan (1) Fall: (2) Low back pain: (3) L1 vertebral fracture: (4) Atrial fibrillation with RVR: (5) History of CVA (cerebrovascular accident): (6) Diabetes mellitus, type II: (7) CKD (chronic kidney disease) stage 3, GFR 30-59 ml/min: Plan: Patient is 88 year old male with PMH HTN, HLD, history CVA, DM II, CKD III, BPH, gout, hypothyroidism, h/o AAA, dementia, PAF anticoagulated on Eliquis who presented to the ER with c/o fall during the night and low back pain. Pt's family would like him to go to acute rehab before pursuing hospice services. He is currently being treated for the following: Possible Aspiration Pneumonia Acute hypoxic respiratory Failure Pt with episodes of difficulty swallowing XR from 06/23 concerning for pneumonia, repeat on 06/26 with noted possible pleu ral effusion, repeat on 06/28 with concern for pneumonia once more Pt with episodes of increased oxygen requirements at times guaifenesin, flutter valve, IS Also received occasional diuretic doses Speech consulted, video swallow on 06/26 noting 2 episodes of silent aspiration Completed 5 days of abx with repeat pneumonia noted on chest xray on 06/28- pt started on IV Unasyn, continue Oxygen supplementation as needed, wean as tolerated Continue to monitor Dementia Acute on chronic Encephalopathy Pt confused at times Had reported delirium like symptoms upon discharge from hospital which seems to have cleared when pt returned home Head CT on admission without acute changes Acute encephalopathy in the setting of infection as well Delirium precautions. Frequent reorientation, avoid sedating medications as able Palliative care consulted, appreciate recs Continue to monitor Fall Ambulatory dysfunction T2, L1 fracture CT Head: No acute findings. CT C-Spine: No acute fracture Pelvis Xray: No acute fracture CT Abd/pelvis noting an acute fracture of L1 and "5.5 cm infrarenal abdominal aortic aneurysm, increased in caliber since CT of April 19, 2021 when it measured 4.[address] Thoracic spine to r/o thoracic fracture noting acute compression fractures of T2 and L1. MRI lumbar spine- L1 horizontal fracture, degenerative changes Pain control Orthotics consult for TLSO brace Walks with walker at baseline Fall precautions PT/OT eval- recommending SNF Ortho spine consulted appreciate recs History PAF Afib RVR Admitted 06/18/24-06/19/24 for new onset A-fib RVR. Started on metoprolol succinate 100 mg daily and started on Eliquis twice daily. 06/19/24 echo: Moderate concentric LVH, no wall motion abnormalities, EF: 50-55%, trace aortic regurgitation, mild-moderate mitral regurgitation. On admission Troponins flat 27, 28 Initially presented to ER in sinus rhythm. During ER course patient appeared to develop A-fib RVR rate up to 160. Cardiology consulted, appreciate recs. Current recommendations are: -Continue Amiodarone 200 mg daily -Continue metoprolol 50 mg BID -continue Eliquis 2.5 mg BID Continue to monitor on telemetry Acute on Chronic HFpEF Not currently on home diuretics likely secondary to pna, Afib RVR, etc. diuresis and abx treatment as above Monitor volume status closely Hypokalemia Replete as needed Chronic Anemia Hgb at baseline Monitor H/H CKD III Cr: 2.1 on admission, peaked to 2.8 Monitor renal function, avoid nephrotoxic agents when possible Abdominal Aneurysm Noted on imaging Aneurysm expanded to 5.5cm range Chart review shows Vascular Surgery notes from 2021 where continued plavix and statin therapy was recommended EPIC Chart review noted increased size to >5cm in 2022 and pt following with [facility] before disenrollment per recs of his PCP due to "age and conditions." PCP follow up as needed Pulmonary Fibrosis Noted on imaging Stable HTN Continue losartan, metoprolol succinate Pain control as above History of CVA (cerebrovascular accident): Continue Plavix Atorvastatin was d/c in 05/2024 per pt and request to decrease amount of medications Diabetes mellitus, type II: A1c: 7.3 on 06/19/24 Not on home medication per pt request Novolog sliding scale per protocol BPH (benign prostatic hyperplasia): Continue tamsulosin Hypothyroidism: Continue levothyroxine Possible thrush Oral nystatin DVT Prophylaxis: On Eliquis Dispo: telemetry DNR/DNI as per discussion with pt, pt's Admission and Anticipated Discharge Date Admission Date: June 20, 2024 Subjective pt was seen laying in bed resting comfortably Review of Systems Review of Systems: All systems reviewed & are unremarkable except as noted in Subjective Physical Exam Physical Exam: General: Drowsy, No acute distress Neuro: drowsy HEENT: NC/AT CV: RRR Resp: hi ismael oxygen on nares Abdomen: Soft, nontender Extremities: No edema in lower extremities bilaterally. Results & Data Results & Data Vital Signs (Past 12 Hours) Vital Signs Temp Pulse Pulse Pulse Resp BP BP 07/01/24 11:33 73 16 07/01/24 11:26 37 C 71 20 129/70 07/01/24 08:03 07/01/24 07:58 36.4 C L 70 23 170/71 H 07/01/24 07:27 76 16 07/01/24 07:23 71 07/01/24 05:45 70 16 07/01/24 05:03 162/67 H 07/01/24 02:37 36.9 C 68 16 177/77 H Pulse Ox O2 Del Method O2 Flow Rate FiO2 07/01/24 11:33 97 Nasal Cannula 6 07/01/24 11:26 96 Nasal Cannula 6 07/01/24 08:03 High Flow Nasal Cannula 50 70 07/01/24 07:58 94 High Flow Nasal Cannula 50 70 07/01/24 07:27 95 High Flow Nasal Cannula 50 60 07/01/24 07:23 07/01/24 05:45 92 High Flow Nasal Cannula 50 70 07/01/24 05:03 07/01/24 02:37 95 Oxymask 3
[2024-07-02 06:20] LABS: Basophils # (auto) 0.05 K/uL (0.00-0.20); Basophils % (auto) 0.5 %; Eosinophils # (auto) 0.27 K/uL (0.00-0.50); Eosinophils % (auto) 2.5 %; Hematocrit (blood only) 32.4 % (42.0-52.0); Hemoglobin 10.6 g/dl (14.0-18.0); Immature Granulocytes % (auto) 0.9 %; Lymphocytes # (auto) 2.35 K/uL (1.20-3.40); Lymphocytes % (auto) 21.7 %; Mean Corpuscular Hemoglobin 33.5 pg (25.0-34.0); Mean Corpuscular Hgb Conc 32.7 g/dL (32.0-36.0); Mean Corpuscular Volume 102.5 fL (80.0-100.0); Mean Platelet Volume 10.2 fL (9.4-12.4); Monocytes # (auto) 0.59 K/uL (0.11-0.59); Monocytes % (auto) 5.4 %; Neutrophils # (auto) 7.47 K/uL (1.40-6.50); Platelet Count 279 K/uL (130-400); RDW Coefficient of Variation 14.3 % (11.5-14.5); Red Blood Count 3.16 M/uL (4.70-6.10); White Blood Count 10.83 K/ul (4.8-10.8)
[2024-07-02 06:31] LABS: Albumin Globulin Ratio 0.9 (0.9-2); Albumin Level 2.9 gm/dl (3.4-5.0); BUN Creatinine Ratio 22.8 (10-20); Bilirubin,Total 0.6 mg/dl (0.2-1.0); Calcium 8.5 mg/dl (8.6-10.3); Creatinine Clr Calc Pharmacy 26.1 ml/min; Globulin 3.4 gm/dl (2.5-4.0); Magnesium 2.3 mg/dl (1.7-2.4); Phosphorus 3.6 mg/dl (2.5-4.9); Total Protein 6.3 gm/dl (6.0-8.3)
--- NOTE | 2024-07-02 19:59 | Hospitalist Progress Note ---
Date of Service July 02, 2024 Assessment & Plan (1) Fall: (2) Low back pain: (3) L1 vertebral fracture: (4) Atrial fibrillation with RVR: (5) History of CVA (cerebrovascular accident): (6) Diabetes mellitus, type II: (7) CKD (chronic kidney disease) stage 3, GFR 30-59 ml/min: Plan: Patient is 88 year old male with PMH HTN, HLD, history CVA, DM II, CKD III, BPH, gout, hypothyroidism, h/o AAA, dementia, PAF anticoagulated on Eliquis who presented to the ER with c/o fall during the night and low back pain. Pt's family would like him to go to acute rehab before pursuing hospice services. He is currently being treated for the following: Possible Aspiration Pneumonia Acute hypoxic respiratory Failure Pt with episodes of difficulty swallowing XR from 06/23 concerning for pneumonia, repeat on 06/26 with noted possible pleu ral effusion, repeat on 06/28 with concern for pneumonia once more Pt with episodes of increased oxygen requirements at times guaifenesin, flutter valve, IS Also received occasional diuretic doses Speech consulted, video swallow on 06/26 noting 2 episodes of silent aspiration Completed 5 days of abx with repeat pneumonia noted on chest xray on 06/28- pt started on IV Unasyn, continue Oxygen supplementation as needed, wean as tolerated Continue to monitor Dementia Acute on chronic Encephalopathy Pt confused at times Had reported delirium like symptoms upon discharge from hospital which seems to have cleared when pt returned home Head CT on admission without acute changes Acute encephalopathy in the setting of infection as well Delirium precautions. Frequent reorientation, avoid sedating medications as able Palliative care consulted, appreciate recs Continue to monitor Fall Ambulatory dysfunction T2, L1 fracture CT Head: No acute findings. CT C-Spine: No acute fracture Pelvis Xray: No acute fracture CT Abd/pelvis noting an acute fracture of L1 and "5.5 cm infrarenal abdominal aortic aneurysm, increased in caliber since CT of April 19, 2021 when it measured 4.[address] Thoracic spine to r/o thoracic fracture noting acute compression fractures of T2 and L1. MRI lumbar spine- L1 horizontal fracture, degenerative changes Pain control Orthotics consult for TLSO brace Walks with walker at baseline Fall precautions PT/OT eval- recommending SNF Ortho spine consulted appreciate recs History PAF Afib RVR Admitted 06/18/24-06/19/24 for new onset A-fib RVR. Started on metoprolol succinate 100 mg daily and started on Eliquis twice daily. 06/19/24 echo: Moderate concentric LVH, no wall motion abnormalities, EF: 50-55%, trace aortic regurgitation, mild-moderate mitral regurgitation. On admission Troponins flat 27, 28 Initially presented to ER in sinus rhythm. During ER course patient appeared to develop A-fib RVR rate up to 160. Cardiology consulted, appreciate recs. Current recommendations are: -Continue Amiodarone 200 mg daily -Continue metoprolol 50 mg BID -continue Eliquis 2.5 mg BID Continue to monitor on telemetry Acute on Chronic HFpEF Not currently on home diuretics likely secondary to pna, Afib RVR, etc. diuresis and abx treatment as above Monitor volume status closely Hypokalemia Replete as needed Chronic Anemia Hgb at baseline Monitor H/H CKD III Cr: 2.1 on admission, peaked to 2.8 Monitor renal function, avoid nephrotoxic agents when possible Abdominal Aneurysm Noted on imaging Aneurysm expanded to 5.5cm range Chart review shows Vascular Surgery notes from 2021 where continued plavix and statin therapy was recommended EPIC Chart review noted increased size to >5cm in 2022 and pt following with the [facility] program before disenrollment per recs of his PCP due to "age and conditions." PCP follow up as needed Pulmonary Fibrosis Noted on imaging Stable HTN Continue losartan, metoprolol succinate Pain control as above History of CVA (cerebrovascular accident): Continue Plavix Atorvastatin was d/c in 05/2024 per pt and request to decrease amount of medications Diabetes mellitus, type II: A1c: 7.3 on 06/19/24 Not on home medication per pt request Novolog sliding scale per protocol BPH (benign prostatic hyperplasia): Continue tamsulosin Hypothyroidism: Continue levothyroxine Possible thrush Oral nystatin DVT Prophylaxis: On Eliquis Dispo: telemetry DNR/DNI as per discussion with pt, pt's Admission and Anticipated Discharge Date Admission Date: June 20, 2024 Subjective Pt seen in follow up of fall recently admitted for Afib RVR, started on eliquis and metoprolol, during this hospital stay started on amiodarone Oxygen requirement also down to 3L Pt awake, alert, cooperates, able to take a deep breath and cough when prompted Review of Systems Review of Systems: All systems reviewed & are unremarkable except as noted in Subjective Physical Exam Physical Exam: Constitutional: WD/WN elderly M in NAD, awake, on suppl. O2 - O2 requirement down to 3L Respiratory: decreased breath sounds, +rhonchi,no wheezes Cardiovascular: regular, no murmur, no edema Abdomen: normal bowel sounds, soft, nontender Musculoskeletal: Tenderness in lower back. Neurologic: awake, alert, no face palsy, answers appropriately, no dysarthria, moves extremities Results & Data Results & Data Vital Signs (Past 12 Hours) Vital Signs Temp Pulse Pulse Resp BP Pulse Ox O2 Del Method 07/02/24 19:50 67 18 95 Nasal Cannula 07/02/24 15:14 66 07/02/24 12:00 36.7 C 67 20 131/65 94 Nasal Cannula 07/02/24 08:58 66 07/02/24 08:34 36.4 C L 71 18 160/69 H 93 Nebulizer 07/02/24 08:03 70 18 95 Nasal Cannula O2 Flow Rate 07/02/24 19:50 3 07/02/24 15:14 07/02/24 12:00 3 07/02/24 08:58 07/02/24 08:34 07/02/24 08:03 3 Laboratory Results 07/02/24 07/02/24 07/02/24 Range/Units 16:57 11:19 08:06 WBC (4.8-10.8) K/ul RBC (4.70-6.10) M/uL Hgb (14.0-18.0) g/dl Hct (42.0-52.0) % MCV (80.0-100.0) fL MCH (25.0-34.0) pg MCHC (32.0-36.0) g/dL RDW Std Deviation (36.4-46.3) fL RDW Coeff of Angelika (11.5-14.5) % Plt Count (130-400) K/uL MPV (9.4-12.4) fL Immature Gran % (Auto) % Neut % (Auto) % Lymph % (Auto) % [place] % (Auto) % Eos % (Auto) % Baso % (Auto) % Neut # (Auto) (1.40-6.50) K/uL Lymph # (Auto) (1.20-3.40) K/uL [place] # (Auto) (0.11-0.59) K/uL Eos # (Auto) (0.00-0.50) K/uL Baso # (Auto) (0.00-0.20) K/uL Immature Gran # (Auto) (0.01-0.20) K/uL Sodium (136-145) mmol/L Potassium (3.5-5.1) mmol/L Chloride (98-107) mmol/L Carbon Dioxide (21-32) mmol/L Anion Gap (3-11) BUN (6-23) mg/dl Creatinine (0.6-1.4) mg/dl Est Cr Clr Drug Dosing ml/min eGFR BUN/Creatinine Ratio (10-20) Glucose (70-99(Fasting)) mg/dl POC Glucose 121 H 190 H 218 H (70-99) mg/dl Calcium (8.6-10.3) mg/dl Phosphorus (2.5-4.9) mg/dl Magnesium (1.7-2.4) mg/dl Total Bilirubin (0.2-1.0) mg/dl AST (13-39) U/L ALT (7-52) U/L Alkaline Phosphatase (34-104) U/L Total Protein (6.0-8.3) gm/dl Albumin (3.4-5.0) gm/dl Globulin (2.5-4.0) gm/dl Albumin/Globulin Ratio (0.9-2) 07/02/24 Range/Units 05:45 WBC 10.83 H (4.8-10.8) K/ul RBC 3.16 L (4.70-6.10) M/uL Hgb 10.6 L (14.0-18.0) g/dl Hct 32.4 L (42.0-52.0) % MCV 102.5 H (80.0-100.0) fL MCH 33.5 (25.0-34.0) pg MCHC 32.7 (32.0-36.0) g/dL RDW Std Deviation 54.0 H (36.4-46.3) fL RDW Coeff of Angelika 14.3 (11.5-14.5) % Plt Count 279 (130-400) K/uL MPV 10.2 (9.4-12.4) fL Immature Gran % (Auto) 0.9 % Neut % (Auto) 69.0 % Lymph % (Auto) 21.7 % Huntington % (Auto) 5.4 % Eos % (Auto) 2.5 % Baso % (Auto) 0.5 % Neut # (Auto) 7.47 H (1.40-6.50) K/uL Lymph # (Auto) 2.35 (1.20-3.40) K/uL [place] # (Auto) 0.59 (0.11-0.59) K/uL Eos # (Auto) 0.27 (0.00-0.50) K/uL Baso # (Auto) 0.05 (0.00-0.20) K/uL Immature Gran # (Auto) 0.10 (0.01-0.20) K/uL Sodium 140 (136-145) mmol/L Potassium 4.0 (3.5-5.1) mmol/L Chloride 109 H (98-107) mmol/L Carbon Dioxide 24 (21-32) mmol/L Anion Gap 7 (3-11) BUN 50 H (6-23) mg/dl Creatinine 2.19 H (0.6-1.4) mg/dl Est Cr Clr Drug Dosing 26.1 ml/min eGFR 28.26 BUN/Creatinine Ratio 22.8 H (10-20) Glucose 157 H (70-99(Fasting)) mg/dl POC Glucose (70-99) mg/dl Calcium 8.5 L (8.6-10.3) mg/dl Phosphorus 3.6 (2.5-4.9) mg/dl Magnesium 2.3 (1.7-2.4) mg/dl Total Bilirubin 0.6 (0.2-1.0) mg/dl AST 9 L (13-39) U/L ALT 8 (7-52) U/L Alkaline Phosphatase 81 (34-104) U/L Total Protein 6.3 (6.0-8.3) gm/dl Albumin 2.9 L (3.4-5.0) gm/dl Globulin 3.4 (2.5-4.0) gm/dl Albumin/Globulin Ratio 0.9 (0.9-2) Medications Administered Current Inpatient Medications Acetaminophen (Acetaminophen 500 Mg Tab) 1,000 mg PO Q8H PRN PRN Reason: Pain or Fever Stop: 07/20/24 22:59 Last Admin: 06/28/24 09:36 Dose: 1,000 mg Allopurinol (Allopurinol 100 Mg Tab) 100 mg PO QAM [facility] Stop: 07/21/24 08:59 Last Admin: 07/02/24 08:30 Dose: 100 mg Amiodarone HCl (Amiodarone 200 Mg Tab) 200 mg PO QAM [facility] Stop: 07/27/24 08:59 Last Admin: 07/02/24 08:31 Dose: 200 mg Amlodipine Besylate (Amlodipine Besylate 5 Mg Tab) 2.5 mg PO QAM [facility] [place] Stop: 07/28/24 04:34 Last Admin: 07/02/24 08:30 Dose: 2.5 mg Apixaban (Apixaban 2.5 Mg Tab) 2.5 mg PO BID [facility] Stop: 07/21/24 20:59 Last Admin: 07/02/24 09:27 Dose: 2.5 mg Cetirizine HCl (Cetirizine Hcl 10 Mg Tablet) 10 mg PO DAILY [facility] Stop: 07/21/24 08:59 Last Admin: 07/02/24 08:30 Dose: 10 mg Clopidogrel Bisulfate (Clopidogrel Bisulfate 75 Mg Tab) 75 mg PO DAILY [facility] Stop: 07/20/24 18:28 Last Admin: 07/02/24 08:30 Dose: 75 mg Dextrose (Dextrose 50% 50 Ml Syringe) 25 - 50 ml IV UD PRN; Protocol PRN Reason: Hypoglycemia Protocol Stop: 07/20/24 18:28 Duloxetine HCl (Duloxetine Hcl 20 Mg Cap) 20 mg PO DAILY [facility] Stop: 07/21/24 08:59 Last Admin: 07/02/24 08:31 Dose: 20 mg Fluticasone Propionate (Fluticasone Propionate Na Spr 16 Gm Btl) 2 sprays NADIYA HS [facility]URIDIA Stop: 07/20/24 20:59 Last Admin: 07/01/24 20:00 Dose: 2 sprays Glucagon (Glucagon For Inj 1 Mg Vial) 1 mg SQ UD PRN; Protocol PRN Reason: Hypoglycemia Protocol Stop: 07/20/24 18:28 Glucose (Glucose 40% Gel 15 Gm Tube) 15 - 30 gm PO UD PRN; Protocol PRN Reason: Hypoglycemia Protocol Stop: 07/20/24 18:28 Glucose (Glucose 10 Tab/Tube) 4 - 8 tab PO UD PRN; Protocol PRN Reason: Hypoglycemia Protocol Stop: 07/20/24 18:28 Glycerin (Glycerin Adult 12 Supp/Box Supp) 1 supp SC DAILY PRN PRN Reason: Constipation Stop: 07/30/24 11:58 Guaifenesin (Guaifenesin 600 Mg Tabcr) 600 mg PO DAILY [facility] Stop: 07/22/24 08:59 Last Admin: 07/02/24 08:31 Dose: 600 mg Hydralazine HCl (Hydralazine Hcl 20 Mg/Ml Vial) 5 mg IV Q4H PRN PRN Reason: SBP > 170 Stop: 07/22/24 17:46 Last Admin: 07/01/24 04:13 Dose: 5 mg Hydrocortisone (Hydrocortisone 1% Oint 30 Gm Tube) 1 appln EXT BID PRN PRN Reason: Itching Stop: 07/25/24 03:30 Last Admin: 06/27/24 08:20 Dose: 1 appln Ampicillin Sodium/Sulbactam Sodium (Unasyn) 3,000 mg in 100 mls @ 200 mls/hr IV Q12H [facility] Stop: 07/05/24 21:59 Last Infusion: 07/02/24 10:54 Dose: Infused Insulin Aspart (Insulin Aspart Per Unit Charge) 0 units SC ACHS [facility] Stop: 07/23/24 08:29 Last Admin: 07/02/24 17:38 Dose: 5 units Levalbuterol HCl (Levalbuterol 1.25 Mg/3 Ml Neb) 1.25 mg NEB Q4H PRN PRN Reason: Shortness Of Breath Or Wheezing Stop: 07/22/24 01:04 Last Admin: 06/23/24 10:44 Dose: 1.25 mg Levothyroxine Sodium (Levothyroxine Sodium 50 Mcg Tablet) 50 mcg PO DAILYBB [facility] Stop: 07/21/24 06:29 Last Admin: 07/02/24 06:14 Dose: 50 mcg Losartan Potassium (Losartan Potassium 25 Mg Tab) 25 mg PO DAILY [facility] Stop: 07/21/24 08:59 Last Admin: 07/02/24 08:30 Dose: 25 mg Melatonin (Melatonin 3 Mg Tab) 3 mg PO HS PRN PRN Reason: Sleep Stop: 07/28/24 04:27 Metoprolol Succinate (Metoprolol Succ 50mg Ext Rel Tab) 50 mg PO BID [facility] [place] Stop: 07/24/24 20:59 Last Admin: 07/02/24 08:30 Dose: 50 mg Miscellaneous (Carbohydrates For Hypoglycemia ) 15 - 30 gm PO UD PRN PRN Reason: Hypoglycemia Protocol Stop: 07/20/24 18:28 Morphine Sulfate (Morphine Sulfate 2 Mg/Ml Carp) 1 mg IV Q4H PRN PRN Reason: Severe Pain (Scale 7, 8, 9,10) Stop: 07/04/24 18:28 Last Admin: 06/29/24 12:08 Dose: 1 mg Nystatin (Nystatin Powder 15gm Btl) 1 appln EXT BID [facility] Stop: 07/21/24 23:44 Last Admin: 07/02/24 09:28 Dose: 1 appln Nystatin (Nystatin Susp 500,000 U/5 Ml Udc) 5 ml PO QID [facility] Stop: 07/08/24 12:59 Last Admin: 07/02/24 17:38 Dose: 5 ml Ondansetron HCl (Ondansetron Inj 2 Mg/Ml 2 Ml Vial) 2 mg IV Q6H PRN PRN Reason: Nausea Stop: 07/20/24 18:28 Oxycodone HCl (Oxycodone Hcl Ir 5 Mg Tab (Immediate Release)) 2.5 mg PO Q6H PRN PRN Reason: Moderate Pain (Scale 4, 5, 6) Stop: 07/04/24 18:28 Last Admin: 07/01/24 04:12 Dose: 2.5 mg Polyethylene Glycol (Polyethylene (Miralax) 17 Gm Pack) 17 gm PO DAILY [facility] Stop: 07/21/24 08:59 Last Admin: 07/02/24 09:27 Dose: 17 gm Sodium Chloride (Sodium Chlor 7% 4 Ml Neb) 4 ml NEB BIDR [facility] Stop: 07/22/24 09:38 Last Admin: 07/02/24 19:49 Dose: 4 ml Tamsulosin HCl (Tamsulosin Hcl 0.4 Mg Cap) 0.4 mg PO QPM [facility] Stop: 07/20/24 20:59 Last Admin: 07/01/24 20:00 Dose: 0.4 mg
--- NOTE | 2024-07-03 05:49 | Hospitalist Progress Note ---
Date of Service July 03, 2024 Assessment & Plan (1) Fall: (2) Low back pain: (3) L1 vertebral fracture: (4) Atrial fibrillation with RVR: (5) History of CVA (cerebrovascular accident): (6) Diabetes mellitus, type II: (7) CKD (chronic kidney disease) stage 3, GFR 30-59 ml/min: Plan: Patient is 88 year old male with PMH HTN, HLD, history CVA, DM II, CKD III, BPH, gout, hypothyroidism, h/o AAA, dementia, PAF anticoagulated on Eliquis who presented to the ER with c/o fall during the night and low back pain. Pt's family would like him to go to acute rehab before pursuing hospice services. He is currently being treated for the following: Possible Aspiration Pneumonia Acute hypoxic respiratory Failure Pt with episodes of difficulty swallowing XR from 06/23 concerning for pneumonia, repeat on 06/26 with noted possible pleu ral effusion, repeat on 06/28 with concern for pneumonia once more Pt with episodes of increased oxygen requirements at times guaifenesin, flutter valve, IS Also received occasional diuretic doses Speech consulted, video swallow on 06/26 noting 2 episodes of silent aspiration Completed 5 days of abx with repeat pneumonia noted on chest xray on 06/28- pt started on IV Unasyn, continue Oxygen supplementation as needed, wean as tolerated Continue to monitor 07/03 Pt currently down to 2L of suppl. O2 - cont. current management as above Dementia Acute on chronic Encephalopathy Pt confused at times Had reported delirium like symptoms upon discharge from hospital which seems to have cleared when pt returned home Head CT on admission without acute changes Acute encephalopathy in the setting of infection as well Delirium precautions. Frequent reorientation, avoid sedating medications as able Palliative care consulted, appreciate recs Continue to monitor Fall Ambulatory dysfunction T2, L1 fracture CT Head: No acute findings. CT C-Spine: No acute fracture Pelvis Xray: No acute fracture CT Abd/pelvis noting an acute fracture of L1 and "5.5 cm infrarenal abdominal aortic aneurysm, increased in caliber since CT of April 19, 2021 when it measured 4.[address] Thoracic spine to r/o thoracic fracture noting acute compression fractures of T2 and L1. MRI lumbar spine- L1 horizontal fracture, degenerative changes Pain control Orthotics consult for TLSO brace Walks with walker at baseline Fall precautions PT/OT eval- recommending SNF Ortho spine consulted appreciate recs History PAF Afib RVR Admitted 06/18/24-06/19/24 for new onset A-fib RVR. Started on metoprolol succinate 100 mg daily and started on Eliquis twice daily. 06/19/24 echo: Moderate concentric LVH, no wall motion abnormalities, EF: 50-55%, trace aortic regurgitation, mild-moderate mitral regurgitation. On admission Troponins flat 27, 28 Initially presented to ER in sinus rhythm. During ER course patient appeared to develop A-fib RVR rate up to 160. Cardiology consulted, appreciate recs. Current recommendations are: -Continue Amiodarone 200 mg daily -Continue metoprolol 50 mg BID -continue Eliquis 2.5 mg BID Continue to monitor on telemetry Acute on Chronic HFpEF Not currently on home diuretics likely secondary to pna, Afib RVR, etc. diuresis and abx treatment as above Monitor volume status closely Hypokalemia Replete as needed Chronic Anemia Hgb at baseline Monitor H/H CKD III Cr: 2.1 on admission, peaked to 2.8 Monitor renal function, avoid nephrotoxic agents when possible Abdominal Aneurysm Noted on imaging Aneurysm expanded to 5.5cm range Chart review shows Vascular Surgery notes from 2021 where continued plavix and statin therapy was recommended EPIC Chart review noted increased size to >5cm in 2022 and pt following with the [facility] program before disenrollment per recs of his PCP due to "age and conditions." PCP follow up as needed Pulmonary Fibrosis Noted on imaging Stable HTN Continue losartan, metoprolol succinate Pain control as above History of CVA (cerebrovascular accident): Continue Plavix Atorvastatin was d/c in 05/2024 per pt and request to decrease amount of medications Diabetes mellitus, type II: A1c: 7.3 on 06/19/24 Not on home medication per pt request Novolog sliding scale per protocol BPH (benign prostatic hyperplasia): Continue tamsulosin Hypothyroidism: Continue levothyroxine Possible thrush Oral nystatin DVT Prophylaxis: On Eliquis Dispo: telemetry DNR/DNI as per discussion with pt, pt's Admission and Anticipated Discharge Date Admission Date: June 20, 2024 Subjective Pt seen in follow up of fall recently admitted for Afib RVR, started on eliquis and metoprolol, during this hospital stay started on amiodarone Oxygen requirement also down to 2L Pt awake, alert, cooperates, able to take a deep breath and cough when prompted Review of Systems Review of Systems: All systems reviewed & are unremarkable except as noted in Subjective Physical Exam Physical Exam: Constitutional: WD/WN elderly M in NAD, awake, on suppl. O2 - O2 requirement down to 2L Respiratory: decreased breath sounds, +rhonchi,no wheezes Cardiovascular: regular, no murmur, no edema Abdomen: normal bowel sounds, soft, nontender Musculoskeletal: Tenderness in lower back. Neurologic: awake, alert, no face palsy, answers appropriately, no dysarthria, moves extremities Results & Data Results & Data Vital Signs (Past 12 Hours) Vital Signs Temp Pulse Pulse Resp BP Pulse Ox O2 Del Method 07/03/24 03:21 36.4 C L 68 16 156/78 H 94 Nasal Cannula 07/03/24 00:00 65 07/02/24 23:05 36.7 C 63 18 166/79 H 95 Nasal Cannula 07/02/24 20:00 Nasal Cannula 07/02/24 19:50 67 18 95 Nasal Cannula 07/02/24 19:45 36.3 C L 68 16 158/76 H 94 Nasal Cannula O2 Flow Rate 07/03/24 03:21 2 07/03/24 00:00 07/02/24 23:05 2 07/02/24 20:00 3 07/02/24 19:50 3 07/02/24 19:45 3 Laboratory Results 07/03/24 07/03/24 07/03/24 Range/Units 17:15 11:07 07:23 WBC (4.8-10.8) K/ul RBC (4.70-6.10) M/uL Hgb (14.0-18.0) g/dl Hct (42.0-52.0) % MCV (80.0-100.0) fL MCH (25.0-34.0) pg MCHC (32.0-36.0) g/dL RDW Std Deviation (36.4-46.3) fL RDW Coeff of Angelika (11.5-14.5) % Plt Count (130-400) K/uL MPV (9.4-12.4) fL Sodium (136-145) mmol/L Potassium (3.5-5.1) mmol/L Chloride (98-107) mmol/L Carbon Dioxide (21-32) mmol/L Anion Gap (3-11) BUN (6-23) mg/dl Creatinine (0.6-1.4) mg/dl Est Cr Clr Drug Dosing ml/min eGFR BUN/Creatinine Ratio (10-20) Glucose (70-99(Fasting)) mg/dl POC Glucose 135 H 190 H 161 H (70-99) mg/dl Calcium (8.6-10.3) mg/dl Phosphorus (2.5-4.9) mg/dl Magnesium (1.7-2.4) mg/dl 07/03/24 07/02/24 Range/Units 04:59 20:09 WBC 12.22 H (4.8-10.8) K/ul RBC 3.12 L (4.70-6.10) M/uL Hgb 10.7 L (14.0-18.0) g/dl Hct 31.7 L (42.0-52.0) % MCV 101.6 H (80.0-100.0) fL MCH 34.3 H (25.0-34.0) pg MCHC 33.8 (32.0-36.0) g/dL RDW Std Deviation 52.2 H (36.4-46.3) fL RDW Coeff of Angelika 13.8 (11.5-14.5) % Plt Count 331 (130-400) K/uL MPV 10.5 (9.4-12.4) fL Sodium 137 (136-145) mmol/L Potassium 4.1 (3.5-5.1) mmol/L Chloride 105 (98-107) mmol/L Carbon Dioxide 25 (21-32) mmol/L Anion Gap 7 (3-11) BUN 42 H (6-23) mg/dl Creatinine 2.05 H (0.6-1.4) mg/dl Est Cr Clr Drug Dosing 27.8 ml/min eGFR 30.59 BUN/Creatinine Ratio 20.5 H (10-20) Glucose 141 H (70-99(Fasting)) mg/dl POC Glucose 161 H (70-99) mg/dl Calcium 8.3 L (8.6-10.3) mg/dl Phosphorus 3.5 (2.5-4.9) mg/dl Magnesium 2.1 (1.7-2.4) mg/dl Medications Administered Current Inpatient Medications Acetaminophen (Acetaminophen 500 Mg Tab) 1,000 mg PO Q8H PRN PRN Reason: Pain or Fever Stop: 07/20/24 22:59 Last Admin: 06/28/24 09:36 Dose: 1,000 mg Allopurinol (Allopurinol 100 Mg Tab) 100 mg PO QAM YURIDIA Stop: 07/21/24 08:59 Last Admin: 07/03/24 09:23 Dose: 100 mg Amiodarone HCl (Amiodarone 200 Mg Tab) 200 mg PO QAM YURIDIA Stop: 07/27/24 08:59 Last Admin: 07/03/24 09:23 Dose: 200 mg Amlodipine Besylate (Amlodipine Besylate 5 Mg Tab) 2.5 mg PO QAM [facility] Stop: 07/28/24 04:34 Last Admin: 07/03/24 09:24 Dose: 2.5 mg Apixaban (Apixaban 2.5 Mg Tab) 2.5 mg PO BID YURIDIA Stop: 07/21/24 20:59 Last Admin: 07/03/24 09:23 Dose: 2.5 mg Cetirizine HCl (Cetirizine Hcl 10 Mg Tablet) 10 mg PO DAILY YURIDIA Stop: 07/21/24 08:59 Last Admin: 07/03/24 09:23 Dose: 10 mg Clopidogrel Bisulfate (Clopidogrel Bisulfate 75 Mg Tab) 75 mg PO DAILY YURIDIA Stop: 07/20/24 18:28 Last Admin: 07/03/24 09:24 Dose: 75 mg Dextrose (Dextrose 50% 50 Ml Syringe) 25 - 50 ml IV UD PRN; Protocol PRN Reason: Hypoglycemia Protocol Stop: 07/20/24 18:28 Duloxetine HCl (Duloxetine Hcl 20 Mg Cap) 20 mg PO DAILY YURIDIA Stop: 07/21/24 08:59 Last Admin: 07/03/24 09:24 Dose: 20 mg Fluticasone Propionate (Fluticasone Propionate Na Spr 16 Gm Btl) 2 sprays NADIYA HS YURIDIA Stop: 07/20/24 20:59 Last Admin: 07/02/24 20:12 Dose: 2 sprays Furosemide (Furosemide Inj 20 Mg/2 Ml Vial) 20 mg IV ONE ONE Stop: 07/03/24 19:05 Glucagon (Glucagon For Inj 1 Mg Vial) 1 mg SQ UD PRN; Protocol PRN Reason: Hypoglycemia Protocol Stop: 07/20/24 18:28 Glucose (Glucose 40% Gel 15 Gm Tube) 15 - 30 gm PO UD PRN; Protocol PRN Reason: Hypoglycemia Protocol Stop: 07/20/24 18:28 Glucose (Glucose 10 Tab/Tube) 4 - 8 tab PO UD PRN; Protocol PRN Reason: Hypoglycemia Protocol Stop: 07/20/24 18:28 Glycerin (Glycerin Adult 12 Supp/Box Supp) 1 supp TN DAILY PRN PRN Reason: Constipation Stop: 07/30/24 11:58 Guaifenesin (Guaifenesin 600 Mg Tabcr) 600 mg PO DAILY YURIDIA Stop: 07/22/24 08:59 Last Admin: 07/03/24 09:24 Dose: 600 mg Hydralazine HCl (Hydralazine Hcl 20 Mg/Ml Vial) 5 mg IV Q4H PRN PRN Reason: SBP > 170 Stop: 07/22/24 17:46 Last Admin: 07/01/24 04:13 Dose: 5 mg Hydrocortisone (Hydrocortisone 1% Oint 30 Gm Tube) 1 appln EXT BID PRN PRN Reason: Itching Stop: 07/25/24 03:30 Last Admin: 06/27/24 08:20 Dose: 1 appln Ampicillin Sodium/Sulbactam Sodium (Unasyn) 3,000 mg in 100 mls @ 200 mls/hr IV Q12H [facility] Stop: 07/05/24 21:59 Last Infusion: 07/03/24 10:15 Dose: Infused Insulin Aspart (Insulin Aspart Per Unit Charge) 0 units SC ACHS [facility] Stop: 07/23/24 08:29 Last Admin: 07/03/24 17:26 Dose: Not Given Levalbuterol HCl (Levalbuterol 1.25 Mg/3 Ml Neb) 1.25 mg NEB Q4H PRN PRN Reason: Shortness Of Breath Or Wheezing Stop: 07/22/24 01:04 Last Admin: 06/23/24 10:44 Dose: 1.25 mg Levothyroxine Sodium (Levothyroxine Sodium 50 Mcg Tablet) 50 mcg PO DAILYBB [facility] Stop: 07/21/24 06:29 Last Admin: 07/03/24 04:14 Dose: 50 mcg Losartan Potassium (Losartan Potassium 25 Mg Tab) 25 mg PO DAILY [facility] Stop: 07/21/24 08:59 Last Admin: 07/03/24 09:23 Dose: 25 mg Melatonin (Melatonin 3 Mg Tab) 3 mg PO HS PRN PRN Reason: Sleep Stop: 07/28/24 04:27 Metoprolol Succinate (Metoprolol Succ 50mg Ext Rel Tab) 50 mg PO BID [facility] Stop: 07/24/24 20:59 Last Admin: 07/03/24 09:24 Dose: 50 mg Miscellaneous (Carbohydrates For Hypoglycemia ) 15 - 30 gm PO UD PRN PRN Reason: Hypoglycemia Protocol Stop: 07/20/24 18:28 Morphine Sulfate (Morphine Sulfate 2 Mg/Ml Carp) 1 mg IV Q4H PRN PRN Reason: Severe Pain (Scale 7, 8, 9,10) Stop: 07/04/24 18:28 Last Admin: 06/29/24 12:08 Dose: 1 mg Nystatin (Nystatin Powder 15gm Btl) 1 appln EXT BID [facility] Stop: 07/21/24 23:44 Last Admin: 07/03/24 09:24 Dose: 1 appln Nystatin (Nystatin Susp 500,000 U/5 Ml Udc) 5 ml PO QID [facility] Stop: 07/08/24 12:59 Last Admin: 07/03/24 17:37 Dose: 5 ml Ondansetron HCl (Ondansetron Inj 2 Mg/Ml 2 Ml Vial) 2 mg IV Q6H PRN PRN Reason: Nausea Stop: 07/20/24 18:28 Oxycodone HCl (Oxycodone Hcl Ir 5 Mg Tab (Immediate Release)) 2.5 mg PO Q6H PRN PRN Reason: Moderate Pain (Scale 4, 5, 6) Stop: 07/04/24 18:28 Last Admin: 07/03/24 02:19 Dose: 2.5 mg Polyethylene Glycol (Polyethylene (Miralax) 17 Gm Pack) 17 gm PO DAILY [facility] Stop: 07/21/24 08:59 Last Admin: 07/03/24 09:32 Dose: 17 gm Sodium Chloride (Sodium Chlor 7% 4 Ml Neb) 4 ml NEB BIDR [facility] Stop: 07/22/24 09:38 Last Admin: 07/03/24 07:25 Dose: 4 ml Tamsulosin HCl (Tamsulosin Hcl 0.4 Mg Cap) 0.4 mg PO QPM [facility] Stop: 07/20/24 20:59 Last Admin: 07/02/24 20:12 Dose: 0.4 mg
[2024-07-03 06:24] LABS: Hematocrit (blood only) 31.7 % (42.0-52.0); Hemoglobin 10.7 g/dl (14.0-18.0); Mean Corpuscular Hemoglobin 34.3 pg (25.0-34.0); Mean Corpuscular Hgb Conc 33.8 g/dL (32.0-36.0); Mean Corpuscular Volume 101.6 fL (80.0-100.0); Mean Platelet Volume 10.5 fL (9.4-12.4); Platelet Count 331 K/uL (130-400); RDW Coefficient of Variation 13.8 % (11.5-14.5); RDW Standard Deviation 52.2 fL (36.4-46.3); Red Blood Count 3.12 M/uL (4.70-6.10); White Blood Count 12.22 K/ul (4.8-10.8)
[2024-07-03 06:42] LABS: BUN Creatinine Ratio 20.5 (10-20); Calcium 8.3 mg/dl (8.6-10.3); Creatinine Clr Calc Pharmacy 27.8 ml/min; Magnesium 2.1 mg/dl (1.7-2.4); Phosphorus 3.5 mg/dl (2.5-4.9); Potassium 4.1 mmol/L (3.5-5.1)
[2024-07-03] MEDS: FUROSEMIDE INJ 20 MG/2 ML VIAL IV ONE (20:13)
[2024-07-04 06:22] LABS: Hematocrit (blood only) 31.1 % (42.0-52.0); Hemoglobin 10.6 g/dl (14.0-18.0); Mean Corpuscular Hgb Conc 34.1 g/dL (32.0-36.0); Mean Corpuscular Volume 99.7 fL (80.0-100.0); Platelet Count 310 K/uL (130-400); RDW Coefficient of Variation 13.8 % (11.5-14.5); RDW Standard Deviation 50.6 fL (36.4-46.3); Red Blood Count 3.12 M/uL (4.70-6.10); White Blood Count 9.79 K/ul (4.8-10.8)
[2024-07-04 06:41] LABS: BUN Creatinine Ratio 18.8 (10-20); Calcium 8.2 mg/dl (8.6-10.3); Creatinine Clr Calc Pharmacy 24.2 ml/min; Magnesium 2.1 mg/dl (1.7-2.4); Potassium 3.9 mmol/L (3.5-5.1)
[2024-07-04 12:09] VITALS: RESP 20; TEMP 97.5; O2SAT 93
[2024-07-04] MEDS: FUROSEMIDE INJ 20 MG/2 ML VIAL IV ONE (12:43)
--- NOTE | 2024-07-04 12:59 | Discharge Summary ---
Date of Service July 04, 2024 Admission HPI Per Admitting Provider Patient is 88 year old male with PMH HTN, HLD, history CVA, DM II, CKD III, BPH, gout, hypothyroidism, h/o AAA, dementia, PAF anticoagulated on Eliquis, presented to ER with c/o fall during the night and low back pain. Per inpatient chart review patient admitted 06/18/24-06/19/24 for new onset A-fib RVR. Was started on metoprolol succinate 100 mg daily and started on Eliquis twice daily. 06/19/24 echo: Moderate concentric LVH, no wall motion abnormalities, EF: 50-55%, trace aortic regurgitation, mild-moderate mitral regurgitation. Patient had acute HFpEF thought secondary to rapid A-fib and received IV Lasix and return to euvolemic status. Was not discharged on any diuretics. Per discussion with patient's on the phone the friend/neighbor who took patient home yesterday stated patient was more confused. states when he got home yesterday in the afternoon he seemed to be having vision hallucination and was more confused. states last night he seemed back to his normal baseline. Denies any further hallucinations during the night. Patient reports during the night he had to go to bathroom quickly and didn't take his walker and fell backwards in the jay. He thinks hit his head. Thinks might have passed out. Per discussion with she states she was also up and heard him fall and was able to get to him in couple of minutes and he was alert and at that time he denied LOC and was just complaining of back pain. States got him his walker and he was eventually able to get self up and walked to bathroom and was able to get back in bed. Reports prior to getting up he did have urinary incontinence. Patient states he "already had to pee and didn't make it to bathroom". states again around 6am patient attempted to go to bathroom and was weak and c/o back pain. reports patient has been complaining of ongoing bilateral leg weakness. Patient C/O pain to lower back since the fall and is denying leg pain. He denies [place], dizziness, N/V/D/C, vision changes, neck pain, CP, SOB, palpitations, cough, rhinorrhea, abdominal pain, extremity edema, rashes, dysuria, hematuria. This provider Spoke to his [facility] nurse, Santhosh, on phone to confirm his home medications. Reports patient and were concerned about the amount of medications patient was taking so his [facility] PCP stopped amlodipine and hydralazine on 05/28/2024 and losartan was started instead. Reports appears patient's outpat ient BP has been well-controlled on losartan. 05/28/2024 atorvastatin and vitamins were also stopped in order to alleviate medication burden. Nurse reports that patient and live home with intellectually challenged adult daughter. Reports patient and have denied placement in past. A neighbor, Brittany, will assist in gathering groceries and sometimes assists in transportation. Admission Exam Per Admitting Provider Constitutional: Awake alert oriented x 3; in pain. Respiratory: normal respiratory effort, lungs clear to auscultation, no wheeze, rales, rhonchi. Normal insp/exp effort, no accessory muscle use Cardiovascular: Irregular, no murmur, no edema Vessels: no JVD or carotid bruit Chest: normal inspection of chest Abdomen: normal bowel sounds, soft, nontender, no hepatosplenomegaly Musculoskeletal: Tenderness in lower back. Neurologic: PERRL, EOMI, accommodation nl, no face palsy, no dysarthria CN's II- XI intact bilaterally and moves all extremities Principal Diagnosis Acute hypoxic respiratory failure Fall, ambulatory dysfunction, T2, L1 fracture Afib w/ RVR Possible aspiration pneumonia Acute on chronic HFpEF Discharge Exam Constitutional: WD/WN elderly M in NAD, awake, on suppl. O2 - O2 requirement down to 2L Respiratory: decreased breath sounds, +minimal rhonchi, no wheezes Cardiovascular: regular, no murmur, no edema Abdomen: normal bowel sounds, soft, nontender Musculoskeletal: Tenderness in lower back. Neurologic: awake, alert, no face palsy, answers appropriately, no dysarthria, moves extremities Discharge Data Allergies Allergy/AdvReac Type Severity Reaction Status Date / Time hydrochlorothiazide Allergy Unknown CAN'T Verified 10/30/22 01:35 REMEMBER ON [facility] MED LIST Consultations 06/20/24 13:36 ED Decision to Admit Stat 06/21/24 11:58 Consult Orthopedic Spine Surgery Routine 06/23/24 08:00 Consult Cardiology Routine 06/26/24 15:18 Consult Palliative Care Routine Ordered Studies 06/20/24 12:14 CT abd pelvis wo con Stat FINDINGS: Cardiomegaly and mild interlobular septal thickening within the lower lungs are incidentally noted. No hemoperitoneum or pneumoperitoneum is present. Solid abdominal viscera are suboptimally assessed on unenhanced exam but there is no evidence for traumatic injury to the liver, spleen, adrenal glands, kidneys or pancreas. There is hepatic steatosis. No biliary ductal dilatation st atus post cholecystectomy. Prominent april hepatis lymph nodes are unchanged. Left-sided parapelvic cysts are noted. Stranding within the left renal sinus is unchanged. There is a 5.5 cm infrarenal abdominal aortic aneurysm without evidence for rupture. The aneurysm measured 4.[address] of April 19, 2021. Caliber and wall thickness of small and large bowel are normal. There is sigmoid diverticulosis without evidence for acute diverticulitis. Prostate is enlarged, measuring 5.4 cm in transverse diameter. A small portion of the proximal sigmoid colon slightly extends into a left inguinal hernia. There is an acute horizontal fracture along the inferior endplate of L1 with minimal loss of vertebral body height. No retropulsion is present. No extension into the posterior elements is noted. No additional acute fractures. IMPRESSION: 1. Acute horizontal fracture along the inferior endplate of L1 with minimal loss of vertebral body height. No retropulsion. No extension into the posterior elements. 2. No additional acute traumatic findings on unenhanced exam. 3. 5.5 cm infrarenal abdominal aortic aneurysm, increased in caliber since CT of April 19, 2021 when it measured 4.8 cm. 4. Cardiomegaly with mild interstitial pulmonary edema. CT cervical spine wo con Stat FINDINGS: Alignment of the cervical spine is anatomic. Vertebral body heights are maintained. There are no cervical spine fractures. There is moderate degenerative disc disease and facet arthrosis within the cervical spine. Cortical irregularity of the inferior endplate of T2 is unchanged since CT of October 30, 2022. No acute fractures are identified. There is no prevertebral edema. Interlobular septal thickening within the lung apices is incidentally noted. IMPRESSION: No acute cervical spine fracture or subluxation. CT head/brain wo con Stat FINDINGS: There are stable severe chronic small vessel ischemic changes. Stable small area of encephalomalacia right occipital lobe consistent with old infarction. No intracranial hemorrhage seen. No mass effect, midline shift, or hydrocephalus. Stable globus pallidus calcifications, unremarkable in this age group. No skull fracture seen. Visualized paranasal sinuses and mastoid air cells are clear. IMPRESSION: No acute findings. 06/20/24 15:09 CT lumbar spine wo con Urgent CT thoracic spine wo con Urgent FINDINGS: Vertebrae: The bones are demineralized. There is mild convex right thoracic and convex left lumbar spinal bowing. There is an acute compression fracture of the superior endplate of L1 with 3-4 mm retropulsion and mild superior endplate concavity. There is mild anterior height loss. There is an acute appearing mild compression deformity of the inferior endplate of T2 with mild anterior wedging. No retropulsion. There is moderate thoracolumbar spondylosis. There is mild to moderate diffuse lumbar facet arthrosis. There is grade 1 degenerative retrolisthesis of L3 on L4. No traumatic subluxation identified. There are 12 rib-bearing thoracic and 5 nonrib-bearing lumbar type vertebra. Discs/spinal canal/neural foramina: There is diffuse thoracolumbar mild to moderate disc space narrowing. There is mild ventral canal stenosis related to retropulsion of the L1 fracture and degenerative disc change. There is moderate canal stenosis secondary to diffuse osteophyte disc bulge and ligamentous and facet hypertrophy L2-L3, L3-L4 and L4-L5. Bilateral foraminal stenosis at these levels. There is a diffuse predominantly central disc bulge L5-S1 with slight bilateral subarticular narrowing right greater than left with impingement of the right foraminal S1 nerve root and moderate canal stenosis. Soft tissues: No significant abnormality noted. Lymph nodes: Shotty nodes present in all mediastinal compartments and smaller nodes in the bilateral hilum. Largest singly measurable node is in the aortopulmonary window measuring short axis dimension 1.3 cm. Lungs and pleural spaces: There is coarse bilateral symmetrical reticulation and mild bronchiectasis and honeycombing in the visualized lower lobes. Heart: Partially imaged heart is enlarged. IMPRESSION: 1. Acute appearing compression fractures of T2 and L1 as above. 2. Moderate to marked multilevel degenerative changes of the lumbar spine. 3. Pulmonary fibrosis and mediastinal and hilar adenopathy likely reactive. 06/23/24 12:46 MR lumbar spine wo con Routine FINDINGS: Aneurysmal dilation of the infrarenal abdominal aorta redemonstrated which measured 5.5 cm on the most recent study from 06/20/2024. Cortical thinning of the kidneys with bilateral perinephric stranding and left renal cysts. No lymphadenopathy. Study is mildly motion degraded. There is mild Modic type I degeneration involving the superior endplate of L4. Fatty marrow changes compat ible with bone demineralization. Acute horizontal fracture through the anterior and superior endplates of L1 redemonstrated again with less than 20% vertebral body height loss and no retropulsion. There is equivocal fracture extension into the left pedicle. The right pedicle and bilateral lamina appear intact. Mild paravertebral edema without additional acute fracture or subluxation. Small posterior Tarlov cysts are noted at L4-L5 and L5-S1 with multilevel facet effusions. T12-L1: Spondylotic spurring with moderate facet arthrosis. No central canal or neural foraminal stenosis. L1-L2: Small posterior annular disc bulge with spondylitic spurring and moderate facet arthrosis. No central canal or neural foraminal stenosis. L2-L3: Mild intervertebral disc space narrowing. Spondylitic spurring with circumferential annular disc bulge/disc osteophyte complex. Ligamentum flavum thickening with moderate to severe facet arthrosis. Mild central canal stenosis with AP dimension of the thecal sac measuring 9 mm. There is at least mild narrowing of the lateral recesses. The right neural foramen is patent. Mild left foraminal stenosis. L3-L4: Osteophytic spurring is most pronounced anteriorly. Mild intervertebral disc space narrowing and circumferential annular disc bulge. Ligamentum flavum thickening with moderate facet arthrosis. Moderate central canal stenosis with AP dimension of the thecal sac measuring 6 mm. There is at least moderate narrowing of the lateral recesses. Mild to moderate bilateral foraminal stenosis. L4-L5: Mild to moderate intervertebral disc space narrowing. Osteophytic spurring is most pronounced anteriorly. Circumferential annular disc bulge with disc osteophyte complex. Severe facet arthrosis with ligamentum flavum thickening. Moderate central canal stenosis with AP dimension of the thecal sac measuring 7 mm. Severe narrowing of the lateral recesses. Moderate right with moderate to severe left foraminal stenosis. L5-S1: Mild intervertebral disc space narrowing. Spondylitic spurring with small circumferential annular disc bulge and posterior annular fissure. Ligamentum flavum thickening with moderate to severe facet arthrosis. Patent central canal. Moderate narrowing of the lateral recesses. Severe right with mild to moderate left foraminal narrowing. IMPRESSION: 1. Unchanged alignment of the acute horizontal fracture involving the superior endplate and mid vertebral body at L1 resulting in less than 20% vertebral body height loss and no retropulsion. 2. No additional acute fracture or subluxation. 3. Degenerative changes of the lumbar spine as above with resultant multilevel central canal and neural foraminal narrowing. 4. Aneurysmal dilation of the abdominal aorta redemonstrated. 06/26/24 10:00 Fluoro video [FL video swallow] Routine Findings: There were 2 episodes of mild, silent aspiration with thin liquids. No additional abnormalities were identified. IMPRESSION: Silent aspiration observed Hospital Course (1) Fall: (2) Low back pain: (3) L1 vertebral fracture: (4) Atrial fibrillation with RVR: (5) History of CVA (cerebrovascular accident): (6) Diabetes mellitus, type II: (7) CKD (chronic kidney disease) stage 3, GFR 30-59 ml/min: Patient is 88 year old male with PMH HTN, HLD, history CVA, DM II, CKD III, BPH, gout, hypothyroidism, h/o AAA, dementia, PAF anticoagulated on Eliquis who presented to the ER with c/o fall during the night and low back pain. Pt's family would like him to go to acute rehab before pursuing hospice services. He is currently being treated for the following: Possible Aspiration Pneumonia Acute hypoxic respiratory Failure Pt with episodes of difficulty swallowing XR from 06/23 concerning for pneumonia, repeat on 06/26 with noted possible pleural effusion, repeat on 06/28 with concern for pneumonia once more Pt with episodes of increased oxygen requirements at times guaifenesin, flutter valve, IS Also received occasional diuretic doses Speech consulted, video swallow on 06/26 noting 2 episodes of silent aspiration Completed 5 days of abx with repeat pneumonia noted on chest xray on 06/28- pt started on IV Unasyn, continue Oxygen supplementation as needed, wean as tolerated Continue to monitor 07/03 Pt currently down to 2L of suppl. O2 - cont. current management as above Dementia Acute on chronic Encephalopathy Pt confused at times Had reported delirium like symptoms upon discharge from hospital which seems to have cleared when pt returned home Head CT on admission without acute changes Acute encephalopathy in the setting of infection as well Delirium precautions. Frequent reorientation, avoid sedating medications as able Palliative care consulted, appreciate recs Continue to monitor Fall Ambulatory dysfunction T2, L1 fracture CT Head: No acute findings. CT C-Spine: No acute fracture Pelvis Xray: No acute fracture CT Abd/pelvis noting an acute fracture of L1 and "5.5 cm infrarenal abdominal aortic aneurysm, increased in caliber since CT of April 19, 2021 when it measured 4.[address] Thoracic spine to r/o thoracic fracture noting acute compression fractures of T2 and L1. MRI lumbar spine- L1 horizontal fracture, degenerative changes Pain control Orthotics consult for TLSO brace Walks with walker at baseline Fall precautions PT/OT eval- recommending SNF Ortho spine consulted appreciate recs History PAF Afib RVR Admitted 06/18/24-06/19/24 for new onset A-fib RVR. Started on metoprolol succinate 100 mg daily and started on Eliquis twice daily. 06/19/24 echo: Moderate concentric LVH, no wall motion abnormalities, EF: 50-55%, trace aortic regurgitation, mild-moderate mitral regurgitation. On admission Troponins flat 27, 28 Initially presented to ER in sinus rhythm. During ER course patient appeared to develop A-fib RVR rate up to 160. Cardiology consulted, appreciate recs. Current recommendations are: -Continue Amiodarone 200 mg daily -Continue metoprolol 50 mg BID -continue Eliquis 2.5 mg BID Continue to monitor on telemetry Acute on Chronic HFpEF Not currently on home diuretics likely secondary to pna, Afib RVR, etc. diuresis and abx treatment as above Monitor volume status closely Hypokalemia Replete as needed Chronic Anemia Hgb at baseline Monitor H/H CKD III Cr: 2.1 on admission, peaked to 2.8 Monitor renal function, avoid nephrotoxic agents when possible Abdominal Aneurysm Noted on imaging Aneurysm expanded to 5.5cm range Chart review shows Vascular Surgery notes from 2021 where continued plavix and statin therapy was recommended EPIC Chart review noted increased size to >5cm in 2022 and pt following with the [facility] program before disenrollment per recs of his PCP due to "age and conditions." PCP follow up as needed Pulmonary Fibrosis Noted on imaging Stable HTN Continue losartan, metoprolol succinate, amio - as above Pain control as above monitor BP History of CVA (cerebrovascular accident): Continue Plavix Atorvastatin was d/c in 05/2024 per pt and request to decrease amount of medications Diabetes mellitus, type II: A1c: 7.3 on 4/10/25 Not on home medication per pt request Novolog sliding scale per protocol BPH (benign prostatic hyperplasia): Continue tamsulosin Hypothyroidism: Continue levothyroxine Possible thrush Oral nystatin Total Time Total Time Spent Total Time Spent (In Minutes): 40 Discharge Plan Discharge Items Patient Disposition: Transfer Residential Fac Reason For Visit: FALL Discharge Diagnosis: Acute hypoxic respiratory failure Fall, ambulatory dysfunction, T2, L1 fracture Afib w/ RVR Possible aspiration pneumonia Acute on chronic HFpEF Activity: Per Instructions section Non-emergency contact: Primary Care Provider Call non-emergency contact if: you have any medication questions and your symptoms worsen Follow-up/Referrals: [facility] [Primary Care Provider] - Diet: Carb Consistent or DM2 and Heart Healthy Diet Texture: Dental soft (bite-sized) Addtl Attending Provider Instructions: Follow up with primary care physician. Finish antibiotic treatment as prescribed. You were diagnosed with atrial fibrillation - and started on Amiodarone - Take Amiodarone 200 mg daily, metoprolol 50 mg BID. Continue Eliquis 2.5 mg BID. Recommend to continue using flutter valve and incentive spirometer. Take guaifenesin. Pending Studies at Discharge: No Stand-Alone Forms: My [facility] Skilled Items Patient informed of condition?: Yes DNR: Yes Discharge Level of Care: Skilled Communicable Disease: No Discharge Prognosis: Stable Lines: None Urinary Catheter: Yes Medications and DC Order Prescriptions: New Eliquis 2.5 mg Tablet 2.5 mg PO BID Qty: 60 0RF metoprolol succinate 50 mg Tablet Extended Release 24 Hr 50 mg PO BID Qty: 60 0RF amlodipine [Norvasc] 5 mg Tablet 2.5 mg PO QAM Qty: 30 0RF acetaminophen [Tylenol Extra Strength] 500 mg Tablet 1,000 mg PO Q8H PRN (Reason: pain) Qty: 20 0RF losartan 25 mg Tablet 25 mg PO DAILY Qty: 30 0RF levothyroxine [Synthroid] 50 mcg Tablet 50 mcg PO DAILYBB Qty: 30 0RF allopurinol 100 mg Tablet 100 mg PO QAM Qty: 30 0RF melatonin 3 mg Tablet 3 mg PO HS PRN (Reason: sleep) Qty: 7 0RF guaifenesin [Mucinex] 600 mg Tablet Extended Release 12hr 600 mg PO DAILY Qty: 10 0RF nystatin 100,000 unit/mL Suspension 5 ml PO QID 5 Days Qty: 100 0RF oxycodone 5 mg Tablet 2.5 mg PO Q6H PRN (Reason: pain) Qty: 7 0RF amoxicillin-pot clavulanate 875-125 mg tablet 1 tab PO BID Qty: 4 0RF amiodarone 200 mg Tablet 200 mg PO QAM Qty: 30 0RF Continued fluocinonide 0.05 % cream 1 applic topical BID PRN (Reason: Skin Irritation) clopidogrel [Plavix] 75 mg tablet 75 mg PO DAILY Qty: 30 0RF Patient Comments: STOPPED FOR PROCEDURE allopurinol 100 mg tablet 100 mg PO QAM cetirizine 10 mg tablet 10 mg PO DAILY tamsulosin 0.4 mg capsule 0.4 mg PO QPM levothyroxine 50 mcg Capsule 50 mcg PO QAM Benadryl 2 % Gel 1 applic TOPICAL BID PRN (Reason: Skin Irritation) losartan 25 mg Tablet 25 mg PO DAILY polyethylene glycol 3350 [Miralax] 17 gram/dose Powder 17 g PO DAILY fluticasone propionate 50 mcg/actuation [place],Suspension 2 spray INTRANASAL HS Rx Instructions: alternatively can be given 1 spay in each nostril BID. administer into each nostril Glucerna Liquid 1 ea PO DAILY duloxetine 20 mg Capsule,Delayed Release(Dr/Ec) 20 mg PO DAILY diclofenac sodium 1 % Gel 2 g TOPICAL QID PRN (Reason: joint pain) Rx Instructions: apply to single elbow, wrist or hand; for hand includes palm/fingers/back of hand Discontinued guaifenesin [Mucinex] 600 mg Tablet Extended Release 12hr 600 mg PO DAILY PRN (Reason: Congestion) acetaminophen [Tylenol Extra Strength] 500 mg Tablet 650 mg PO BID PRN (Reason: pain,fever,headache) metoprolol succinate 100 mg capsule,sprinkle,ER 24hr 100 mg PO DAILY Qty: 30 0RF Rx Instructions: please start tomorrow 06/20 in AM Eliquis 5 mg tablet 5 mg PO BID Qty: 60 0RF Discharge Orders: Discharge Order (Routine); Ordered 07/04/24 Ordered By: Dez Jolyl Admission Data Admit Date/Time: 06/20/24 15:04 Attending Provider: Dez Jolly Admit Provider: Lambert Mendez Primary Care Provider: [facility] Other Providers: Lambert Mendez; Jani Albrecht.; [facility]; Anoop Cortez; [place],[facility]; [facility] Rend[facility] [place]; [facility],; Evelin Prieto.
[2024-07-04 16:55] VITALS: BP 162/67; PULSE 65
== END 2024-07-04 17:35 | DRG 551 ==
LOC: ED 11:40 → 4W 15:04 → SUATTDRO 15:04 → 4W 18:10